=== PATIENT | female | born 1990 | race Caucasian/White ===

== ENCOUNTER → 2017-07-07 13:28 | Outpatient (REF) | payer OTHER, SELFPAY ==
[2017-07-07 19:16] LABS: Basophils # 0.1 K/mm3 (0-0.2); Basophils % 0.4 % (0.1-2.0); Eosinophils # 0.4 K/mm3 (0.0-0.4); Eosinophils % 3.3 % (0.1-12.0); Hematocrit 47.5 % (37.0-47.0); Hemoglobin 15.2 g/dL (12.2-16.2); Lymphocytes # 3.1 K/mm3 (0.7-4.5); Lymphocytes % 26.8 K/mm3 (10-50); Mean Corpuscular HGB Conc 32.1 g/dL (31.8-35.4); Mean Corpuscular Hemoglobin 28.7 pg (27.0-31.2); Mean Corpuscular Volume 89.4 fl (81-99); Mean Platelet Volume 8.4 fl (7.4-10.4); Monocytes # 0.8 K/mm3 (0.1-1.0); Monocytes % 6.5 % (1.7-9.3); Neutrophils # 7.3 K/mm3 (1.8-7.8); Platelet Count 354 K/mm3 (142-424); Red Blood Count 5.31 M/mm3 (4.20-5.40); Red Cell Distribution Width 13.8 % (11.5-17.5); White Blood Count 11.5 K/mm3 (4.8-10.8)
[2017-07-07 19:30] LABS: Alanine Aminotransferase 39 U/L (12-78); Albumin Level 3.6 gm/dL (3.4-5.0); Albumin/Globulin Ratio 0.9 (1.1-1.8); Alkaline Phosphatase 121 U/L (46-116); Anion Gap 11.6 mEq/L (5-15); Aspartate Amino Transferase 21 U/L (15-37); Bilirubin,Total 0.1 mg/dL (0.2-1.0); Blood Urea Nitrogen 15 mg/dL (7-18); Calcium 9.8 mg/dL (8.5-10.1); Carbon Dioxide 27 mmol/L (21.0-32.0); Chloride 103 mmol/L (98-107); Chol/HDL Ratio 5.2 (1-3.5); Cholesterol 194 mg/dL (140-200); Creatinine,Serum 0.84 mg/dL (0.55-1.02); Estimated Glomerular Filt Rate 83 ml/min (>60); Free T4 (Free Thyroxine) 1.04 ng/dl (0.76-1.46); GFR (African American) 100 ML/MIN (>60); Globulin 4.2 gm/dl (1.3-3.2); Glucose 93 mg/dL (74-106); HDL Cholesterol 37 mg/dL (29-89); LDL Cholesterol 117 mg/dL (0-130); Potassium 4.6 mmoL/L (3.5-5.1); Sodium 137 mmol/L (136-145); Thyroid Stimulating Hormone 1.76 uIU/ml (0.358-3.740); Total Protein,Serum 7.8 gm/dL (6.4-8.2); Triglycerides 200 mg/dL (30-200); VLDL Cholesterol 40 mg/dL (0-40)
[2017-07-07 19:48] LABS: Hemoglobin A1C 5.8 % (0.0-7.0)
[2017-07-10 06:26] LABS: Vitamin D 25 Hydroxy 17.6 ng/mL (30.0-100.0)
== END ==
LOC: LAB 13:28
PROVIDERS: Visit Provider Nurse Practitioner Family
DX: R53.83 Other fatigue (principal); Z86.79 Personal history of other diseases of the circulatory system
CPT/HCPCS: 80053; 80061; 82652; 83036; 84439; 84443; 85025

== ENCOUNTER → 2017-08-08 13:46 | Outpatient (CLI) | payer OTHER, SELFPAY ==
--- NOTE | 2017-08-08 13:47 | CA_ITS ---
PROCEDURE: 2-D M-mode and color Doppler study INDICATIONS FOR THE TEST: Chest pain COPD Heart Murmur Tobacco Smoking+ Palpitations Fatigue Syncope Edema Hypertension Diabetes Mellitus Rheumatic Fever SOB CHAND+Obesity Hyperlipidemia Family History HD Additional History ABN EKG, PERICARDIAL WINDOW 12/19/09 PATIENT INFORMATION HEIGHT: 62 WEIGHT:248 GENDER: Female B/P:135/75 2-D/M-MODE INTERPRETATION: 2-D MEASUREMENTS OBSERVED VALUES IN CMS Right Ventricular Dimension (RVDd) 2.5 Interventricular Septum (Thickness)(IVsd) 1.2 Left Ventricular Internal Dimensions(LVIDd) 4.5 Left Ventricular Posterior Wall (Thickness)(LVPWd) 1.0 Aortic Root 2.5 Aortic Cusp Separation 1.9 Left Atrial Dimensions (LAD) 3.7 2D 1. Left atrium is normal size, left ventricle is normal size, there is no concentric left ventricular hypertrophy, visually estimated ejection fraction 55% with no obvious regional wall motion abnormality. 2. The right atrium and right ventricle are normal size and contractility. 3. The aortic valve, mitral and tricuspid valvular grossly normal. 4. The pulmonic valve is poorly visualized. 5. No significant pericardial effusion noted. DOPPLER INTERROGATION: Doppler interrogation of the aortic, mitral and tricuspid valve reveals presence of mild mitral and tricuspid regurgitation, tricuspid and jet velocity is insufficient for calculation of the right ventricular systolic pressure, diastolic parameters are inconclusive. CONCLUSION: 1. Normal left ventricular size, preserved left ventricular systolic function, visually estimated ejection fraction 55% with no obvious regional wall motion abnormality, diastolic parameters are inconclusive. 2. Mild mitral and tricuspid regurgitation 3. No significant pericardial effusion noted.
== END ==
PROVIDERS: Family Provider Family Medicine; PCP Nurse Practitioner Family; Visit Provider Internal Medicine
DX: R06.02 Shortness of breath (principal)
CPT/HCPCS: 93306

== ENCOUNTER → 2018-01-24 18:18 | Outpatient (CLI) | payer OTHER, SELFPAY ==
[2018-01-24 18:51] LABS: Basophils # 0.1 K/mm3 (0-0.2); Basophils % 0.4 % (0.1-2.0); Eosinophils # 0.4 K/mm3 (0.0-0.4); Eosinophils % 3.1 % (0.1-12.0); Hematocrit 46.8 % (37.0-47.0); Hemoglobin 15.2 g/dL (12.2-16.2); Lymphocytes # 3.1 K/mm3 (0.7-4.5); Lymphocytes % 26.3 % (10-50); Mean Corpuscular HGB Conc 32.4 g/dL (31.8-35.4); Mean Corpuscular Hemoglobin 29.7 pg (27.0-31.2); Mean Corpuscular Volume 91.5 fl (81-99); Mean Platelet Volume 8.3 fl (7.4-10.4); Monocytes # 0.7 K/mm3 (0.1-1.0); Monocytes % 6.1 % (1.7-9.3); Neutrophils # 7.5 K/mm3 (1.8-7.8); Platelet Count 360 K/mm3 (142-424); Red Blood Count 5.11 M/mm3 (4.20-5.40); Red Cell Distribution Width 14.4 % (11.5-17.5); White Blood Count 11.8 K/mm3 (4.8-10.8)
[2018-01-24 19:26] LABS: HCG Qualitative, Serum Negative (Negative)
[2018-01-24 20:33] LABS: Alanine Aminotransferase 70 U/L (12-78); Albumin Level 3.7 gm/dL (3.4-5.0); Albumin/Globulin Ratio 0.9 (1.1-1.8); Alkaline Phosphatase 104 U/L (46-116); Anion Gap 15.6 mEq/L (5-15); Aspartate Amino Transferase 29 U/L (15-37); Bilirubin,Total 0.1 mg/dL (0.2-1.0); Blood Urea Nitrogen 15 mg/dL (7-18); Calcium 8.8 mg/dL (8.5-10.1); Carbon Dioxide 24 mmol/L (21.0-32.0); Chloride 103 mmol/L (98-107); Chol/HDL Ratio 4.7 (1-3.5); Cholesterol 221 mg/dL (140-200); Estimated Glomerular Filt Rate 87 ml/min (>60); Free T4 (Free Thyroxine) 1.04 ng/dl (0.76-1.46); GFR (African American) 105 ML/MIN (>60); Globulin 4.3 gm/dl (1.3-3.2); Glucose 82 mg/dL (74-106); HDL Cholesterol 47 mg/dL (29-89); LDL Cholesterol 151 mg/dL (0-130); Potassium 4.6 mmoL/L (3.5-5.1); Sodium 138 mmol/L (136-145); Thyroid Stimulating Hormone 1.29 uIU/ml (0.358-3.740); Triglycerides 116 mg/dL (30-200); VLDL Cholesterol 23 mg/dL (0-40)
[2018-01-27 09:12] LABS: Vitamin D 25 Hydroxy 22.2 ng/mL (30.0-100.0)
== END ==
PROVIDERS: Visit Provider Nurse Practitioner Family
DX: N93.9 Abnormal uterine and vaginal bleeding, unspecified (principal); R53.83 Other fatigue
CPT/HCPCS: 80053; 80061; 82652; 84439; 84443; 84703; 85025

== ENCOUNTER 2018-03-10 14:16 | Outpatient (CLI) | payer OTHER, SELFPAY ==
--- NOTE | 2018-03-10 14:20 | PC.NURSE ---
HERE FOR [facility] PRE EMPLOYMENT PHYSICAL
== END 2018-03-10 15:04 | disposition home or self-care (01) ==
LOC: UTC.OUT 14:17
PROVIDERS: PCP Nurse Practitioner Family; Visit Provider Nurse Practitioner Family
DX: Z00.00 Encounter for general adult medical examination without abnormal findings (principal)

== ENCOUNTER → 2018-08-01 07:04 | Outpatient (CLI) | payer OTHER, SELFPAY ==
--- NOTE | 2018-08-01 07:06 | NM_ITS ---
SPECT MYOCARDIAL PERFUSION SCAN, REST AND STRESS: EXERCISE STRESS: [facility] REVIEW QGS EF AND WALL MOTION EVALUATION: QPS - PERFUSION EVALUATION: HISTORY: SOB, Fatigue, HTN, Tobacco use, Family history PROCEDURE: Rest imaging performed after administration of10.51 millicuries Tc MIBI. Dose administered at7:20 a.m., with imaging thereafter. Stress imaging was then performed following6 minutes of exercise stress. The patient achieved a heart [id number] with projected heart rate of164 . Resting BP100/70 with stress 150/80. At maximum exercise stress,28.8 millicuries Tc MIBI administered at9:30 a.m. with [id number] minutes thereafter. FINDINGS: Perfusion Evaluation: The single slice spect images as well as the [facility] bull's-eye data summary were reviewed. Wall Motion and Ejection Fraction Evaluation: Gated SPECT review and analysis used to evaluate these features. There is a 57 % left ventricular ejection fraction. There seems to be good wall motion Decreased activity in the anterior wall with both stress and rest. Gated images calculated ejection fraction 57% with normal wall motion IMPRESSION: Decent exercise capacity with normal EKG response to exercise. The large anterior defect is most consistent with breast attenuation however clinical correlation is advised. Normal ejection fraction normal wall motion
--- NOTE | 2018-08-01 07:53 | HMH.ITSHM ---
Current Home Medications as stated by this patient Kya Merrill or passenger service representative. []BISOPROLOL PROSAC PRILOSEC CALCIUM COQ10
== END ==
PROVIDERS: PCP Nurse Practitioner Family; Visit Provider Physician Assistant
DX: R07.9 Chest pain, unspecified (principal); I31.3 Pericardial effusion (noninflammatory); R06.09 Other forms of dyspnea; F17.200 Nicotine dependence, unspecified, uncomplicated; Z86.79 Personal history of other diseases of the circulatory system
CPT/HCPCS: 78452; 93017; A9502

== ENCOUNTER → 2019-01-23 13:45 | Outpatient (CLI) | payer OTHER, SELFPAY ==
[2019-01-23 15:27] LABS: Chloride 101 mmol/L (98-107); HDL Cholesterol 48 mg/dL (29-89); Potassium 4.3 mmoL/L (3.5-5.1); Triglycerides 125 mg/dL (30-200); VLDL Cholesterol 25 mg/dL (0-40)
[2019-01-23 15:31] LABS: Hemoglobin A1C 5.9 % (0.0-7.0)
[2019-01-23 15:45] LABS: Alanine Aminotransferase 42 U/L (12-78); Albumin Level 3.5 gm/dL (3.4-5.0); Albumin/Globulin Ratio 0.9 (1.1-1.8); Alkaline Phosphatase 110 U/L (46-116); Anion Gap 12.3 mEq/L (5-15); Aspartate Amino Transferase 24 U/L (15-37); Bilirubin,Total 0.2 mg/dL (0.2-1.0); Blood Urea Nitrogen 12 mg/dL (7-18); Calcium 9.1 mg/dL (8.5-10.1); Carbon Dioxide 25 mmol/L (21.0-32.0); Chol/HDL Ratio 4.6 (1-3.5); Cholesterol 223 mg/dL (140-200); Estimated Glomerular Filt Rate 86 ml/min (>60); GFR (African American) 104 ML/MIN (>60); Globulin 3.9 gm/dl (1.3-3.2); Glucose 88 mg/dL (74-106); LDL Cholesterol 150 mg/dL (0-130); Sodium 134 mmol/L (136-145); Thyroid Stimulating Hormone 1.19 uIU/ml (0.358-3.740); Total Protein,Serum 7.4 gm/dL (6.4-8.2)
== END ==
PROVIDERS: Visit Provider Nurse Practitioner Psychiatric/Mental Health
DX: Z00.00 Encounter for general adult medical examination without abnormal findings (principal); Z79.899 Other long term (current) drug therapy; F98.8 Other specified behavioral and emotional disorders with onset usually occurring in childhood and adolescence; F32.9 Major depressive disorder, single episode, unspecified; F41.1 Generalized anxiety disorder; F43.10 Post-traumatic stress disorder, unspecified
CPT/HCPCS: 36415; 80053; 80061; 83036; 84443

== ENCOUNTER → 2019-02-15 09:38 | Outpatient (CLI) | payer OTHER, SELFPAY ==
[2019-02-15 10:45] LABS: HCG,Quantitative 289 mIU/mL
== END ==
PROVIDERS: Visit Provider Obstetrics & Gynecology
DX: Z32.00 Encounter for pregnancy test, result unknown (principal)
CPT/HCPCS: 36415; 84702

== ENCOUNTER → 2019-03-28 15:18 | Outpatient (CLI) | payer OTHER, SELFPAY ==
[2019-03-28 16:12] LABS: Basophils % 0.3 % (0.1-2.0); Eosinophils # 0.3 K/mm3 (0.0-0.4); Eosinophils % 2.4 % (0.1-12.0); Hematocrit 40.6 % (37.0-47.0); Hemoglobin 13.2 g/dL (12.2-16.2); Lymphocytes % 18.9 % (10-50); Mean Corpuscular HGB Conc 32.4 g/dL (31.8-35.4); Mean Corpuscular Hemoglobin 28.6 pg (27.0-31.2); Mean Corpuscular Volume 88.5 fl (81-99); Mean Platelet Volume 7.6 fl (7.4-10.4); Monocytes # 0.4 K/mm3 (0.1-1.0); Monocytes % 3.7 % (1.7-9.3); Neutrophils % 74.6 % (37.0-80.0); Platelet Count 293 K/mm3 (142-424); Red Blood Count 4.59 M/mm3 (4.20-5.40); White Blood Count 10.7 K/mm3 (4.8-10.8)
[2019-03-28 17:10] LABS: Alanine Aminotransferase 32 U/L (12-78); Albumin Level 3.1 gm/dL (3.4-5.0); Albumin/Globulin Ratio 0.8 (1.1-1.8); Alkaline Phosphatase 76 U/L (46-116); Anion Gap 16.3 mEq/L (5-15); Aspartate Amino Transferase 23 U/L (15-37); Bilirubin,Total 0.2 mg/dL (0.2-1.0); Blood Urea Nitrogen 9 mg/dL (7-18); Carbon Dioxide 23 mmol/L (21.0-32.0); Chloride 103 mmol/L (98-107); Creatinine,Serum 0.62 mg/dL (0.55-1.02); Estimated Glomerular Filt Rate 115 ml/min (>60); GFR (African American) 140 ML/MIN (>60); Globulin 3.9 gm/dl (1.3-3.2); Glucose 81 mg/dL (74-106); Potassium 4.3 mmoL/L (3.5-5.1); Sodium 138 mmol/L (136-145)
[2019-03-30 11:27] LABS: HIV Screen 4th Generation wRfx Non Reactive (Non Reactive); Hepatitis B Surface Antigen Negative (Negative); Hepatitis C Antibody <0.1 s/co ratio (0.0-0.9); Rapid Plasma Reagin Ab Titer Non Reactive (NonRea<1:1)
[2019-03-31 11:04] LABS: Rubella Antibodies, IgG 2.53 index (Immune >0.99)
== END ==
PROVIDERS: Visit Provider Obstetrics & Gynecology
DX: Z34.90 Encounter for supervision of normal pregnancy, unspecified, unspecified trimester (principal)
CPT/HCPCS: 36415; 80053; 85025; 86592; 86703; 86762; 86850; 87340; 87380; G0432

== ENCOUNTER → 2019-05-29 10:17 | Outpatient (CLI) | payer OTHER, SELFPAY ==
--- NOTE | 2019-05-29 10:17 | US_ITS ---
PROCEDURE: US OB /MATERNAL DETAIL CLINICAL INDICATION: US OB Complete COMPARISON: US OB TRANSVAGINAL from 02/22/2019 FINDINGS: Single viable intrauterine gestation. Breech position. Placenta: Posteriorplacenta grade 0. There is average amount fluid. The cervix appears satisfactory. Closed and measuring 4.1 centimeters in length. Complete survey performed and was unremarkable on the submitted images as in PACS. No discrete anomalies identified on survey imaging by technologist. Active fetus. Three-vessel cord with satisfactory umbilical cord insertion. 4- chamber heart noted. Survey of brain & ventricles Unremarkable. Face and neck survey unremarkable. Diaphragm and chest views unremarkable. Abdomen: Both kidneys noted and unremarkable. Stomach noted and satisfactory. Spine: Survey of the spine satisfactory with no anomalies identified nor imaged. Both arms and legs noted. Amniotic Fluid: Adequate. Maternal adnexa: No significant findings. Measurements: Average ultrasound age 19weeks 5days. Gestational Age 19weeks 5days Estimated due date by ultrasound age 0810/18/2019. Estimated weight 320g BPD = 19weeks 1day OFD = 20 weeks 2 days HC = 19weeks 1day AC = 20weeks 1day FL = 20weeks 1day Growth Percentile= 22Percent% Heart Rate = 140bpm Cerebellum = 20weeks 1day Humerus = 20weeks 2days HC/AC is 1.1 CI is 0.74 FL/BPD is 0.74 FL/AC is 0.22 Average ultrasound age 19weeks 5days. Gestational Age 20 weeks 1 day Estimated due date by ultrasound age 0810/18/2019. Estimated weight 320ggrams. BPD = 19 weeks 1 day OFD = 20 weeks 2 days HC = 19 weeks 1 day AC = 20 weeks 1 day FL = 20 weeks 1 day Growth Percentile= 22Percent% Heart Rate = 140bpm Cerebellum = 20 weeks 1 day Humerus = 20 weeks 2 days HC/AC is 1.1 CI is 0.74 FL/BPD is 0.74 FL/AC is 0.22 IMPRESSION: Living intrauterine gestation at 19 weeks 5 days in a breech presentation Dictated by: Enmanuel Emanuel 05/29/2019 12:30 Electronically signed by Enmanuel Emanuel in [place] 05/29/2019 12:30
== END ==
PROVIDERS: PCP Nurse Practitioner Family; Visit Provider Obstetrics & Gynecology
DX: Z36.0 Encounter for antenatal screening for chromosomal anomalies (principal)
CPT/HCPCS: 76811

== ENCOUNTER 2019-06-07 20:19 | Emergency (ER) | payer OTHER, SELFPAY ==
[2019-06-07 20:19] VITALS: BP 143/69; PULSE 100; RESP 16; TEMP 36.6; O2SAT 97; BMI 45.5
[2019-06-07 20:31] VITALS: BP 143/69; PULSE 100; RESP 16; TEMP 36.6; O2SAT 97; BMI 44.1
--- NOTE | 2019-06-07 20:37 | HMH.EDUTC ---
[facility] [place] Clinical Impression: Strep throat Vomiting Qualifiers: Vomiting type: unspecified Vomiting Intractability: non-intractable Nausea presence: with nausea Qualified Code(s): R11.2 - Nausea with vomiting, unspecified Disposition: Home, Self-Care Condition on Discharge: Good Instructions: Strep Throat, DI for Strep Throat Additional Instructions: Drink plenty of fluids. Take tylenol for pain or fever. Notify Dr. Campos about your symptoms and get them to call you in some more metoclopramide for nausea. Take the medications as directed. Follow up with your regular doctor. GO TO THE ER FOR ANY WORSENING SYMPTOMS Referrals: Hellen Guardado APRN [Primary Care Provider] - Forms: Work/School Release Medical Decision Making - Medical Records Medical records reviewed: No: I reviewed the patient's medical records. - [place] Inquiry Pt receiving controlled substance: No Vital Signs: 06/07/19 20:19 06/07/19 20:31 06/07/19 21:07 Temperature 97.8 F 97.8 F 97.8 F Temperature Source Oral Oral Oral Pulse Rate 100 H Pulse Rate [Left Radial] 100 H 100 H Respiratory Rate 16 16 19 Blood Pressure 143/69 H Blood Pressure [Right Arm] 143/69 H 143/69 H Blood Pressure Mean [Right Arm] 93 93 Blood Pressure Source Automatic Cuff Blood Pressure Source [Right Arm] Automatic Cuff Automatic Cuff Blood Pressure Position Sitting Blood Pressure Position [Right Arm] Sitting Sitting 02 Sat by Pulse Oximetry 97 97 Oxygen Delivery Method Room Air Room Air Room Air - Lab Data Lab results reviewed: Yes: I reviewed the patient's lab results. Lab Results 06/07/19 20:37: Urine Color Yellow, Urine Appearance Clear, Urine pH 6.5, Ur Specific [place] 1.025, Urine Protein Negative, Urine Glucose (UA) Negative, Urine Ketones Negative, Urine Blood Trace, Urine Nitrate Negative, Urine Bilirubin Negative, Urine Urobilinogen 0.2, Ur Leukocyte Esterase Negative [facility] [place] - General Stated complaint: 21 wk preg with vomiting Time Seen by Provider: 06/07/19 20:37 Mode of Arrival: Family Vehicle Source of Information: Patient Limitations: No Limitations Description of Symptoms (Recalled from Triage Doc. by RN): pt is 21 weeks and has been nauseous all day. pt denies any and. pain, vag bleeding or respiratory symptoms. pt stated she didnt want to be in the ER if she didnt have to HEENT Symptoms (Recalled from RN notes): No Resp Symptoms (Recalled from RN notes): No Skin Symptoms (Recalled from RN notes): No MS Symptoms (Recalled from RN notes): No Functional Status (Recalled from RN notes): n/a - History of Present Illness Provider Complaint: She states that she has vomited X2 today. She has also had diarrhea 2 times. She denies any blood in her stool or vomit. She is 21 weeks . She denies any vaginal bleeding, abdominal pain, back pain, dysuria, etc. - Related Data Home Medications Medication Instructions Recorded Confirmed Pnv No.95/Ferrous Fum/Folic AC 1 each PO DAILY 03/02/19 05/22/19 [ Vitamins Tablet] Previous Rx's Medication Instructions Recorded metoclopramide HCl 10 mg tablet 10 mg PO TID #30 tab 03/14/19 fluoxetine 40 mg capsule 40 mg PO DAILY #30 cap 05/01/19 omeprazole 20 mg capsule,delayed See Rx Instructions .ROUTE 05/28/19 release .COMPLEX #90 each Penicillin V Potassium 500 mg PO BID 10 Days #20 tab 06/02/19 Allergies Allergy/AdvReac Type Severity Reaction Status Date / Time ibuprofen [IBUPROFEN] Allergy Mild Verified 05/22/19 11:52 - Worker's Comp Is this a Worker's Comp case?: No [facility] History - Hepatitis A Screen Drug use history?: No High risk sexual behaviors?: No History of sexually transmitted infection?: No Currently employed?: No Childcare worker?: No Do you have indoor plumbing?: Yes Do you have electricity?: Yes Attestation statement:: This patient has been screened for Hepatitis A risk factors. I have reviewed the
[2019-06-07 20:38] LABS: Apearance,Urine Clear (Clear); Bilirubin,Urine Negative (Negative); Blood, Urine Trace (Negative); Color,Urine Yellow (Yellow); Glucose,Urine (UA) Negative (Negative); Ketones,Urine Negative (Negative); PH,Urine 6.5 (5.0-8.5); Protein,Urine Negative (Negative); Specific Gravity, Urine 1.025 (1.005-1.030); UTC Leukocyte Esterase,Urine Negative (Negative); UTC Nitrate,Urine Negative (Negative); Urobilinogen,Urine 0.2 EU/dl (0.2)
[2019-06-07 21:07] VITALS: BP 143/69; PULSE 100; RESP 19; TEMP 36.6; O2SAT 97
== END 2019-06-07 21:08 | disposition home or self-care (01) ==
LOC: UTC 20:52
PROVIDERS: Emergency Provider Nurse Practitioner Family; PCP Nurse Practitioner Family
DX: J02.0 Streptococcal pharyngitis (principal); Z3A.21 21 weeks gestation of pregnancy; F41.8 Other specified anxiety disorders; I10 Essential (primary) hypertension; E78.5 Hyperlipidemia, unspecified; F10.21 Alcohol dependence, in remission
CPT/HCPCS: 81003; 99201

== ENCOUNTER 2019-06-13 11:36 | Emergency (ER) | payer OTHER, SELFPAY ==
[2019-06-13 11:49] VITALS: BP 143/83; PULSE 106; RESP 18; TEMP 36.5; O2SAT 98; BMI 45.5
--- NOTE | 2019-06-13 11:58 | HMH.EDUTC ---
[facility] – [place] Disposition Clinical Impression: Right forearm pain Disposition: Home, Self-Care Condition on Discharge: Good Instructions: DI for Arm Pain Additional Instructions: Rest the extremity, Wear the conrad wrap for compression, Elevate the extremity as tolerated while you are resting. Follow up with Dr. Rodríguez. I put in a referral but you need to call her office and schedule an appointment. Follow up with your regular doctor. Follow up with your OB doctor. GO TO THE ER FOR ANY WORSENING SYMPTOMS Referrals: Mike Madrigal MD [Primary Care Provider] - Tamar Rodríguez MD [Physician] - Forms: Work/School Release Time of Disposition: 12:02 Medical Decision Making - Medical Records Medical records reviewed: No: I reviewed the patient's medical records. - [place] Inquiry Pt receiving controlled substance: No Vital Signs: 06/13/19 11:49 06/13/19 12:03 Temperature 97.7 F 97.7 F Temperature Source Oral Pulse Rate 106 H Pulse Rate [Left Brachial] 106 H Respiratory Rate 18 18 Blood Pressure 143/83 H Blood Pressure [Left Arm] 143/83 H Blood Pressure Mean [Left Arm] 103 Blood Pressure Source [Left Arm] Automatic Cuff Blood Pressure Position [Left Arm] Sitting 02 Sat by Pulse Oximetry 98 Oxygen Delivery Method Room Air [facility] [place] HPI - General Stated complaint: right arm pain, no accident Time Seen by Provider: 06/13/19 11:58 Mode of Arrival: Ambulatory Source of Information: Patient Limitations: No Limitations Description of Symptoms (Recalled from Triage Doc. 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 She denies any fall or other injury. She states that the has been 1 swollen area that is tender to touch on the right lateral aspect of her forearm. She is . - Related Data Home Medications Medication Instructions Recorded Confirmed Pnv No.95/Ferrous Fum/Folic AC 1 each PO DAILY 03/02/19 06/13/19 [ Vitamins Tablet] Fluoxetine HCl [Prozac] 40 mg PO DAILY 06/13/19 06/13/19 Metoclopramide HCl [Metoclopramide 10 mg PO TID 06/13/19 06/13/19 10mg Tablet] Omeprazole See Rx Instructions .ROUTE .COMPLEX 06/13/19 06/13/19 Allergies Allergy/AdvReac Type Severity Reaction Status Date / Time ibuprofen [IBUPROFEN] Allergy Mild Verified 05/22/19 11:52 - Worker's Comp Is this a Worker's Comp case?: No [facility] History - Hepatitis A Screen Drug use history?: No High risk sexual behaviors?: No History of sexually transmitted infection?: No Currently employed?: No Childcare worker?: No Do you have indoor plumbing?: Yes Do you have electricity?: Yes Attestation statement:: This patient has been screened for Hepatitis A risk factors. I have reviewed the patient's past medical history: Yes Medical History: Reports:: Anxiety, Depression, Hyperlipidemia, Hypertension Denies:: Asthma, Cancer, Diabetes Mellitus Type 1, Diabetes Mellitus Type 2, Migraine, MRSA, Seizures Other Medical History: Reports: Other. Denies: Anemia, Arthritis Comment: PARACARDITIS,ADHD Other Surgeries: Yes: Cardiac Surgery, Cholecystectomy, Other Amputation: No Fractures: No Comment: WISDOM TEETH, HEART SURGERY - Social History Smoking Status: Current every day smoker Tobacco Type: cigarettes # Packs/Day (cigarettes): 1 #Yrs smoked (if former smoker): 11 Alcohol Intake: never Alcohol Intake Frequency:: holidays/special occas
[2019-06-13 12:03] VITALS: BP 143/83; PULSE 106; RESP 18; TEMP 36.5; O2SAT 98
== END 2019-06-13 12:07 | disposition home or self-care (01) ==
PROVIDERS: Emergency Provider Nurse Practitioner Family; PCP Emergency Medicine
DX: M79.631 Pain in right forearm (principal); S59.811A Other specified injuries right forearm, initial encounter; X50.9XXA Other and unspecified overexertion or strenuous movements or postures, initial encounter; Y93.F9 Activity, other caregiving; Y92.129 Unspecified place in nursing home as the place of occurrence of the external cause; Y99.0 Civilian activity done for income or pay; Z33.1 Pregnant state, incidental; Z88.6 Allergy status to analgesic agent
CPT/HCPCS: 99201

== ENCOUNTER 2019-06-17 14:23 | Outpatient (CLI) | payer OTHER, SELFPAY ==
[2019-06-17 14:49] VITALS: BMI 44.8
[2019-06-17 14:58] LABS: Microscopic, Urine URINE MICROSCOPIC (MICROSCOPIC)
[2019-06-17 15:00] LABS: Appearance,Urine CLEAR (Clear); Bilirubin,Urine Negative (Negative); Blood, Urine Negative (Negative); Color,Urine YELLOW (Yellow); Glucose,Urine (UA) Negative (Negative); Ketones,Urine Negative (Negative); Leukocyte Esterase,Urine Negative (Negative); Nitrate,Urine Negative (Negative); Protein,Urine Negative (Negative); Specific Gravity, Urine >= 1.030 (1.005-1.030); Urobilinogen,Urine 0.2 EU/dl (0.2)
[2019-06-17 15:10] LABS: Amphetamine/Metha Screen,Urine Negative ng/ml (<1000); Barbiturates Screen,Urine Negative ng/ml (<200)
[2019-06-17 15:11] LABS: Benzodiazepines Screen,Urine Negative ng/ml (<200)
[2019-06-17 15:12] LABS: Cannabinoid Screen,Urine Negative ng/ml (<50); Cocaine Screen,Urine Negative ng/ml (<300)
[2019-06-17 15:13] LABS: Amorphous Sediment,Urine 1+ /lpf; Methadone Screen,Urine Negative ng/ml (<300); Mucus,Urine Trace /lpf; Opiate Screen,Urine Negative ng/ml (<300); RBC,Urine Occasional #/hpf (0-3); WBC,Urine Occasional #/hpf (0-3)
[2019-06-17 15:14] LABS: Phencyclidine Screen,Urine Negative ng/ml (<25)
== END 2019-06-17 15:15 | disposition home or self-care (01) ==
LOC: OBOUT 14:25 → OB 14:25
PROVIDERS: PCP Emergency Medicine; Visit Provider Obstetrics & Gynecology
DX: O26.892 Other specified pregnancy related conditions, second trimester; Z3A.23 23 weeks gestation of pregnancy; R04.0 Epistaxis; R11.0 Nausea
CPT/HCPCS: 59025; 80305; 81001

== ENCOUNTER 2019-06-25 09:42 | Outpatient (CLI) | payer OTHER, SELFPAY ==
[2019-06-25 09:53] VITALS: BMI 45.3
[2019-06-25 10:07] LABS: Microscopic, Urine URINE MICROSCOPIC (MICROSCOPIC)
[2019-06-25 10:09] LABS: Appearance,Urine CLEAR (Clear); Bilirubin,Urine Negative (Negative); Blood, Urine 3+ (Negative); Color,Urine YELLOW (Yellow); Glucose,Urine (UA) Negative (Negative); Ketones,Urine Negative (Negative); Leukocyte Esterase,Urine TRACE (Negative); Nitrate,Urine Negative (Negative); Protein,Urine Negative (Negative); Specific Gravity, Urine >= 1.030 (1.005-1.030); Urobilinogen,Urine 0.2 EU/dl (0.2)
[2019-06-25 10:10] VITALS: BP 135/69; PULSE 80; RESP 20; TEMP 36.4; O2SAT 98; BMI 45.3
[2019-06-25 10:20] LABS: Bacteria,Urine 1+ /lpf
[2019-06-25 10:24] LABS: Amphetamine/Metha Screen,Urine Negative ng/ml (<1000); Barbiturates Screen,Urine Negative ng/ml (<200)
[2019-06-25 10:25] LABS: Benzodiazepines Screen,Urine Negative ng/ml (<200)
[2019-06-25 10:26] LABS: Cannabinoid Screen,Urine Negative ng/ml (<50); Cocaine Screen,Urine Negative ng/ml (<300)
[2019-06-25 10:27] LABS: Methadone Screen,Urine Negative ng/ml (<300); Opiate Screen,Urine Negative ng/ml (<300)
[2019-06-25 10:28] LABS: Phencyclidine Screen,Urine Negative ng/ml (<25)
== END 2019-06-25 10:52 | disposition home or self-care (01) ==
LOC: OBOUT 09:43 → OB 09:44
PROVIDERS: Visit Provider Obstetrics & Gynecology
DX: O26.892 Other specified pregnancy related conditions, second trimester (principal); Z3A.24 24 weeks gestation of pregnancy
CPT/HCPCS: 59025; 80305; 81001; 87086; G0463

== ENCOUNTER 2019-06-26 05:53 | Outpatient (CLI) | payer OTHER, SELFPAY ==
[2019-06-26 06:44] VITALS: BP 139/91; PULSE 78; RESP 20; TEMP 36.7; O2SAT 95; BMI 46.6
[2019-06-26 07:05] LABS: Microscopic, Urine URINE MICROSCOPIC (MICROSCOPIC)
[2019-06-26 07:09] LABS: Appearance,Urine CLEAR (Clear); Bilirubin,Urine Negative (Negative); Blood, Urine 2+ (Negative); Color,Urine YELLOW (Yellow); Glucose,Urine (UA) Negative (Negative); Ketones,Urine Negative (Negative); Leukocyte Esterase,Urine Negative (Negative); Nitrate,Urine Negative (Negative); Protein,Urine Negative (Negative); Specific Gravity, Urine >= 1.030 (1.005-1.030); Urobilinogen,Urine 0.2 EU/dl (0.2)
[2019-06-26 07:17] LABS: Bacteria,Urine 1+ /lpf; Mucus,Urine 1+ /lpf
[2019-06-26 07:27] LABS: Basophils # 0.1 K/mm3 (0-0.2); Basophils % 0.4 % (0.1-2.0); Eosinophils # 0.3 K/mm3 (0.0-0.4); Eosinophils % 1.5 % (0.1-12.0); Hematocrit 38.5 % (37.0-47.0); Hemoglobin 12.8 g/dL (12.2-16.2); Lymphocytes # 2.1 K/mm3 (0.7-4.5); Lymphocytes % 9.6 % (10-50); Mean Corpuscular HGB Conc 33.4 g/dL (31.8-35.4); Mean Corpuscular Hemoglobin 29.1 pg (27.0-31.2); Mean Corpuscular Volume 87.4 fl (81-99); Mean Platelet Volume 8.4 fl (7.4-10.4); Monocytes # 0.7 K/mm3 (0.1-1.0); Monocytes % 3.4 % (1.7-9.3); Neutrophils # 18.4 K/mm3 (1.8-7.8); Neutrophils % 85.1 % (37.0-80.0); Platelet Count 323 K/mm3 (142-424); Red Blood Count 4.41 M/mm3 (4.20-5.40); Red Cell Distribution Width 14.1 % (11.5-17.5); White Blood Count 21.7 K/mm3 (4.8-10.8)
[2019-06-26 07:28] LABS: Alanine Aminotransferase 22 U/L (12-78); Albumin Level 3.9 g/dl (3.5-5.0); Albumin/Globulin Ratio 1.1 (1.1-1.8); Alkaline Phosphatase 84 U/L (38-126); Anion Gap 13.8 mEq/L (5-15); Aspartate Amino Transferase 22 U/L (14-36); Blood Urea Nitrogen 13 mg/dl (7-17); Calcium 9.5 mg/dl (8.4-10.2); Carbon Dioxide 18 mmol/L (22.0-30.0); Chloride 106 mmol/L (98-107); Creatinine Clearance Estimated 111 mL/min (50-200); Estimated Glomerular Filt Rate 120 ml/min (>60); GFR (African American) 145 ML/MIN (>60); Globulin 3.5 g/dL (1.3-3.2); Glucose 137 mg/dl (74-100); Potassium 3.8 mmoL/L (3.5-5.1); Sodium 134 mmol/L (136-145); Total Protein,Serum 7.4 g/dl (6.3-8.2)
[2019-06-26 07:31] LABS: MANUAL DIFFERENTIAL MANUAL DIFFERENTIAL (MANUAL DIFF)
[2019-06-26 07:35] LABS: Bilirubin,Total < 0.1 mg/dl (0.2-1.3)
[2019-06-26 08:08] LABS: Eosinophils % 2 % (0-3); Lymphocytes % 11 % (10-50); Monocytes % 5 % (2-9); Neutrophils % 82 % (42-76); Total Cells Counted 100
[2019-06-26 08:09] LABS: Platelet Estimate Slight Increase; RBC Morphology Normal
--- NOTE | 2019-07-18 11:37 | PC.NURSE ---
Kya Merrill Female : 1990 [facility] [place]# [id number] 06/26/19 05:56 - Nurse Note by Aisa Fairchild Acct Num: [id number] : 1990 Patient Age: 28 pt c/o right sided abd. and flank pain with nausea and vomiting. pt is 24 weeks . pt was transported to OB for evaluation. pt refused wheelchair for transportation to OB floor and insisted on walking. handoff report given to DARIUS Collier Initialized on 06/26/19 05:56 - END OF NOTE
== END 2019-06-26 10:01 | disposition home or self-care (01) ==
LOC: OBOUT 05:54 → OB 05:58
PROVIDERS: PCP Emergency Medicine; Visit Provider Obstetrics & Gynecology
DX: O26.892 Other specified pregnancy related conditions, second trimester (principal); Z3A.24 24 weeks gestation of pregnancy; R10.9 Unspecified abdominal pain; R11.2 Nausea with vomiting, unspecified
CPT/HCPCS: 80053; 81001; 85007; 85025; 96366; 96367; G0463; J0595; J2405

== ENCOUNTER 2019-06-26 20:59 | Observation (INO) | payer OTHER, SELFPAY ==
[2019-06-26 20:05] VITALS: BP 131/71; PULSE 82; RESP 18; TEMP 36.9; O2SAT 95
[2019-06-26 20:10] VITALS: BP 131/71; PULSE 82; RESP 18; TEMP 36.9; O2SAT 95; BMI 46.6
[2019-06-26 20:17] VITALS: BMI 46.6
--- NOTE | 2019-06-27 07:00 | US_ITS ---
PROCEDURE: US KIDNEY CLINICAL INDICATION: pt c/o R flank pain Right flank pain, hematuria COMPARISON: US OB /MATERNAL DETAIL from 05/29/2019 FINDINGS: The right kidney is 11 x 5 x 7 cm. There is mild hydronephrosis with fullness of the right renal pelvis and proximal to mid ureter The left kidney is 13 x 6 by 7 cm and has an unremarkable appearance.. IMPRESSION: Mild right hydronephrosis and hydroureter Dictated by: Georges Cruz MD 06/27/2019 13:20 Electronically signed by Georges Cruz MD in [place] 06/27/2019 13:20
[2019-06-27 08:00] VITALS: BP 115/69; PULSE 84; RESP 16; TEMP 36.6; O2SAT 96
--- NOTE | 2019-06-27 09:28 | HMH.HPDC ---
General - General Admission date:: 06/26/19 Discharge date: 06/27/19 *Admission Date: 06/26/19 *Chief complaint: Right flank pain, hematuria, 24 weeks *History of present illness: She is a 28-year-old 4 para 3 who was 24 weeks . She was seen yesterday morning with some right flank pain. She received IV fluids and felt better and was sent home. She returned yesterday evening with worsening flank pain. She had hematuria as well as some white blood cells in her urine. As result of that we elected to admit her overnight. She was started on IV Ancef, she was given some Stadol for pain and IV fluids. She had an ultrasound this morning that showed some slight dilation of the ureter down low but no hydronephrosis seen. Her urinalysis showed hematuria and white blood cells. She has done well overnight and she is now pain-free. heart tones are present. [facility] History I have reviewed the patient's past medical history: Yes Medical History: Reports:: Anxiety, Depression, Hyperlipidemia, Hypertension Denies:: Asthma, Cancer, Diabetes Mellitus Type 1, Diabetes Mellitus Type 2, Migraine, MRSA, Seizures *Have you ever received a pneumonia vaccine?: No *Have you received a flu vaccine this season?: No Other Medical History: Reports: Other. Denies: Anemia, Arthritis Other Surgeries: Yes: Cardiac Surgery, Cholecystectomy, Other. No: Amputation: No Fractures: No - *Social History Smoking Status: Current every day smoker Tobacco Type: cigarettes # Packs/Day (cigarettes): 1 #Yrs smoked (if former smoker): 11 Alcohol Intake: never Alcohol Intake Frequency:: holidays/special occasions only Substance Use Type: marijuana, former substance user, opiates *Occupational Status:: unemployed Housing: house Household Members: family *Travel in the last 8 weeks: None - Psychiatric History Pschychiatric History:: Reports:: Anxiety, Depression Family Hx:: Diabetes, Coronary Artery Disease, Cancer, Tuberculosis, Thyroid Disorder, Kidney Disease, Hypertension, Hyperlipidemia, Asthma, Anemia Para: 3 Review of Systems - Review of Systems Review of systems:: pertinent systems reviewed and negative unless documented below Exam Vital signs and Labs for Last 24 Hours: Temp Pulse Resp BP Pulse Ox 98.4 F 82 18 131/71 95 06/26/19 20:10 06/26/19 20:10 06/26/19 20:10 06/26/19 20:10 06/26/19 20:10 I & O for Last 24 hours: Intake & Output 06/24/19 06/25/19 06/26/19 06/27/19 11:59 11:59 11:59 11:59 Weight 255 lb - Constitutional no acute distress - *Routine HEENT Exam Head: Present: normocephalic Eye: Present: EOMI, PERRL ENT: Present: mucous membranes moist Hospital Course Hospital Course: She has done well in hospital and has remained afebrile with her hospitalization. She is received IV Ancef every 8 hours. She has received IV fluids. Ultrasound showed some slight dilation of the ureter on the right side but no hydronephrosis. Urinalysis showed hematuria and some white blood cells. She is feeling much better this morning. And is discharged home. DS: Diagnosis - Discharge Diagnosis (1) Right flank pain Status: Acute (2) Hematuria Status: Acute (3) with 24 completed weeks gestation Status: Acute Discharge Plan - Patient Discharge Instructions ACTIVITY: No heavy lifting DIET: continue same diet - Follow up Plan Disposition: Home, Self-Retirement Medications: Home Medications Medication Instructions Recorded Confirmed Type Pnv No.95/Ferrous Fum/Folic AC 1 each PO DAILY 03/02/19 06/26/19 History [ Vitamins Tablet] Metoclopramide HCl [Metoclopramide 10 mg PO TID 06/13/19 06/26/19 History 10mg Tablet] Omeprazole See Rx Instructions .ROUTE .COMPLEX 06/13/19 06/26/19 History Fluoxetine HCl [Prozac] 20 mg PO DAILY 06/26/19 06/26/19 History Ferrous Sulfate [Ferrous Sulfate 325 mg PO DAILY #30 tab 06/27/19 Rx 325mg T
--- NOTE | 2019-06-27 10:07 | P.DS_ITS ---
General - General Admission date:: 06/26/19 HPI HPI: She is a 28-year-old 4 para 3 who was 24 weeks . She was seen yesterday morning with some right flank pain. She received IV fluids and felt better and was sent home. She returned yesterday evening with worsening flank pain. She had hematuria as well as some white blood cells in her urine. As result of that we elected to admit her overnight. She was started on IV Ancef, she was given some Stadol for pain and IV fluids. She had an ultrasound this morning that showed some slight dilation of the ureter down low but no hydronephrosis seen. Her urinalysis showed hematuria and white blood cells. She has done well overnight and she is now pain-free. heart tones are present. Objective Vital signs: Temp Pulse Resp BP Pulse Ox 98.4 F 82 18 131/71 95 06/26/19 20:10 06/26/19 20:10 06/26/19 20:10 06/26/19 20:10 06/26/19 20:10 DS: Diagnosis - Discharge Diagnosis (1) Right flank pain Status: Acute (2) Hematuria Status: Acute (3) with 24 completed weeks gestation Status: Acute Discharge Plan - Patient Discharge Instructions ACTIVITY: No heavy lifting DIET: continue same diet Additional Instructions: drink plenty fluids, take antibiotics as prescribed. Patient Instructions: Urinary Tract Infection, Kidney Infection, Hemorrhage, DI for -- Discomforts and Remedies, Antepartum Care - Follow up Plan Follow up with: Luisana Campos MD [Primary Care Provider] - 07/10/19 10:45 am Disposition: Home, Self-Detention Medications: Home Medications Medication Instructions Recorded Confirmed Type Pnv No.95/Ferrous Fum/Folic AC 1 each PO DAILY 03/02/19 06/26/19 History [ Vitamins Tablet] Metoclopramide HCl [Metoclopramide 10 mg PO TID 06/13/19 06/26/19 History 10mg Tablet] Omeprazole See Rx Instructions .ROUTE .COMPLEX 06/13/19 06/26/19 History Fluoxetine HCl [Prozac] 20 mg PO DAILY 06/26/19 06/26/19 History Ferrous Sulfate [Ferrous Sulfate 325 mg PO DAILY #30 tab 06/27/19 Rx 325mg Tablet] cephALEXin [Keflex 500mg Cap] 500 mg PO TID #21 cap 06/27/19 Rx Prescriptions/Medication Reconciliation: New Ferrous Sulfate [Ferrous Sulfate 325mg Tablet] 325 mg PO DAILY #30 tab cephALEXin [Keflex 500mg Cap] 500 mg PO TID #21 cap Continued Pnv No.95/Ferrous Fum/Folic AC [ Vitamins Tablet] 1 each PO DAILY Metoclopramide HCl [Metoclopramide 10mg Tablet] 10 mg PO TID Fluoxetine HCl [Prozac] 20 mg PO DAILY Omeprazole See Rx Instructions .ROUTE .COMPLEX - Problem Reconciliation Problems Reviewed?: Yes
== END 2019-06-27 10:30 | disposition home or self-care (01) ==
LOC: OBOUT 21:01 → OB 21:01
PROVIDERS: Admitting Provider Nurse Practitioner Obstetrics & Gynecology; PCP Obstetrics & Gynecology; Visit Provider Nurse Practitioner Obstetrics & Gynecology
DX: Z34.92 Encounter for supervision of normal pregnancy, unspecified, second trimester (principal); R31.9 Hematuria, unspecified; Z3A.24 24 weeks gestation of pregnancy; R10.31 Right lower quadrant pain
CPT/HCPCS: 59025; 76770; 96360; 96365; 96366; 96367; G0378; G0463; J2405

== ENCOUNTER 2019-06-28 17:05 | Outpatient (CLI) | payer OTHER, SELFPAY ==
[2019-06-28 17:16] VITALS: BMI 45.6
[2019-06-28 17:46] LABS: Microscopic, Urine URINE MICROSCOPIC (MICROSCOPIC)
[2019-06-28 17:54] VITALS: BMI 45.5
[2019-06-28 18:17] LABS: Basophils # 0.1 K/mm3 (0-0.2); Basophils % 0.3 % (0.1-2.0); Eosinophils # 0.3 K/mm3 (0.0-0.4); Eosinophils % 1.7 % (0.1-12.0); Hematocrit 38.4 % (37.0-47.0); Hemoglobin 12.5 g/dL (12.2-16.2); Lymphocytes # 1.7 K/mm3 (0.7-4.5); Lymphocytes % 11.2 % (10-50); Mean Corpuscular HGB Conc 32.5 g/dL (31.8-35.4); Mean Corpuscular Hemoglobin 28.3 pg (27.0-31.2); Mean Platelet Volume 7.7 fl (7.4-10.4); Monocytes # 0.7 K/mm3 (0.1-1.0); Monocytes % 4.3 % (1.7-9.3); Neutrophils # 12.6 K/mm3 (1.8-7.8); Neutrophils % 82.4 % (37.0-80.0); Platelet Count 318 K/mm3 (142-424); Red Blood Count 4.41 M/mm3 (4.20-5.40); Red Cell Distribution Width 13.9 % (11.5-17.5); White Blood Count 15.3 K/mm3 (4.8-10.8)
[2019-06-28 18:18] LABS: Appearance,Urine CLEAR (Clear); Blood, Urine 3+ (Negative); Color,Urine YELLOW (Yellow); Glucose,Urine (UA) Negative (Negative); Ketones,Urine TRACE (Negative); Leukocyte Esterase,Urine Negative (Negative); Nitrate,Urine Negative (Negative); Protein,Urine 1+ (Negative); Specific Gravity, Urine >= 1.030 (1.005-1.030)
[2019-06-28 18:31] LABS: Bilirubin,Urine Negative (Negative); MANUAL DIFFERENTIAL MANUAL DIFFERENTIAL (MANUAL DIFF)
[2019-06-28 18:37] LABS: Bacteria,Urine Trace /lpf; WBC,Urine Occasional #/hpf (0-3)
[2019-06-28 18:47] LABS: Benzodiazepines Screen,Urine Negative ng/ml (<200)
[2019-06-28 18:48] LABS: Amphetamine/Metha Screen,Urine Negative ng/ml (<1000)
[2019-06-28 18:49] LABS: Barbiturates Screen,Urine Negative ng/ml (<200); Cannabinoid Screen,Urine Negative ng/ml (<50)
[2019-06-28 18:50] LABS: Cocaine Screen,Urine Negative ng/ml (<300)
[2019-06-28 18:51] LABS: Methadone Screen,Urine Negative ng/ml (<300); Opiate Screen,Urine Negative ng/ml (<300)
[2019-06-28 18:52] LABS: Phencyclidine Screen,Urine Negative ng/ml (<25)
[2019-06-28 19:24] LABS: Eosinophils % 4 % (0-3); Lymphocytes % 14 % (10-50); Monocytes % 4 % (2-9); Neutrophils % 78 % (42-76); Platelet Estimate Normal; RBC Morphology Normal; Total Cells Counted 100
== END 2019-06-28 22:12 | disposition home or self-care (01) ==
LOC: OBOUT 17:06 → OB 17:16
PROVIDERS: PCP Emergency Medicine; Visit Provider Obstetrics & Gynecology
DX: O26.892 Other specified pregnancy related conditions, second trimester (principal); Z3A.24 24 weeks gestation of pregnancy; R10.9 Unspecified abdominal pain; R31.9 Hematuria, unspecified
CPT/HCPCS: 36415; 80305; 81001; 85007; 85025; 96365; 96366; 96367; G0463; J0595; J2405

== ENCOUNTER → 2019-06-29 11:34 | Outpatient (CLI) | payer OTHER, SELFPAY ==
[2019-06-29 12:07] LABS: Glucose,Fasting 94 mg/dl (74-100)
[2019-06-29 13:18] LABS: Glucose 1 Hour 135 mg/dL (74-100)
== END ==
PROVIDERS: Visit Provider Obstetrics & Gynecology
DX: Z34.90 Encounter for supervision of normal pregnancy, unspecified, unspecified trimester (principal)
CPT/HCPCS: 36415; 82951

== ENCOUNTER 2019-08-08 15:54 | Outpatient (CLI) | payer OTHER, SELFPAY ==
[2019-08-08 16:28] VITALS: BMI 45.7
[2019-08-08 16:31] VITALS: BP 132/77; PULSE 92; RESP 18; TEMP 36.9; O2SAT 96
[2019-08-08 17:13] LABS: Microscopic, Urine URINE MICROSCOPIC (MICROSCOPIC)
[2019-08-08 17:15] LABS: Appearance,Urine CLEAR (Clear); Blood, Urine Negative (Negative); Color,Urine YELLOW (Yellow); Glucose,Urine (UA) Negative (Negative); Ketones,Urine 2+ (Negative); Leukocyte Esterase,Urine Negative (Negative); Nitrate,Urine Negative (Negative); Protein,Urine 1+ (Negative); Specific Gravity, Urine >= 1.030 (1.005-1.030)
[2019-08-08 17:25] LABS: Bilirubin,Urine Negative (Negative)
[2019-08-08 17:26] LABS: Amphetamine/Metha Screen,Urine Negative ng/ml (<1000)
[2019-08-08 17:27] LABS: Barbiturates Screen,Urine Negative ng/ml (<200); Benzodiazepines Screen,Urine Negative ng/ml (<200)
[2019-08-08 17:28] LABS: Cannabinoid Screen,Urine Negative ng/ml (<50)
[2019-08-08 17:29] LABS: Cocaine Screen,Urine Negative ng/ml (<300); Methadone Screen,Urine Negative ng/ml (<300)
[2019-08-08 17:30] LABS: Opiate Screen,Urine Negative ng/ml (<300)
[2019-08-08 17:31] LABS: Phencyclidine Screen,Urine Negative ng/ml (<25)
[2019-08-08 17:39] VITALS: BMI 45.7
[2019-08-08 17:40] LABS: Bacteria,Urine Trace /lpf
== END 2019-08-08 17:40 | disposition home or self-care (01) ==
LOC: OBOUT 15:57 → OB 16:18
PROVIDERS: Nurse Practitioner Obstetrics & Gynecology; Visit Provider Obstetrics & Gynecology
DX: O26.93 Pregnancy related conditions, unspecified, third trimester (principal); Z3A.30 30 weeks gestation of pregnancy
CPT/HCPCS: 59025; 80305; 81001

== ENCOUNTER → 2019-08-17 09:56 | Outpatient (CLI) | payer OTHER, SELFPAY | PROVIDERS: PCP Emergency Medicine; Visit Provider Urology | DX: Z34.90 Encounter for supervision of normal pregnancy, unspecified, unspecified trimester (principal); Z86.79 Personal history of other diseases of the circulatory system; E66.01 Morbid (severe) obesity due to excess calories; E78.2 Mixed hyperlipidemia; I10 Essential (primary) hypertension; Z72.0 Tobacco use | CPT/HCPCS: 93306 ==

== ENCOUNTER → 2019-09-10 09:45 | Outpatient (CLI) | payer OTHER, SELFPAY ==
--- NOTE | 2019-09-10 09:46 | US_ITS ---
PROCEDURE: US OB FOLLOW UP CLINICAL INDICATION: US OB- Growth and RALPH- SGA COMPARISON: US OB /MATERNAL DETAIL from 05/29/2019 FINDINGS: There is a single live fetus which is in cephalic presentation. RALPH is normal at 16 cm. The cervix is closed and measures 3 cm. Following parameters are obtained: BPD 34 weeks 5 days, OFD 36 weeks 2 days, HC 35 weeks 0 days, AC 35 weeks 4 days, FL 35 weeks 0 days. Average ultrasound age is 35 weeks 1 day. Estimated weight is 2618 g which is 49th percentile. All parameters correlate. The fetus urinary bladder is slightly prominent. Posterior grade 1 placenta. IMPRESSION: Live IUP at 35 weeks 1 day. No evidence of IUGR. Please see above for detail Normally amniotic fluid volume index of 16 cm Dictated by: Georges Cruz MD 09/10/2019 19:16 Electronically signed by Georges Cruz MD in [place] 09/10/2019 19:16
== END ==
PROVIDERS: PCP Emergency Medicine; Visit Provider Obstetrics & Gynecology
DX: O36.5990 Maternal care for other known or suspected poor fetal growth, unspecified trimester, not applicable or unspecified (principal)
CPT/HCPCS: 76816; 86403

== ENCOUNTER → 2019-09-10 17:16 | Outpatient (CLI) | payer OTHER, SELFPAY | PROVIDERS: Visit Provider Nurse Practitioner Obstetrics & Gynecology | DX: Z34.90 Encounter for supervision of normal pregnancy, unspecified, unspecified trimester (principal) | CPT/HCPCS: 86403 ==

== ENCOUNTER 2019-10-02 04:42 | Inpatient (IN) | payer OTHER, SELFPAY ==
[2019-10-02 04:48] VITALS: BMI 44.6
[2019-10-02 05:41] VITALS: BP 138/81; PULSE 116; RESP 18; TEMP 36.8; O2SAT 98; BMI 44.6
[2019-10-02 06:17] LABS: Microscopic, Urine URINE MICROSCOPIC (MICROSCOPIC)
[2019-10-02 06:28] LABS: Basophils % 0.2 % (0.1-2.0); Eosinophils # 0.4 K/mm3 (0.0-0.4); Eosinophils % 2.1 % (0.1-12.0); Hemoglobin 12.8 g/dL (12.2-16.2); Lymphocytes % 15.9 % (10-50); Mean Corpuscular HGB Conc 33.7 g/dL (31.8-35.4); Mean Corpuscular Hemoglobin 28.7 pg (27.0-31.2); Mean Corpuscular Volume 85.1 fl (81-99); Monocytes # 0.7 K/mm3 (0.1-1.0); Neutrophils # 14.5 K/mm3 (1.8-7.8); Neutrophils % 77.8 % (37.0-80.0); Platelet Count 308 K/mm3 (142-424); Red Blood Count 4.46 M/mm3 (4.20-5.40); Red Cell Distribution Width 14.3 % (11.5-17.5); White Blood Count 18.6 K/mm3 (4.8-10.8)
[2019-10-02 06:37] LABS: Appearance,Urine CLEAR (Clear); Bilirubin,Urine Negative (Negative); Blood, Urine Negative (Negative); Color,Urine DK YELLOW (Yellow); Glucose,Urine (UA) Negative (Negative); Ketones,Urine Negative (Negative); Leukocyte Esterase,Urine Negative (Negative); Nitrate,Urine Negative (Negative); Protein,Urine Negative (Negative); Specific Gravity, Urine >= 1.030 (1.005-1.030); Urobilinogen,Urine 0.2 EU/dl (0.2)
[2019-10-02 06:39] LABS: MANUAL DIFFERENTIAL MANUAL DIFFERENTIAL (MANUAL DIFF)
[2019-10-02 06:45] LABS: Coronavirus 19 IgG Antibody Negative (Negative); Coronavirus 19 IgM Antibody Negative (Negative)
[2019-10-02 06:48] LABS: Barbiturates Screen,Urine Negative ng/ml (<200); Benzodiazepines Screen,Urine Negative ng/ml (<200)
[2019-10-02 06:49] LABS: Cannabinoid Screen,Urine Negative ng/ml (<50)
[2019-10-02 06:50] LABS: Cocaine Screen,Urine Negative ng/ml (<300)
[2019-10-02 06:51] LABS: Methadone Screen,Urine Negative ng/ml (<300); Opiate Screen,Urine Negative ng/ml (<300)
[2019-10-02 06:52] LABS: Phencyclidine Screen,Urine Negative ng/ml (<25)
[2019-10-02 07:09] LABS: Bacteria,Urine 1+ /lpf
[2019-10-02 07:43] VITALS: BP 103/56; PULSE 92; RESP 18; TEMP 36.4; O2SAT 98
[2019-10-02 08:00] LABS: Chloride 103 mmol/L (98-107)
[2019-10-02 08:01] LABS: Potassium 4.1 mmoL/L (3.5-5.1); Sodium 135 mmol/L (136-145)
[2019-10-02 08:03] LABS: Blood Urea Nitrogen 7 mg/dl (7-17); Creatinine Clearance Estimated 110 mL/min (50-200); Estimated Glomerular Filt Rate 119 ml/min (>60); GFR (African American) 144 ML/MIN (>60)
[2019-10-02 08:04] LABS: Alanine Aminotransferase 22 U/L (12-78); Anion Gap 11.1 mEq/L (5-15); Aspartate Amino Transferase 27 U/L (14-36); Calcium 10.2 mg/dl (8.4-10.2); Carbon Dioxide 25 mmol/L (22.0-30.0); Glucose 105 mg/dl (74-100)
[2019-10-02 08:08] LABS: Activated Partial Thrombo Time 23.9 seconds (23.6-34.0); INR 1.02 (0.9-1.1); Prothrombin Time 10.5 seconds (9.4-11.8)
[2019-10-02 08:23] LABS: Fibrinogen > 500 mg/dL (204-500)
[2019-10-02 08:24] LABS: D-Dimer 2120 ng/mL (0-400)
[2019-10-02 08:29] LABS: Lymphocytes % 21 % (10-50); Monocytes % 3 % (2-9); Neutrophils % 76 % (42-76); Platelet Estimate Normal; Total Cells Counted 100
[2019-10-02 08:30] LABS: RBC Morphology Normal
[2019-10-02 08:32] LABS: Uric Acid 6.6 mg/dl (2.5-6.2)
[2019-10-02 09:51] LABS: Amphetamine/Metha Screen,Urine Negative ng/ml (<1000)
--- NOTE | 2019-10-02 09:57 | HMH.LABNOT ---
Labor Note - Subjective: Date: 10/02/19 Time: 09:57 Comment:: IOL for GHTN No complaints Amniotomy with copious clear fluid IUPC and FSE placed without difficulty or complication - Objective: Cervical Dilation:: 3-4 Effacement:: 75% Station: -1 Membranes: artificially ruptured Comment:: NST showed 1 minute deceleration following amniotomy with loss of copious amniotic fluid Tracing resolved with maternal position change - Fetus: monitoring type:: Internal - Assessment: Patient Problems: All Active Problems Gestational hypertension (Acute) Abdominal pain affecting (Acute) Right flank pain (Acute) Hematuria (Acute) with 24 completed weeks gestation (Acute) Vomiting (Acute) Right forearm pain (Acute) tubal ligation planned (Acute) At risk for sexually transmitted disease due to partner with HIV (Acute) (Acute) Chest pain, pleuritic (Chronic) Nausea & vomiting (Acute) Strep throat (Acute) History of scarlet fever (Chronic) Edema (Acute) HTN (hypertension) (Chronic) Obesity (Chronic) HLD (hyperlipidemia) (Chronic) Tobacco abuse (Chronic) Vitamin D deficiency (Chronic) History of cervical dysplasia (Chronic) Genital HSV (Acute) History of pericarditis (Chronic) - Plan: Comment:: Continue pitocin augmentation patient desires natural childbirth but has been advised that she may receive epidural at any time Continuous monitoring
[2019-10-02 10:43] LABS: Adenovirus,PCR Not Detected (NotDetected); Bordetella Pertussis Not Detected (NotDetected); Chlamydophila Pneumoniae, PCR Not Detected (NotDetected); Coronavirus 19, PCR Not Detected (NotDetected); Coronavirus 229E Not Detected (NotDetected); Coronavirus NL63 Not Detected (NotDetected); Coronavirus OC43 Not Detected (NotDetected); Coronovirus HKU1,PCR Not Detected (NotDetected); Human Metapneumovirus Not Detected (NotDetected); Influenza A, PCR Not Detected (NotDetected); Influenza AH1, 2009 Not Detected (NotDetected); Influenza AH1, PCR Not Detected (NotDetected); Influenza AH3,PCR Not Detected (NotDetected); Influenza B, PCR Not Detected (NotDetected); Mycoplasma Pneumoniae, PCR Not Detected (NotDetected); Parainfluenza 1, PCR Not Detected (NotDetected); Parainfluenza 2, PCR Not Detected (NotDetected); Parainfluenza 3, PCR Not Detected (NotDetected); Parainfluenza 4, PCR Not Detected (NotDetected); Respiratory Syncytial Virus Not Detected (NotDetected); Rhinovirus/Enterovirus Not Detected (NotDetected)
--- NOTE | 2019-10-02 13:58 | P.PN_ITS ---
[facility] Anesthesia Checklist - Patient Identification Patient Identification: Arm Band, Verbal (Name & ) - Structural Data Admitted From: Home Planned Operative Procedure/s: Labor epidural Consent for Planned Operative Procedure(s) Verified: Yes Verified Documents: Surgical Consent, History and Physical - Chart Verification Results Verified: CBC, BMP, PT, PTT, INR, UA (Urine tox) - Additional verifications Patient : Yes Anesthesia Reactions: No - Airway Assessment C-Spine Mobility Assessed: Yes TMJ Mobility Assessed: Yes Dentition: Good Dentition - Neurological Assessment Level of Consciousness: Awake, Alert, Appropriate, Follows Commands Hx Seizures: No Numbness or tingling in extremities: No - Anesthesia Plan Anesthesia Risk discussed: Yes Anesthesia Plan: Verified ASA Class: III Anesthesia Type: Epidural [facility] History I have reviewed the patient's past medical history: Yes Medical History: Reports:: Anxiety, Depression, Hyperlipidemia, Hypertension Denies:: Asthma, Cancer, Diabetes Mellitus Type 1, Diabetes Mellitus Type 2, Migraine, MRSA, Seizures *Have you ever received a pneumonia vaccine?: No *Have you received a flu vaccine this season?: No Other Medical History: Reports: Other. Denies: Anemia, Arthritis Comment:: obesity, hx of pericarditis Anesthesia experience/problems:: none Other Surgeries: Yes: Cardiac Surgery, Cholecystectomy, Other. No: Amputation: No Fractures: No - *Social History Smoking Status: Current every day smoker Tobacco Type: cigarettes # Packs/Day (cigarettes): 1 #Yrs smoked (if former smoker): 11 Alcohol Intake: never Alcohol Intake Frequency:: holidays/special occasions only Substance Use Type: marijuana, former substance user, opiates *Occupational Status:: unemployed Housing: house Household Members: family *Travel in the last 8 weeks: None - Psychiatric History Pschychiatric History:: Reports:: Anxiety, Depression Family Hx:: Diabetes, Coronary Artery Disease, Cancer, Tuberculosis, Thyroid Disorder, Kidney Disease, Hypertension, Hyperlipidemia, Asthma, Anemia Para: 3
[2019-10-02 16:09] VITALS: BP 112/70; PULSE 89; RESP 18; TEMP 36.6; O2SAT 97
--- NOTE | 2019-10-02 16:55 | HMH.DN ---
- Delivery Note Delivery Date:: 10/02/19 Delivery Time:: 14:14 Anesthesia Type: Epidural Was labor medically induced?: Yes delivered prior to 39 weeks?: Yes Justification for early elective delivery:: Gestational Hypertension Infant Gender: Female at 1 minute: 8 at 5 minutes: 9 Delivery Procedure:: Spontaneous vaginal delivery of liveborn female infant over intact perineum. Delivery uncomplicated Nuchal cord x1 reduced on perineum; no shoulder dystocia with delivery Infant placed in BRANDON with mother immediately after umbilical cord clamped/cut, with standard nursing assessment performed Apgars: 8 & 9 Placenta spontaneously expressed and examined; noted to be complete/intact. Vulva, vagina, and cervix inspected; no lacerations EBL: 300 cc All sponge/needle/instrument counts correct at conclusion of procedure Disposition: Mom/baby stable to recovery in LDRP Placental Delivery Description: Spontaneous
[2019-10-03 06:33] LABS: Hematocrit 34.2 % (37.0-47.0); Hemoglobin 11.6 g/dL (12.2-16.2)
--- NOTE | 2019-10-03 07:28 | HMH.ACPN2 ---
Internal Medicine - PN: Subj *Date: 10/03/19 *Time: 07:28 Interval history: PPD #1 No complaints Tolerating regular diet Ambulating and voiding without difficulty BP has been stable No shortness of breath or chest pain Asymptomatic with mild anemia Exam Vital signs and Labs for Last 24 Hours: Temp Pulse Resp BP Pulse Ox 97.9 F 89 18 112/70 97 10/02/19 16:09 10/02/19 16:09 10/02/19 16:09 10/02/19 16:09 10/02/19 16:09 Laboratory Results - last 24 hr 10/02/19 04:58: Ur Amphetamines Screen Negative 10/02/19 06:02: Total Counted 100, Neutrophils % (Manual) 76, Lymphocytes % (Manual) 21, Monocytes % (Manual) 3, Platelet Estimate Normal, RBC Morphology Normal 10/02/19 07:15: PT 10.5, INR 1.02, APTT 23.9, Fibrinogen > 500 H, D-Dimer 2120 H* 10/02/19 07:15: Sodium 135 L, Potassium 4.1, Chloride 103, Carbon Dioxide 25, Anion Gap 11.1, BUN 7, Creatinine 0.60, Estimated Creat Clear 110, Estimated GFR 119, Est GFR ( Amer) 144, Glucose 105 H, Uric Acid 6.6 H, Calcium 10.2, AST 27, ALT 22 10/02/19 10:40: Chlamy pneumoniae PCR Not detected, Adenovirus (PCR) Not detected, B. pertussis DNA (PCR) Not detected, Coronavirus OC43 (PCR) Not detected, Coronavirus HKU1 (PCR) Not detected, Coronavirus 229E (PCR) Not detected, COVID-19 PCR Not detected, Coronavirus NL63 (PCR) Not detected, Human Metapneumovir PCR Not detected, Influenza A (H1) PCR Not detected, Influ A (H1N1/09) PCR Not detected, Influenza A (H3) PCR Not detected, Influenza Type A (PCR) Not detected, Influenza Type B (PCR) Not detected, M. pneumoniae (PCR) Not detected, Parainfluenza 1 (PCR) Not detected, Parainfluenza 2 (PCR) Not detected, Parainfluenza 3 (PCR) Not detected, Parainfluenza 4 (PCR) Not detected, RSV (PCR) Not detected, Entero/Rhino (PCR) Not detected 10/03/19 06:03: Hgb 11.6 L, Hct 34.2 L I & O for Last 24 hours: Intake & Output 09/30/19 10/01/19 10/02/19 10/03/19 11:59 11:59 11:59 11:59 Weight 244 lb Narrative: CONSTITUTIONAL: no acute distress HEENT: mucous membranes moist PULMONARY: breathing unlabored without audible wheezes CV: no tachycardia or visible JVD; normal LE peripheral pulses ABD: soft, NT/ND, no guarding : fundus firm at/below umbilicus SKIN: no visible rash or lesions EXT: 1+ edema LEs NEURO: alert/oriented, no altered mental status PSYCH: appropriate mood and demeanor without anxiety/depression Assessment and Plan (1) 38 weeks gestation of Current visit: Yes Status: Acute Category: Medical Code(s): Z3A.38 - 38 weeks gestation of (2) Normal vaginal delivery Current visit: Yes Status: Acute Category: Medical Code(s): O80 - Encounter for full-term uncomplicated delivery (3) Gestational hypertension Current visit: Yes Status: Acute Category: Medical Code(s): O13.9 - Gestational [-induced] hypertension without significant proteinuria, unspecified trimester (4) At risk for sexually transmitted disease due to partner with HIV Problem details: Partner viral load undetectable Current visit: Yes Status: Acute Category: Social Hx Code(s): Z91.89 - Other specified personal risk factors, not elsewhere classified (5) Obesity Current visit: No Status: Chronic Qualifiers: Category: Medical Code(s): E66.9 - Obesity, unspecified (6) Genital HSV Problem details: acyclovir prn Current visit: Yes Status: Acute Category: Medical Code(s): A60.00 - Herpesviral infection of urogenital system, unspecified (7) History of pericarditis Current visit: Yes Status: Chronic Category: Medical Code(s): Z86.79 - Personal history of other diseases of the circulatory system (8) Tobacco abuse Current visit: Yes Status: Chronic Category: Medical Code(s): Z72.0 - Tobacco use - Assessment and plan all Dx Assessment and Plan for all problems:: Routine care Continue PNV with FeSO4 Anticipate discharge
[2019-10-03 08:00] VITALS: BP 118/68; PULSE 80; RESP 18; TEMP 36.7; O2SAT 96
--- NOTE | 2019-10-03 11:29 | SW/DCPLANNER ---
Addendum entered by Kim Sharif 10/03/19 14:00: CALLED [facility] AND WAS FOLLOWING UP TO SEE IF THIS CASE MET CRITERIA.....I SPOKE WITH ROSE MARY AND HE SAID IT DOESN'T MEET CRITERIA FOR INVESTIGATION.. I WAS SURPRISED SINCE SHE HAS A HISTORY OF DRUG ABUSE, DOESN'T HAVE HER OTHER KIDS AND A CUTTER BUT HE SAID AT THIS TIME THEY ARE NOT GOING TO TAKE THE REFERRAL AND SHE CAN TAKE THE HOME... Original Note: RECEIVED REFERRAL FOR THIS PATIENT STATING PATIENT DOES NOT HAVE CUSTODY OF HER 3 OTHER CHILDREN, HX OF MATERNAL DRUG ABUSE WITH THC AND OPIATES.. SHE PRESENTED INTO THE HOSPITAL, DELIVERED A LIVE BORN FEMALE VIA VAGINAL DELIVERY AND DRUG SCREEN WAS NEGATIVE AT TIME OF ADMISSION.. INFANTS DRUG SCREEN WAS ALSO NEGATIVE, CORD SCREEN WAS COLLECTED AND SENT OFF, WILL FOLLOW UP WITH IT WHEN IT COMES BACK. PATIENT STATED SHE HAS JOINT CUSTODY OF HER OTHER CHILDREN BUT THE NURSE CARING FOR HER STATED SHE TOLD HER THAT SHE HASN'T SEEN THE OTHER KIDS FOR OVER A YEAR.. 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 THERE HAS NOT BEEN ANY EPISODES OF THIS DURING THIS ADMISSION BUT I DID MAKE THAT KNOWN TO [facility]...PATIENT STATED SHE GETS WIC, IS NOT INTERESTED IN THE HANDS PROGRAM AND LIVES WITH THE BABY'S DADDY AND HE WORKS IN [place] IN A FACTORY BUT IS CURRENTLY OFF WITH A KNEE SURGERY..SHE HAS CHOSEN DR FLOYD THE INFANTS DOCTOR... I DID SPEAK WITH HIRAL AT [facility] AND ID# [id number] WAS GIVEN.. WILL CALL BACK LATER IN THE DAY TO LET STAFF KNOW IF THE REFERRAL WAS TAKEN AND WHETHER TO EXPECT A VISIT PRIOR TO DISCHARGE.. PATIENT STATED SHE WILL BE DISCHARGE IN THE AM () IS CURRENTLY PENDING DISCHARGE R/T BLOOD SUGAR ISSUES...
[2019-10-03 19:42] VITALS: BP 140/79; PULSE 69; RESP 18; TEMP 36.7; O2SAT 99
[2019-10-04 00:30] VITALS: BP 136/66; PULSE 80; RESP 18; TEMP 36.9
[2019-10-04 03:48] VITALS: BP 119/60; PULSE 83; RESP 16; TEMP 36.4
--- NOTE | 2019-10-04 09:42 | P.DS_ITS ---
General - General Admission date:: 10/02/19 Discharge date: 10/04/19 Hospital Course Hospital Course: IOL 38+ weeks for gestational hypertension Uncomplicated vaginal delivery course uneventful Ambulating and voiding without difficulty Tolerating regular diet No cardiac symptoms; labs and vitals stable Rhogam Administration: Not Indicated Objective Vital signs: Temp Pulse Resp BP Pulse Ox 97.6 F 83 16 119/60 99 10/04/19 03:48 10/04/19 03:48 10/04/19 03:48 10/04/19 03:48 10/03/19 19:42 Narrative: CONSTITUTIONAL: no acute distress HEENT: mucous membranes moist PULMONARY: breathing unlabored without audible wheezes CV: no tachycardia or visible JVD; normal LE peripheral pulses ABD: soft, NT/ND, no guarding : fundus firm at/below umbilicus SKIN: no visible rash or lesions EXT: 1+ edema LEs NEURO: alert/oriented, no altered mental status PSYCH: appropriate mood and demeanor without visible anxiety/depression DS: Diagnosis - Discharge Diagnosis (1) 38 weeks gestation of Status: Acute (2) Normal vaginal delivery Status: Acute (3) Gestational hypertension Status: Acute (4) At risk for sexually transmitted disease due to partner with HIV Status: Acute Problem details: Partner viral load undetectable (5) Obesity Status: Chronic (6) Genital HSV Status: Acute Problem details: acyclovir prn (7) History of pericarditis Status: Chronic (8) Tobacco abuse Status: Chronic Discharge Plan - Patient Discharge Instructions DIET: regular diet Additional Instructions: NOTHING IN THE VAGINA FOR 6 WEEKS, NO HEAVY LIFTING OR STRENUOUS ACTIVITY. Patient Instructions: Depression, Hemorrhage, DI for Labor and Delivery, Vaginal , DI for Pre-eclampsia, [facility] Post Discharge Instructions, Preventing the Spread of Coronavirus Discharge Instructions - Follow up Plan Follow up with: Luisana Campos MD [Staff Physician] - 11/13/19 10:15 am Disposition: Home, Self-[facility] Medications: Home Medications Medication Instructions Recorded Confirmed Type Pnv No.95/Ferrous Fum/Folic AC 1 each PO DAILY 03/02/19 10/02/19 History [ Vitamins Tablet] omeprazole 20 mg capsule,delayed 20 mg PO DAILY cap 07/31/19 10/02/19 History release metoclopramide HCl 10 mg tablet 10 mg PO TID #30 tab 09/03/19 10/02/19 Rx Valacyclovir HCl [Valacyclovir] 500 mg PO DAILY 10/02/19 10/02/19 History Prescriptions/Medication Reconciliation: New Acetaminophen [Acetaminophen 325mg tab] 650 mg PO Q4HP PRN tablet PRN Reason: Mild Pain Continued omeprazole 20 mg capsule,delayed release 20 mg PO DAILY cap metoclopramide HCl 10 mg tablet 10 mg PO TID #30 tab Pnv No.95/Ferrous Fum/Folic AC [ Vitamins Tablet] 1 each PO DAILY Valacyclovir HCl [Valacyclovir] 500 mg PO DAILY - Problem Reconciliation Problems Reviewed?: Yes
== END 2019-10-04 11:05 | disposition home or self-care (01) | DRG 806 ==
PROVIDERS: Admitting Provider Obstetrics & Gynecology; PCP Emergency Medicine; Visit Provider Obstetrics & Gynecology
DX: O13.9 Gestational [pregnancy-induced] hypertension without significant proteinuria, unspecified trimester (principal); O98.513 Other viral diseases complicating pregnancy, third trimester; Z37.0 Single live birth; Z20.6 Contact with and (suspected) exposure to human immunodeficiency virus [HIV]; Z3A.38 38 weeks gestation of pregnancy; O69.81X0 Labor and delivery complicated by cord around neck, without compression, not applicable or unspecified; O26.43 Herpes gestationis, third trimester; A60.00 Herpesviral infection of urogenital system, unspecified; O10.913 Unspecified pre-existing hypertension complicating pregnancy, third trimester; O11.3 Pre-existing hypertension with pre-eclampsia, third trimester
CPT/HCPCS: 59409; 36415; 59025; 80048; 80305; 81001; 84450; 84460; 84550; 85007; 85014; 85018; 85025; 85378; 85384; 85610; 85730; 86328; 86850; 87581; 87633; 87798; C1758

== ENCOUNTER → 2019-11-17 12:38 | Outpatient (CLI) | payer OTHER, SELFPAY ==
[2019-11-17 13:10] LABS: Basophils # 0.1 K/mm3 (0-0.2); Basophils % 0.5 % (0.1-2.0); Eosinophils # 0.4 K/mm3 (0.0-0.4); Eosinophils % 3.7 % (0.1-12.0); Hematocrit 42.3 % (37.0-47.0); Hemoglobin 14.2 g/dL (12.2-16.2); Lymphocytes # 2.6 K/mm3 (0.7-4.5); Lymphocytes % 21.5 % (10-50); Mean Corpuscular HGB Conc 33.6 g/dL (31.8-35.4); Mean Corpuscular Hemoglobin 28.3 pg (27.0-31.2); Mean Corpuscular Volume 84.3 fl (81-99); Mean Platelet Volume 7.1 fl (7.4-10.4); Monocytes # 0.5 K/mm3 (0.1-1.0); Monocytes % 4.5 % (1.7-9.3); Neutrophils # 8.4 K/mm3 (1.8-7.8); Neutrophils % 69.8 % (37.0-80.0); Platelet Count 404 K/mm3 (142-424); Red Blood Count 5.02 M/mm3 (4.20-5.40); Red Cell Distribution Width 15.3 % (11.5-17.5)
[2019-11-17 14:14] LABS: Chloride 107 mmol/L (98-107)
[2019-11-17 14:15] LABS: Potassium 4.9 mmoL/L (3.5-5.1); Sodium 139 mmol/L (136-145)
[2019-11-17 14:17] LABS: Alanine Aminotransferase 39 U/L (12-78); Alkaline Phosphatase 97 U/L (38-126); Anion Gap 12.9 mEq/L (5-15); Aspartate Amino Transferase 28 U/L (14-36); Bilirubin,Total 0.4 mg/dl (0.2-1.3); Blood Urea Nitrogen 13 mg/dl (7-17); Carbon Dioxide 24 mmol/L (22.0-30.0); Estimated Glomerular Filt Rate 100 ml/min (>60); GFR (African American) 121 ML/MIN (>60)
[2019-11-17 14:18] LABS: Albumin/Globulin Ratio 1.3 (1.1-1.8); Calcium 9.8 mg/dl (8.4-10.2); Glucose 93 mg/dl (74-100)
[2019-11-17 14:36] LABS: HCG,Quantitative < 2 mIU/ml (0-5.42)
[2019-11-17 16:27] LABS: Coronavirus 19 IgG Antibody Negative (Negative); Coronavirus 19 IgM Antibody Negative (Negative)
== END ==
PROVIDERS: Visit Provider Obstetrics & Gynecology
DX: Z01.818 Encounter for other preprocedural examination (principal); Z30.09 Encounter for other general counseling and advice on contraception
CPT/HCPCS: 36415; 80053; 84702; 85025; 86328

== ENCOUNTER 2019-11-20 06:30 | Day surgery (SDC) | payer OTHER, SELFPAY ==
[2019-11-16 15:01] VITALS: BMI 42.0
[2019-11-20] VITALS (15 sets, daily range): BP systolic 123–149; BP diastolic 76–99; PULSE 70–98; RESP 12–23; TEMP 36.2–43; O2SAT 89–97
--- NOTE | 2019-11-20 08:10 | HMH.ANESCL ---
[facility] Anesthesia Checklist - Patient Identification Patient Identification: Verbal (Name & ) - Structural Data Admitted From: Home Planned Operative Procedure/s: BTL, D&C, hysteroscopy, myosure, novasure ablation Consent for Planned Operative Procedure(s) Verified: Yes Verified Documents: Surgical Consent, History and Physical - NPO Status Verified Time NPO: 00:00 - Chart Verification Results Verified: CBC, BMP - Additional verifications Patient : No (8 weeks postpartem) Anesthesia Reactions: No Hx Blood Transfusions: No Blood Transfusion Reaction: No - Airway Assessment C-Spine Mobility Assessed: Yes TMJ Mobility Assessed: Yes Dentition: Good Dentition - Neurological Assessment Level of Consciousness: Awake, Alert, Appropriate, Follows Commands Hx Seizures: No Numbness or tingling in extremities: No - Anesthesia Plan Anesthesia Risk discussed: Yes Anesthesia Plan: Verified ASA Class: III Anesthesia Type: General [facility] History I have reviewed the patient's past medical history: Yes Medical History: Reports:: Anxiety, Depression, Gastroesophageal Reflux Disease(GERD), Kidney Stones Denies:: Asthma, Cancer, Diabetes Mellitus Type 1, Diabetes Mellitus Type 2, Internal Pacemaker, Migraine, MRSA, Seizures *Have you ever received a pneumonia vaccine?: No *Have you received a flu vaccine this season?: No Other Medical History: Reports: Other. Denies: Anemia, Arthritis, Blood Transfusion Reaction Comment:: morbid obesity Anesthesia experience/problems:: no complications noted Other Surgeries: Yes: Cardiac Surgery (Hx of pericardial window due to pericarditis at 19 years old), Cholecystectomy, Other. No: , Pacemaker Amputation: No Fractures: No - *Social History Smoking Status: Current every day smoker (Smoked today) Tobacco Type: cigarettes # Packs/Day (cigarettes): 1 #Yrs smoked (if former smoker): 11 Alcohol Intake: never Alcohol Intake Frequency:: holidays/special occasions only Substance Use Type: marijuana, former substance user, opiates *Occupational Status:: unemployed Housing: house Household Members: family *Travel in the last 8 weeks: None - Psychiatric History Pschychiatric History:: Reports:: Anxiety, Depression Family Hx:: Diabetes, Coronary Artery Disease, Cancer, Tuberculosis, Thyroid Disorder, Kidney Disease, Hypertension, Hyperlipidemia, Asthma, Anemia
--- NOTE | 2019-11-20 09:50 | HMH.ANESI ---
[facility] Anesthesia Record Part I Intake, IV Amount: 600 Estimated blood loss (mL): 5 Urine output (mL): 0 Blood Products used (#): none Blood Pressure: 127/76 SaO2: 94 Pulse Rate: 76 Respiratory Rate: 20 Temperature: 97.7 F Patient is:: Drowsy, Nasal O2, Stable Stable to PACU at:: 09:47
--- NOTE | 2019-11-20 10:04 | P.OP_ITS ---
Date of procedure: 11/20/19 Pre-op Diagnosis:: 1. Undesired fertility 2. Heavy menstrual bleeding Post-op Diagnosis:: same Procedure performed:: Laparoscopic tubal ligation Diagnostic hysteroscopy Surgeon:: Luisana Campos MD ELECTROENCEPHALOGRAPHIC TECHNICIAN:: Dalton Rasmussen Anesthesia: GETA Estimated blood loss (mL): 10 Operative findings:: grossly normal uterus, ovaries and fallopian tubes No cavitary masses, polyps or fibroids Operative note:: The patient was taken to the operating room and general anesthesia was administered. She was prepped/draped in lithotomy position. A uterine manipulator was placed without difficulty. Gloves were changed and attention was turned to the abdomen. A 5mm skin incision was made in the umbilical fold and the Verees needle was inserted through the peritoneum and into the abdominal cavity in standard fashion. The abdomen was insufflated with CO2 gas. A 5mm non-bladed trocar was inserted directly into the abdominal cavity and appropriate placement was confirmed with the laparoscope. No intra-abdominal injuries occurred during entry into the abdominal cavity, as confirmed visually with the laparoscope. The patient was placed in trendelenburg and a 8mm skin incision was made 2cm above the pubic symphysis. A 8mm non-bladed trocar was inserted under direct visualization, without complication. The uterus was elevated out of the pelvis in order to better visualize the anatomy. A survey of the pelvis and abdomen revealed the findings noted above. A small perforation was noted in the posterior uterus from the tip of the Humi uterine manipulatorThe uterus was angled towards the patient right and the left fallopian tube was grasped and a Filshie clip was placed over the tube. The cl ip was noted to completely occlude the tube. The uterus was then angled towards the patient left, and the right fallopian tube was grasped and a Filshie clip was placed over the tube. The clip was noted to completely occlude the tube. The abdomen was then evacuated of gas and all trocars removed. The skin incisions were closed with 4-0 monocryl and Dermabond. Attention was turned below. The uterine manipulator was removed. The cervix was grasped with a single tooth tenaculum the hysteroscope was placed in the uterus; no polyps or fibroids were noted. The small perforation was verified and the ablation procedure was aborted. All instruments were removed from her vagina. Sponge/lap/needle/instrument counts were correct at conclusion of procedure. She was taken out of lithotomy position and awakened from anesthesia, and was taken to the recovery room in stable condition. Condition: stable Disposition: PACU Complications:: uterine perforation by uterine manipulator
--- NOTE | 2019-11-20 10:47 | HMH.ANESII ---
[facility] Anesthesia Record Part II Discharge Time: 10:45 Destination: Surgical Day Care (OP Surgery) PACU nurse assessment reviewed?: Yes Patient Condition:: Good Anesthesia Complications:: None Swallowing reflex intact?: Yes Cyanosis?: No Blood Pressure: 149/83 Pulse Rate: 85 Temperature: 98.0 F Mental Status: Alert & Oriented Pain level:: 2 Nausea and/or vomitting:: None Intake, IV Amount: 30
== END 2019-11-20 11:10 | disposition home or self-care (01) ==
LOC: OR 06:30
PROVIDERS: PCP Emergency Medicine; Visit Provider Obstetrics & Gynecology
PROC: (CPT 58565; principal; 2019-11-20 08:15)
DX: Z30.2 Encounter for sterilization (principal); N93.8 Other specified abnormal uterine and vaginal bleeding; E66.9 Obesity, unspecified; Z86.79 Personal history of other diseases of the circulatory system; Z72.0 Tobacco use; F12.11 Cannabis abuse, in remission; F11.11 Opioid abuse, in remission; Z83.3 Family history of diabetes mellitus; Z82.49 Family history of ischemic heart disease and other diseases of the circulatory system; Z83.438 Family history of other disorder of lipoprotein metabolism and other lipidemia; Z84.1 Family history of disorders of kidney and ureter; Z80.9 Family history of malignant neoplasm, unspecified
CPT/HCPCS: 58565; 96374; J0131; J2405; J2710

== ENCOUNTER → 2019-12-05 10:42 | Outpatient (CLI) | payer OTHER, SELFPAY | PROVIDERS: PCP Emergency Medicine; Visit Provider Emergency Medicine | DX: Z03.818 Encounter for observation for suspected exposure to other biological agents ruled out (principal) | CPT/HCPCS: U0003 ==

== ENCOUNTER 2019-12-28 23:34 | Emergency (ER) | payer OTHER, SELFPAY ==
[2019-12-28 23:35] VITALS: BP 135/76; PULSE 102; RESP 16; TEMP 36.6; O2SAT 98; BMI 42.0
[2019-12-28 23:58] LABS: Strep Scrn Group A (Rapid) Negative (Negative)
[2019-12-29 00:25] VITALS: BP 120/72; PULSE 90; RESP 16; O2SAT 98
--- NOTE | 2019-12-29 01:12 | HMH.EDURI ---
ED Disposition Clinical Impression: Pharyngitis Qualifiers: Pharyngitis/tonsillitis etiology: unspecified etiology Qualified Code(s): J02.9 - Acute pharyngitis, unspecified Disposition: Home, Self-Care Condition on Discharge: Good Instructions: DI for Strep Throat Additional Instructions: fluids and use meds and gargle and change toothbrush and call pcp Prescriptions: cephALEXin [Keflex 500mg Cap] 500 mg PO TID #30 cap [id number] predniSONE [Prednisone 20mg Tab] 20 mg PO BID #10 tab Transmission Status: [id number] Referrals: Mike Madrigal MD [Primary Care Provider] - - Critical Care Critical Care Time: No Attestation: On 12/28/19, the high probability of a clinically significant, sudden or life threatening deterioration of the following system(s) required my full and direct attention, intervention and personal management. The time I documented below is in addition to time spent performing reported procedures but includes the following listed in this critical care notation. Medical Decision Making - Medical Records Medical records reviewed: Yes: I reviewed the patient's medical records. - [place] Inquiry Pt receiving controlled substance: No Vital Signs: 12/28/19 23:35 12/29/19 00:25 Temperature 98 F Temperature Source Oral Pulse Rate [Left Radial] 102 H 90 Respiratory Rate 16 16 Blood Pressure [Right Arm] 135/76 120/72 Blood Pressure Mean [Right Arm] 95 88 Blood Pressure Source [Right Arm] Automatic Cuff Blood Pressure Position [Right Arm] Sitting 02 Sat by Pulse Oximetry 98 98 Oxygen Delivery Method Room Air Room Air - Lab Data Lab results reviewed: Yes: I reviewed the patient's lab results. Lab Results 12/28/19 23:43: Influenza Type A Ag Negative, Influenza Type B Ag Negative 12/28/19 23:43: Group A Strep Rapid Negative Orders (Tests/Meds): ORDERS Category Date Time Status Strep Screen Confirmation Stat Micro 12/28/19 23:43 Received URI/Sore Throat HPI - General Chief Complaint: Upper Respiratory Infection Stated Complaint: Sore Throat Time Seen by Provider: 12/29/19 00:00 Mode of Arrival: Ambulatory Source of Information: Patient, Medical Record Limitations: No Limitations Description of Symptoms (Recalled from ER Triage Doc. by RN): pt c/o a sore throat for the paat 2 days. pt deneis fever, cough or any upper respiratory symptoms at this time. - History of Present Illness HPI Narrative: sore throat w/o rash - tob use - not breast feeding MD Complaint: sore throat Onset (ago): day(s) Severity: moderate Able to tolerate fluids by mouth: Yes Associated symptoms: denies other symptoms Treatments prior to arrival: none - Related Data Home Medications Medication Instructions Recorded Confirmed omeprazole 20 mg capsule,delayed 20 mg PO DAILY cap 07/31/19 12/26/19 release Previous Rx's Medication Instructions Recorded cariprazine 3 mg capsule 3 mg PO DAILY #30 cap 12/10/19 vilazodone 20 mg tablet 20 mg PO DAILY #30 tab 12/10/19 mupirocin 2 % topical ointment 1 applic TOPICAL BID #15 g 12/26/19 cephALEXin [Keflex 500mg Cap] 500 mg PO TID #30 cap 12/29/19 predniSONE [Prednisone 20mg 20 mg PO BID #10 tab 12/29/19 Tab] Allergies Allergy/AdvReac Type Severity Reaction Status Date / Time ibuprofen [IBUPROFEN] Allergy Mild Unknown Verified 12/26/19 11:36 allergy reaction [facility] History - Hepatitis A Screen Drug use history?: No High risk sexual behaviors?: No History of sexually transmitted infection?: No Currently employed?: No Childcare worker?: No Do you have indoor plumbing?: Yes Do you have electricity?: Yes Attestation statement:: This patient has been screened for Hepatitis A risk factors. I have reviewed the patient's past medical history: Yes Medical History: Reports:: Anxiety, Depression, Gastroesophageal Reflux Disease(GERD), Hype
[2019-12-29 01:27] VITALS: BP 118/76; PULSE 67; RESP 16; TEMP 36.8; O2SAT 100
== END 2019-12-29 01:30 | disposition home or self-care (01) ==
PROVIDERS: Emergency Provider Emergency Medicine; PCP Emergency Medicine
DX: J02.9 Acute pharyngitis, unspecified (principal); F17.210 Nicotine dependence, cigarettes, uncomplicated; F41.8 Other specified anxiety disorders; K21.9 Gastro-esophageal reflux disease without esophagitis; E78.5 Hyperlipidemia, unspecified; I10 Essential (primary) hypertension; Z79.899 Other long term (current) drug therapy
CPT/HCPCS: 87275; 87276; 87430; 99283

== ENCOUNTER 2020-04-22 08:22 | Emergency (ER) | payer OTHER, SELFPAY ==
[2020-04-22 08:23] VITALS: BP 128/71; PULSE 98; RESP 18; TEMP 36.6; O2SAT 98; BMI 45.7
--- NOTE | 2020-04-22 08:28 | HMH.EDGENADL ---
ED Disposition Clinical Impression: Left otitis media Qualifiers: Otitis media type: unspecified Qualified Code(s): H66.92 - Otitis media, unspecified, left ear Pharyngitis Qualifiers: Pharyngitis/tonsillitis etiology: streptococcus Qualified Code(s): J02.0 - Streptococcal pharyngitis Disposition: Home, Self-Care Condition on Discharge: Good Instructions: DI for Middle Ear Infection-Adult Additional Instructions: Amoxicillin as prescribed. Tylenol as needed for pain or fever. Additional instructions for UPPER RESPIRATORY INFECTION: See your physician if not improving in 3-4 days or if worsening. Rest and drink plenty of fluids. Return immediately if you have an uncontrollable fever greater than 104 degrees, difficulty breathing or shortness of breath, persistent vomiting, or inability to swallow. Prescriptions: Amoxicillin [Amoxicillin 500mg Cap] 500 mg PO TID #30 cap Transmission Status: Pending to [id number] Referrals: Mike Madrigal MD [Primary Care Provider] - Forms: Work/School Release - Critical Care Critical Care Time: No Attestation: On , the high probability of a clinically significant, sudden or life threatening deterioration of the following system(s) required my full and direct attention, intervention and personal management. The time I documented below is in addition to time spent performing reported procedures but includes the following listed in this critical care notation. Medical Decision Making - Iglesia Inquiry Pt receiving controlled substance: No Vital Signs: 04/22/20 08:23 Temperature 97.8 F Temperature Source Oral Pulse Rate [Right Radial] 98 H Respiratory Rate 18 Blood Pressure [Right Arm] 128/71 Blood Pressure Mean [Right Arm] 90 Blood Pressure Source [Right Arm] Automatic Cuff 02 Sat by Pulse Oximetry 98 Oxygen Delivery Method Room Air - Lab Data Lab Results 04/22/20 08:33: Group A Strep Rapid Positive A General Adult HPI - General Stated complaint: sore throat, left ear pain Time Seen by Provider: 04/22/20 08:28 - History of Present Illness HPI narrative: 1 week history of sore throat on the left side and left-sided earache. Mild decreased. No fever. No cough. Mild rhinorrhea. Prior history of ear infections, but none recently. - Related Data Home Medications Medication Instructions Recorded Confirmed omeprazole 20 mg capsule,delayed 20 mg PO DAILY cap 07/31/19 03/03/20 release Previous Rx's Medication Instructions Recorded cariprazine 3 mg capsule 3 mg PO DAILY #30 cap 02/14/20 vilazodone 20 mg tablet 20 mg PO DAILY #30 tab 02/14/20 bisoprolol fumarate 5 mg tablet 5 mg PO DAILY #30 tab 03/03/20 Amoxicillin [Amoxicillin 500mg 500 mg PO TID #30 cap 04/22/20 Cap] Allergies Allergy/AdvReac Type Severity Reaction Status Date / Time ibuprofen [IBUPROFEN] Allergy Mild Unknown Verified 03/03/20 10:[address] [facility] History - Hepatitis A Screen Attestation statement:: This patient has been screened for Hepatitis A risk factors. I have reviewed the patient's past medical history: Yes Medical History: Reports:: Anxiety, Depression, Gastroesophageal Reflux Disease(GERD), Hyperlipidemia, Hypertension, Kidney Stones Denies:: Asthma, Cancer, Diabetes Mellitus Type 1, Diabetes Mellitus Type 2, Internal Pacemaker, Migraine, MRSA, Seizures Other Medical History: Reports: Other. Denies: Anemia, Arthritis, Blood Transfusion Reaction Comment: morbid obesity Other Surgeries: Yes: Cardiac Surgery (Hx of pericardial window due to pericarditis at 19 years old), Cholecystectomy, Tubal Ligation, Other. No: , Pacemaker Amputation: No Fractures: No Comment: WISDOM TEETH, HEART SURGERY - Social History Smoking Status: Current every day smoker Tobacco Type: cigarettes # Packs/Day (cigarettes): 1 #Yrs smoked (if former smoker): 11 Alcohol Intake: never Alcohol Intake Frequency::
[2020-04-22 09:22] LABS: Strep Scrn Group A (Rapid) Positive (Negative)
[2020-04-22 09:37] VITALS: BP 110/67; PULSE 86; O2SAT 98
[2020-04-22 09:42] VITALS: BP 110/67; PULSE 91; RESP 16; TEMP 36.6; O2SAT 98
== END 2020-04-22 09:42 | disposition home or self-care (01) ==
PROVIDERS: Emergency Provider Emergency Medicine; PCP Emergency Medicine
DX: H66.92 Otitis media, unspecified, left ear (principal); J02.0 Streptococcal pharyngitis; F41.8 Other specified anxiety disorders; K21.9 Gastro-esophageal reflux disease without esophagitis; E78.5 Hyperlipidemia, unspecified; I10 Essential (primary) hypertension; F17.210 Nicotine dependence, cigarettes, uncomplicated; Z79.899 Other long term (current) drug therapy
CPT/HCPCS: 87430; 99282

== ENCOUNTER 2020-05-06 13:03 | Emergency (ER) | payer OTHER, SELFPAY ==
[2020-05-06 13:17] VITALS: BMI 47.5
--- NOTE | 2020-05-06 13:17 | XR_ITS ---
PROCEDURE: XR HAND RT MIN 3V CLINICAL INDICATION: INJURY Pain COMPARISON: No exams were available for comparison FINDINGS: No fracture or dislocation. No lytic or blastic change. There is normal mineralization. The joint spaces are well-preserved. No significant degenerative/arthritic changes. No erosive changes evident. Other findings:None. IMPRESSION: No acute findings. Dictated by: Georges Cruz MD 05/06/2020 14:59 Geogres Cruz MD in [place] 05/06/2020 14:59
--- NOTE | 2020-05-06 13:17 | XR_ITS ---
PROCEDURE: XR WRIST RT MIN 3V CLINICAL INDICATION: INJURY Pain COMPARISON: No exams were available for comparison FINDINGS: No fracture or dislocation. No lytic or blastic change. There is normal mineralization. The joint spaces are well-preserved. No significant degenerative/arthritic changes. No erosive changes evident. Other findings:None. IMPRESSION: No acute findings. Dictated by: Georges Cruz MD 05/06/2020 14:58 Georges Cruz MD in [place] 05/06/2020 14:58
[2020-05-06 13:18] VITALS: BP 133/86; PULSE 102; RESP 20; TEMP 36.8; O2SAT 97; BMI 47.5
--- NOTE | 2020-05-06 13:31 | HMH.EDUTC ---
[facility] Disposition Clinical Impression: Right hand pain, Right wrist pain Disposition: Home, Self-Care Condition on Discharge: Good Instructions: DI for Hand Injury, DI for Hand Pain Additional Instructions: Rest the extremity, apply ice for 15 minutes as tolerated three or four times per day, Wear the conrad wrap for compression, Elevate the extremity as tolerated while you are resting. Take tylenol or ibuprofen for pain. Follow up with Dr. Anglin (orthopedics). Sometimes there can be fractures that don't show up well on the first set of x-rays. So, you should follow up if you continue to have symptoms. I put in a referral but you need to call his office and schedule an appointment. Follow up with your regular doctor. GO TO THE ER FOR ANY WORSENING SYMPTOMS Referrals: Mike Madrigal MD [Primary Care Provider] - Gilberto Anglin MD [Staff Physician] - Forms: Work/School Release Time of Disposition: 14:16 Medical Decision Making - Medical Records Medical records reviewed: No: I reviewed the patient's medical records. - Iglesia Inquiry Pt receiving controlled substance: No Vital Signs: 05/06/20 13:18 05/06/20 14:19 Temperature 98.2 F 98.2 F Temperature Source Oral Pulse Rate 102 H Pulse Rate [Right Brachial] 102 H Respiratory Rate 20 20 Blood Pressure 133/86 Blood Pressure [Right Arm] 133/86 Blood Pressure Mean [Right Arm] 101 Blood Pressure Source [Right Arm] Automatic Cuff Blood Pressure Position [Right Arm] Sitting 02 Sat by Pulse Oximetry 97 Oxygen Delivery Method Room Air [facility] HPI - General Stated complaint: AO [id number] Rt hand injury Time Seen by Provider: 05/06/20 13:31 Mode of Arrival: Ambulatory Source of Information: Patient Limitations: No Limitations Description of Symptoms (Recalled from Triage Doc. by RN): PATIENT STATES SHE INJURED HER RIGHT HAND AND WRIST WHILE ARGUING WITH S/O APPROX 2 WEEKS AGO. STATES SHE IS STILL HAVING PAIN IN WRIST THAT RADIATES INTO HAND HEENT Symptoms (Recalled from RN notes): No Resp Symptoms (Recalled from RN notes): No Skin Symptoms (Recalled from RN notes): No MS Symptoms (Recalled from RN notes): Yes Functional Status (Recalled from RN notes): WNL - History of Present Illness Provider Complaint: She states that she accidentily hit something with her right hand earlier today. Since then she has had right hand and wrist pain. - Related Data Home Medications Medication Instructions Recorded Confirmed omeprazole 20 mg capsule,delayed 20 mg PO DAILY cap 07/31/19 03/03/20 release Previous Rx's Medication Instructions Recorded cariprazine 3 mg capsule 3 mg PO DAILY #30 cap 02/14/20 vilazodone 20 mg tablet 20 mg PO DAILY #30 tab 02/14/20 bisoprolol fumarate 5 mg tablet 5 mg PO DAILY #30 tab 03/03/20 Amoxicillin [Amoxicillin 500mg 500 mg PO TID #30 cap 04/22/20 Cap] norgestimate 0.25 mg-ethinyl 1 tab PO DAILY #28 tab 04/25/20 estradiol 35 mcg tablet Allergies Allergy/AdvReac Type Severity Reaction Status Date / Time ibuprofen [IBUPROFEN] Allergy Mild Unknown Verified 04/25/20 11:00 allergy reaction - Worker's Comp Is this a Worker's Comp case?: No [facility] History - Hepatitis A Screen Drug use history?: No High risk sexual behaviors?: No History of sexually transmitted infection?: No Currently employed?: No Childcare worker?: No Do you have indoor plumbing?: Yes Do you have electricity?: Yes Attestation statement:: This patient has been screened for Hepatitis A risk factors. I have reviewed the patient's past medical history: Yes Medical History: Reports:: Anxiety, Depression, Gastroesophageal Reflux Disease(GERD), Hyperlipidemia, Hypertension, Kidney Stones Denies:: Asthma, Cancer, Diabetes Mellitus Type 1, Diabetes Mellitus Type 2, Internal Pacemaker, Migraine, MRSA, Seizures Other Medical History: Reports: Other. Denies: Anemia, Arthritis, Blood Transfusion Reaction Comment: morbid
[2020-05-06 14:19] VITALS: BP 133/86; PULSE 102; RESP 20; TEMP 36.8; O2SAT 97
== END 2020-05-06 14:29 | disposition home or self-care (01) ==
PROVIDERS: Emergency Provider Nurse Practitioner Family; PCP Emergency Medicine
DX: M79.641 Pain in right hand (principal); M25.531 Pain in right wrist; W22.8XXA Striking against or struck by other objects, initial encounter; Y92.019 Unspecified place in single-family (private) house as the place of occurrence of the external cause; F41.8 Other specified anxiety disorders; K21.9 Gastro-esophageal reflux disease without esophagitis; E78.5 Hyperlipidemia, unspecified; I10 Essential (primary) hypertension; F17.210 Nicotine dependence, cigarettes, uncomplicated; Z87.442 Personal history of urinary calculi; F12.10 Cannabis abuse, uncomplicated
CPT/HCPCS: 73110; 73130; 99202; G0463

== ENCOUNTER 2020-06-02 13:39 | Emergency (ER) | payer OTHER, SELFPAY ==
--- NOTE | 2020-06-02 14:22 | HMH.EDUTC ---
[facility] [place] Clinical Impression: Strep throat Disposition: Home, Self-Care Condition on Discharge: Good Instructions: Strep Throat, DI for Strep Throat Additional Instructions: Drink plenty of fluids. Take tylenol or ibuprofen for pain or fever. Throw your tooth brush away and get a new one tomorrow. Take the medications as directed. Follow up with your regular doctor. GO TO THE ER FOR ANY WORSENING SYMPTOMS Prescriptions: Brompheniramine/Pseudoephed/Dm [Bromfed Dm Cough Syrup] 5 ml PO Q6HP PRN #240 syrup PRN Reason: Cough Transmission Status: Received by [facility] Ondansetron [Zofran 4mg ODT] 4 mg PO Q8HP PRN #20 tab.rapdis PRN Reason: Nausea Transmission Status: [facility] Amoxicillin [Amoxicillin 500mg Tab] 500 mg PO TID 10 Days #30 tab Transmission Status: Received by [facility] Referrals: Mike Madrigal MD [Primary Care Provider] - Forms: Work/School Release Time of Disposition: 14:31 Medical Decision Making - Medical Records Medical records reviewed: No: I reviewed the patient's medical records. - Iglesia Inquiry Pt receiving controlled substance: No Vital Signs: 06/02/20 14:24 06/02/20 14:34 Temperature 97.8 F 98 F Temperature Source Oral Pulse Rate 90 Pulse Rate [Right] 95 H Respiratory Rate 20 16 Blood Pressure 144/87 H Blood Pressure [Right Arm] 155/94 H Blood Pressure Mean [Right Arm] 114 Blood Pressure Source [Right Arm] Automatic Cuff Blood Pressure Position [Right Arm] Sitting 02 Sat by Pulse Oximetry 98 - Lab Data Lab results reviewed: Yes: I reviewed the patient's lab results. Lab Results 06/02/20 14:26: Tst Clinic Negative 06/02/20 14:27: Strep Scn Rapid Clinic Positive A [facility] [place] HPI - General Stated complaint: nausea/vomiting Time Seen by Provider: 06/02/20 14:22 - History of Present Illness Provider Complaint: She c/o n/v since yesterday. She has vomited X2 today. She has also had a scratchy throat and low grade fever. - Related Data Home Medications Medication Instructions Recorded Confirmed omeprazole 20 mg capsule,delayed 20 mg PO DAILY cap 07/31/19 03/03/20 release Previous Rx's Medication Instructions Recorded bisoprolol fumarate 5 mg tablet 5 mg PO DAILY #30 tab 03/03/20 Amoxicillin [Amoxicillin 500mg 500 mg PO TID #30 cap 04/22/20 Cap] norgestimate 0.25 mg-ethinyl 1 tab PO DAILY #28 tab 04/25/20 estradiol 35 mcg tablet cariprazine 3 mg capsule 3 mg PO DAILY #30 cap 05/22/20 vilazodone 20 mg tablet 20 mg PO DAILY #30 tab 05/22/20 Amoxicillin [Amoxicillin 500mg Tab] 500 mg PO TID 10 Days #30 tab 06/02/20 Brompheniramine/Pseudoephed/Dm 5 ml PO Q6HP PRN #240 syrup 06/02/20 [Bromfed Dm Cough Syrup] Ondansetron [Zofran 4mg ODT] 4 mg PO Q8HP PRN #20 tab.rapdis 06/02/20 Allergies Allergy/AdvReac Type Severity Reaction Status Date / Time ibuprofen [IBUPROFEN] Allergy Mild Unknown Verified 04/25/20 11:00 allergy reaction [facility] History - Hepatitis A Screen Attestation statement:: This patient has been screened for Hepatitis A risk factors. I have reviewed the patient's past medical history: Yes Medical History: Reports:: Anxiety, Depression, Gastroesophageal Reflux Disease(GERD), Hyperlipidemia, Hypertension, Kidney Stones Denies:: Asthma, Cancer, Diabetes Mellitus Type 1, Diabetes Mellitus Type 2, Internal Pacemaker, Migraine, MRSA, Seizures Other Medical History: Reports: Other. Denies: Anemia, Arthritis, Blood Transfusion Reaction Comment: morbid obesity Other Surgeries: Yes: Cardiac Surgery (Hx of pericardial window due to pericarditis at 19 years old), Cholecystectomy, Tubal Ligation, Other. No: , Pacemaker Amputation: No Fractures: No Comment: WISDOM TEETH, HEART SURGERY - Social History Smoking Status: Current every day smoker Tobacco Type: cigarettes # Packs/Day (cigarettes): 1 #Yrs smoked
[2020-06-02 14:24] VITALS: BP 155/94; PULSE 95; RESP 20; TEMP 36.6; O2SAT 98; BMI 42.9
[2020-06-02 14:34] VITALS: BP 144/87; PULSE 90; RESP 16; TEMP 36.6
[2020-06-02 19:23] LABS: UTC Strep Screen (Rapid) Positive (Negative)
[2020-06-02 19:23] LABS: UTC Pregnancy Test, Urine Negative (Negative)
== END 2020-06-02 14:42 | disposition home or self-care (01) ==
PROVIDERS: Emergency Provider Nurse Practitioner Family; PCP Emergency Medicine
DX: J02.0 Streptococcal pharyngitis (principal); F41.8 Other specified anxiety disorders; K21.9 Gastro-esophageal reflux disease without esophagitis; E78.5 Hyperlipidemia, unspecified; I10 Essential (primary) hypertension; Z87.442 Personal history of urinary calculi; E66.01 Morbid (severe) obesity due to excess calories; Z68.41 Body mass index [BMI] 40.0-44.9, adult; F17.210 Nicotine dependence, cigarettes, uncomplicated; Z79.899 Other long term (current) drug therapy
CPT/HCPCS: 81025; 87880; 99202; G0463

== ENCOUNTER 2020-07-11 14:50 | Emergency (ER) | payer OTHER, SELFPAY ==
[2020-07-11 15:00] VITALS: BP 135/112; PULSE 95; RESP 22; TEMP 36.8; O2SAT 97; BMI 48.2
--- NOTE | 2020-07-11 15:39 | HMH.EDUTC ---
[facility] [place] Clinical Impression: Strep throat Disposition: Home, Self-Care Condition on Discharge: Good Instructions: DI for Strep Throat Additional Instructions: Start antibiotics today be sure to take it as ordered with the full length of time although you should start feeling better in 24-48 hours. Change toothbrush and toothpaste 24-48 hours after starting antibiotics Tylenol or Motrin as needed for fever or pain Encourage fluids, water, Gatorade, Powerade, try cold fluids, popsicles, ice cream will make it feel better You are contagious for 24 hours. Avoid kissing anyone, no eating or drinking after anyone. You are contagious. Follow-up the ER for new or worsening symptoms or no noticeable improvement over the next 24-48 hours. Follow-up with PCP this week. Prescriptions: Azithromycin [Zithromax 250mg tab] 250 mg PO DIRECTED #6 tab Transmission Status: Pending to [facility] Referrals: Mike Madrigal MD [Primary Care Provider] - Forms: Work/School Release Time of Disposition: 15:45 Medical Decision Making - Iglesia Inquiry Pt receiving controlled substance: No Vital Signs: 07/11/20 15:00 Temperature 98.2 F Temperature Source Oral Pulse Rate [Left Brachial] 95 H Respiratory Rate 22 Blood Pressure [Left Arm] 135/112 H Blood Pressure Mean [Left Arm] 119 Blood Pressure Source [Left Arm] Automatic Cuff Blood Pressure Position [Left Arm] Sitting 02 Sat by Pulse Oximetry 97 Oxygen Delivery Method Room Air [facility] [place] HPI - General Chief complaint: Urgent [facility] Stated complaint: sore throat Time Seen by Provider: 07/11/20 15:39 Mode of Arrival: Ambulatory Source of Information: Patient Limitations: No Limitations Description of Symptoms (Recalled from Triage Doc. by RN): PATIENT C/O SORE THROAT, DIARRHEA, HOT/COLD FLASHES, RUNNY NOSE AND NAUSEA X 2 DAYS HEENT Symptoms (Recalled from RN notes): Yes Resp Symptoms (Recalled from RN notes): No Skin Symptoms (Recalled from RN notes): No MS Symptoms (Recalled from RN notes): No Functional Status (Recalled from RN notes): WNL - History of Present Illness Provider Complaint: 29 yr old female presents for sore throat and nausea for 2 days - Related Data Home Medications Medication Instructions Recorded Confirmed omeprazole 20 mg capsule,delayed 20 mg PO DAILY cap 07/31/19 03/03/20 release Previous Rx's Medication Instructions Recorded bisoprolol fumarate 5 mg tablet 5 mg PO DAILY #30 tab 03/03/20 Amoxicillin [Amoxicillin 500mg 500 mg PO TID #30 cap 04/22/20 Cap] norgestimate 0.25 mg-ethinyl 1 tab PO DAILY #28 tab 04/25/20 estradiol 35 mcg tablet cariprazine 3 mg capsule 3 mg PO DAILY #30 cap 05/22/20 vilazodone 20 mg tablet 20 mg PO DAILY #30 tab 05/22/20 Amoxicillin [Amoxicillin 500mg Tab] 500 mg PO TID 10 Days #30 tab 06/02/20 Brompheniramine/Pseudoephed/Dm 5 ml PO Q6HP PRN #240 syrup 06/02/20 [Bromfed Dm Cough Syrup] Ondansetron [Zofran 4mg ODT] 4 mg PO Q8HP PRN #20 tab.rapdis 06/02/20 lidocaine 5 % topical cream 1 applic TOPICAL BID PRN #15 g 06/26/20 valacyclovir 1 gram tablet 1,000 mg PO BID #14 tab 06/26/20 Azithromycin [Zithromax 250mg 250 mg PO DIRECTED #6 tab 07/11/20 tab] Allergies Allergy/AdvReac Type Severity Reaction Status Date / Time ibuprofen [IBUPROFEN] Allergy Mild Unknown Verified 06/26/20 08:36 allergy reaction - Worker's Comp Is this a Worker's Comp case?: No [facility] History - Hepatitis A Screen Drug use history?: No High risk sexual behaviors?: No History of sexually transmitted infection?: No Currently employed?: No Childcare worker?: No Do you have indoor plumbing?: Yes Do you have electricity?: Yes Attestation statement:: This patient has been screened for Hepatitis A risk factors. I have reviewed the patient's past medical history: Yes Medical History: Reports:: Anxiety, Depression, Gastroesophageal Reflux Disease(GERD), Hyper
[2020-07-11 15:47] VITALS: BP 135/112; PULSE 95; RESP 22; TEMP 36.8; O2SAT 97
== END 2020-07-11 15:51 | disposition home or self-care (01) ==
PROVIDERS: Emergency Provider Nurse Practitioner Family; PCP Emergency Medicine
DX: J02.0 Streptococcal pharyngitis (principal); F41.8 Other specified anxiety disorders; K21.9 Gastro-esophageal reflux disease without esophagitis; I10 Essential (primary) hypertension; Z79.899 Other long term (current) drug therapy; F17.210 Nicotine dependence, cigarettes, uncomplicated
CPT/HCPCS: 99202; G0463

== ENCOUNTER 2020-08-20 11:29 | Emergency (ER) | payer OTHER, SELFPAY ==
[2020-08-20 11:30] VITALS: BP 146/86; PULSE 107; RESP 20; TEMP 36.7; O2SAT 95; BMI 47.5
--- NOTE | 2020-08-20 11:52 | HMH.EDUTC ---
[facility] [place] Disposition Clinical Impression: Gastroenteritis Disposition: Home, Self-Care Condition on Discharge: Good Instructions: Viral Gastroenteritis, DI for Viral Gastroenteritis -- Adult Additional Instructions: Drink plenty of fluids. Take tylenol or ibuprofen for pain or fever. Take the medications as directed. Follow up with your regular doctor. GO TO THE ER FOR ANY WORSENING SYMPTOMS Prescriptions: Promethazine HCl [Phenergan 25mg tab] 25 mg PO Q6H PRN #20 tab PRN Reason: Nausea And Vomiting Transmission Status: Received by [facility] Referrals: Mike Madrigal MD [Primary Care Provider] - Forms: Work/School Release Time of Disposition: 12:00 Medical Decision Making - Medical Records Medical records reviewed: No: I reviewed the patient's medical records. - [place]ia Inquiry Pt receiving controlled substance: No Vital Signs: 08/20/20 11:30 08/20/20 11:57 Temperature 98.1 F 98.1 F Temperature Source Oral Pulse Rate 107 H Pulse Rate [Right Brachial] 107 H Respiratory Rate 20 20 Blood Pressure 146/86 H Blood Pressure [Right Arm] 146/86 H Blood Pressure Mean [Right Arm] 106 Blood Pressure Source [Right Arm] Automatic Cuff Blood Pressure Position [Right Arm] Sitting 02 Sat by Pulse Oximetry 95 Oxygen Delivery Method Room Air [facility] [place] HPI - General Stated complaint: vomiting, diarrhea Time Seen by Provider: 08/20/20 11:52 Mode of Arrival: Ambulatory Source of Information: Patient Limitations: No Limitations Description of Symptoms (Recalled from Triage Doc. by RN): PATIENT C/O VOMITING, DIARRHEA, AND CHILLS SINCE LAST NIGHT. REPORTS HER ROOMMATE HAD DIARRHEA 3 DAYS AGO HEENT Symptoms (Recalled from RN notes): No Resp Symptoms (Recalled from RN notes): No Skin Symptoms (Recalled from RN notes): No MS Symptoms (Recalled from RN notes): No Functional Status (Recalled from RN notes): WNL - History of Present Illness Provider Complaint: She states that for the past 1 day she has had n/v/d. She denies any fever/chills or other complaints. Some members of her family have had similar symptoms. - Related Data Home Medications Medication Instructions Recorded Confirmed omeprazole 20 mg capsule,delayed 20 mg PO DAILY cap 07/31/19 03/03/20 release Previous Rx's Medication Instructions Recorded bisoprolol fumarate 5 mg tablet 5 mg PO DAILY #30 tab 03/03/20 Amoxicillin [Amoxicillin 500mg 500 mg PO TID #30 cap 04/22/20 Cap] norgestimate 0.25 mg-ethinyl 1 tab PO DAILY #28 tab 04/25/20 estradiol 35 mcg tablet cariprazine 3 mg capsule 3 mg PO DAILY #30 cap 05/22/20 vilazodone 20 mg tablet 20 mg PO DAILY #30 tab 05/22/20 Amoxicillin [Amoxicillin 500mg Tab] 500 mg PO TID 10 Days #30 tab 06/02/20 Brompheniramine/Pseudoephed/Dm 5 ml PO Q6HP PRN #240 syrup 06/02/20 [Bromfed Dm Cough Syrup] Ondansetron [Zofran 4mg ODT] 4 mg PO Q8HP PRN #20 tab.rapdis 06/02/20 lidocaine 5 % topical cream 1 applic TOPICAL BID PRN #15 g 06/26/20 valacyclovir 1 gram tablet 1,000 mg PO BID #14 tab 06/26/20 Azithromycin [Zithromax 250mg 250 mg PO DIRECTED #6 tab 07/11/20 tab] Promethazine HCl [Phenergan 25mg 25 mg PO Q6H PRN #20 tab 08/20/20 tab] Allergies Allergy/AdvReac Type Severity Reaction Status Date / Time ibuprofen [IBUPROFEN] Allergy Mild Unknown Verified 06/26/20 08:36 allergy reaction - Worker's Comp Is this a Worker's Comp case?: No [facility] History - Hepatitis A Screen Drug use history?: No High risk sexual behaviors?: No History of sexually transmitted infection?: No Currently employed?: No Childcare worker?: No Do you have indoor plumbing?: Yes Do you have electricity?: Yes Attestation statement:: This patient has been screened for Hepatitis A risk factors. I have reviewed the patient's past medical history: Yes Medical History: Reports:: Anxiety, Depression, Gastroesophageal Reflux Disease(GERD), Hyperlipidem
[2020-08-20 11:57] VITALS: BP 146/86; PULSE 107; RESP 20; TEMP 36.7; O2SAT 95
== END 2020-08-20 12:00 | disposition home or self-care (01) ==
PROVIDERS: Emergency Provider Nurse Practitioner Family; PCP Emergency Medicine
DX: K52.9 Noninfective gastroenteritis and colitis, unspecified (principal); K21.9 Gastro-esophageal reflux disease without esophagitis; F41.8 Other specified anxiety disorders; E78.5 Hyperlipidemia, unspecified; I10 Essential (primary) hypertension; F17.210 Nicotine dependence, cigarettes, uncomplicated
CPT/HCPCS: 99202; G0463

== ENCOUNTER 2020-09-25 17:40 | Emergency (ER) | payer OTHER, SELFPAY ==
[2020-09-25 18:10] VITALS: BP 123/69; PULSE 88; RESP 19; TEMP 36.6; O2SAT 98; BMI 47.5
[2020-09-25 18:20] LABS: Adenovirus,PCR Not Detected (NotDetected); Bordetella Pertussis Not Detected (NotDetected); Chlamydophila Pneumoniae, PCR Not Detected (NotDetected); Coronavirus 19, PCR Not Detected (NotDetected); Coronavirus 229E Not Detected (NotDetected); Coronavirus NL63 Not Detected (NotDetected); Coronavirus OC43 Not Detected (NotDetected); Coronovirus HKU1,PCR Not Detected (NotDetected); Human Metapneumovirus Not Detected (NotDetected); Influenza A, PCR Not Detected (NotDetected); Influenza AH1, 2009 Not Detected (NotDetected); Influenza AH1, PCR Not Detected (NotDetected); Influenza AH3,PCR Not Detected (NotDetected); Influenza B, PCR Not Detected (NotDetected); Mycoplasma Pneumoniae, PCR Not Detected (NotDetected); Parainfluenza 1, PCR Not Detected (NotDetected); Parainfluenza 2, PCR Not Detected (NotDetected); Parainfluenza 3, PCR Not Detected (NotDetected); Parainfluenza 4, PCR Not Detected (NotDetected); Respiratory Syncytial Virus Not Detected (NotDetected)
--- NOTE | 2020-09-25 18:30 | HMH.EDUTC ---
[facility] [place]: Strep throat Disposition: Home, Self-Care Condition on Discharge: Good Instructions: DI for Strep Throat, Strep Throat Additional Instructions: *Monitor Temp, Over the counter Motrin or Tylenol as directed/as needed Tylenol every 4 hours and Motrin every 6 hours (as long as your family doctor has told you that you can take it) for fever or pain. and straight to ER if unable to lower temp less than 101.0 after medication given *Warm salt water gargles may help to soothe the throat *Throat Lozenges *Warm fluids like tea with honey may help to soothe the throat *Sleep elevated *Humidifier/Vaporizer If you did not take Penicillin shot or was unable to, start taking antibiotic immediately and make sure that you take it for the FULL length of time although you should start to feel better in 24-48 hours *change toothbrush and toothpaste 24-48 hours after starting to take antibiotics so you do not reinfect yourself Monitor Temp. Tylenol and/or Ibuprofen as needed. ER if fever is no less than 101 despite alternating Tylenol and Ibuprofen * Encourage fluids, water, Gatorade, powerade, pedialyte if /toddler/or child *Cold fluids, popsicles and ice cream may feel good on his throat Follow up IMMEDIATELY for new or worsening symptoms or no Noticeable improvement over the next 48-72 hours. 911 for difficulty breathing or swallowing You were tested for today for COVID19 your test result should be back in the next 24-48 hours, you may call to the [facility] to see if your test results are back in the next 48 hours [phone] [facility] hours are 9am-9pm You was given a handout with instructions for Self Quarantine and Self isolation for while you wait on test results and what to do if they are positive If you are positive the Health Dept will be contacting you also Prescriptions: Amoxicillin [Amoxicillin 500mg Cap] 500 mg PO TID #30 cap Transmission Status: Pending to [facility] predniSONE [Deltasone 10mg tablet] 10 mg PO BID 5 Days #10 tab Transmission Status: Pending to [facility] Ondansetron [Zofran 4mg ODT] 4 mg PO TIDP PRN #10 tab PRN Reason: Nausea Transmission Status: Pending to [facility] Referrals: Mike Madrigal MD [Primary Care Provider] - As needed Time of Disposition: 18:43 Medical Decision Making - Iglesia Inquiry Pt receiving controlled substance: No Iglesia was queried for this patient: No Vital Signs: 09/25/20 18:10 Temperature 97.8 F Temperature Source Oral Pulse Rate [Left] 88 Respiratory Rate 19 Blood Pressure [Right Arm] 123/69 Blood Pressure Mean [Right Arm] 87 02 Sat by Pulse Oximetry 98 - Lab Data Lab results reviewed: Yes: I reviewed the patient's lab results. Orders (Tests/Meds): ORDERS Category Date Time Status Full Resp Panel w/COVID ([facility]) Routine Lab 09/25/20 18:15 [place] [facility] [place] - General Stated complaint: ORDAZ,congestion, diarhea, vomiting Time Seen by Provider: 09/25/20 18:30 Mode of Arrival: Ambulatory Source of Information: Patient Limitations: No Limitations Description of Symptoms (Recalled from Triage Doc. by RN): pt c/o cough, nasal drainage, ORDAZ, sore throat, n/v/d x1 wk. HEENT Symptoms (Recalled from RN notes): Yes (nasal drainage, ORDAZ and sore throat) Resp Symptoms (Recalled from RN notes): Yes (cough) Skin Symptoms (Recalled from RN notes): No MS Symptoms (Recalled from RN notes): No Functional Status (Recalled from RN notes): na - History of Present Illness Provider Complaint: Patient state that she has not felt well for about a week State that she has been having sore throat tonsils swollen, sinus congestion and pressure, N/V/D on and off and over all not feeling well State that today she noticed her throat was more swollen and hurt when she would swallow so she came in to get checked - Related Data Home Medications Medication Instructions Recorded Confirmed omeprazole
[2020-09-25 18:49] LABS: UTC Strep Screen (Rapid) Positive (Negative)
[2020-09-25 18:59] VITALS: BP 121/75; PULSE 81; RESP 18; TEMP 36.7
[2020-09-25 22:18] LABS: Rhinovirus/Enterovirus Detected (NotDetected)
== END 2020-09-25 18:58 | disposition home or self-care (01) ==
PROVIDERS: Emergency Provider Nurse Practitioner; PCP Emergency Medicine
DX: J02.0 Streptococcal pharyngitis (principal); K21.9 Gastro-esophageal reflux disease without esophagitis; E78.5 Hyperlipidemia, unspecified; F41.8 Other specified anxiety disorders; I10 Essential (primary) hypertension; F17.210 Nicotine dependence, cigarettes, uncomplicated
CPT/HCPCS: 87581; 87633; 87798; 87880; 99203; G0463

== ENCOUNTER 2020-10-06 11:58 | Emergency (ER) | payer OTHER, SELFPAY ==
[2020-10-06 14:32] VITALS: BP 115/64; PULSE 79; RESP 16; TEMP 36.8; O2SAT 99; BMI 47.5
--- NOTE | 2020-10-06 14:35 | XR_ITS ---
PROCEDURE: XR FOOT LT MIN 3V CLINICAL INDICATION: pain COMPARISON: No exams were available for comparison FINDINGS: No fracture or dislocation. No lytic or blastic change. There is normal mineralization. The joint spaces are well-preserved. No significant degenerative/arthritic changes. No erosive changes evident. Other findings:None. IMPRESSION: No acute findings. Dictated by: Georges Cruz MD 10/06/2020 14:59 Georges Cruz MD in [place] 10/06/2020 14:59
--- NOTE | 2020-10-06 14:35 | XR_ITS ---
PROCEDURE: XR ANKLE LT MIN 3V CLINICAL INDICATION: pain COMPARISON: No exams were available for comparison FINDINGS: No fracture or dislocation. No lytic or blastic change. There is normal mineralization. The joint spaces are well-preserved. No significant degenerative/arthritic changes. No erosive changes evident. Other findings:None. IMPRESSION: No acute findings. Dictated by: Georges Cruz MD 10/06/2020 15:01 Georges Cruz MD in [place] 10/06/2020 15:01
--- NOTE | 2020-10-06 15:28 | HMH.EDUTC ---
[facility] [place] Clinical Impression: Left ankle sprain Qualifiers: Encounter type: initial encounter Involved ligament of ankle: unspecified ligament Qualified Code(s): S93.402A - Sprain of unspecified ligament of left ankle, initial encounter Sprain of left foot Qualifiers: Encounter type: initial encounter Qualified Code(s): S93.602A - Unspecified sprain of left foot, initial encounter Disposition: Home, Self-Care Condition on Discharge: Good Instructions: How to Use Crutches, Ankle Sprain, DI for Ankle Sprain, DI for Foot Sprain Additional Instructions: Rest the extremity, apply ice for 15 minutes as tolerated three or four times per day, Wear the conrad wrap for compression, Elevate the extremity as tolerated while you are resting. Take ibuprofen for pain. I sent in a prescription to your pharmacy. Follow up with Dr. York (podiatry). I put in a referral but you need to call her office and schedule an appointment. Follow up with your regular doctor. GO TO THE ER FOR ANY WORSENING SYMPTOMS Referrals: Mike Madrigal MD [Primary Care Provider] - Apurva York DPM [Staff Physician] - Forms: Work/School Release Time of Disposition: 15:33 Medical Decision Making - Medical Records Medical records reviewed: No: I reviewed the patient's medical records. - Iglesia Inquiry Pt receiving controlled substance: No Vital Signs: 10/06/20 14:32 10/06/20 15:55 Temperature 98.2 F 98.5 F Temperature Source Oral Pulse Rate 76 Pulse Rate [Left] 79 Respiratory Rate 16 16 Blood Pressure 119/68 Blood Pressure [Right Arm] 115/64 Blood Pressure Mean [Right Arm] 81 02 Sat by Pulse Oximetry 99 - Radiology Data #1 Image(s): Ankle Image Reviewed: Yes I reviewed the patient's radiology image, Yes I have reviewed radiologist's interpretation Preliminary Findings: Normal/NAD, No Fracture Seen PROCEDURE: XR ANKLE LT MIN 3V CLINICAL INDICATION: pain COMPARISON: No exams were available for comparison FINDINGS: No fracture or dislocation. No lytic or blastic change. There is normal mineralization. The joint spaces are well-preserved. No significant degenerative/arthritic changes. No erosive changes evident. Other findings:None. IMPRESSION: No acute findings. Dictated by: Georges Cruz MD 10/06/2020 15:01 Georges Cruz MD in [place] 10/06/2020 15:01 #2 Image(s): Foot/Toes Image Reviewed: Yes I reviewed the patient's radiology image, Yes I have reviewed radiologist's interpretation Preliminary Findings: Normal/NAD, No Fracture Seen PROCEDURE: XR FOOT LT MIN 3V CLINICAL INDICATION: pain COMPARISON: No exams were available for comparison FINDINGS: No fracture or dislocation. No lytic or blastic change. There is normal mineralization. The joint spaces are well-preserved. No significant degenerative/arthritic changes. No erosive changes evident. Other findings:None. IMPRESSION: No acute findings. Dictated by: Georges Cruz MD 10/06/2020 14:59 Georges Cruz MD in [place] 10/06/2020 14:59 [facility] [place] HPI - General Stated complaint: [id number] left ankle pain, home fall Time Seen by Provider: 10/06/20 15:00 Mode of Arrival: Ambulatory Source of Information: Patient Limitations: No Limitations Description of Symptoms (Recalled from Triage Doc. by RN): pt c/o of L foot/ankle pain. HEENT Symptoms (Recalled from RN notes): No Resp Symptoms (Recalled from RN notes): No Skin Symptoms (Recalled from RN notes): No MS Symptoms (Recalled from RN notes): Yes (L foot/ankle pain) Functional Status (Recalled from RN notes): na - History of Present Illness Provider Complaint: She states that 2 days ago she stepped in a hole in her yard and twisted her left ankle. Since then she has had left ankle and foot swelling and pain. Her pain is worse when she walks or bears weight on her foot. - Related Data Home Medications Medication Instructions Recorded Confirmed omeprazole 2
[2020-10-06 15:55] VITALS: BP 119/68; PULSE 76; RESP 16; TEMP 36.9
== END 2020-10-06 15:55 | disposition home or self-care (01) ==
PROVIDERS: Emergency Provider Nurse Practitioner Family; PCP Emergency Medicine
DX: S93.402A Sprain of unspecified ligament of left ankle, initial encounter (principal); S93.602A Unspecified sprain of left foot, initial encounter; W01.0XXA Fall on same level from slipping, tripping and stumbling without subsequent striking against object, initial encounter; Y92.017 Garden or yard in single-family (private) house as the place of occurrence of the external cause; F41.8 Other specified anxiety disorders; K21.9 Gastro-esophageal reflux disease without esophagitis; E78.5 Hyperlipidemia, unspecified; I10 Essential (primary) hypertension; F17.210 Nicotine dependence, cigarettes, uncomplicated
CPT/HCPCS: 29515; 73610; 73630; 99202; G0463

== ENCOUNTER → 2020-11-21 14:07 | Outpatient (CLI) | payer OTHER, SELFPAY | PROVIDERS: Visit Provider Emergency Medicine | DX: M54.9 Dorsalgia, unspecified (principal); N20.0 Calculus of kidney; N39.0 Urinary tract infection, site not specified | CPT/HCPCS: 87086 ==

== ENCOUNTER 2020-12-08 19:03 | Emergency (ER) | payer OTHER, SELFPAY ==
[2020-12-08 20:00] VITALS: BP 121/79; PULSE 82; RESP 21; TEMP 36.6; O2SAT 99; BMI 41.4
--- NOTE | 2020-12-08 20:48 | HMH.EDUTC ---
[facility] [place]ression: Low back pain Qualifiers: Chronicity: unspecified Back pain laterality: right Sciatica presence: without sciatica Qualified Code(s): M54.50 - Low back pain, unspecified Disposition: Home, Self-Care Condition on Discharge: Good Instructions: DI for Low Back Pain, Low Back Pain, DI for Muscle Spasm Additional Instructions: * You can still take Tylenol every 4 hours as needed if you need something for pain *Ice 20 minutes every 2 hours for the first 48 hours after the initial injury followed by moist heat every 20 minutes 3-4 times a day to affected area *Muscle relaxer every 12 hours as needed for muscle spasms but remember, it WILL cause drowsiness You cannot take it and drive, operate machinery or care for small children. *Keep this area active, no movement leads to more stiffness, However take it easy and avoid heavy lifting pushing or pulling *Follow up with you family doctor if no improvement for further treatment Warm compresses may help with pain Return if needed Straight to ED if any life threatening symptoms Prescriptions: methocarbamoL [Methocarbamol] 750 mg PO BID PRN #10 tab PRN Reason: Muscle Spasm Transmission Status: Pending to [facility] Referrals: Mike Madrigal MD [Primary Care Provider] - As needed Time of Disposition: 21:06 Medical Decision Making - Iglesia Inquiry Pt receiving controlled substance: No Iglesia was queried for this patient: No Vital Signs: 12/08/20 20:00 Temperature 97.8 F Temperature Source Oral Pulse Rate [Right Brachial] 82 Respiratory Rate 21 Blood Pressure [Right Arm] 121/79 Blood Pressure Mean [Right Arm] 93 Blood Pressure Source [Right Arm] Automatic Cuff Blood Pressure Position [Right Arm] Sitting 02 Sat by Pulse Oximetry 99 Oxygen Delivery Method Room Air [facility] [place] - General Stated complaint: lower back pain Time Seen by Provider: 12/08/20 20:48 Mode of Arrival: Ambulatory Source of Information: Patient Limitations: No Limitations Description of Symptoms (Recalled from Triage Doc. by RN): PATIENT C/O LOWER AND RIGHT-SIDED BACK PAIN SINCE LAST NIGHT HEENT Symptoms (Recalled from RN notes): No Resp Symptoms (Recalled from RN notes): No Skin Symptoms (Recalled from RN notes): No MS Symptoms (Recalled from RN notes): Yes Functional Status (Recalled from RN notes): WNL - History of Present Illness Provider Complaint: Patient states that she has a history of back problems States that she was already having some back pain and spasms but her boyfriend was playing last night and rolled over on her left side and she states that she started having spasms in her right side and felt tight and having spasms States that tonight it was worse so she came in to see if she could get something she has been taking tylenol and it hasnt hleped much States that she was treated for UTI a couple weeks ago and that is much better now Denies loss of control of bowel or bladder - Related Data Previous Rx's Medication Instructions Recorded methocarbamoL [Methocarbamol] 750 mg PO BID PRN #10 tab 12/08/20 Allergies Allergy/AdvReac Type Severity Reaction Status Date / Time ibuprofen [IBUPROFEN] Allergy Mild Unknown Verified 11/21/20 09:37 allergy reaction - Worker's Comp Is this a Worker's Comp case?: No [facility] History - Hepatitis A Screen Drug use history?: No High risk sexual behaviors?: No History of sexually transmitted infection?: No Currently employed?: No Childcare worker?: No Do you have indoor plumbing?: Yes Do you have electricity?: Yes Attestation statement:: This patient has been screened for Hepatitis A risk factors. I have reviewed the patient's past medical history: Yes Medical History: Reports:: Anxiety, Depression, Gastroesophageal Reflux Disease(GERD), Hyperlipidemia, Hypertension, Kidney Stones Denies:: Asthma, Cancer, Diabetes Mellitus Type 1, Diabetes Mellitus Type 2, Internal Pacemaker,
[2020-12-08 21:12] VITALS: BP 121/79; PULSE 82; RESP 21; TEMP 36.6; O2SAT 99
== END 2020-12-08 21:13 | disposition home or self-care (01) ==
PROVIDERS: Emergency Provider Nurse Practitioner; PCP Emergency Medicine
DX: M54.50 Low back pain, unspecified (principal)
CPT/HCPCS: 99202; G0463

== ENCOUNTER → 2020-12-11 13:41 | Outpatient (CLI) | payer OTHER, SELFPAY ==
[2020-12-11 13:55] LABS: Basophils # 0.1 K/mm3 (0-0.2); Basophils % 0.6 % (0.1-2.0); Eosinophils # 0.5 K/mm3 (0.0-0.4); Eosinophils % 3.9 % (0.1-12.0); Hematocrit 45.3 % (37.0-47.0); Hemoglobin 14.6 g/dL (12.2-16.2); Lymphocytes # 2.9 K/mm3 (0.7-4.5); Lymphocytes % 21.9 % (10-50); Mean Corpuscular HGB Conc 32.3 g/dL (31.8-35.4); Mean Corpuscular Volume 89.8 fl (81-99); Mean Platelet Volume 8.9 fl (7.4-10.4); Monocytes # 0.8 K/mm3 (0.1-1.0); Monocytes % 5.6 % (1.7-9.3); Neutrophils # 9.1 K/mm3 (1.8-7.8); Platelet Count 394 K/mm3 (142-424); Red Blood Count 5.05 M/mm3 (4.20-5.40); Red Cell Distribution Width 15.1 % (11.5-17.5); White Blood Count 13.4 K/mm3 (4.8-10.8)
[2020-12-11 14:06] LABS: Chloride 106 mmol/L (98-107); Potassium 4.6 mmoL/L (3.5-5.1); Sodium 136 mmol/L (136-145)
[2020-12-11 14:09] LABS: Alanine Aminotransferase 34 U/L (12-78); Albumin Level 3.8 g/dl (3.5-5.0); Albumin/Globulin Ratio 1.2 (1.1-1.8); Alkaline Phosphatase 111 U/L (38-126); Anion Gap 12.6 mEq/L (5-15); Aspartate Amino Transferase 34 U/L (14-36); Blood Urea Nitrogen 12 mg/dl (7-17); Carbon Dioxide 22 mmol/L (22.0-30.0); Cholesterol 197 mg/dl (140-200); Estimated Glomerular Filt Rate 146 ml/min (>60); GFR (African American) 177 ML/MIN (>60); Globulin 3.2 g/dL (1.3-3.2); Glucose 105 mg/dl (74-100); Triglycerides 164 mg/dl (30-150); VLDL Cholesterol 33 mg/dL (0-40)
[2020-12-11 14:10] LABS: Chol/HDL Ratio 3.9 (1-3.5); HDL Cholesterol 50 mg/dl (40-60)
[2020-12-11 14:15] LABS: Bilirubin,Total < 0.1 mg/dl (0.2-1.3)
[2020-12-11 14:20] LABS: 25-OH Vitamin D, Total 26.8 ng/mL (30-100)
[2020-12-11 14:27] LABS: T4 (Thyroxine) 8.4 ug/dl (5.53-11.0)
[2020-12-11 14:43] LABS: Thyroid Stimulating Hormone 3.01 uIU/mL (0.465-4.68)
== END ==
PROVIDERS: Visit Provider Nurse Practitioner Family
DX: I10 Essential (primary) hypertension (principal); E78.5 Hyperlipidemia, unspecified; E55.9 Vitamin D deficiency, unspecified; F17.210 Nicotine dependence, cigarettes, uncomplicated
CPT/HCPCS: 80053; 80061; 82306; 84436; 84443; 85025

== ENCOUNTER 2021-01-23 13:16 | Emergency (ER) | payer OTHER, SELFPAY ==
[2021-01-23 14:35] VITALS: BP 125/72; PULSE 70; RESP 20; TEMP 36.4; O2SAT 99; BMI 47.3
[2021-01-23 15:01] LABS: Apearance,Urine Clear (Clear); Color,Urine Amber (Yellow); PH,Urine 5.5 (5.0-8.5); Protein,Urine 1+ (Negative); Specific Gravity, Urine 1.025 (1.005-1.030)
[2021-01-23 15:02] LABS: Bilirubin,Urine Negative (Negative); Blood, Urine 3+ (Negative); Glucose,Urine (UA) Negative (Negative); Ketones,Urine Negative (Negative); UTC Leukocyte Esterase,Urine Negative (Negative); UTC Nitrate,Urine Negative (Negative); Urobilinogen,Urine 0.2 EU/dl (0.2)
--- NOTE | 2021-01-23 15:36 | HMH.EDUTC ---
[facility] [place] Clinical Impression: Low back pain Qualifiers: Chronicity: unspecified Back pain laterality: bilateral Sciatica presence: with sciatica Sciatica laterality: bilateral sciatica Qualified Code(s): M54.42 - Lumbago with sciatica, left side Radiculopathy Qualifiers: Spinal region: lumbar Qualified Code(s): M54.16 - Radiculopathy, lumbar region Disposition: Home, Self-Care Condition on Discharge: Good Instructions: Low Back Pain, DI for Low Back Pain, DI for Lumbar Radiculopathy Additional Instructions: Go home and rest. It would be best if you rested tomorrow too. No heavy lifting. No twisting. Take the oral medications as directed. The muscle relaxer (cyclobenzaprine--Flexeril) will make you drowsy, so don't drive or operate heavy machinery after taking it. Don't start the oral steroids (medrol dose pack) until tomorrow, since you had the shots in here today. Follow up with your regular doctor. GO TO THE ER FOR ANY WORSENING SYMPTOMS OR CONCERN, ESPECIALLY BOWEL OR BLADDER ISSUES, SADDLE AREA NUMBNESS, FEVER, ETC Prescriptions: Cyclobenzaprine HCl [Cyclobenzaprine 10mg Tab] 10 mg PO BIDP PRN #30 tab PRN Reason: Muscle Spasm Transmission Status: Received by [facility]91 methylPREDNISolone [Medrol] 4 mg PO DIRECTED 6 Days #21 packet Transmission Status: Received by [facility] Referrals: Mike Madrigal MD [Primary Care Provider] - Forms: Work/School Release Time of Disposition: 16:33 Medical Decision Making - Medical Records Medical records reviewed: No: I reviewed the patient's medical records. - Iglesia Inquiry Pt receiving controlled substance: No Vital Signs: 01/23/21 14:35 01/23/21 16:37 Temperature 97.6 F 97.6 F Temperature Source Oral Pulse Rate 70 Pulse Rate [Right Brachial] 70 Respiratory Rate 20 20 Blood Pressure 125/72 Blood Pressure [Right Arm] 125/72 Blood Pressure Mean [Right Arm] 89 Blood Pressure Source [Right Arm] Automatic Cuff Blood Pressure Position [Right Arm] Sitting 02 Sat by Pulse Oximetry 99 Oxygen Delivery Method Room Air - Lab Data Lab Results 01/23/21 14:56: Urine Color Katelyn, Urine Appearance Clear, Urine pH 5.5, Ur Specific [place] 1.025, Urine Protein 1+, Urine Glucose (UA) Negative, Urine Ketones Negative, Urine Blood 3+, Urine Nitrate Negative, Urine Bilirubin Negative, Urine Urobilinogen 0.2, Ur Leukocyte Esterase Negative Orders (Tests/Meds): ED MEDICATIONS Discontinued Medications Generic Name Dose Route Start Last Admin Trade Name Estefany PRN Reason Stop Dose Admin Methylprednisolone Sodium Succinate 125 mg 01/23/21 16:32 01/23/21 16:35 Methylprednisolone Sod Succ 125mg Vial IM 01/23/21 16:33 125 mg ONCE ONE Administration [facility] [place] HPI - General Stated complaint: lower back pain Time Seen by Provider: 01/23/21 15:36 Mode of Arrival: Ambulatory Source of Information: Patient Limitations: No Limitations Description of Symptoms (Recalled from Triage Doc. by RN): PATIENT C/O BILATERAL LOWER BACK PAIN THAT GOT WORSE LAST NIGHT. SHE STATES WHEN SHE BENDS OVER IT SHOOTS PAIN INTO HER BUTTOCK. HEENT Symptoms (Recalled from RN notes): No Resp Symptoms (Recalled from RN notes): No Skin Symptoms (Recalled from RN notes): No MS Symptoms (Recalled from RN notes): Yes Functional Status (Recalled from RN notes): WNL - History of Present Illness Provider Complaint: She c/o having low back pain that is worse with bending and twisting. She denies any injury. She states that she has had issues with low back pain since she was a teenager. She has been told in the past that she has degenerative disk disease. The pain radiates down both legs when she bends over. - Related Data Previous Rx's Medication Instructions Recorded methocarbamoL [Methocarbamol] 750 mg PO BID PRN #10 tab 12/08/20 prednisone 20 mg tablet 20 mg PO BID 5 Days #10 tab 12/11/20 cholecalciferol (vitamin D3) 1,
--- NOTE | 2021-01-23 15:43 | XR_ITS ---
PROCEDURE INFORMATION: Exam: XR Lumbosacral Spine Exam date and time: 01/23/2021 3:43 PM Age: 30 years old Clinical indication: Low back pain; Additional info: Low back pain, no injury TECHNIQUE: Imaging protocol: XR of the lumbosacral spine. Views: 2 or 3 views. COMPARISON: No relevant prior studies available. FINDINGS: Bones/joints: No malalignment. No fracture. Question mild lower lumbar facet arthropathy. Soft tissues: Unremarkable. Intraperitoneal space: Right upper quadrant surgical clips and tubal ligation clips noted. IMPRESSION: Question mild lower lumbar facet arthropathy
[2021-01-23 16:37] VITALS: BP 125/72; PULSE 70; RESP 20; TEMP 36.4; O2SAT 99
== END 2021-01-23 16:49 | disposition home or self-care (01) ==
PROVIDERS: Emergency Provider Nurse Practitioner Family; PCP Emergency Medicine
DX: M54.42 Lumbago with sciatica, left side (principal); M54.16 Radiculopathy, lumbar region; F41.8 Other specified anxiety disorders; K21.9 Gastro-esophageal reflux disease without esophagitis; E78.5 Hyperlipidemia, unspecified; I10 Essential (primary) hypertension
CPT/HCPCS: 72100; 81003; 96372; 99202; G0463

== ENCOUNTER 2021-01-28 23:01 | Emergency (ER) | payer OTHER, SELFPAY ==
[2021-01-28 23:02] VITALS: BP 156/85; PULSE 116; RESP 16; TEMP 36.5; O2SAT 97; BMI 47.5
[2021-01-28 23:29] LABS: Microscopic, Urine URINE MICROSCOPIC (MICROSCOPIC)
[2021-01-28 23:30] LABS: Appearance,Urine CLEAR (Clear); Bilirubin,Urine Negative (Negative); Blood, Urine Negative (Negative); Color,Urine YELLOW (Yellow); Glucose,Urine (UA) Negative (Negative); Ketones,Urine Negative (Negative); Leukocyte Esterase,Urine Negative (Negative); Nitrate,Urine Negative (Negative); Protein,Urine Negative (Negative); Urobilinogen,Urine 0.2 EU/dl (0.2)
[2021-01-28 23:31] VITALS: BP 130/79; PULSE 111; O2SAT 98
[2021-01-28 23:37] LABS: Coronavirus 19, PCR Not Detected (NotDetected); Influenza A, PCR Not Detected (NotDetected); Influenza B, PCR Not Detected (NotDetected)
[2021-01-28 23:43] LABS: Bacteria,Urine 1+ /lpf; Mucus,Urine 1+ /lpf
[2021-01-28 23:45] LABS: Basophils % 0.9 % (0.1-2.0); Chloride 103 mmol/L (98-107); Eosinophils % 4.2 % (0.1-12.0); Hematocrit 45.8 % (37.0-47.0); Hemoglobin 15.4 g/dL (12.2-16.2); Lymphocytes % 26.3 % (10-50); Mean Corpuscular HGB Conc 33.7 g/dL (31.8-35.4); Mean Corpuscular Hemoglobin 28.9 pg (27.0-31.2); Mean Corpuscular Volume 85.9 fl (81-99); Mean Platelet Volume 7.5 fl (7.4-10.4); Monocytes % 4.9 % (1.7-9.3); Neutrophils # 8.3 K/mm3 (1.8-7.8); Neutrophils % 63.2 % (37.0-80.0); Platelet Count 460 K/mm3 (142-424); Potassium 3.7 mmoL/L (3.5-5.1); Red Blood Count 5.34 M/mm3 (4.20-5.40); Red Cell Distribution Width 14.7 % (11.5-17.5); Sodium 138 mmol/L (136-145); White Blood Count 13.2 K/mm3 (4.8-10.8)
[2021-01-28 23:46] LABS: Basophils # 0.1 K/mm3 (0-0.2); Eosinophils # 0.6 K/mm3 (0.0-0.4); Lymphocytes # 3.5 K/mm3 (0.7-4.5); Monocytes # 0.7 K/mm3 (0.1-1.0)
[2021-01-28 23:47] LABS: Strep Scrn Group A (Rapid) Negative (Negative)
[2021-01-28 23:47] LABS: Blood Urea Nitrogen 17 mg/dl (7-17); Creatinine Clearance Estimated 109 mL/min (50-200); Estimated Glomerular Filt Rate 118 ml/min (>60); GFR (African American) 143 ML/MIN (>60)
[2021-01-28 23:48] LABS: Alanine Aminotransferase 33 U/L (12-78); Albumin Level 4.4 g/dl (3.5-5.0); Albumin/Globulin Ratio 1.3 (1.1-1.8); Alkaline Phosphatase 114 U/L (38-126); Anion Gap 14.7 mEq/L (5-15); Aspartate Amino Transferase 30 U/L (14-36); Bilirubin,Total 0.2 mg/dl (0.2-1.3); Calcium 9.6 mg/dl (8.4-10.2); Carbon Dioxide 24 mmol/L (22.0-30.0); Globulin 3.4 g/dL (1.3-3.2); Glucose 123 mg/dl (74-100); Total Protein,Serum 7.8 g/dl (6.3-8.2)
[2021-01-29] VITALS: BP 122/82; PULSE 75; O2SAT 97
[2021-01-29 00:31] VITALS: BP 114/70; PULSE 97; O2SAT 98
--- NOTE | 2021-01-29 00:54 | HMH.EDURI ---
ED Disposition Clinical Impression: Otitis media Qualifiers: Otitis media type: unspecified Chronicity: acute Qualified Code(s): H66.90 - Otitis media, unspecified, unspecified ear Disposition: Home, Self-Care Condition on Discharge: Good Instructions: DI for Ear Pain-Adult Additional Instructions: use meds and see pcp for follow up Prescriptions: cephALEXin [cephALEXin 500mg capsule*] 500 mg PO TID #30 cap Transmission Status: Pending to [facility] predniSONE [Prednisone 20mg Tab] 20 mg PO BID #10 tab Transmission Status: [facility] Referrals: Mike Madrigal MD [Primary Care Provider] - - Critical Care Critical Care Time: No Attestation: On 01/28/21, the high probability of a clinically significant, sudden or life threatening deterioration of the following system(s) required my full and direct attention, intervention and personal management. The time I documented below is in addition to time spent performing reported procedures but includes the following listed in this critical care notation. Medical Decision Making - Medical Records Medical records reviewed: Yes: I reviewed the patient's medical records. - Iglesia Inquiry Pt receiving controlled substance: No Vital Signs: 01/28/21 23:02 Temperature 97.7 F Temperature Source Oral Pulse Rate [Right Radial] 116 H Respiratory Rate 16 Blood Pressure [Right Arm] 156/85 H Blood Pressure Mean [Right Arm] 108 Blood Pressure Source [Right Arm] Automatic Cuff Blood Pressure Position [Right Arm] Sitting 02 Sat by Pulse Oximetry 97 Oxygen Delivery Method Room Air - Lab Data Lab results reviewed: Yes: I reviewed the patient's lab results. Lab Results 01/28/21 23:10: Urine Color Yellow, Urine Appearance Clear, Urine pH 6.0, Ur Specific [place] 1.020, Urine Protein Negative, Urine Glucose (UA) Negative, Urine Ketones Negative, Urine Blood Negative, Urine Nitrate Negative, Urine Bilirubin Negative, Urine Urobilinogen 0.2, Ur Leukocyte Esterase Negative, Urine WBC 3-5, Ur Squamous Epith Cells 5-10, Urine Bacteria 1+, Urine Mucus 1+ 01/28/21 23:31: WBC 13.2 H, RBC 5.34, Hgb 15.4, Hct 45.8, MCV 85.9, MCH 28.9, MCHC 33.7, RDW 14.7, Plt Count 460 H, MPV 7.5, Neut % (Auto) 63.2, Lymph % (Auto) 26.3, [place] % (Auto) 4.9, Eos % (Auto) 4.2, Baso % (Auto) 0.9, Neut # (Auto) 8.3 H, Lymph # (Auto) 3.5, [place] # (Auto) 0.7, Eos # (Auto) 0.6 H, Baso # (Auto) 0.1 01/28/21 23:31: Sodium 138, Potassium 3.7, Chloride 103, Carbon Dioxide 24, Anion Gap 14.7, BUN 17, Creatinine 0.60, Estimated Creat Clear 109, Estimated GFR 118, Est GFR ( Amer) 143, Glucose 123 H, Calcium 9.6, Total Bilirubin 0.2, AST 30, ALT 33, Alkaline Phosphatase 114, Total Protein 7.8, Albumin 4.4, Globulin 3.4 H, Albumin/Globulin Ratio 1.3 01/28/21 23:32: Group A Strep Rapid Negative 01/28/21 23:32: SARS-CoV-2 (PCR) Not detected, Influenza A Untype (PCR) Not detected, Influenza Type B (PCR) Not detected Result diagrams: 01/28/21 23:31 01/28/21 23:31 Orders (Tests/Meds): ED MEDICATIONS Generic Name Dose Route Start Last Admin Trade Name Freq PRN Reason Stop Dose Admin Sodium Chloride 1,000 mls @ 999 mls/hr 01/28/21 23:30 01/28/21 23:34 Sod Chlor 0.9% 1000ml Bag IV 01/29/21 00:30 999 mls/hr .[id number] SUNNY Administration Discontinued Medications Generic Name Dose Route Start Last Admin Trade Name Freq PRN Reason Stop Dose Admin Acetaminophen 1,000 mg 01/28/21 23:24 01/28/21 23:35 Acetaminophen 500mg Tab PO 01/28/21 23:25 1,000 mg ONCE ONE Administration Methylprednisolone Sodium Succinate 125 mg 01/28/21 23:24 01/28/21 23:35 Methylprednisolone Sod Succ 125mg Vial IV 01/28/21 23:25 125 mg ONCE ONE Administration ORDERS Category Date Time Status Strep Screen Confirmation Stat Micro 01/28/21 23:32 Received Medical Decision Narrative: will give abx at this time and fluids and see pcp if needed URI/Sore Throa
[2021-01-29 01:21] VITALS: BP 117/77; PULSE 92; RESP 16; TEMP 36.7; O2SAT 97
== END 2021-01-29 01:34 | disposition home or self-care (01) ==
PROVIDERS: Emergency Provider Emergency Medicine; PCP Emergency Medicine
DX: H66.93 Otitis media, unspecified, bilateral (principal); F41.8 Other specified anxiety disorders; K21.9 Gastro-esophageal reflux disease without esophagitis; I10 Essential (primary) hypertension; E78.5 Hyperlipidemia, unspecified; F17.210 Nicotine dependence, cigarettes, uncomplicated; Z20.822 Contact with and (suspected) exposure to COVID-19
CPT/HCPCS: 80053; 81001; 85025; 87430; 96365; 96375; 99283; C9803; U0003; U0005

== ENCOUNTER 2021-02-08 10:39 | Emergency (ER) | payer OTHER, SELFPAY ==
[2021-02-08 10:42] VITALS: BP 127/75; PULSE 99; RESP 16; TEMP 36.4; O2SAT 97; BMI 47.5
[2021-02-08 11:30] VITALS: BP 117/67; PULSE 80; O2SAT 97
[2021-02-08 12:00] VITALS: BP 114/67; PULSE 87; RESP 15; O2SAT 99
[2021-02-08 12:30] VITALS: BP 108/70; PULSE 85; RESP 18; O2SAT 99
--- NOTE | 2021-02-08 12:42 | HMH.EDGENADL ---
ED Disposition Clinical Impression: Back pain Disposition: Home, Self-Care Condition on Discharge: Good Instructions: Managing Chronic Low Back Pain Additional Instructions: Please follow up with your primary care physician in 2-3 days for further management. Please take tylenol and ibuprofen. For pain that is not relieved with these pain modalities please take toradol, llidocaine patches and robaxin as prescribed. Please return for any concerning symptoms such as urinary retention, fecal incontinence, inability to ambulate or worsening symptoms. Prescriptions: Ketorolac Tromethamine [Toradol 10mg tablet] 10 mg PO Q4HP PRN #20 tab MDD 40mg/day PRN Reason: Moderate Pain Transmission Status: [facility] Cyclobenzaprine HCl [Flexeril 10mg tablet] 10 mg PO Q8HP PRN 30 Days #90 tab PRN Reason: Muscle Spasm Transmission Status: [facility] Lidocaine [Lidoderm 5% transdermal patch] 1 each TP Q24H #20 patch Transmission Status: [facility] Referrals: Mike Madrigal MD [Primary Care Provider] - Time of Disposition: 13:40 - Critical Care Critical Care Time: No Attestation: On 02/08/21, the high probability of a clinically significant, sudden or life threatening deterioration of the following system(s) required my full and direct attention, intervention and personal management. The time I documented below is in addition to time spent performing reported procedures but includes the following listed in this critical care notation. Medical Decision Making - Medical Records Medical records reviewed: Yes: I reviewed the patient's medical records. - [place] Inquiry Pt receiving controlled substance: No Vital Signs: 02/08/21 10:42 02/08/21 11:30 02/08/21 12:00 Temperature 97.6 F Temperature Source Oral Pulse Rate 80 87 Pulse Rate [Right Radial] 99 H Respiratory Rate 16 15 Blood Pressure 117/67 114/67 Blood Pressure [Right Arm] 127/75 Blood Pressure Mean 77 Blood Pressure Mean [Right Arm] 92 Blood Pressure Source Blood Pressure Source [Right Arm] Automatic Cuff Blood Pressure Position Blood Pressure Position [Right Arm] Sitting 02 Sat by Pulse Oximetry 97 97 99 Oxygen Delivery Method Room Air Nasal Cannula Oxygen Flow Rate (LPM) 4 02/08/21 12:30 02/08/21 13:30 Temperature 97.6 F Temperature Source Pulse Rate 85 85 Pulse Rate [Right Radial] Respiratory Rate 18 18 Blood Pressure 108/70 L 108/70 L Blood Pressure [Right Arm] Blood Pressure Mean 80 Blood Pressure Mean [Right Arm] Blood Pressure Source Automatic Cuff Blood Pressure Source [Right Arm] Blood Pressure Position Sitting Blood Pressure Position [Right Arm] 02 Sat by Pulse Oximetry 99 Oxygen Delivery Method Room Air Oxygen Flow Rate (LPM) - Lab Data Lab results reviewed: Yes: I reviewed the patient's lab results. Orders (Tests/Meds): ED MEDICATIONS Discontinued Medications Generic Name Dose Route Start Last Admin Trade Name Estefany PRN Reason Stop Dose Admin Acetaminophen 1,000 mg 02/08/21 11:15 02/08/21 11:43 Acetaminophen 500mg Tab PO 02/08/21 11:16 1,000 mg ONCE ONE Administration Lidocaine 1 each 02/08/21 11:15 02/08/21 11:43 Lidocaine 5% Transdermal Patch TP 02/08/21 11:16 1 each ONCE ONE Administration Methocarbamol 500 mg 02/08/21 11:15 02/08/21 11:42 Methocarbamol 500mg Tablet PO 03/10/21 11:14 500 mg BID SUNNY Administration Medical Decision Narrative: Mrs. Merrill is a 30-year-old female with past medical history for chronic lower back pain presenting to the emergency department with lower back pain. Patient has had multiple visits to the emergency department for the same symptoms. Patient is neurovascularly intact and hemodynamically stable on arrival. Patient is afebrile and nontoxic-appearing. Patient is ambulatory on arrival w/ no sensory or motor deficits on exam. She georges
[2021-02-08 13:30] VITALS: BP 108/70; PULSE 85; RESP 18; TEMP 36.4; O2SAT 99
== END 2021-02-08 13:30 | disposition home or self-care (01) ==
PROVIDERS: Emergency Provider Student in an Organized Health Care Education/Training Program; PCP Emergency Medicine
DX: M54.50 Low back pain, unspecified (principal); F41.8 Other specified anxiety disorders; K21.9 Gastro-esophageal reflux disease without esophagitis; E78.5 Hyperlipidemia, unspecified; I10 Essential (primary) hypertension
CPT/HCPCS: 99281

== ENCOUNTER → 2021-02-19 08:55 | Outpatient (CLI) | payer OTHER, SELFPAY ==
--- NOTE | 2021-02-19 08:55 | MR_ITS ---
PROCEDURE: MR LUMBAR SPINE WO CON CLINICAL INDICATION: Low back pain COMPARISON: CR XR LUMBAR SPINE 2-3V from 01/23/2021 TECHNIQUE: Standard multiplanar multiecho sequences are performed without contrast. 3-D MIP and myelographic images are also rendered and reviewed FINDINGS: There is normal alignment. The spinal cord ends the L1-L2 level. T11-T12: Unremarkable. T12-L1: Unremarkable. L1-L2: Mild degenerative disc disease with minimal bulging disc. Small right foraminal and right lateral broad-based disc protrusion. L2-L3: Unremarkable. L3-L4: Unremarkable. L4-5: Mild facet hypertrophic change. L5-S1: Minimal left paracentral disc protrusion without impingement. No extruded herniated disc or bony canal stenosis. IMPRESSION: 1. L1-L2: Mild degenerative disc disease with minimal bulging disc. Small right foraminal and right lateral broad-based disc protrusion 2. L5-S1: Minimal left paracentral disc protrusion without impingement 3. No extruded herniated disc or bony canal stenosis. Dictated by: Georges Cruz MD 02/20/2021 09:29 Georges Cruz MD in [place] 02/20/2021 09:29
== END ==
PROVIDERS: PCP Emergency Medicine; Visit Provider Nurse Practitioner Family
DX: M54.50 Low back pain, unspecified (principal)
CPT/HCPCS: 72148; 76376

== ENCOUNTER 2021-02-27 20:20 | Emergency (ER) | payer OTHER, SELFPAY ==
[2021-02-27 20:25] VITALS: BP 143/76; PULSE 114; RESP 18; TEMP 36.7; O2SAT 98; BMI 47.5
[2021-02-27 20:37] LABS: Adenovirus,PCR Not Detected (NotDetected); Bordetella Pertussis Not Detected (NotDetected); Chlamydophila Pneumoniae, PCR Not Detected (NotDetected); Coronavirus 19, PCR Not Detected (NotDetected); Coronavirus 229E Not Detected (NotDetected); Coronavirus NL63 Not Detected (NotDetected); Coronavirus OC43 Not Detected (NotDetected); Coronovirus HKU1,PCR Not Detected (NotDetected); Human Metapneumovirus Not Detected (NotDetected); Influenza A, PCR Not Detected (NotDetected); Influenza AH1, 2009 Not Detected (NotDetected); Influenza AH1, PCR Not Detected (NotDetected); Influenza AH3,PCR Not Detected (NotDetected); Influenza B, PCR Not Detected (NotDetected); Mycoplasma Pneumoniae, PCR Not Detected (NotDetected); Parainfluenza 1, PCR Not Detected (NotDetected); Parainfluenza 2, PCR Not Detected (NotDetected); Parainfluenza 3, PCR Not Detected (NotDetected); Parainfluenza 4, PCR Not Detected (NotDetected); Respiratory Syncytial Virus Not Detected (NotDetected); Rhinovirus/Enterovirus Not Detected (NotDetected)
[2021-02-27 20:46] LABS: UTC Strep Screen (Rapid) Positive (Negative)
--- NOTE | 2021-02-27 20:58 | HMH.EDUTC ---
[facility] [place] Clinical Impression: Strep throat Disposition: Home, Self-Care Condition on Discharge: Good Instructions: Strep Throat, DI for Strep Throat Additional Instructions: Drink plenty of fluids. Take tylenol or ibuprofen for pain or fever. Take the medications as directed. Follow up with your regular doctor. GO TO THE ER FOR ANY WORSENING SYMPTOMS Throw your tooth brush away and get a new one. The cough medication (promethazine dm) will make you drowsy, so don't drive or operate heavy machinery after taking it. Prescriptions: Promethazine/Dextromethorphan [Promethazine-Dm Syrup] 5 ml PO Q6HP PRN #240 ml PRN Reason: Cough Transmission Status: Received by [facility] Azithromycin [Z-Yaya 250mg Tab*] 250 mg PO UD DOSE PK #6 tab Transmission Status: Received by [facility] Referrals: Mike Madrigal MD [Primary Care Provider] - Time of Disposition: 21:09 Medical Decision Making - Medical Records Medical records reviewed: No: I reviewed the patient's medical records. - Iglesia Inquiry Pt receiving controlled substance: No Vital Signs: 02/27/21 20:25 02/27/21 21:06 Temperature 98.1 F 98.1 F Temperature Source Oral Pulse Rate 114 H Pulse Rate [Right Brachial] 114 H Respiratory Rate 18 18 Blood Pressure 143/76 H Blood Pressure [Right Arm] 143/76 H Blood Pressure Mean [Right Arm] 98 Blood Pressure Source [Right Arm] Automatic Cuff Blood Pressure Position [Right Arm] Sitting 02 Sat by Pulse Oximetry 98 Oxygen Delivery Method Room Air - Lab Data Lab results reviewed: Yes: I reviewed the patient's lab results. Lab Results 02/27/21 20:29: Strep Scn Rapid Clinic Positive A Orders (Tests/Meds): ED MEDICATIONS Discontinued Medications Generic Name Dose Route Start Last Admin Trade Name Freq PRN Reason Stop Dose Admin Methylprednisolone Sodium Succinate 125 mg 02/27/21 20:57 02/27/21 21:06 Methylprednisolone Sod Succ 125mg Vial IM 02/27/21 20:58 125 mg ONCE ONE Administration Penicillin G Benzathine 1,200,000 unit 02/27/21 20:57 02/27/21 21:06 Penicillin G Benzathine 1,200,000 Units/2ml Syringe IM 12/31/21 20:58 1,200,000 unit ONCE ONE Administration ORDERS Category Date Time Status Full Resp Panel w/COVID ([facility]) Routine Lab 02/27/21 20:30 Received [facility] [place] - General Stated complaint: SORE THRAT,ware,cOUGH Time Seen by Provider: 02/27/21 20:59 Mode of Arrival: Ambulatory Source of Information: Patient Limitations: No Limitations Description of Symptoms (Recalled from Triage Doc. by RN): PATIENT C/O SORE THROAT, SINUS DRAINAGE, AND COUGH SINCE THIS MORNING HEENT Symptoms (Recalled from RN notes): Yes Resp Symptoms (Recalled from RN notes): Yes Skin Symptoms (Recalled from RN notes): No MS Symptoms (Recalled from RN notes): No Functional Status (Recalled from RN notes): WNL - History of Present Illness Provider Complaint: She states that for the past 2 days she has had a sore throat, sinus drainage, body aches and a cough. - Related Data Previous Rx's Medication Instructions Recorded Azithromycin [Z-Yaya 250mg Tab*] 250 mg PO UD DOSE PK #6 tab 02/27/21 Promethazine/Dextromethorphan 5 ml PO Q6HP PRN #240 ml 02/27/21 [Promethazine-Dm Syrup] Allergies Allergy/AdvReac Type Severity Reaction Status Date / Time ibuprofen [IBUPROFEN] Allergy Mild Unknown Verified 02/18/21 14:53 allergy reaction - Worker's Comp Is this a Worker's Comp case?: No [facility] History - Hepatitis A Screen Drug use history?: No High risk sexual behaviors?: No History of sexually transmitted infection?: No Currently employed?: No Childcare worker?: No Do you have indoor plumbing?: Yes Do you have electricity?: Yes Attestation statement:: This patient has been screened for Hepatitis A risk factors. I have reviewed the patient's past medical history: Yes Medical History: Reports:: An
[2021-02-27 21:06] VITALS: BP 143/76; PULSE 114; RESP 18; TEMP 36.7; O2SAT 98
== END 2021-02-27 21:20 | disposition home or self-care (01) ==
PROVIDERS: Emergency Provider Nurse Practitioner Family; PCP Emergency Medicine
DX: J02.0 Streptococcal pharyngitis (principal); F41.8 Other specified anxiety disorders; K21.9 Gastro-esophageal reflux disease without esophagitis; E78.5 Hyperlipidemia, unspecified; I10 Essential (primary) hypertension; F17.210 Nicotine dependence, cigarettes, uncomplicated; Z79.899 Other long term (current) drug therapy
CPT/HCPCS: 87581; 87632; 87798; 87880; 96372; 99202; C9803; G0463; J0561; U0003; U0005

== ENCOUNTER 2021-03-04 13:35 | Emergency (ER) | payer OTHER, SELFPAY ==
[2021-03-04 17:15] VITALS: BP 0/0; PULSE 0; RESP 0; TEMP -17.7; TEMP 0
== END 2021-03-04 17:16 | disposition left against medical advice (07) ==
LOC: UTC 13:40
PROVIDERS: Emergency Provider Nurse Practitioner Family; PCP Emergency Medicine
DX: Z53.21 Procedure and treatment not carried out due to patient leaving prior to being seen by health care provider (principal)

== ENCOUNTER → 2021-03-17 12:51 | Outpatient (POV) | payer OTHER, SELFPAY ==
--- NOTE | 2021-03-17 12:53 | HMH.PMCON ---
Assessment and Plan (1) Bilateral sacroiliitis Status: Chronic Category: Medical Code(s): M46.1 - Sacroiliitis, not elsewhere classified (2) Low back pain Status: Chronic Category: Medical Code(s): M54.50 - Low back pain, unspecified - Assessment and plan all Dx Assessment and Plan for all problems:: Patient has seen a chiropractor and has also had physical therapy in the past. We will schedule patient for repeat physical therapy. We will start her on diclofenac 75 mg 1 tablet p.o. twice daily. We will also order the patient has Inadine 4 mg 1 tablet p.o. twice daily as needed muscle spasms. We will schedule the patient for bilateral SI joint injections. We will see her back in the clinic after the injections for further evaluation. Risks and benefits of the medication have been explained in detail to the patient. If side effects do present with the medication, patient has been advised to stop the medication immediately and call the clinic. The patient has been advised to consult with his/her primary care provider and pharmacist regarding drug-drug interaction of medications currently prescribed. Possible side effects of corticosteroids have been discussed with the patient. Risks and benefits of the procedure have been explained to the patient. Patient would like to proceed with the procedure. Patient has been instructed to contact the clinic with any concerns before the next appointment. Dr. Nicholson has reviewed this note and agrees with this plan of care. This note was dictated using voice recognition software and make contain errors or omissions. HPI - Data of Consult Patient: new to practice Consult date: 03/17/21 Requesting Physician: Dali Rodgers APRN - Consult Narrative Reason for consult: Low back pain History of present illness: Ms. Merrill is a 30 year old female who presents today for low back pain. Patient says that she is having worsening pain over the last 2 months. She has had years of low back pain that has worsened recently. She says that the pain originally started in the left low back area and into the left leg. She does have pain going across the back at this time. She is unable to bend forward without having significant pain. She denies any numbness or tingling into lower extremities. She denies any bowel or bladder incontinence. She has tried taking ibuprofen, but did develop a severe rash with the medication. She has taken oral corticosteroids with minimal relief. MRI was obtained on 02/19/2021. The patient does say she has tried Flexeril as well as Robaxin with minimal relief. She is tender to palpation to her low back area with radiation into bilateral buttock. She says that she is having difficulty with prolonged standing and walking as well. She does rate her pain a 4 out of 10 at this time. CC: Dali Rodgers APRN [facility] History I have reviewed the patient's past medical history: Yes Medical History: Reports:: Anxiety, Depression, Gastroesophageal Reflux Disease(GERD), Hyperlipidemia, Hypertension, Kidney Stones Denies:: Asthma, Cancer, Diabetes Mellitus Type 1, Diabetes Mellitus Type 2, Internal Pacemaker, Migraine, MRSA, Seizures *Have you ever received a pneumonia vaccine?: No *Have you received a flu vaccine this season?: Yes Other Medical History: Reports: Other. Denies: Anemia, Arthritis, Blood Transfusion Reaction Other Surgeries: Yes: Cardiac Surgery (Hx of pericardial window due to pericarditis at 19 years old), Cholecystectomy, Tubal Ligation, Other. No: , Pacemaker Amputation: No Fractures: No - *Social History Smoking Status: Current every day smoker Tobacco Type: cigarettes # Packs/Day (cigarettes): 1 #Yrs smoked (if former smoker): 11 Alcohol Intake: never Alcohol Intake Frequency:: holidays/special occasions only Substance Use Type: marijuana, former substance user, opiates *Occupational Status:: other Housing: house Household Members: family *T
[2021-03-17 13:33] VITALS: BP 132/90; PULSE 110; RESP 18; O2SAT 98; BMI 47.7
== END ==
PROVIDERS: Visit Provider Clinical Nurse Specialist Family Health
DX: M46.1 Sacroiliitis, not elsewhere classified (principal); M54.50 Low back pain, unspecified
CPT/HCPCS: 99202; G0463

== ENCOUNTER 2021-03-31 09:00 | Outpatient (RCR) | payer OTHER, SELFPAY ==
--- NOTE | 2021-03-23 09:49 | HMH.PTOPEV ---
PT Outpatient Evaluation Rehab PT Outpatient Evaluation Start: 03/23/21 08:59 Freq: Status: Active Protocol: Document 03/23/21 08:59 NIEVESKEKE (Rec: 03/23/21 09:48 NIEVESKEKE [id number]) Electronically Signed By Paul Au, PT 03/23/21 08:59 Outpatient Therapy Subjective History Subjective History This is the initial Physical Therapy evaluation for Kya Merrill. Pt is a 30 y/o female referred to PT for c/o LBP. Pt reports she has had LBP for years but has insidious increase over the last few months. Pt does not recall any trauma to low back. Pt states pain is mostly localized in lumbar region but does have pain into LLE to ankle intermittantly w/ lumbar flexion. Chief Complaint Pain,Stiff Symptom Type Ache,Throb,Sharp Symptoms Relieved By Rest/Positioning Symptoms Aggravated By Standing,Bending/Stooping, Physical Activity Current Functional Limitations Housework,Standing,Recreation Activity,Walking,Bending/ Stooping Symptom Description Intermittent Level of pain today (0-10) 4 Pain scale - at its best (0-10) 2 Pain scale - at its worst (0-10) 10 Lumbopelvic Eval Posture Thoracic Spine Posture Standing Position Flattened Lumbar Spine Posture Standing Position Flattened Assistive device Assistive Devices None / NA Palapation tenderness bilateral thoracic spinal tenderness Yes: hypersensitive to LT lumbar spinal tenderness Yes: hypersensitive to LT paraspinal tenderness Yes: Hypersensitive to LT buttock tenderness Yes Lumbar/Sacral Palpation Findings Tenderness Lumbar/Sacral Palpation Overall Comment Pt has hyeprsensitivity to LT Accessory Movement T-spine Vertebrae Accessory Movements Central P/A [place],Right P/A that Elicit Symptoms [place],Left P/A [place] T10 bilateral T11 bilateral T12 bilateral L-spine Vertebrae Accessory Movements Central P/A [place],Right P/A that Elicit Symptoms [place],Left P/A [place] L2 bilateral L3 bilateral L4 bilateral L5 bilateral S1 bilateral Range of Motion Lumbar Spine Active Flexion Range of 30 w/ pain Motion (degrees) Lumbar Spi
== END 2021-03-31 09:05 | disposition home or self-care (01) ==
LOC: PT 09:00
PROVIDERS: PCP Emergency Medicine; Visit Provider Clinical Nurse Specialist Family Health
DX: M54.50 Low back pain, unspecified (principal)
CPT/HCPCS: 97163

== ENCOUNTER 2021-05-01 13:12 | Day surgery (SDC) | payer OTHER, SELFPAY ==
[2021-05-01 13:15] VITALS: BP 119/75; BP 131/74; BP 134/72; PULSE 80; PULSE 93; PULSE 94; RESP 18; TEMP 36.8; O2SAT 94; O2SAT 97; O2SAT 98; BMI 48.6
--- NOTE | 2021-05-01 14:28 | HMH.PMPROC ---
- Procedure Date: 05/01/21 Time: 14:28 Anesthesiologist:: Thor Nicholson MD Complications:: None Pre-procedure Diagnosis:: Sacroiliitis Post-procedure Diagnosis:: Same Indications for Procedure:: Patient is a pleasant 30-year-old white female who we are treating for bilateral hip pain. She is tender over both SI joints. She is positive Kt's test on both sides. She is positive Meera test on both sides. She is positive SI joint compression test on both sides. We will plan on bilateral SI joint injections under fluoroscopy today to help with pain symptoms. Procedure Details:: B/L SI joint injection under fluoroscopy Informed consent was obtained and the risks and benefits of the procedure was explained to the patient. The patient was taken to the procedure room and placed prone on the procedure table. The patient was prepped using ChloraPrep. The skin and subcutaneous tissues overlying the SI joints were anesthetized using lidocaine. I placed a 22-gauge needle first in the left SI joint and second in the right SI joint. Needle placement was confirmed with dye. After this we injected 5 mL bupivacaine 0.25% and Depo-Medrol 40 mg into each SI joint. Patient tolerated the procedure well with no complication. Plan and Disposition:: We will follow-up with her in 2 weeks. Will reevaluate symptoms at that time.
[2021-05-01 14:29] VITALS: BP 121/73; PULSE 78; O2SAT 99
== END 2021-05-01 14:29 | disposition home or self-care (01) ==
LOC: SC.PAINP 13:13
PROVIDERS: PCP Emergency Medicine; Visit Provider Anesthesiology
DX: M46.1 Sacroiliitis, not elsewhere classified (principal); I10 Essential (primary) hypertension; E78.5 Hyperlipidemia, unspecified; K21.9 Gastro-esophageal reflux disease without esophagitis; J45.909 Unspecified asthma, uncomplicated; Z72.0 Tobacco use; F41.9 Anxiety disorder, unspecified; F32.A Depression, unspecified; Z87.442 Personal history of urinary calculi; Z88.8 Allergy status to other drugs, medicaments and biological substances
CPT/HCPCS: 27096; G0260; J1040; Q9966

== ENCOUNTER 2021-05-03 19:10 | Emergency (ER) | payer OTHER, SELFPAY ==
[2021-05-03 19:30] VITALS: BP 136/78; PULSE 109; RESP 18; TEMP 36.8; O2SAT 98; BMI 42.9
--- NOTE | 2021-05-03 19:54 | HMH.EDUTC ---
[facility] [place]: St[place] Disposition: Home, Self-Care Condition on Discharge: Good Instructions: DI for Strep Throat Additional Instructions: Start antibiotics today be sure to take it as ordered with the full length of time although you should start feeling better in 24-48 hours. Change toothbrush and toothpaste 24-48 hours after starting antibiotics Tylenol or Motrin as needed for fever or pain Encourage fluids, water, Gatorade, Powerade, try cold fluids, popsicles, ice cream will make it feel better You are contagious for 24 hours. Avoid kissing anyone, no eating or drinking after anyone. You are contagious. Follow-up the ER for new or worsening symptoms or no noticeable improvement over the next 24-48 hours. Follow-up with PCP this week. Prescriptions: Azithromycin [Zithromax 250mg tab] 250 mg PO DIRECTED #6 tab Transmission Status: Pending to [facility] Referrals: Mike Madrigal MD [Primary Care Provider] - Time of Disposition: 19:57 Medical Decision Making - [place] Inquiry Pt receiving controlled substance: No Vital Signs: 05/03/21 19:30 Temperature 98.3 F Temperature Source Oral Pulse Rate [Right Brachial] 109 H Respiratory Rate 18 Blood Pressure [Right Arm] 136/78 Blood Pressure Mean [Right Arm] 97 Blood Pressure Source [Right Arm] Automatic Cuff Blood Pressure Position [Right Arm] Sitting 02 Sat by Pulse Oximetry 98 Oxygen Delivery Method Room Air [facility] [place] - General Chief complaint: Urgent Treatment Center Stated complaint: FEVER,SORE THROAT,v&d Time Seen by Provider: 05/03/21 19:55 Mode of Arrival: Ambulatory Source of Information: Patient Limitations: No Limitations Description of Symptoms (Recalled from Triage Doc. by RN): PATIENT C/O NAUSEA, VOMITING, FEVER, HEADACHE AND DIARRHEA SINCE LAST NIGHT HEENT Symptoms (Recalled from RN notes): Yes Resp Symptoms (Recalled from RN notes): No Skin Symptoms (Recalled from RN notes): No MS Symptoms (Recalled from RN notes): No Functional Status (Recalled from RN notes): WNL - History of Present Illness Provider Complaint: 30 yr old female presents for sore throat, congestion, vomiting and diarrhea since yesterday daughter has strep - Related Data Previous Rx's Medication Instructions Recorded Azithromycin [Zithromax 250mg 250 mg PO DIRECTED #6 tab 03/06/22 tab] Allergies Allergy/AdvReac Type Severity Reaction Status Date / Time ibuprofen [IBUPROFEN] Allergy Mild Unknown Verified 03/11/21 08:59 allergy reaction - Worker's Comp Is this a Worker's Comp case?: No [facility] History - Hepatitis A Screen Drug use history?: No High risk sexual behaviors?: No History of sexually transmitted infection?: No Currently employed?: No Childcare worker?: No Do you have indoor plumbing?: Yes Do you have electricity?: Yes Attestation statement:: This patient has been screened for Hepatitis A risk factors. I have reviewed the patient's past medical history: Yes Medical History: Reports:: Anxiety, Depression, Gastroesophageal Reflux Disease(GERD), Hyperlipidemia, Hypertension, Kidney Stones Denies:: Asthma, Cancer, Diabetes Mellitus Type 1, Diabetes Mellitus Type 2, Internal Pacemaker, Migraine, MRSA, Seizures Other Medical History: Reports: Other. Denies: Anemia, Arthritis, Blood Transfusion Reaction Comment: morbid obesity Other Surgeries: Yes: Cardiac Surgery (Hx of pericardial window due to pericarditis at 19 years old), Cholecystectomy, Tubal Ligation, Other. No: , Pacemaker Amputation: No Fractures: No Comment: WISDOM TEETH, HEART SURGERY - Social History Smoking Status: Current every day smoker Tobacco Type: cigarettes # Packs/Day (cigarettes): 1 #Yrs smoked (if former smoker): 11 Alcohol Intake: never Alcohol Intake Frequency:: holidays/special occasions only Substance Use Type: marijuana, former substance user, opiates Occupational Status: unemploye
[2021-05-03 20:04] VITALS: BP 136/78; PULSE 109; RESP 18; TEMP 36.8; O2SAT 98
== END 2021-05-03 20:11 | disposition home or self-care (01) ==
PROVIDERS: Emergency Provider Nurse Practitioner Family; PCP Emergency Medicine
DX: J02.9 Acute pharyngitis, unspecified (principal); R50.9 Fever, unspecified; R11.2 Nausea with vomiting, unspecified; R19.7 Diarrhea, unspecified; R51.9 Headache, unspecified; I10 Essential (primary) hypertension; K21.9 Gastro-esophageal reflux disease without esophagitis; E78.5 Hyperlipidemia, unspecified; N20.2 Calculus of kidney with calculus of ureter; E66.01 Morbid (severe) obesity due to excess calories; F41.9 Anxiety disorder, unspecified; F17.210 Nicotine dependence, cigarettes, uncomplicated; Z88.6 Allergy status to analgesic agent; Z68.41 Body mass index [BMI] 40.0-44.9, adult; Z86.19 Personal history of other infectious and parasitic diseases
CPT/HCPCS: 99213; G0463

== ENCOUNTER 2021-05-16 06:25 | Emergency (ER) | payer OTHER, SELFPAY ==
[2021-05-16 06:34] VITALS: BP 126/80; PULSE 89; RESP 18; TEMP 36.8; O2SAT 98; BMI 48.6
--- NOTE | 2021-05-16 06:49 | XR_ITS ---
PROCEDURE INFORMATION: Exam: XR Left Foot Exam date and time: 05/16/2021 6:57 AM Age: 30 years old Clinical indication: Swelling or effusion of joint; Ankle; Additional info: Injury and swelling with pain TECHNIQUE: Imaging protocol: XR Left foot. Views: 3 or more views. COMPARISON: CR XR FOOT LT MIN 3V 10/06/2020 2:36 PM FINDINGS: Bones/joints: There is no evidence of acute fracture.There is no evidence of malalignment or dislocation. Soft tissues: Soft tissue swelling over the the dorsum of the foot. This was present on the prior study IMPRESSION: There is no evidence of acute fracture.There is no evidence of malalignment or dislocation. Soft tissue swelling over the the dorsum of the foot. This was present on the prior study
--- NOTE | 2021-05-16 06:49 | XR_ITS ---
PROCEDURE INFORMATION: Exam: XR Left Ankle Exam date and time: 05/16/2021 6:57 AM Age: 30 years old Clinical indication: Swelling or effusion of joint; Ankle; Additional info: Injury with pain and swelling TECHNIQUE: Imaging protocol: XR Left ankle. Views: 3 or more views. COMPARISON: CR XR ANKLE LT MIN 3V 10/06/2020 2:38 PM FINDINGS: Bones/joints: Medial malleolar soft tissue swelling. There is no evidence of acute fracture.There is no evidence of malalignment or dislocation. Soft tissues: See Bones/joints finding. IMPRESSION: There is no evidence of acute fracture.There is no evidence of malalignment or dislocation.
--- NOTE | 2021-05-16 07:32 | HMH.EDLOEX ---
ED Disposition Clinical Impression: Sprain of foot, left Qualifiers: Encounter type: initial encounter Qualified Code(s): S93.602A - Unspecified sprain of left foot, initial encounter Disposition: Home, Self-Care Condition on Discharge: Good Instructions: DI for Foot Sprain Additional Instructions: ice and see pcp for follow up Referrals: Mike Madrigal MD [Primary Care Provider] - - Critical Care Critical Care Time: No Attestation: On 05/16/21, the high probability of a clinically significant, sudden or life threatening deterioration of the following system(s) required my full and direct attention, intervention and personal management. The time I documented below is in addition to time spent performing reported procedures but includes the following listed in this critical care notation. Medical Decision Making - Medical Records Medical records reviewed: Yes: I reviewed the patient's medical records. - Iglesia Inquiry Pt receiving controlled substance: No Vital Signs: 05/16/21 06:34 Temperature 98.2 F Temperature Source Oral Pulse Rate [Apical] 89 Respiratory Rate 18 Blood Pressure [Right Arm] 126/80 Blood Pressure Mean [Right Arm] 95 Blood Pressure Source [Right Arm] Automatic Cuff Blood Pressure Position [Right Arm] Sitting 02 Sat by Pulse Oximetry 98 Oxygen Delivery Method Room Air - Lab Data Lab results reviewed: Yes: I reviewed the patient's lab results. Orders (Tests/Meds): ORDERS Category Date Time Status Foot XR left minimum 3 views [XR foot LT min 3V] Stat Exams 05/16/21 06:49 Taken XR ankle LT min 3V Stat Exams 05/16/21 06:49 Taken - Radiology Data #1 Image(s): Ankle, Foot/Toes Image Reviewed: Yes I reviewed the patient's radiology image Preliminary Findings: No Fracture Seen Medical Decision Narrative: pt with acute foot/ankle injury - no def fx seen - Lower Extremity Injury HPI - General Chief Complaint: Extremity Injury, Lower Stated Complaint: Left foot pain AO 05/14/21 Time Seen by Provider: 05/16/21 06:40 Mode of Arrival: Ambulatory Source of Information: Patient, Medical Record Limitations: No Limitations Description of Symptoms (Recalled from ER Triage Doc. by RN): Patient states that she may have twisted her left foot two days ago but she is unsure of cause of injury. States that for the last two days she has had severe pain on the inside of her left foot closer to her heel. Swelling noted. No redness noted. - History of Present Illness HPI Narrative: lt foot injury a couple of days ago - now with pain and swelling MD complaint: foot injury Onset (ago): day(s) Injury: Left: ankle, foot Type of Injury: eversion Place: home Severity: moderate Context: walking Associated symptoms: able to partially bear weight Other symptoms: none - Related Data Home Medications Medication Instructions Recorded Confirmed No Known Home Medications 05/16/21 05/16/21 Allergies Allergy/AdvReac Type Severity Reaction Status Date / Time ibuprofen [IBUPROFEN] Allergy Mild Unknown Verified 03/11/21 08:59 allergy reaction [facility] History - Hepatitis A Screen Drug use history?: No High risk sexual behaviors?: No History of sexually transmitted infection?: No Currently employed?: No Childcare worker?: No Do you have indoor plumbing?: Yes Do you have electricity?: Yes Attestation statement:: This patient has been screened for Hepatitis A risk factors. I have reviewed the patient's past medical history: Yes Medical History: Reports:: Anxiety, Depression, Gastroesophageal Reflux Disease(GERD), Hyperlipidemia, Hypertension, Kidney Stones Denies:: Asthma, Cancer, Diabetes Mellitus Type 1, Diabetes Mellitus Type 2, Internal Pacemaker, Migraine, MRSA, Seizures Other Medical History: Reports: Other. Denies: Anemia, Arthritis, Blood Transfusion Reaction Comment: morbid obesity Other Surgeries: Yes: Cardiac Surgery (Hx of pericardial window
--- NOTE | 2021-05-16 07:40 | PC.NURSE ---
PT in room waiting for XR results
--- NOTE | 2021-05-16 07:51 | PC.NURSE ---
tech in room applying conrad wrap and post op shoe
[2021-05-16 07:56] VITALS: BP 132/74; PULSE 87; RESP 16; TEMP 36.6; O2SAT 98
--- NOTE | 2021-05-16 07:57 | PC.NURSE ---
conrad wrap and cast boot applied to lt foot
== END 2021-05-16 07:58 | disposition home or self-care (01) ==
PROVIDERS: Emergency Provider Emergency Medicine; PCP Emergency Medicine
DX: S93.602A Unspecified sprain of left foot, initial encounter (principal); X50.1XXA Overexertion from prolonged static or awkward postures, initial encounter; Y92.019 Unspecified place in single-family (private) house as the place of occurrence of the external cause; F41.8 Other specified anxiety disorders; K21.9 Gastro-esophageal reflux disease without esophagitis; E78.5 Hyperlipidemia, unspecified; I10 Essential (primary) hypertension; F17.210 Nicotine dependence, cigarettes, uncomplicated
CPT/HCPCS: 73610; 73630; 99283

== ENCOUNTER 2021-05-20 18:05 | Emergency (ER) | payer OTHER, SELFPAY ==
[2021-05-20 19:09] VITALS: BP 138/90; PULSE 105; RESP 16; TEMP 36.7; O2SAT 97; BMI 49.4
--- NOTE | 2021-05-20 19:15 | HMH.EDUTC ---
[facility] [place] Disposition Clinical Impression: Low back pain Qualifiers: Chronicity: unspecified Back pain laterality: unspecified Sciatica presence: unspecified whether sciatica present Qualified Code(s): M54.50 - Low back pain, unspecified Disposition: Home, Self-Care Condition on Discharge: Good Instructions: Low Back Pain, DI for Low Back Pain Additional Instructions: Over the counter Tylenol if you need something else for your back pain Warm compress may help with pain Soaking in warm water and epson salt may help to relieve muscle tension in lower back Return if needed Follow up Pain Management Follow up with Family Doctor Straight to ER if any life threatening symptoms Referrals: Mike Madrigal MD [Primary Care Provider] - As needed Time of Disposition: 19:43 Medical Decision Making - Iglesia Inquiry Pt receiving controlled substance: No Iglesia was queried for this patient: No Vital Signs: 05/20/21 19:09 Temperature 98.1 F Temperature Source Oral Pulse Rate [Left] 105 H Respiratory Rate 16 Blood Pressure [Right Arm] 138/90 Blood Pressure Mean [Right Arm] 106 02 Sat by Pulse Oximetry 97 Orders (Tests/Meds): ED MEDICATIONS Discontinued Medications Generic Name Dose Route Start Last Admin Trade Name Arielq PRN Reason Stop Dose Admin Ketorolac Tromethamine 60 mg 05/20/21 19:17 05/20/21 19:35 Ketorolac 60mg/2ml Vial IM 05/20/21 19:18 60 mg ONCE ONE Administration Methylprednisolone Sodium Succinate 125 mg 05/20/21 19:17 05/20/21 19:35 Methylprednisolone Sod Succ 125mg Vial IM 05/20/21 19:18 125 mg ONCE ONE Administration Medical Decision Narrative: Patient states that she is allergic to Ibuprofen but has taken Toradol in the past without complications or reactions [facility] [place] HPI - General Stated complaint: back pain Time Seen by Provider: 05/20/21 19:15 Mode of Arrival: Ambulatory Source of Information: Patient Limitations: No Limitations Description of Symptoms (Recalled from Triage Doc. by RN): pt states she had bilateral injects in her SI joints on 05/01. pt states the past three days she has been trying to reach them and unable. pt states she is having pain. HEENT Symptoms (Recalled from RN notes): No Resp Symptoms (Recalled from RN notes): No Skin Symptoms (Recalled from RN notes): No MS Symptoms (Recalled from RN notes): Yes Functional Status (Recalled from RN notes): wnl - History of Present Illness Provider Complaint: Patient states that she has chronic back pain and around the first of the month she had injections in her lower back at pain management States that for the last couple of days her back pain has returned and she has taken OTC Tylenol and not helped much States that this evening it was hurting worse so she came in to see if she could get something to help with the pain until she can be seen by pain management denies loss of control of bowel or bladder - Related Data Home Medications Medication Instructions Recorded Confirmed No Known Home Medications 05/16/21 05/16/21 Allergies Allergy/AdvReac Type Severity Reaction Status Date / Time ibuprofen [IBUPROFEN] Allergy Mild Unknown Verified 03/11/21 08:59 allergy reaction - Worker's Comp Is this a Worker's Comp case?: No [facility] History - Hepatitis A Screen Drug use history?: No High risk sexual behaviors?: No History of sexually transmitted infection?: No Currently employed?: No Childcare worker?: No Do you have indoor plumbing?: Yes Do you have electricity?: Yes Attestation statement:: This patient has been screened for Hepatitis A risk factors. Medical History: Reports:: Anxiety, Depression, Gastroesophageal Reflux Disease(GERD), Hyperlipidemia, Hypertension, Kidney Stones Denies:: Asthma, Cancer, Diabetes Mellitus Type 1, Diabetes Mellitus Type 2, Internal Pacemaker, Migraine, MRSA, Seizures Other Medical History: Reports: Other. Denies: Anemia, Arthritis, Blood Transfu
[2021-05-20 19:56] VITALS: BP 138/90; PULSE 105; RESP 16; TEMP 36.7
== END 2021-05-20 19:58 | disposition home or self-care (01) ==
PROVIDERS: Emergency Provider Nurse Practitioner; PCP Emergency Medicine
DX: M54.50 Low back pain, unspecified (principal); F41.8 Other specified anxiety disorders; K21.9 Gastro-esophageal reflux disease without esophagitis; I10 Essential (primary) hypertension; E78.5 Hyperlipidemia, unspecified
CPT/HCPCS: 96372; 99213; G0463

== ENCOUNTER → 2021-05-28 13:44 | Outpatient (POV) | payer OTHER, SELFPAY ==
[2021-05-28 13:50] VITALS: BP 151/87; PULSE 94; RESP 18; TEMP 36.1; O2SAT 98; BMI 48.6
--- NOTE | 2021-05-28 15:42 | HMH.PAINSOAP ---
[facility] Pain Management SOAP Note Subjective:: Patient is a pleasant 30-year-old female who presents today for follow-up after a bilateral SI injection on May 01, 2021. After the procedure, patient had significant relief for about 2 weeks. Patient states that she had to go to the urgent care center because her pain got really bad after dose 2 weeks. She ended up getting steroid injections from the urgent care treatment center. Today, patient continues to have low back pain and bilateral SI pain. She cannot tolerate any prolonged activities such as sitting, walking, standing. For pain, she takes Tylenol. She says that she is allergic to ibuprofen and causes her to get any rash. She also has tried lidocaine patches with no relief of symptoms. Denies any loss of bowel and bladder functions. Denies any recent falls or traumas. Review of Systems: General: No recent weight changes, no fever, no sleep disturbances Respiratory: No cough, no shortness of air, no recurring pulmonary infections Cardiovascular/peripheral vascular: No chest pain, no palpitations, no edema, no shortness of breath Gastrointestinal: No new onset incontinence, normal bowel movements reported Genitourinary: No new onset incontinence Musculoskeletal: Low back pain, bilateral hip pain Psychiatric: [Normal mood/affect] Neurological: [Denies weakness in extremities], [denies balance issues] Objective:: Physical Exam: General: Alert and oriented x3, no acute distress, pleasant and cooperative, [on room air] Lungs: Respirations even and unlabored, symmetrical chest expansion Eyes: PERRL Musculoskeletal: Flexion and extension of lumbar [spine] somewhat guarded secondary to pain; left SI positive for LILY, Ghulam's, Springlake's, Gaenslen's, compression, and distraction. Neurological: Speech clear, no gross sensory deficit Assessment:: Degenerative disc disease of lumbar spine with lumbar radiculopathy symptoms, bilateral sacroiliitis Plan:: Patient had significant relief for 2 weeks after her bilateral SI injection. Patient states that she had to go to the urgent care center because she had worsening pain. They gave her steroid shots and Toradol shots which seemed to help some of her pain. Patient continues to have left SI pain. Left SI is positive for LILY, Ghulam's, Springlake's, Gaenslen's, compression, and distraction. We will schedule the patient for a left SI injection. Risk and benefits have been discussed with the patient. Patient would like to proceed with this procedure. Patient continues to have mid back/low back pain. She has tried other conservative therapies such as lidocaine patches, compounding creams with no relief of symptoms. She has an appointment with a chiropractor on June 02. I will also refer the patient for physical therapy for treatment evaluation of low back pain. Follow-up after the injection Patient has been instructed to contact the clinic with any concerns before the next appointment. Dr. Nicholson has reviewed this note and agrees with this plan of care. This note was dictated using voice recognition software and make contain errors or omissions. [facility] History Medical History: Reports:: Anxiety, Depression, Gastroesophageal Reflux Disease(GERD), Hyperlipidemia, Hypertension, Kidney Stones Denies:: Asthma, Cancer, Diabetes Mellitus Type 1, Diabetes Mellitus Type 2, Internal Pacemaker, Migraine, MRSA, Seizures *Have you ever received a pneumonia vaccine?: No *Have you received a flu vaccine this season?: Yes Other Medical History: Reports: Other. Denies: Anemia, Arthritis, Blood Transfusion Reaction Other Surgeries: Yes: Cardiac Surgery (Hx of pericardial window due to pericarditis at 19 years old), Cholecystectomy, Tubal Ligation, Other. No: , Pacemaker Amputation: No Fractures: No - *Social History Smoking Status: Current every day smoker Tobacco Type: cigarettes # Packs/Day (cigarettes): 1 #Yrs smoked (if former smoker): 1
== END ==
PROVIDERS: Visit Provider Student in an Organized Health Care Education/Training Program
DX: M51.16 Intervertebral disc disorders with radiculopathy, lumbar region (principal); M46.1 Sacroiliitis, not elsewhere classified
CPT/HCPCS: 99212; G0463

== ENCOUNTER 2021-06-11 09:30 | Outpatient (RCR) | payer OTHER, SELFPAY ==
--- NOTE | 2021-06-03 09:01 | HMH.PTOPEV ---
PT Outpatient Evaluation Rehab PT Outpatient Evaluation Start: 06/03/21 08:40 Freq: Status: Active Protocol: Document 06/03/21 08:41 SAMANTHA (Rec: 06/03/21 09:00 SAMANTHA [id number]) Electronically Signed By Emil Monteiro, PT 06/03/21 08:41 Outpatient Therapy Subjective History Subjective History Patient is a 30 year old female presenting to outpatient PT with reports of chronic LBP with intermittent BLE radicular symptoms that have progressively gotten worse over the past 4 months. She has recently been being treated by a chiropractor that has provided minimal relief per patient report. Most recent imaging indicates L1-2 and L5/S1 bulging discs. Comorbidities include hx of pericarditis. Chief Complaint Pain,Stiff,Paresthesia Symptom Type Throb,Shooting Symptoms Relieved By Rest/Positioning,Ice Symptoms Aggravated By Standing,Physical Activity, Walking Prior Functional Limitations None Current Functional Limitations Lifting,Housework,Standing, Recreation Activity,Walking, Bending/Stooping Symptom Description Constant but Variable Level of pain today (0-10) 2 Pain scale - at its best (0-10) 2 Pain scale - at its worst (0-10) 6 Lumbopelvic Eval Posture Thoracic Spine Posture Standing Position Increased Kyphosis Lumbar Spine Posture Standing Position Increased Lordosis Palapation tenderness left Lumbar/Sacral Palpation Findings Tenderness Lumbar/Sacral Palpation Overall Comment L SIJ 4/4 Accessory Movement L2 bilateral L3 bilateral L4 bilateral L5 bilateral S1 bilateral Range of Motion Lumbar Spine Active Flexion Range of 70 Motion (degrees) Lumbar Spine Active Extension Range of 12 Motion (degrees) Left Lumbar Spine Lateral Flexion Active 8 Range of Motion (degrees) Right Lumbar Spine Lateral Flexion 14 Active Range of Motion (degrees) Lumbar Spine ROM Limitations Soft Tissue Tightness,Bony Restriction Manual Muscle Test Bilateral Knee Extension Strength Grade 5 Normal Knee Flexion Strength Grade 5 Normal Hip Flexion Strength Grade 5 Normal Extensor Hallucis Longus Strength Grade 5 N
== END 2021-06-11 09:35 | disposition home or self-care (01) ==
LOC: PT 09:30
PROVIDERS: Visit Provider Student in an Organized Health Care Education/Training Program
DX: M54.50 Low back pain, unspecified (principal)
CPT/HCPCS: 97014; 97110; 97163; G0283

== ENCOUNTER 2021-06-12 08:57 | Day surgery (SDC) | payer OTHER, SELFPAY ==
[2021-06-12 09:05] VITALS: BP 125/71; PULSE 89; RESP 18; TEMP 36.4; O2SAT 98; BMI 50.6
[2021-06-12 09:25] VITALS: BP 147/91; PULSE 88; PULSE 92; RESP 20; O2SAT 96; O2SAT 97
--- NOTE | 2021-06-12 09:29 | HMH.PMPROC ---
- Procedure Date: 06/12/21 Time: 09:30 Anesthesiologist:: Spencer Awad CRNA Complications:: None Pre-procedure Diagnosis:: Left sacroiliitis Post-procedure Diagnosis:: Same Indications for Procedure:: Very pleasant 30-year-old white female who presents to our clinic today for left SI joint injection. She has responded well to left SI joint injection in the past. Procedure Details:: Procedure: Left sacroiliac injection under fluoroscopy Informed consent was obtained and the risk and benefits of the procedure were explained to the patient.~ The patient was taken to the procedure room and noninvasive monitors were placed including noninvasive blood pressure cuff and pulse oximeter.~ The patient was placed prone on the procedure table.~ The~ left hip was cleansed using Betadine as a cleansing solution.~ C-arm fluorosocpy was used to view the left SI joint.~ The skin and subcutaneous tissues were anesthetized using Lidocaine 1.5% and a 25-gauge needle.~ After this, a 22-gauge spinal needle was inserted under fluoroscopic guidance into the inferior aspect of the left SI joint.~ Omnipaque dye was injected and a good spread was seen throughout the joint.~ After this, approximately 5 mL of bupivacaine 0.25% and Depo-Medrol 40 mg was incrementally injected into the sacroiliac joint.~ The patient tolerated the procedure well with no complications.~ The patient was observed in the Pain Clinic for a period of 30-45 minutes, then discharged home neurologically intact.~ Plan and Disposition:: Patient was reevaluated 10 minutes post procedure. She is reporting some moderate improvement terms of the left hip pain.
[2021-06-12 09:32] VITALS: BP 149/82; PULSE 89; RESP 20; O2SAT 97
== END 2021-06-12 09:32 | disposition home or self-care (01) ==
LOC: SC.PAINP 08:58
PROVIDERS: PCP Emergency Medicine; Visit Provider Nurse Anesthetist, Certified Registered
DX: M46.1 Sacroiliitis, not elsewhere classified (principal); F41.9 Anxiety disorder, unspecified; F32.A Depression, unspecified; K21.9 Gastro-esophageal reflux disease without esophagitis; E78.5 Hyperlipidemia, unspecified; I10 Essential (primary) hypertension; Z87.442 Personal history of urinary calculi; F12.90 Cannabis use, unspecified, uncomplicated; F11.11 Opioid abuse, in remission; Z72.0 Tobacco use
CPT/HCPCS: 27096; G0260; J1040

== ENCOUNTER → 2021-06-24 10:41 | Outpatient (CLI) | payer OTHER, SELFPAY ==
[2021-06-24 11:24] LABS: Basophils % 0.3 % (0.1-2.0); Eosinophils # 0.5 K/mm3 (0.0-0.4); Eosinophils % 3.3 % (0.1-12.0); Hematocrit 44.7 % (37.0-47.0); Hemoglobin 14.6 g/dL (12.2-16.2); Lymphocytes # 2.9 K/mm3 (0.7-4.5); Lymphocytes % 18.4 % (10-50); Mean Corpuscular HGB Conc 32.8 g/dL (31.8-35.4); Mean Corpuscular Hemoglobin 29.5 pg (27.0-31.2); Mean Platelet Volume 7.1 fl (7.4-10.4); Monocytes # 0.7 K/mm3 (0.1-1.0); Monocytes % 4.6 % (1.7-9.3); Neutrophils # 11.4 K/mm3 (1.8-7.8); Neutrophils % 73.5 % (37.0-80.0); Platelet Count 387 K/mm3 (142-424); Red Blood Count 4.97 M/mm3 (4.20-5.40); Red Cell Distribution Width 13.9 % (11.5-17.5); White Blood Count 15.5 K/mm3 (4.8-10.8)
[2021-06-24 11:30] LABS: MANUAL DIFFERENTIAL MANUAL DIFFERENTIAL (MANUAL DIFF)
[2021-06-24 12:21] LABS: Free T4 (Free Thyroxine) 1.17 ng/dl (0.78-2.19)
[2021-06-24 12:32] LABS: Chloride 106 mmol/L (98-107); Sodium 136 mmol/L (136-145)
[2021-06-24 12:33] LABS: Potassium 4.4 mmoL/L (3.5-5.1)
[2021-06-24 12:35] LABS: Alanine Aminotransferase 97 U/L (12-78); Albumin Level 3.8 g/dl (3.5-5.0); Alkaline Phosphatase 139 U/L (38-126); Anion Gap 11.4 mEq/L (5-15); Aspartate Amino Transferase 63 U/L (14-36); Bilirubin,Direct 0.1 mg/dl (0.0-0.4); Bilirubin,Indirect 0.2 mg/dL (0.0-0.9); Bilirubin,Total 0.3 mg/dl (0.2-1.3); Bilirubin,Unconjugated 0.1 mg/dL (0.0-1.1); Blood Urea Nitrogen 26 mg/dl (7-17); Calcium 9.1 mg/dl (8.4-10.2); Carbon Dioxide 23 mmol/L (22.0-30.0); Chol/HDL Ratio 3.6 (1-3.5); Cholesterol 250 mg/dl (140-200); Estimated Glomerular Filt Rate 85 ml/min (>60); GFR (African American) 103 ML/MIN (>60); Glucose 110 mg/dl (74-100); HDL Cholesterol 69 mg/dl (40-60); Total Protein,Serum 6.8 g/dl (6.3-8.2); Triglycerides 140 mg/dl (30-150); VLDL Cholesterol 28 mg/dL (0-40)
[2021-06-24 12:46] LABS: Direct LDL Cholesterol 154.67 mg/dL (100-129)
[2021-06-24 13:08] LABS: Thyroid Stimulating Hormone 2.23 uIU/mL (0.465-4.68)
[2021-06-24 17:22] LABS: Eosinophils % 5 % (0-3); Lymphocytes % 24 % (10-50); Monocytes % 4 % (2-9); Neutrophils % 67 % (42-76); Platelet Estimate Normal; Total Cells Counted 100
== END ==
PROVIDERS: Visit Provider Physician Assistant
DX: R06.00 Dyspnea, unspecified (principal); R07.89 Other chest pain; I11.9 Hypertensive heart disease without heart failure; E78.2 Mixed hyperlipidemia; I63.9 Cerebral infarction, unspecified; E11.9 Type 2 diabetes mellitus without complications; E66.01 Morbid (severe) obesity due to excess calories; Z68.43 Body mass index [BMI] 50.0-59.9, adult
CPT/HCPCS: 36415; 80048; 80061; 80076; 84439; 84443; 85007; 85025

== ENCOUNTER 2021-06-26 19:33 | Emergency (ER) | payer OTHER, SELFPAY ==
[2021-06-26 20:30] VITALS: BP 120/80; PULSE 78; RESP 19; TEMP 36.6; O2SAT 99; BMI 43.5
--- NOTE | 2021-06-26 20:54 | HMH.EDUTC ---
[facility] [place] Disposition Clinical Impression: Otitis media Qualifiers: Otitis media type: unspecified Laterality: left Qualified Code(s): H66.92 - Otitis media, unspecified, left ear Disposition: Home, Self-Care Condition on Discharge: Good Instructions: Middle Ear Infection, Prednisone, Amoxicillin Additional Instructions: *Monitor Temp, Over the counter Motrin or Tylenol as directed/as needed Tylenol every 4 hours and Motrin every 6 hours (as long as your family doctor has told you that you can take it) for fever or pain. and straight to ER if unable to lower temp less than 101.0 after medication given *Warm salt water gargles may help to soothe the throat *Throat Lozenges *Warm fluids like tea with honey may help to soothe the throat *Sleep elevated *Humidifier/Vaporizer Your throat swab was sent for culture. Those results are typically sent to your primary care. Be sure to follow up in 2-3 days with your family doctor/primary care physician if no improvement so they can review those result and treat if necessary. If you don?t have a primary care doctor, I recommend you get one but in the mean time, you will have to return to a walk in clinic Follow up IMMEDIATELY for new or worsening symptoms or no Noticeable improvement over the next 48-72 hours. 911 for difficulty breathing or swallowing Prescriptions: Amoxicillin [Amoxicillin 500mg Cap] 500 mg PO TID #30 cap Transmission Status: Pending to [id number] methylPREDNISolone [Medrol 4mg tab] 4 mg PO DIRECTED #21 tab [facility]: [id number] Referrals: Mike Madrigal MD [Primary Care Provider] - As needed Medical Decision Making - Iglesia Inquiry Pt receiving controlled substance: No Iglesia was queried for this patient: No Vital Signs: 06/26/21 20:30 06/26/21 21:19 Temperature 97.8 F 97.8 F Temperature Source Oral Pulse Rate 78 Pulse Rate [Right Brachial] 78 Respiratory Rate 19 19 Blood Pressure 120/80 Blood Pressure [Right Arm] 120/80 Blood Pressure Mean [Right Arm] 93 Blood Pressure Source [Right Arm] Automatic Cuff Blood Pressure Position [Right Arm] Sitting 02 Sat by Pulse Oximetry 99 Oxygen Delivery Method Room Air - Lab Data Lab results reviewed: Yes: I reviewed the patient's lab results. Lab Results 06/26/21 20:30: Group A Strep Rapid Negative Orders (Tests/Meds): ED MEDICATIONS Discontinued Medications Generic Name Dose Route Start Last Admin Trade Name Estefany PRN Reason Stop Dose Admin Amoxicillin 500 mg 06/26/21 21:18 06/26/21 21:20 Amoxicillin 500mg Capsule PO 06/26/21 21:19 500 mg ONCE ONE Administration ORDERS Category Date Time Status Strep Screen Confirmation Stat Micro 06/26/21 20:30 Received [facility] HPI - General Stated complaint: sore throat, ears Time Seen by Provider: 06/26/21 20:54 Mode of Arrival: Ambulatory Source of Information: Patient Limitations: No Limitations Description of Symptoms (Recalled from Triage Doc. by RN): PATIENT C/O SORE THROAT AND RIGHT EAR ACHE X 2 DAYS HEENT Symptoms (Recalled from RN notes): Yes Resp Symptoms (Recalled from RN notes): No Skin Symptoms (Recalled from RN notes): No MS Symptoms (Recalled from RN notes): No Functional Status (Recalled from RN notes): WNL - History of Present Illness Provider Complaint: Patient state that she has been having sore throat and pain/pressure in her right ear for a couple of days States that this evening her ear was hurting worse so she came in to get it checked - Related Data Home Medications Medication Instructions Recorded Confirmed bisoproloL fumarate [Bisoprolol 5 mg PO DAILY 06/26/21 06/26/21 Fumarate] Previous Rx's Medication Instructions Recorded Amoxicillin [Amoxicillin 500mg 500 mg PO TID #30 cap 06/26/21 Cap] methylPREDNISolone [Medrol 4mg 4 mg PO DIRECTED #21 tab 06/26/21 tab] Allergies Allergy/AdvReac Type Severit
[2021-06-26 21:09] LABS: Strep Scrn Group A (Rapid) Negative (Negative)
[2021-06-26 21:19] VITALS: BP 120/80; PULSE 78; RESP 19; TEMP 36.6; O2SAT 99
== END 2021-06-26 21:23 | disposition home or self-care (01) ==
PROVIDERS: Emergency Provider Nurse Practitioner; PCP Emergency Medicine
DX: H66.92 Otitis media, unspecified, left ear (principal); F41.8 Other specified anxiety disorders; K21.9 Gastro-esophageal reflux disease without esophagitis; E78.5 Hyperlipidemia, unspecified; I10 Essential (primary) hypertension; F17.210 Nicotine dependence, cigarettes, uncomplicated
CPT/HCPCS: 87430; 99212; G0463

== ENCOUNTER 2021-06-29 20:45 | Emergency (ER) | payer OTHER, SELFPAY ==
[2021-06-29 20:47] VITALS: BP 139/88; PULSE 105; RESP 17; TEMP 36.6; O2SAT 98; BMI 51.2
--- NOTE | 2021-06-29 20:55 | HMH.EDGENADL ---
ED Disposition Clinical Impression: Headache Qualifiers: Headache type: tension-type Headache chronicity pattern: acute headache Intractability: not intractable Qualified Code(s): G44.209 - Tension-type headache, unspecified, not intractable Disposition: Home, Self-Care Condition on Discharge: Good Instructions: DI for Migraine, DI for Headache Additional Instructions: You have been evaluated for headache. Please monitor your symptoms. Keep a headache journal. Try to avoid changes in sleep, diet, caffeine. Follow-up with your primary care doctor in 1 to 2 days for symptom recheck. Take Fioricet as needed for headache. Return to the emergency department for any new or worsening symptoms. Prescriptions: Butalb/Acetaminophen/Caffeine [Fiorcet Tablet] 1 each PO Q8 PRN #12 tablet PRN Reason: Headache Transmission Status: Sent to [id number] Referrals: Mike Madrigal MD [Primary Care Provider] - Time of Disposition: 22:36 - Critical Care Critical Care Time: No Attestation: On 06/29/21, the high probability of a clinically significant, sudden or life threatening deterioration of the following system(s) required my full and direct attention, intervention and personal management. The time I documented below is in addition to time spent performing reported procedures but includes the following listed in this critical care notation. Medical Decision Making - Medical Records Medical records reviewed: Yes: I reviewed the patient's medical records. - Iglesia Inquiry Pt receiving controlled substance: No Vital Signs: 06/29/21 20:47 Temperature 97.9 F Temperature Source Oral Pulse Rate [Left Radial] 105 H Respiratory Rate 17 Blood Pressure [Right Arm] 139/88 Blood Pressure Mean [Right Arm] 105 Blood Pressure Source [Right Arm] Automatic Cuff Blood Pressure Position [Right Arm] Sitting 02 Sat by Pulse Oximetry 98 Oxygen Delivery Method Room Air - Lab Data Lab Results 06/29/21 21:02: WBC 9.3, RBC 4.88, Hgb 15.5, Hct 45.2, MCV 92.7, MCH 31.9 H, MCHC 34.4, RDW 14.4, Plt Count 343, MPV 7.7, Neut % (Auto) 70.2, Lymph % (Auto) 21.2, [place] % (Auto) 3.7, Eos % (Auto) 4.0, Baso % (Auto) 1.0, Neut # (Auto) 6.5, Lymph # (Auto) 2.0, [place] # (Auto) 0.3, Eos # (Auto) 0.4, Baso # (Auto) 0.1 06/29/21 21:02: Sodium 137, Potassium 3.7, Chloride 103, Carbon Dioxide 27, Anion Gap 10.7, BUN 18 H, Creatinine 0.80, Estimated Creat Clear 82, Estimated GFR 85, Est GFR ( Amer) 103, Glucose 124 H, Calcium 9.4, Total Bilirubin 0.3, AST 99 H, ALT 143 H, Alkaline Phosphatase 131 H, Total Protein 7.8, Albumin 4.1, Globulin 3.7 H, Albumin/Globulin Ratio 1.1 06/29/21 21:47: Urine Color Yellow, Urine Appearance Clear, Urine pH 6.0, Ur Specific [place] >= 1.030, Urine Protein Negative, Urine Glucose (UA) Negative, Urine Ketones Negative, Urine Blood Negative, Urine Nitrate Negative, Urine Bilirubin Negative, Urine Urobilinogen 0.2, Ur Leukocyte Esterase Negative 06/29/21 21:47: Urine HCG, Qual Negative Result diagrams: 06/29/21 21:02 06/29/21 21:02 Orders (Tests/Meds): ED MEDICATIONS Generic Name Dose Route Start Last Admin Trade Name Freq PRN Reason Stop Dose Admin Lactated Ringer's 1,000 mls @ 999 mls/hr 06/29/21 21:00 06/29/21 21:07 Lactated Ringer's 1000 Ml Bag IV 06/29/21 22:00 999 mls/hr .Q1H1M SUNNY Administration Discontinued Medications Generic Name Dose Route Start Last Admin Trade Name Freq PRN Reason Stop Dose Admin Diphenhydramine HCl 25 mg 06/29/21 20:54 06/29/21 21:06 Diphenhydramine 50mg/Ml Vial IV 06/29/21 20:55 25 mg ONCE ONE Administration Prochlorperazine Edisylate 10 mg 06/29/21 20:54 06/29/21 21:07 Prochlorperazine 10mg/2ml Vial IV 06/29/21 20:55 10 mg ONCE ONE Administration ORDERS Category Date Time Status UA [Urinalysis and Microscopic] Stat Lab 06/29/21 21:47 Results Medical Decision Narrative: In summary this is a 30-year-old female presenti
[2021-06-29 21:00] VITALS: PULSE 95; O2SAT 99
[2021-06-29 21:11] LABS: Basophils # 0.1 K/mm3 (0-0.2); Eosinophils # 0.4 K/mm3 (0.0-0.4); Hematocrit 45.2 % (37.0-47.0); Hemoglobin 15.5 g/dL (12.2-16.2); Lymphocytes % 21.2 % (10-50); Mean Corpuscular HGB Conc 34.4 g/dL (31.8-35.4); Mean Corpuscular Hemoglobin 31.9 pg (27.0-31.2); Mean Corpuscular Volume 92.7 fl (81-99); Mean Platelet Volume 7.7 fl (7.4-10.4); Monocytes # 0.3 K/mm3 (0.1-1.0); Monocytes % 3.7 % (1.7-9.3); Neutrophils # 6.5 K/mm3 (1.8-7.8); Neutrophils % 70.2 % (37.0-80.0); Platelet Count 343 K/mm3 (142-424); Red Blood Count 4.88 M/mm3 (4.20-5.40); Red Cell Distribution Width 14.4 % (11.5-17.5); White Blood Count 9.3 K/mm3 (4.8-10.8)
[2021-06-29 21:16] LABS: Chloride 103 mmol/L (98-107); Potassium 3.7 mmoL/L (3.5-5.1); Sodium 137 mmol/L (136-145)
[2021-06-29 21:18] LABS: Blood Urea Nitrogen 18 mg/dl (7-17); Creatinine Clearance Estimated 82 mL/min (50-200); Estimated Glomerular Filt Rate 85 ml/min (>60); GFR (African American) 103 ML/MIN (>60)
[2021-06-29 21:19] LABS: Alanine Aminotransferase 143 U/L (12-78); Albumin Level 4.1 g/dl (3.5-5.0); Albumin/Globulin Ratio 1.1 (1.1-1.8); Alkaline Phosphatase 131 U/L (38-126); Anion Gap 10.7 mEq/L (5-15); Aspartate Amino Transferase 99 U/L (14-36); Bilirubin,Total 0.3 mg/dl (0.2-1.3); Calcium 9.4 mg/dl (8.4-10.2); Carbon Dioxide 27 mmol/L (22.0-30.0); Globulin 3.7 g/dL (1.3-3.2); Glucose 124 mg/dl (74-100); Total Protein,Serum 7.8 g/dl (6.3-8.2)
[2021-06-29 21:30] VITALS: PULSE 96; O2SAT 98
[2021-06-29 21:55] LABS: Microscopic, Urine URINE MICROSCOPIC (MICROSCOPIC)
[2021-06-29 21:57] LABS: Appearance,Urine CLEAR (Clear); Bilirubin,Urine Negative (Negative); Blood, Urine Negative (Negative); Color,Urine YELLOW (Yellow); Glucose,Urine (UA) Negative (Negative); Ketones,Urine Negative (Negative); Leukocyte Esterase,Urine Negative (Negative); Nitrate,Urine Negative (Negative); Protein,Urine Negative (Negative); Specific Gravity, Urine >= 1.030 (1.005-1.030); Urine Pregnancy, HCG Qual. Negative (Negative); Urobilinogen,Urine 0.2 EU/dl (0.2)
[2021-06-29 22:00] VITALS: PULSE 87; O2SAT 98
[2021-06-29 22:30] VITALS: PULSE 87; O2SAT 97
--- NOTE | 2021-06-29 22:31 | PC.NURSE ---
PT REPORTS THAT SHE IS FEELING BETTER AND WANTS TO GO HOME. MADE AWARE.
[2021-06-29 22:35] LABS: Amorphous Sediment,Urine 1+ /lpf; Bacteria,Urine 1+ /lpf; Mucus,Urine 1+ /lpf
[2021-06-29 22:38] VITALS: BP 125/80; PULSE 85; RESP 17; TEMP 36.7; O2SAT 98
== END 2021-06-29 22:42 | disposition home or self-care (01) ==
PROVIDERS: Emergency Provider Emergency Medicine; PCP Emergency Medicine
DX: G44.209 Tension-type headache, unspecified, not intractable (principal); F41.8 Other specified anxiety disorders; K21.9 Gastro-esophageal reflux disease without esophagitis; I10 Essential (primary) hypertension; F17.210 Nicotine dependence, cigarettes, uncomplicated
CPT/HCPCS: 80053; 81001; 81025; 85025; 96360; 96375; 99284

== ENCOUNTER → 2021-07-01 13:27 | Outpatient (CLI) | payer OTHER, SELFPAY ==
--- NOTE | 2021-07-01 13:31 | CA_ITS ---
APPROVED REPORT EXAM: Comprehensive 2D, Doppler, and color-flow Echocardiogram Rim Turning Machine Operator: Mara Gardner CRT Ht: 5 ft 2 in Wt: 279lbs BSA: 2.20 BP: 122/60 mmHg Indications: Palpitations, cp, smoker, sob, htn, hld, obesity, Pericardial Window 12/19/09 10days post delivery 2D Dimensions LVOT 1.79 cm (M/F) 1.5-2.5 LA Volume 24.90 mL LA Volume Index 11.30 mL/m2 (M/F) 16-34 M-Mode Dimensions RVDd 2.64 cm (0.9-2.6) LA Diam 3.62 cm (1.9-4.0) LVDd 4.32 cm (3.5-5.7) Ao Diam 2.98 cm (2.0-3.7) LVDs 3.19 cm (3.5-5.7) IVSd 1.67 cm (0.6-1.1) PWd 0.90 cm (0.6-1.1) EF (Teich) 51.70% FS 26.20% EDV (Teich) 84.00 mL TAPSE 2.26 (<1.7) ESV (Teich) 40.60 mL LV Diastology E Decel Time 187.00 (160-240 msec) E/A Ratio 0.96 MED E' 6.40 (< 7 cm/sec) MED A' 9.80 cm/s E'/MED E' Ratio 10.31 (>14) LAT E' 11.20 (<10 cm/sec) LAT A' 10.80 cm/s E/LAT E' Ratio 5.89 (>14) Aortic Valve AO Peak GR. 7.60 mmHg Mitral Valve MV E Max Wade. 66.00 (40-130 cm/s) MV A Velocity 69.00 (40-130 cm/s) E/A Ratio 0.96 MV Decel. Time 187.00 (160-240 ms) MV PHT 55.00 ms Pulmonary Valve PV Peak Velocity 96.00 (50-150 cm/s) Tricuspid Valve TR P. Velocity 246.00 cm/s RAP Estimate 10.00 mmHg RVSP 34.30 mmHg Left Ventricle Left atrium normal size, left ventricle normal size, left ventricular wall thickness is upper limit of the normal, there is preserved left ventricular systolic function, estimated ejection fraction 55% with no regional wall motion abnormality, diastolic parameters are inconclusive in the study. Right Ventricle Right atrium and right ventricle are normal size and contractility. Aortic Valve Aortic valve is grossly normal, there is no aortic stenosis or aortic insufficiency. Mitral Valve Mitral valve grossly normal, there is trace mitral regurgitation. Tricuspid Valve Tricuspid grossly normal, there is trace tricuspid regurgitation tricuspid regurgitation jet velocity is inadequate for calculation of the right ventricular systolic pressure. Pulmonic Valve Pulmonic valve is poorly visualized. Great Vessels Aortic root is normal size. Inferior vena cava is poorly visualized. Pericardium No significant pericardial effusion noted. Conclusion 1. Normal left ventricular size, preserved left ventricular systolic function, estimated ejection fraction 55% with no regional wall abnormality. Diastolic parameters are inconclusive in the study. 2. Trace mitral and tricuspid regurgitation. 3. No significant pericardial effusion. 4. Inferior vena cava is poorly visualized. Electronically signed by : Steve Rivas MD 07/01/2021 20:58:43
== END ==
PROVIDERS: PCP Emergency Medicine; Visit Provider Physician Assistant
DX: R07.89 Other chest pain (principal); I10 Essential (primary) hypertension; E78.2 Mixed hyperlipidemia; E66.01 Morbid (severe) obesity due to excess calories; Z68.43 Body mass index [BMI] 50.0-59.9, adult
CPT/HCPCS: 93306

== ENCOUNTER 2021-07-02 19:35 | Emergency (ER) | payer OTHER, SELFPAY ==
[2021-07-02 20:40] VITALS: BP 155/94; PULSE 101; RESP 22; TEMP 36.7; O2SAT 97; BMI 51.4
--- NOTE | 2021-07-02 21:09 | HMH.EDUTC ---
[facility] [place] Clinical Impression: Rash and nonspecific skin eruption Disposition: Home, Self-Care Condition on Discharge: Good Instructions: DI for Hives, DI for Rash Additional Instructions: Over the counter Benadryl may help with the itching of rash Oatmeal bathes like Aveeno may help with skin rash and clearing up of skin Topical medication may help with itching and rash Return if needed Straight to ER if any life threatening symptoms Prescriptions: Hydrocortisone [Hydrocortisone 1% Cream 30gm Tube] 1 applicatio TP BID #30 gm Transmission Status: Received by [id number] Referrals: Miek Madrigal MD [Primary Care Provider] - As needed Time of Disposition: 21:19 Medical Decision Making - Iglesia Inquiry Pt receiving controlled substance: No Iglesia was queried for this patient: No Vital Signs: 07/02/21 20:40 07/02/21 21:22 Temperature 98.1 F 98.1 F Temperature Source Oral Pulse Rate 101 H Pulse Rate [Right Brachial] 101 H Respiratory Rate 22 22 Blood Pressure 155/94 H Blood Pressure [Right Arm] 155/94 H Blood Pressure Mean [Right Arm] 114 Blood Pressure Source [Right Arm] Automatic Cuff Blood Pressure Position [Right Arm] Sitting 02 Sat by Pulse Oximetry 97 Oxygen Delivery Method Room Air Orders (Tests/Meds): ED MEDICATIONS Discontinued Medications Generic Name Dose Route Start Last Admin Trade Name Estefany PRN Reason Stop Dose Admin Methylprednisolone Sodium Succinate 125 mg 07/02/21 21:12 07/02/21 21:18 Methylprednisolone Sod Succ 125mg Vial IM 07/02/21 21:13 125 mg ONCE ONE Administration [facility] [place] - General Stated complaint: rash Time Seen by Provider: 07/02/21 21:09 Mode of Arrival: Ambulatory Source of Information: Patient Limitations: No Limitations Description of Symptoms (Recalled from Triage Doc. by RN): PATIENT C/O RASH TO ARM, CHEST, AND UPPER BACK HEENT Symptoms (Recalled from RN notes): No Resp Symptoms (Recalled from RN notes): No Skin Symptoms (Recalled from RN notes): Yes MS Symptoms (Recalled from RN notes): No Functional Status (Recalled from RN notes): WNL - History of Present Illness Provider Complaint: Patient states that she is not sure if she may be having a reaction to something or if she may be having a rash from the sun but she noticed small bumps her shoulders and upper arms and they are itchy States that she has not noticed them anywhere else and unsure what she may be having a reaction too but came in to get it checked out - Related Data Home Medications Medication Instructions Recorded Confirmed bisoproloL fumarate [Bisoprolol 5 mg PO DAILY 06/26/21 06/26/21 Fumarate] Previous Rx's Medication Instructions Recorded Amoxicillin [Amoxicillin 500mg 500 mg PO TID #30 cap 06/26/21 Cap] methylPREDNISolone [Medrol 4mg 4 mg PO DIRECTED #21 tab 06/26/21 tab] Butalb/Acetaminophen/Caffeine 1 each PO Q8 PRN #12 tab 06/29/21 [Fiorcet Tablet] Hydrocortisone [Hydrocortisone 1% 1 applicatio TP BID #30 gm 07/02/21 Cream 30gm Tube] Allergies Allergy/AdvReac Type Severity Reaction Status Date / Time ibuprofen [IBUPROFEN] Allergy Mild Unknown Verified 06/24/21 10:23 allergy reaction - Worker's Comp Is this a Worker's Comp case?: No [facility] History - Hepatitis A Screen Attestation statement:: This patient has been screened for Hepatitis A risk factors. I have reviewed the patient's past medical history: Yes Medical History: Reports:: Anxiety, Depression, Gastroesophageal Reflux Disease(GERD), Hyperlipidemia, Hypertension, Kidney Stones Denies:: Asthma, Cancer, Diabetes Mellitus Type 1, Diabetes Mellitus Type 2, Internal Pacemaker, Migraine, MRSA, Seizures Other Medical History: Reports: Other. Denies: Anemia, Arthritis, Blood Transfusion Reaction Comment: morbid obesity Other Surgeries: Yes: Cardiac Surgery (Hx of pericardial window due to pericarditis at 19 years old), Diann
[2021-07-02 21:22] VITALS: BP 155/94; PULSE 101; RESP 22; TEMP 36.7; O2SAT 97
== END 2021-07-02 21:33 | disposition home or self-care (01) ==
PROVIDERS: Emergency Provider Nurse Practitioner; PCP Emergency Medicine
DX: R21 Rash and other nonspecific skin eruption (principal); F41.8 Other specified anxiety disorders; K21.9 Gastro-esophageal reflux disease without esophagitis; E78.5 Hyperlipidemia, unspecified; I10 Essential (primary) hypertension; F17.210 Nicotine dependence, cigarettes, uncomplicated
CPT/HCPCS: 96372; 99212; G0463

== ENCOUNTER 2021-07-17 19:51 | Emergency (ER) | payer OTHER, SELFPAY ==
[2021-07-17 20:20] VITALS: BP 124/68; PULSE 100; RESP 20; TEMP 36.8; O2SAT 97; BMI 51.2
--- NOTE | 2021-07-17 20:55 | HMH.EDUTC ---
[facility] – [place] Disposition Clinical Impression: Rash Disposition: Home, Self-Care Condition on Discharge: Good Instructions: DI for Rash, Methylprednisolone Additional Instructions: Oatmeal baths may help with itching and irritation Over the counter hydrocortisone cream may help with itching and irritation Start oral dose pack tomorrow Return if needed Straight to ER if any life threatening symptoms Referrals: Mike Madrigal MD [Primary Care Provider] - As needed Forms: Work/School Release Time of Disposition: 21:07 Medical Decision Making - Iglesia Inquiry Pt receiving controlled substance: No Iglesia was queried for this patient: No Vital Signs: 07/17/21 20:20 Temperature 98.2 F Temperature Source Oral Pulse Rate [Right Brachial] 100 H Respiratory Rate 20 Blood Pressure [Right Arm] 124/68 Blood Pressure Mean [Right Arm] 86 Blood Pressure Source [Right Arm] Automatic Cuff Blood Pressure Position [Right Arm] Sitting 02 Sat by Pulse Oximetry 97 Oxygen Delivery Method Room Air Medical Decision Narrative: Denies chance of and states that she has taken solumedrol and medrol pack in the past [facility] [place] HPI - General Stated complaint: rash legs Time Seen by Provider: 07/17/21 20:55 Mode of Arrival: Ambulatory Source of Information: Patient Limitations: No Limitations Description of Symptoms (Recalled from Triage Doc. by RN): PATIENT C/O TENDER RASH TO BLE SINCE TUESDAY HEENT Symptoms (Recalled from RN notes): No Resp Symptoms (Recalled from RN notes): No Skin Symptoms (Recalled from RN notes): Yes MS Symptoms (Recalled from RN notes): No Functional Status (Recalled from RN notes): WNL - History of Present Illness Provider Complaint: Patient states that she helped her boyfriend cut some trees last weekend and has helped clear some brush and she noticed rash on bilateral ankles and lower legs States that she is unsure if she may have got into something or poison marshall but the rash itches and seems to be spreading so she came in tonight to get it checked out - Related Data Home Medications Medication Instructions Recorded Confirmed bisoproloL fumarate [Bisoprolol 5 mg PO DAILY 06/26/21 07/07/21 Fumarate] Previous Rx's Medication Instructions Recorded methylPREDNISolone [Medrol 4mg 4 mg PO DIRECTED #21 tab 06/26/21 tab] Butalb/Acetaminophen/Caffeine 1 each PO Q8 PRN #12 tab 06/29/21 [Fiorcet Tablet] Hydrocortisone [Hydrocortisone 1% 1 applicatio TP BID #30 gm 07/02/21 Cream 30gm Tube] pantoprazole 40 mg tablet,delayed 40 mg PO DAILY #90 tab 07/07/21 release Allergies Allergy/AdvReac Type Severity Reaction Status Date / Time ibuprofen [IBUPROFEN] Allergy Mild Unknown Verified 07/07/21 10:03 allergy reaction - Worker's Comp Is this a Worker's Comp case?: No [facility] History - Hepatitis A Screen Attestation statement:: This patient has been screened for Hepatitis A risk factors. I have reviewed the patient's past medical history: Yes Medical History: Reports:: Anxiety, Depression, Gastroesophageal Reflux Disease(GERD), Hyperlipidemia, Hypertension, Kidney Stones Denies:: Asthma, Cancer, Diabetes Mellitus Type 1, Diabetes Mellitus Type 2, Internal Pacemaker, Migraine, MRSA, Seizures Other Medical History: Reports: Other. Denies: Anemia, Arthritis, Blood Transfusion Reaction Comment: morbid obesity Other Surgeries: Yes: Cardiac Surgery (Hx of pericardial window due to pericarditis at 19 years old), Cholecystectomy, Tubal Ligation, Other. No: , Pacemaker Amputation: No Fractures: No Comment: WISDOM TEETH, HEART SURGERY - Social History Smoking Status: Current every day smoker Tobacco Type: cigarettes # Packs/Day (cigarettes): 1 #Yrs smoked (if former smoker): 11 Alcohol Intake: never Alcohol Intake Frequency:: holidays/special occasions only Substance Use Type: marijuana, former substance user, opiates Occupational Status: other Housing: house
[2021-07-17 21:18] VITALS: BP 124/68; PULSE 100; RESP 20; TEMP 36.8; O2SAT 97
== END 2021-07-17 21:30 | disposition home or self-care (01) ==
PROVIDERS: Emergency Provider Nurse Practitioner; PCP Emergency Medicine
DX: R21 Rash and other nonspecific skin eruption (principal)
CPT/HCPCS: 96372; 99212; G0463

== ENCOUNTER 2021-07-29 19:32 | Emergency (ER) | payer OTHER, SELFPAY ==
[2021-07-29 20:10] VITALS: BP 159/89; PULSE 98; RESP 16; TEMP 36.8; O2SAT 98; BMI 51.2
[2021-07-29 20:22] LABS: Strep Scrn Group A (Rapid) Negative (Negative)
--- NOTE | 2021-07-29 20:35 | HMH.EDUTC ---
[facility] [place] Disposition Clinical Impression: URI (upper respiratory infection) Qualifiers: URI type: unspecified URI Qualified Code(s): J06.9 - Acute upper respiratory infection, unspecified Disposition: Home, Self-Care Condition on Discharge: Good Instructions: Sore Throat, DI for Nasal Congestion Additional Instructions: *Monitor Temp, Over the counter Motrin or Tylenol as directed/as needed Tylenol every 4 hours and Motrin every 6 hours (as long as your family doctor has told you that you can take it) for fever or pain. and straight to ER if unable to lower temp less than 101.0 after medication given *Warm salt water gargles may help to soothe the throat *Throat Lozenges *Warm fluids like tea with honey may help to soothe the throat *Sleep elevated *Humidifier/Vaporizer Your throat swab was sent for culture. Those results are typically sent to your primary care. Be sure to follow up in 2-3 days with your family doctor/primary care physician if no improvement so they can review those result and treat if necessary. If you don?t have a primary care doctor, I recommend you get one but in the mean time, you will have to return to a walk in clinic Follow up IMMEDIATELY for new or worsening symptoms or no Noticeable improvement over the next 48-72 hours. 911 for difficulty breathing or swallowing Referrals: Mike Madrigal MD [Primary Care Provider] - As needed Forms: Work/School Release Medical Decision Making - Iglesia Inquiry Pt receiving controlled substance: No Iglesia was queried for this patient: No Vital Signs: 07/29/21 20:10 Temperature 98.3 F Temperature Source Oral Pulse Rate [Right] 98 H Respiratory Rate 16 Blood Pressure [Right Arm] 159/89 H Blood Pressure Mean [Right Arm] 112 Blood Pressure Source [Right Arm] Automatic Cuff Blood Pressure Position [Right Arm] Sitting 02 Sat by Pulse Oximetry 98 Oxygen Delivery Method Room Air - Lab Data Lab results reviewed: Yes: I reviewed the patient's lab results. Lab Results 07/29/21 20:00: Group A Strep Rapid Negative Orders (Tests/Meds): ORDERS Category Date Time Status Strep Screen Confirmation Stat Micro 07/29/21 20:00 Received [facility] [place] HPI - General Stated complaint: sore throat, left ear pain Time Seen by Provider: 07/29/21 20:35 Mode of Arrival: Ambulatory Source of Information: Patient Limitations: No Limitations Description of Symptoms (Recalled from Triage Doc. by RN): sore throat, ear pain HEENT Symptoms (Recalled from RN notes): Yes (sore throat, ear pain) Resp Symptoms (Recalled from RN notes): No Skin Symptoms (Recalled from RN notes): No MS Symptoms (Recalled from RN notes): No Functional Status (Recalled from RN notes): na - History of Present Illness Provider Complaint: Patient states that she has been having sore throat and runny nose States that she was worried that she may have strep throat so she came in wanting to get tested for strep - Related Data Home Medications Medication Instructions Recorded Confirmed bisoproloL fumarate [Bisoprolol 5 mg PO DAILY 06/26/21 07/23/21 Fumarate] Previous Rx's Medication Instructions Recorded pantoprazole 40 mg tablet,delayed 40 mg PO DAILY #90 tab 07/07/21 release amlodipine 5 mg tablet 5 mg PO DAILY #30 tab 07/23/21 atorvastatin 40 mg tablet 40 mg PO DAILY #30 tab 07/23/21 Allergies Allergy/AdvReac Type Severity Reaction Status Date / Time ibuprofen [IBUPROFEN] Allergy Mild Unknown Verified 07/23/21 10:08 allergy reaction - Worker's Comp Is this a Worker's Comp case?: No [facility] History - Hepatitis A Screen Attestation statement:: This patient has been screened for Hepatitis A risk factors. I have reviewed the patient's past medical history: Yes Medical History: Reports:: Anxiety, Depression, Gastroesophageal Reflux Disease(GERD), Hyperlipidemia, Hypertension, Kidney Stones Denies:: Asthma, Cancer, Diabetes Mellitus Type 1, Diabe
[2021-07-29 20:41] VITALS: BP 159/89; PULSE 98; RESP 16; TEMP 36.8; O2SAT 98
== END 2021-07-29 20:43 | disposition home or self-care (01) ==
PROVIDERS: Emergency Provider Nurse Practitioner; PCP Emergency Medicine
DX: J06.9 Acute upper respiratory infection, unspecified (principal); F41.8 Other specified anxiety disorders; K21.9 Gastro-esophageal reflux disease without esophagitis; I10 Essential (primary) hypertension; Z72.0 Tobacco use
CPT/HCPCS: 87430; 99212; G0463

== ENCOUNTER 2021-10-26 18:02 | Emergency (ER) | payer OTHER, SELFPAY ==
[2021-10-26 19:40] VITALS: BP 141/86; PULSE 86; RESP 19; TEMP 36.8; O2SAT 100; BMI 43.6
[2021-10-26 20:08] LABS: UTC Strep Screen (Rapid) Negative (Negative)
--- NOTE | 2021-10-26 20:21 | EXP.UTC ---
Discharge Plan Disposition Patient Disposition: Home, Self-Care Condition: Good Prescriptions Prescriptions: No Action atorvastatin [Lipitor] 40 mg tablet 40 mg PO DAILY Qty: 30 2RF amlodipine [Norvasc] 5 mg tablet 5 mg PO DAILY Qty: 30 2RF bupropion HCl [Wellbutrin XL] 150 mg tablet extended release 24 hr 150 mg PO DAILY Qty: 30 2RF Vraylar 1.5 mg capsule 1.5 mg PO DAILY Qty: 30 2RF hydroxyzine HCl 25 mg tablet 25 mg PO HS Qty: 30 1RF pantoprazole [Protonix] 40 mg tablet,delayed release (DR/EC) 40 mg PO DAILY Qty: 90 0RF bisoprolol fumarate 5 MG tablet 5 mg PO DAILY Referrals Follow up/Referrals: Mike Madrigal MD [Primary Care Provider] - See instructions Activity Restrictions/Add. Instructions Additional Instructions/Restrictions: *Monitor Temp, Over the counter Motrin or Tylenol as directed/as needed Tylenol every 4 hours and Motrin every 6 hours (as long as your family doctor has told you that you can take it) for fever or pain. and straight to ER if unable to lower temp less than 101.0 after medication given *Warm salt water gargles may help to soothe the throat *Throat Lozenges? *Warm fluids like tea with honey may help to soothe the throat? *Sleep elevated *Humidifier/Vaporizer Your throat swab was sent for culture. Those results are typically sent to your primary care. Be sure to follow up in 2-3 days with your family doctor/primary care physician if no improvement so they can review those result and treat if necessary. If you don?t have a primary care doctor, I recommend you get one but in the mean time, you will have to return to a walk in clinic Follow up IMMEDIATELY for new or worsening symptoms or no Noticeable improvement over the next 48-72 hours. 911 for difficulty breathing or swallowing Clinical Impressions Clinical Impression: Viral upper respiratory infection Instructions Patient Instructions: DI for Viral Upper Respiratory Infection -- Adult Discharge ED Provider: Pamela Corral [facility] General Stated complaint: sore throat, nausa for 2 wks Mode of Arrival: Ambulatory Source of Information: Patient Limitations: No Limitations Time Seen by Provider: 10/26/21 20:21 Description of Symptoms (Recalled from Triage Doc. by RN): PATIENT C/O SORE THROAT AND NAUSEA X 2 WEEK HEENT Symptoms (Recalled from RN notes): Yes Resp Symptoms (Recalled from RN notes): No Skin Symptoms (Recalled from RN notes): No MS Symptoms (Recalled from RN notes): No Functional Status (Recalled from RN notes): WNL History of Present Illness Provider Complaint: Patient states that she has been having sore throat and nausea on and off for 2 weeks States that she was worried that she may have strep throat so she came in to get checked for strep throat Related Data Home Medications Medication Instructions Recorded Confirmed bisoprolol fumarate 5 mg tablet 5 mg PO DAILY FAST HEART RATE 06/26/21 10/16/21 Previous Rx's Medication Instructions Recorded amlodipine 5 mg tablet (Norvasc) 5 mg PO DAILY #30 tabs 07/23/21 atorvastatin 40 mg tablet (Lipitor) 40 mg PO DAILY #30 tabs 07/23/21 bupropion HCl 150 mg 24 hr tablet, 150 mg PO DAILY #30 tabs 09/16/21 extended release (Wellbutrin XL) cariprazine 1.5 mg capsule 1.5 mg PO DAILY #30 caps 09/16/21 (Vraylar) hydroxyzine HCl 25 mg tablet 25 mg PO HS #30 tabs 10/16/21 pantoprazole 40 mg tablet,delayed 40 mg PO DAILY #90 tabs 10/23/21 release (Protonix) Allergies Allergy/AdvReac Type Severity Reaction Status Date / Time ibuprofen [IBUPROFEN] Allergy Mild Unknown Verified 10/16/21 13:19 allergy reaction Worker's Comp Is this a Worker's Comp case?: No [facility] Medical History (Updated 10/26/21 @ 20:25 by Pamela Corral APRN) Chest pain Dyspnea History of scarlet fever HLD (hyperlipidemia) HTN (hypertension) Social History Smoking Status: Current every day smoker to
[2021-10-26 20:30] VITALS: BP 141/86; PULSE 86; RESP 19; TEMP 36.8; O2SAT 100
== END 2021-10-26 20:33 | disposition home or self-care (01) ==
PROVIDERS: Emergency Provider Nurse Practitioner; PCP Emergency Medicine
DX: J06.9 Acute upper respiratory infection, unspecified (principal); J02.9 Acute pharyngitis, unspecified; R11.0 Nausea; F17.210 Nicotine dependence, cigarettes, uncomplicated
CPT/HCPCS: 87880; 99212; G0463

== ENCOUNTER → 2021-11-16 09:53 | Outpatient (POV) | payer OTHER, SELFPAY ==
[2021-11-16 10:04] VITALS: BP 151/94; PULSE 90; RESP 18; TEMP 36.1; O2SAT 96; BMI 47.7
--- NOTE | 2021-11-16 10:11 | EXP.PAIN.SOA ---
[facility] Pain Management SOAP Note Subjective:: Patient is a pleasant 31-year-old female who presents today for follow-up. We are currently treating the patient for left sacroiliitis. Today the patient rates her pain a 6 out of 10. She states the pain is primarily in her low back that radiates into her bilateral hips. Patient denies any new trauma or injury to the site. Patient denies any change to the location or type of pain she experiences. Patient describes this as a throbbing, aching sensation that is worse with increased activity. Patient has done injective therapy in the past that provided significant improvement of her symptoms. Patient states she has had about 4 months worth of relief following this injection. Patient has used [id number] Tylenol as needed to provide minimal improvement of her symptoms. Patient has a intolerance to NSAIDs. Patient also uses heating pads and compounding cream that provide some improvement of her symptoms. Patient states she has refills on her compounding cream however lost her current bottle and needs the little full contact number. Patient is not currently prescribed any scheduled medications. Her Iglesia is [phone]. It is been reviewed and appropriate. Review of Systems: General: No recent weight changes, no fever, no sleep disturbances Respiratory: No cough, no shortness of air, no recurring pulmonary infections Cardiovascular/peripheral vascular: No chest pain, no palpitations, no edema, no shortness of breath Gastrointestinal: No new onset incontinence, normal bowel movements reported Genitourinary: No new onset incontinence Musculoskeletal: Low back pain, bilateral hip pain Psychiatric: [Normal mood/affect] Neurological: [Denies weakness in extremities], [denies balance issues] Objective:: Physical Exam: General: Alert and oriented x3, no acute distress, pleasant and cooperative Lungs: Respirations even and unlabored, symmetrical chest expansion Eyes: PERRL Musculoskeletal: Flexion and extension of lumbar [spine] somewhat guarded secondary to pain, [antalgic gait noted]. Extreme point tenderness along bilateral SI's and bilateral greater trochanteric bursa. Positive bilateral Kt's, Ghulam's, Gaenslen's, compression and distraction exam Neurological: Speech clear, no gross sensory deficit Assessment:: Bilateral sacroiliitis, bilateral greater trochanteric bursitis Plan:: Patient is experiencing worsening pain in her low back that radiates into her bilateral hips today. Patient had limited range of motion of her lumbar spine and extreme point tenderness along her bilateral SI's and bilateral greater trochanteric bursa's. Patient also had a positive bilateral Kt's, Ghulam's, Gaenslen's, compression and distraction exam during today's visit. I have discussed with the patient regarding doing repeat bilateral SI injections. Risk and benefits were discussed with the patient. She would like to proceed forward with these injections. I have also discussed with the patient regarding greater trochanteric bursa injections in the future. Patient was given the [place] pharmacy number for her compounding cream and has been instructed to contact us if she needs a new order. We will schedule the patient for bilateral SI injections at today's visit. Patient has been instructed to contact the clinic with any concerns before the next appointment. Dr. Nicholson has reviewed this note and agrees with this plan of care. This note was dictated using voice recognition software and make contain errors or omissions. [facility] Medical History (Updated 10/27/21 @ 14:59 by Luisana Au APRN) Chest pain Dyspnea History of scarlet fever HLD (hyperlipidemia) HTN (hypertension) Major depressive disorder Nightmares associated with chronic post-traumatic stress disorder Posttraumatic stress disorder Social History (Updated 10/27/21 @ 15:03 by Luisana Au APRN) Smoking Status: Current every day smoker to
== END ==
PROVIDERS: PCP Emergency Medicine; Visit Provider Nurse Practitioner Family
DX: M46.1 Sacroiliitis, not elsewhere classified (principal); M70.61 Trochanteric bursitis, right hip; M70.62 Trochanteric bursitis, left hip
CPT/HCPCS: 99212; G0463

== ENCOUNTER 2021-11-20 10:40 | Emergency (ER) | payer OTHER, SELFPAY ==
--- NOTE | 2021-11-20 11:07 | EXP.UTC ---
Discharge Plan Disposition Patient Disposition: Home, Self-Care Condition: Good Prescriptions Prescriptions: New prednisone [prednisone] 20 mg tablet 20 mg PO BID 4 Days Qty: 8 0RF amoxicillin [amoxicillin] 875 mg tablet 875 mg PO Q12H Qty: 20 0RF igqcuxauafgpzjl-bcqiinnwf-TM [Bromfed DM] 2-30-10 mg/5 mL Syrup 5 ml PO Q6H PRN (Reason: Cough) Qty: 240 0RF No Action bisoprolol fumarate 5 MG tablet 5 mg PO DAILY atorvastatin [Lipitor] 40 mg tablet 40 mg PO DAILY prazosin 1 mg capsule 1 mg PO HS amlodipine [Norvasc] 5 mg tablet 5 mg PO DAILY pantoprazole [Protonix] 40 mg tablet,delayed release (DR/EC) 40 mg PO DAILY hydroxyzine HCl 25 mg tablet 25 mg PO HS bupropion HCl [Wellbutrin XL] 150 mg tablet extended release 24 hr 150 mg PO DAILY Vraylar 1.5 mg capsule 1.5 mg PO DAILY Referrals Follow up/Referrals: Mike Madrigal MD [Primary Care Provider] - See instructions Activity Restrictions/Add. Instructions Additional Instructions/Restrictions: Drink plenty of fluids. Take tylenol or ibuprofen for pain or fever. Take the medications as directed. Follow up with your regular doctor. GO TO THE ER FOR ANY WORSENING SYMPTOMS Clinical Impressions Clinical Impression: Pharyngitis Stand Alone Forms Stand Alone Forms: Work/School Release Instructions Patient Instructions: DI for Strep Throat Discharge ED Provider: James Lechuga [facility] General Stated complaint: Sore throat Time Seen by Provider: 11/20/21 11:06 History of Present Illness Provider Complaint: She c/o sore throat for the past 2 days Related Data Home Medications Medication Instructions Recorded Confirmed bisoprolol fumarate 5 mg tablet 5 mg PO DAILY FAST HEART RATE 06/26/21 11/16/21 amlodipine 5 mg tablet (Norvasc) 5 mg PO DAILY BLOOD PRESSURE 11/16/21 11/16/21 atorvastatin 40 mg tablet (Lipitor) 40 mg PO DAILY Cholesterol 11/16/21 11/16/21 bupropion HCl 150 mg 24 hr tablet, 150 mg PO DAILY MOOD 11/16/21 11/20/21 extended release (Wellbutrin XL) cariprazine 1.5 mg capsule 1.5 mg PO DAILY MOOD 11/16/21 11/20/21 (Vraylar) hydroxyzine HCl 25 mg tablet 25 mg PO HS Anxiety 11/16/21 11/16/21 pantoprazole 40 mg tablet,delayed 40 mg PO DAILY STOMACH 11/16/21 11/16/21 release (Protonix) prazosin 1 mg capsule 1 mg PO HS BLOOD PRESSURE 11/16/21 11/16/21 Previous Rx's Medication Instructions Recorded amoxicillin 875 mg tablet 875 mg PO Q12H #20 tabs 11/20/21 atqbwhlkrumsyni-svpcgtnuaknilfs-YY 5 ml PO Q6H PRN Cough #240 mL 11/20/21 2 mg-30 mg-10 mg/5 mL oral syrup (Bromfed DM) prednisone 20 mg tablet 20 mg PO BID 4 days #8 tabs 11/20/21 Allergies Allergy/AdvReac Type Severity Reaction Status Date / Time ibuprofen [IBUPROFEN] Allergy Mild Unknown Verified 11/20/21 11:15 allergy reaction PFSH PFSH Medical History Chest pain Dyspnea History of scarlet fever HLD (hyperlipidemia) HTN (hypertension) Major depressive disorder Nightmares associated with chronic post-traumatic stress disorder Posttraumatic stress disorder Social History Smoking Status: Current every day smoker tobacco type: cigarettes packs per day: 1 second hand exposure: Yes alcohol intake: never substance use type: former substance user, marijuana and opiates current occupational status: other Travel in the last 8 weeks: None household members: family housing: house number of children: 3 current occupational exposures/hazards: No caffeine: Yes ROS Obtained: Yes All systems reviewed & no additional complaints except as documented Constitutional Constitutional: Reports chills and Reports fever(s) Eyes Eyes: Denies eye discharge ENT Ears, Nose, Mouth, and Throat: Reports as per HPI Cardiovascular Cardiovascular: Denies chest pain
[2021-11-20 11:13] VITALS: BP 133/67; PULSE 87; RESP 16; TEMP 36.8; O2SAT 99; BMI 47.5
[2021-11-20 11:21] LABS: UTC Strep Screen (Rapid) Negative (Negative)
[2021-11-20 11:57] VITALS: BP 133/67; PULSE 87; RESP 16; TEMP 36.8
== END 2021-11-20 11:58 | disposition home or self-care (01) ==
PROVIDERS: Emergency Provider Nurse Practitioner Family; PCP Emergency Medicine
DX: J02.0 Streptococcal pharyngitis (principal)
CPT/HCPCS: 87880; 99212; G0463

== ENCOUNTER 2021-11-22 16:59 | Emergency (ER) | payer OTHER, SELFPAY ==
--- NOTE | 2021-11-22 17:17 | EXP.UTC ---
Discharge Plan Disposition Patient Disposition: Home, Self-Care Condition: Good Prescriptions Prescriptions: No Action prednisone [prednisone] 20 mg tablet 20 mg PO BID 4 Days Qty: 8 0RF amoxicillin [amoxicillin] 875 mg tablet 875 mg PO Q12H Qty: 20 0RF fkrbkotdfofcwrf-yiabfrddz-JV [Bromfed DM] 2-30-10 mg/5 mL Syrup 5 ml PO Q6H PRN (Reason: Cough) Qty: 240 0RF bisoprolol fumarate 5 MG tablet 5 mg PO DAILY atorvastatin [Lipitor] 40 mg tablet 40 mg PO DAILY prazosin 1 mg capsule 1 mg PO HS amlodipine [Norvasc] 5 mg tablet 5 mg PO DAILY pantoprazole [Protonix] 40 mg tablet,delayed release (DR/EC) 40 mg PO DAILY hydroxyzine HCl 25 mg tablet 25 mg PO HS bupropion HCl [Wellbutrin XL] 150 mg tablet extended release 24 hr 150 mg PO DAILY Vraylar 1.5 mg capsule 1.5 mg PO DAILY Referrals Follow up/Referrals: Mike Madrigal MD [Primary Care Provider] - See instructions Activity Restrictions/Add. Instructions Additional Instructions/Restrictions: Drink plenty of fluids. Take tylenol or ibuprofen for pain or fever. Take the medications as directed. Follow up with your regular doctor. GO TO THE ER FOR ANY WORSENING SYMPTOMS Quarantine until you know the results of your covid-19 test. Notify your school or workplace of your results and follow their instructions regarding return to work/school. Finish the medications that you are on Clinical Impressions Clinical Impression: Viral syndrome Stand Alone Forms Stand Alone Forms: Work/School Release Instructions Patient Instructions: Coronavirus Disease 2019, Preventing the Spread of Coronavirus Discharge Instructions Discharge ED Provider: James Lechuga [facility] General Stated complaint: sore throat, body aches Time Seen by Provider: 11/22/21 17:23 History of Present Illness Provider Complaint: She states that she is feeling worse instead of better. she is being treated for strep throat. She is here to have a covid-19 test. Related Data Home Medications Medication Instructions Recorded Confirmed bisoprolol fumarate 5 mg tablet 5 mg PO DAILY FAST HEART RATE 06/26/21 11/16/21 amlodipine 5 mg tablet (Norvasc) 5 mg PO DAILY BLOOD PRESSURE 11/16/21 11/16/21 atorvastatin 40 mg tablet (Lipitor) 40 mg PO DAILY Cholesterol 11/16/21 11/16/21 bupropion HCl 150 mg 24 hr tablet, 150 mg PO DAILY MOOD 11/16/21 11/20/21 extended release (Wellbutrin XL) cariprazine 1.5 mg capsule 1.5 mg PO DAILY MOOD 11/16/21 11/20/21 (Vraylar) hydroxyzine HCl 25 mg tablet 25 mg PO HS Anxiety 11/16/21 11/16/21 pantoprazole 40 mg tablet,delayed 40 mg PO DAILY STOMACH 11/16/21 11/16/21 release (Protonix) prazosin 1 mg capsule 1 mg PO HS BLOOD PRESSURE 11/16/21 11/16/21 Previous Rx's Medication Instructions Recorded amoxicillin 875 mg tablet 875 mg PO Q12H #20 tabs 11/20/21 xbleeolxbmgtorn-ebuyoofzknworkj-HL 5 ml PO Q6H PRN Cough #240 mL 11/20/21 2 mg-30 mg-10 mg/5 mL oral syrup (Bromfed DM) prednisone 20 mg tablet 20 mg PO BID 4 days #8 tabs 11/20/21 Allergies Allergy/AdvReac Type Severity Reaction Status Date / Time ibuprofen [IBUPROFEN] Allergy Mild Unknown Verified 11/20/21 11:15 allergy reaction PFSH PFSH Medical History Anxiety Asthma Chest pain Dyspnea History of gastroesophageal reflux (GERD) History of scarlet fever HLD (hyperlipidemia) HTN (hypertension) Major depressive disorder Nightmares associated with chronic post-traumatic stress disorder Posttraumatic stress disorder Surgical History History of cholecystectomy History of tubal ligation Social History Smoking Status: Current every day smoker tobacco type: cigarettes packs per day: 1 second hand exposure: Yes alcohol intake: never substa
[2021-11-22 17:20] VITALS: BP 114/71; PULSE 97; RESP 18; TEMP 36.6; O2SAT 98; BMI 47.5
[2021-11-22 17:35] VITALS: BP 114/71; PULSE 97; RESP 18; TEMP 36.6; O2SAT 98
== END 2021-11-22 18:28 | disposition home or self-care (01) ==
PROVIDERS: Emergency Provider Nurse Practitioner Family; PCP Emergency Medicine
DX: B34.9 Viral infection, unspecified (principal)
CPT/HCPCS: 99212; C9803; G0463; U0003; U0005

== ENCOUNTER 2021-12-01 09:53 | Day surgery (SDC) | payer OTHER, SELFPAY ==
[2021-12-01 10:11] VITALS: BP 123/72; PULSE 98; RESP 20; TEMP 36.6; O2SAT 95; BMI 47.5
[2021-12-01 10:17] VITALS: BP 151/98; PULSE 89; RESP 18; O2SAT 98
[2021-12-01 10:19] VITALS: BP 151/98; PULSE 89; RESP 18
--- NOTE | 2021-12-01 10:25 | EXP.PAIN.PRO ---
Procedure Date: 12/01/21 Time: 10:22 Anesthesiologist:: Spencer Awad CRNA Complications:: None Pre-procedure Diagnosis:: Bilateral sacroiliitis Post-procedure Diagnosis:: Same Indications for Procedure:: Patient is a pleasant 31-year-old female who presents today for bilateral SI injections. We are currently treating the patient for bilateral sacroiliitis. Today the patient rates her pain a 6 out of 10. She states the pain is in her lower back that radiates into her bilateral legs. Patient denies any new trauma. She does currently use Tylenol as needed along with compounding cream and heating pads to provide relief of her symptoms. Review of systems General: No recent weight changes, no fever, no sleep disturbances Respiratory: No cough, no shortness of air, no recurring pulmonary infections Cardiovascular/peripheral vascular: No chest pain, no palpitations, no edema, no shortness of air Gastrointestinal: No new onset incontinence, normal bowel movements reported Genitourinary: No new onset incontinence Musculoskeletal: Low back pain, bilateral leg pain Psychiatric: Normal mood and affect Neurological: Denies weakness in extremities, denies balance issues Procedure Details:: Informed consent was obtained and the risk and benefits of the procedure were explained to the patient. Patient was taken to the procedure room where noninvasive monitoring such as a noninvasive blood pressure cuff and pulse oximeter was placed on the patient. Patient was placed prone on the procedure table. Using C arm fluoroscopy the right SI joint was visualized. The inferior aspect of the right sacroiliac joint was accessed using a 22-gauge spinal needle. Approximately 5 mL of bupivacaine 0.25% and 40 mL of Depo-Medrol was incrementally injected into the joint. Then using C arm fluoroscopy the left SI joint was visualized. Using a 22-gauge spinal needle the inferior aspect of the left sacroiliac joint was accessed. Approximately 5 mL of bupivacaine 0.25% and 40 mL of Depo-Medrol was incrementally injected into the left SI joint. Patient tolerated the procedure well with no complications. Plan and Disposition:: Patient was monitored in the clinic for short period of time following this procedure and discharged with no pain symptoms and neurologically intact. Patient will follow-up in clinic in 2 weeks for reevaluation of symptoms. Patient has been instructed to contact the clinic with any questions or concerns before the next appointment date. Dr. Nicholson has read this note and agrees with this plan of care. This note was dictated using voice recognition software and may contain errors or omissions.
[2021-12-01 10:35] VITALS: BP 111/61; PULSE 87; RESP 20
== END 2021-12-01 10:35 | disposition home or self-care (01) ==
PROVIDERS: PCP Emergency Medicine; Visit Provider Nurse Anesthetist, Certified Registered
DX: M46.1 Sacroiliitis, not elsewhere classified (principal); Z72.0 Tobacco use
CPT/HCPCS: 27096; G0260; J1030

== ENCOUNTER 2021-12-15 09:50 | Day surgery (SDC) | payer OTHER, SELFPAY ==
[2021-12-15 10:01] VITALS: BP 111/64; PULSE 64; RESP 18; TEMP 36.3; O2SAT 100; BMI 46.7
[2021-12-15 10:11] VITALS: BP 150/104; PULSE 87; RESP 18; O2SAT 98
[2021-12-15 10:13] VITALS: BP 150/104; PULSE 87; RESP 18; O2SAT 100
[2021-12-15 10:21] VITALS: BP 126/63; PULSE 74; RESP 18; O2SAT 98
--- NOTE | 2021-12-15 10:22 | EXP.PAIN.PRO ---
Procedure Date: 12/15/21 Time: 10:22 Anesthesiologist:: Spencer Awad CRNA Complications:: None Pre-procedure Diagnosis:: Bilateral trochanteric bursitis Post-procedure Diagnosis:: Same Indications for Procedure:: Patient is a pleasant 31-year-old female that comes our clinic today for bilateral trochanteric bursa injections. She has extreme point tenderness over the bilateral bursa's. She has had them injected before with significant improvement. Procedure Details:: Procedure: Bilateral trochanteric bursa joint injections under fluoroscopy Informed consent was obtained and the risks and benefits of the procedure were explained to the patient.~ The patient was taken to the procedure room and noninvasive monitors were placed including a noninvasive blood pressure cuff and pulse oximeter.~ The patient was placed prone on the procedure table. Both hips were cleansed using Betadine as a cleansing solution. C-arm fluoroscopy was used to view the right trochanteric bursa joint.~ The skin and subcutaneous tissues were anesthetized using lidocaine 1.5% and a 25-gauge needle.~ After this, a 22-gauge spinal needle was inserted under fluoroscopic guidance into the inferior aspect of the right trochanteric bursa.~ Omnipaque dye was injected and good spread was seen throughout the joint.~ After this, approximately 5 mL of bupivacaine, 0.25% and Depo-Medrol, 40 mg was incrementally injected into the right sacroiliac joint. We then moved to the left trochanteric bursa joint.~ The skin and subcutaneous tissues were anesthetized using lidocaine 1.5% and a 25-gauge needle.~ After this, a 22-gauge spinal needle was inserted under fluoroscopic guidance into the inferior aspect of the left trochanteric bursa joint.~ Omnipaque dye was injected and good spread was seen throughout the joint. After this, approximately 5 mL of bupivacaine, 0.25% and Depo-Medrol, 40 mg was incrementally injected into the left sacroiliac joint.~ The patient tolerated the procedure well with no complications. The patient was observed in the Pain Clinic and then was discharged home neurologically intact. Plan and Disposition:: Patient was discharged without incident.
== END 2021-12-15 10:22 | disposition home or self-care (01) ==
PROVIDERS: PCP Emergency Medicine; Visit Provider Nurse Anesthetist, Certified Registered
DX: M70.61 Trochanteric bursitis, right hip (principal); M70.62 Trochanteric bursitis, left hip; Z72.0 Tobacco use
CPT/HCPCS: 20610; J1030

== ENCOUNTER 2021-12-18 01:04 | Emergency (ER) | payer OTHER, SELFPAY ==
[2021-12-18 01:04] VITALS: BP 134/76; PULSE 90; RESP 20; TEMP 36.8; O2SAT 97; BMI 46.7
[2021-12-18 01:12] VITALS: BP 134/76; PULSE 94; O2SAT 97
--- NOTE | 2021-12-18 01:12 | HMH.EDGENADL ---
Discharge Plan Disposition Patient Disposition: Home, Self-Care Condition: Good Prescriptions Prescriptions: New tramadol 50 mg tablet 50 mg PO TID PRN (Reason: pain) Qty: 9 0RF cyclobenzaprine 5 mg tablet 5 mg PO TID PRN (Reason: muscle spasm) Qty: 9 0RF No Action bupropion HCl [Wellbutrin XL] 150 mg tablet extended release 24 hr 150 mg PO DAILY Qty: 30 0RF hydroxyzine HCl 25 mg tablet 25 mg PO HS Qty: 30 0RF prazosin 1 mg capsule 1 mg PO HS Vraylar 3 mg capsule 3 mg PO DAILY bisoprolol fumarate 5 MG tablet 5 mg PO DAILY atorvastatin [Lipitor] 40 mg tablet 40 mg PO DAILY amlodipine [Norvasc] 5 mg tablet 5 mg PO DAILY pantoprazole [Protonix] 40 mg tablet,delayed release (DR/EC) 40 mg PO DAILY Referrals Follow up/Referrals: Mike Madrigal MD [Primary Care Provider] - See instructions Activity Restrictions/Add. Instructions Additional Instructions/Restrictions: Follow-up with pain management and recommend daily routine stretching. Return to the ER for any new or worsening symptoms. Clinical Impressions Clinical Impression: Chronic lower back pain Instructions Patient Instructions: DI for Low Back Pain Discharge ED Provider: Kali Reddy Adult HPI General Chief complaint: Back Pain/Injury Stated complaint: lower back pain Time Seen by Provider: 12/18/21 01:12 History of Present Illness HPI narrative: 31-year-old female with history of chronic lower back pain presents with 2 weeks of worsening lower back pain worse with movement she has had bilateral SI injections recently with pain management that have not seemed to help. She denies radiation down the leg denies numbness and has no leg weakness. She has no recent falls denies urinary retention or incontinence stool incontinence or saddle anesthesia. States she has been using Tylenol for pain because she is allergic to ibuprofen. Denies fever chills or body aches denies abdominal pain denies dysuria. Pain is sharp in nature and currently 7 out of 10. Related Data Home Medications Medication Instructions Recorded Confirmed bisoprolol fumarate 5 mg tablet 5 mg PO DAILY FAST HEART RATE 06/26/21 12/18/21 amlodipine 5 mg tablet (Norvasc) 5 mg PO DAILY BLOOD PRESSURE 11/16/21 12/18/21 atorvastatin 40 mg tablet (Lipitor) 40 mg PO DAILY Cholesterol 11/16/21 12/18/21 pantoprazole 40 mg tablet,delayed 40 mg PO DAILY STOMACH 11/16/21 12/18/21 release (Protonix) cariprazine 3 mg capsule (Vraylar) 3 mg PO DAILY Anxiety 12/15/21 12/18/21 prazosin 1 mg capsule 1 mg PO HS ptsd 12/15/21 12/18/21 Previous Rx's Medication Instructions Recorded bupropion HCl 150 mg 24 hr tablet, 150 mg PO DAILY MOOD #30 tabs 12/04/21 extended release (Wellbutrin XL) hydroxyzine HCl 25 mg tablet 25 mg PO HS Anxiety #30 tabs 12/04/21 cyclobenzaprine 5 mg tablet 5 mg PO TID PRN muscle spasm #9 12/18/21 tabs tramadol 50 mg tablet 50 mg PO TID PRN pain #9 tabs 12/18/21 Allergies Allergy/AdvReac Type Severity Reaction Status Date / Time ibuprofen [IBUPROFEN] Allergy Mild Unknown Verified 12/15/21 10:02 allergy reaction PFSH PFSH Medical History Anxiety Asthma Chest pain Dyspnea History of gastroesophageal reflux (GERD) History of scarlet fever HLD (hyperlipidemia) HTN (hypertension) Major depressive disorder Nightmares associated with chronic post-traumatic stress disorder Posttraumatic stress disorder Surgical History History of cholecystectomy History of tubal ligation Family History Other No significant family history Social History Smoking Status: Current every day smoker tobacco type: cigarettes packs per day: 1 second hand exposure: Yes alcohol i
[2021-12-18 01:31] VITALS: BP 156/75; O2SAT 98
[2021-12-18 02:01] VITALS: BP 126/67; PULSE 82; O2SAT 94
[2021-12-18 03:22] VITALS: BP 135/80; PULSE 80; RESP 18; TEMP 36.8; O2SAT 99
== END 2021-12-18 03:31 | disposition home or self-care (01) ==
PROVIDERS: Emergency Provider Student in an Organized Health Care Education/Training Program; PCP Emergency Medicine
DX: M54.50 Low back pain, unspecified (principal); Z79.899 Other long term (current) drug therapy; Z88.6 Allergy status to analgesic agent; J45.909 Unspecified asthma, uncomplicated; K21.9 Gastro-esophageal reflux disease without esophagitis; E78.5 Hyperlipidemia, unspecified; I10 Essential (primary) hypertension; F32.A Depression, unspecified; F43.10 Post-traumatic stress disorder, unspecified
CPT/HCPCS: 99282

== ENCOUNTER 2021-12-20 14:49 | Emergency (ER) | payer OTHER, SELFPAY ==
[2021-12-20 15:06] VITALS: BP 151/74; PULSE 80; RESP 16; TEMP 36.8; O2SAT 100; BMI 46.7
--- NOTE | 2021-12-20 15:08 | EXP.UTC ---
Discharge Plan Disposition Patient Disposition: Home, Self-Care Condition: Good Prescriptions Prescriptions: New amoxicillin [amoxicillin] 875 mg tablet 875 mg PO Q12H Qty: 20 0RF methylprednisolone 4 mg Tablets,Dose Pack 4 mg PO DIRECTED Qty: 21 0RF zmegbyehawrixbd-aeohmangk-ZB [Bromfed DM] 2-30-10 mg/5 mL Syrup 5 ml PO Q6H PRN (Reason: Cough) Qty: 240 0RF No Action bupropion HCl [Wellbutrin XL] 150 mg tablet extended release 24 hr 150 mg PO DAILY Qty: 30 0RF hydroxyzine HCl 25 mg tablet 25 mg PO HS Qty: 30 0RF prazosin 1 mg capsule 1 mg PO HS Vraylar 3 mg capsule 3 mg PO DAILY bisoprolol fumarate 5 MG tablet 5 mg PO DAILY atorvastatin [Lipitor] 40 mg tablet 40 mg PO DAILY amlodipine [Norvasc] 5 mg tablet 5 mg PO DAILY pantoprazole [Protonix] 40 mg tablet,delayed release (DR/EC) 40 mg PO DAILY tramadol 50 mg tablet 50 mg PO TID PRN (Reason: pain) Qty: 9 0RF cyclobenzaprine 5 mg tablet 5 mg PO TID PRN (Reason: muscle spasm) Qty: 9 0RF Referrals Follow up/Referrals: Mike Madrigal MD [Primary Care Provider] - See instructions Activity Restrictions/Add. Instructions Additional Instructions/Restrictions: Drink plenty of fluids. Take tylenol or ibuprofen for pain or fever. Take the medications as directed. Follow up with your regular doctor. GO TO THE ER FOR ANY WORSENING SYMPTOMS Clinical Impressions Clinical Impression: Bronchitis Stand Alone Forms Stand Alone Forms: Work/School Release Instructions Patient Instructions: Acute Bronchitis, DI for Acute Bronchitis Discharge ED Provider: James Lechuga [facility] [place] H[place] General Stated complaint: congestion cough Mode of Arrival: Ambulatory Source of Information: Patient Limitations: No Limitations Time Seen by Provider: 12/20/21 15:08 Description of Symptoms (Recalled from Triage Doc. by RN): pt comes in with c/o cough and congestion ongoing for 1 week. HEENT Symptoms (Recalled from RN notes): No Resp Symptoms (Recalled from RN notes): Yes Skin Symptoms (Recalled from RN notes): No MS Symptoms (Recalled from RN notes): No Functional Status (Recalled from RN notes): n/a History of Present Illness Provider Complaint: She states that she has a history of asthma and for the past 1 week she has had worsening cough and chest congestion Related Data Home Medications Medication Instructions Recorded Confirmed bisoprolol fumarate 5 mg tablet 5 mg PO DAILY FAST HEART RATE 06/26/21 12/18/21 amlodipine 5 mg tablet (Norvasc) 5 mg PO DAILY BLOOD PRESSURE 11/16/21 12/18/21 atorvastatin 40 mg tablet (Lipitor) 40 mg PO DAILY Cholesterol 11/16/21 12/18/21 pantoprazole 40 mg tablet,delayed 40 mg PO DAILY STOMACH 11/16/21 12/18/21 release (Protonix) cariprazine 3 mg capsule (Vraylar) 3 mg PO DAILY Anxiety 12/15/21 12/18/21 prazosin 1 mg capsule 1 mg PO HS ptsd 12/15/21 12/18/21 Previous Rx's Medication Instructions Recorded bupropion HCl 150 mg 24 hr tablet, 150 mg PO DAILY MOOD #30 tabs 12/04/21 extended release (Wellbutrin XL) hydroxyzine HCl 25 mg tablet 25 mg PO HS Anxiety #30 tabs 12/04/21 cyclobenzaprine 5 mg tablet 5 mg PO TID PRN muscle spasm #9 12/18/21 tabs tramadol 50 mg tablet 50 mg PO TID PRN pain #9 tabs 12/18/21 amoxicillin 875 mg tablet 875 mg PO Q12H #20 tabs 12/20/21 toqvdgzbqkpjkms-wewfreegwdatnsh-HJ 5 ml PO Q6H PRN Cough #240 mL 12/20/21 2 mg-30 mg-10 mg/5 mL oral syrup (Bromfed DM) methylprednisolone 4 mg tablets in 4 mg PO DIRECTED #21 tabs 12/20/21 a dose pack Allergies Allergy/AdvReac Type Severity Reaction Status Date / Time ibuprofen [IBUPROFEN] Allergy Mild Unknown Verified 12/20/21 15:08 allergy reaction Worker's Comp Is this a Worker's Comp case?: No PFSH PFSH Medical History Anxiety Asthma Chest pain Dyspnea History of gastroesophageal reflux (CHANDLER
[2021-12-20 16:24] VITALS: BP 151/74; PULSE 80; RESP 16; TEMP 36.8
== END 2021-12-20 16:25 | disposition home or self-care (01) ==
PROVIDERS: Emergency Provider Nurse Practitioner Family; PCP Emergency Medicine
DX: J40 Bronchitis, not specified as acute or chronic (principal)
CPT/HCPCS: 99212; C9803; G0463; U0003; U0005

== ENCOUNTER 2021-12-22 12:36 | Emergency (ER) | payer OTHER, SELFPAY ==
[2021-12-22 12:46] VITALS: BP 119/64; PULSE 89; O2SAT 99
[2021-12-22 12:58] VITALS: BP 119/64; PULSE 93; RESP 18; TEMP 36.8; O2SAT 97; BMI 46.7
[2021-12-22 13:01] VITALS: BP 130/45; PULSE 97; O2SAT 98
--- NOTE | 2021-12-22 13:19 | HMH.EDGENADL ---
Discharge Plan Disposition Patient Disposition: Home, Self-Care Condition: Good Prescriptions Prescriptions: New albuterol sulfate [ProAir HFA] 90 mcg/actuation HFA aerosol inhaler 2 inh inhalation Q6H PRN (Reason: shortness of breath or wheezing) Qty: 6.7 0RF No Action bupropion HCl [Wellbutrin XL] 150 mg tablet extended release 24 hr 150 mg PO DAILY Qty: 30 0RF hydroxyzine HCl 25 mg tablet 25 mg PO HS Qty: 30 0RF prazosin 1 mg capsule 1 mg PO HS Vraylar 3 mg capsule 3 mg PO DAILY amoxicillin [amoxicillin] 875 mg tablet 875 mg PO Q12H Qty: 20 0RF methylprednisolone 4 mg Tablets,Dose Pack 4 mg PO DIRECTED Qty: 21 0RF fuwucjybwikyjbn-ftxmodlcb-PE [Bromfed DM] 2-30-10 mg/5 mL Syrup 5 ml PO Q6H PRN (Reason: Cough) Qty: 240 0RF bisoprolol fumarate 5 MG tablet 5 mg PO DAILY atorvastatin [Lipitor] 40 mg tablet 40 mg PO DAILY amlodipine [Norvasc] 5 mg tablet 5 mg PO DAILY pantoprazole [Protonix] 40 mg tablet,delayed release (DR/EC) 40 mg PO DAILY tramadol 50 mg tablet 50 mg PO TID PRN (Reason: pain) Qty: 9 0RF cyclobenzaprine 5 mg tablet 5 mg PO TID PRN (Reason: muscle spasm) Qty: 9 0RF Referrals Follow up/Referrals: Mike Madrigal MD [Primary Care Provider] - See instructions Activity Restrictions/Add. Instructions Additional Instructions/Restrictions: Continue current treatment. Albuterol inhaler as needed for shortness of breath/wheezing. Follow-up with primary care provider in 1 week if not improved. Clinical Impressions Clinical Impression: Acute bronchitis Stand Alone Forms Stand Alone Forms: Work/School Release Instructions Patient Instructions: DI for Acute Bronchitis Discharge ED Provider: Darryl Skaggs General Adult HPI General Chief complaint: Upper Respiratory Infection Stated complaint: SOA, Congestion, ORDAZ Time Seen by Provider: 12/22/21 13:15 Mode of Arrival: Ambulatory Source of Information: Patient Limitations: No Limitations Description of Symptoms (Recalled from ER Triage Doc. by RN): pt to ed c/o productive cough, congestion and shortness of breath. pt states she was seen in [facility] and was given abx and steroids with no relief. History of Present Illness HPI narrative: Patient states that she has been sick for a week with a productive cough, congestion, wheezing, shortness of breath. She was seen at the urgent treatment center 2 days ago and given prescriptions for amoxicillin, steroids, cough/cold medication and states she is not any better. She did not have a chest x-ray performed. She says that she did have a COVID swab that was negative. States that she has used inhalers when she was growing up, but no formal diagnosis of asthma as far she knows. She is not currently on an inhaler. She is a smoker. Related Data Home Medications Medication Instructions Recorded Confirmed bisoprolol fumarate 5 mg tablet 5 mg PO DAILY FAST HEART RATE 06/26/21 12/18/21 amlodipine 5 mg tablet (Norvasc) 5 mg PO DAILY BLOOD PRESSURE 11/16/21 12/18/21 atorvastatin 40 mg tablet (Lipitor) 40 mg PO DAILY Cholesterol 11/16/21 12/18/21 pantoprazole 40 mg tablet,delayed 40 mg PO DAILY STOMACH 11/16/21 12/18/21 release (Protonix) cariprazine 3 mg capsule (Vraylar) 3 mg PO DAILY Anxiety 12/15/21 12/18/21 prazosin 1 mg capsule 1 mg PO HS ptsd 12/15/21 12/18/21 Previous Rx's Medication Instructions Recorded bupropion HCl 150 mg 24 hr tablet, 150 mg PO DAILY MOOD #30 tabs 12/04/21 extended release (Wellbutrin XL) hydroxyzine HCl 25 mg tablet 25 mg PO HS Anxiety #30 tabs 12/04/21 cyclobenzaprine 5 mg tablet 5 mg PO TID PRN muscle spasm #9 12/18/21 tabs tramadol 50 mg tablet 50 mg PO TID PRN pain #9 tabs 12/18/21 amoxicillin 875 mg tablet 875 mg PO Q12H #20 tabs 12/20/21 tfatnsmgarxxzwb-agzudpmsnisugsi-HC 5 ml PO Q6H PRN Cough #240 mL 12/20/21 2 mg-30 mg-10 mg/5 mL oral syrup (Bromfed DM) methylprednisolo
--- NOTE | 2021-12-22 13:24 | XR_ITS ---
FINAL REPORT CLINICAL HISTORY: cough COMPARISON: 06/01/2018 FINDINGS: Two views of the chest were obtained. The heart size and pulmonary vascularity are within normal limits. The mediastinum is normal. No acute pulmonary abnormality is identified. There is no pneumothorax. The bony thorax is intact. IMPRESSION: No active cardiopulmonary disease. Reviewed, Interpreted and Dictated by Emmanuel Woods III, MD Transcribed by Nataliia Blancas Authenticated and [facility]
[2021-12-22 13:39] VITALS: BP 114/75; PULSE 83; RESP 16; O2SAT 98
[2021-12-22 13:55] VITALS: BP 114/75; PULSE 94; RESP 17; TEMP 36.8; O2SAT 96
== END 2021-12-22 13:56 | disposition home or self-care (01) ==
PROVIDERS: Emergency Provider Emergency Medicine; PCP Emergency Medicine
DX: J20.9 Acute bronchitis, unspecified (principal); Z79.899 Other long term (current) drug therapy; Z88.6 Allergy status to analgesic agent; F41.9 Anxiety disorder, unspecified; J45.909 Unspecified asthma, uncomplicated; K21.9 Gastro-esophageal reflux disease without esophagitis; E78.5 Hyperlipidemia, unspecified; I10 Essential (primary) hypertension; F32.89 Other specified depressive episodes; F43.10 Post-traumatic stress disorder, unspecified
CPT/HCPCS: 71046; 99283

== ENCOUNTER → 2021-12-24 14:20 | Outpatient (CLI) | payer OTHER, SELFPAY ==
[2021-12-24 18:30] LABS: Adenovirus,PCR Not Detected (NotDetected); Bordetella Pertussis Not Detected (NotDetected); Chlamydophila Pneumoniae, PCR Not Detected (NotDetected); Coronavirus 19, PCR Not Detected (NotDetected); Coronavirus 229E Not Detected (NotDetected); Coronavirus NL63 Not Detected (NotDetected); Coronavirus OC43 Not Detected (NotDetected); Coronovirus HKU1,PCR Not Detected (NotDetected); Human Metapneumovirus Not Detected (NotDetected); Influenza A, PCR Not Detected (NotDetected); Influenza AH1, 2009 Not Detected (NotDetected); Influenza AH1, PCR Not Detected (NotDetected); Influenza AH3,PCR Not Detected (NotDetected); Influenza B, PCR Not Detected (NotDetected); Mycoplasma Pneumoniae, PCR Not Detected (NotDetected); Parainfluenza 1, PCR Not Detected (NotDetected); Parainfluenza 2, PCR Not Detected (NotDetected); Parainfluenza 3, PCR Not Detected (NotDetected); Parainfluenza 4, PCR Not Detected (NotDetected); Respiratory Syncytial Virus Not Detected (NotDetected)
[2021-12-24 21:05] LABS: Rhinovirus/Enterovirus Detected (NotDetected)
== END ==
PROVIDERS: PCP Nurse Practitioner Family; Visit Provider Nurse Practitioner Family
DX: R06.02 Shortness of breath (principal); R06.81 Apnea, not elsewhere classified
CPT/HCPCS: 87581; 87632; 87798; C9803; U0003; U0005

== ENCOUNTER → 2021-12-28 14:54 | Outpatient (POV) | payer OTHER, SELFPAY ==
[2021-12-28 15:02] VITALS: BP 123/81; PULSE 96; RESP 19; TEMP 36.7; O2SAT 94; BMI 46.7
--- NOTE | 2021-12-28 15:21 | EXP.PAIN.SOA ---
[facility] Pain Management SOAP Note Subjective:: Patient is a pleasant 31-year-old female who presents today for follow-up of bilateral greater trochanteric bursa injections on 12/15/2021. We are currently treating the patient for sacroiliitis, greater trochanteric bursitis. Today the patient rates her a 3 out of 10. Patient states she has had approximately 80% relief following her bursa injections and feels like it is still helping. Patient states the pain she is experiencing today is more in her low back. Patient denies any new trauma or injury. Patient denies any change in the location or type of pain she experiences. Patient does state that she has had low back pain for years however it has worsened over time. Patient does have an intolerance to NSAIDs. Patient states she does use Tylenol [id number] to provide some additional relief. Patient is prescribed compounding cream however she states it only provided short-term relief. In the past patient has had injective therapy that has provided significant improvement. Patient has recently been prescribed tramadol 50 mg by Kali Reddy with a 3-day dose. Patient states this medication did help take the edge off. Her Iglesia is [id number]. It has been reviewed and appropriate. Review of Systems: General: No recent weight changes, no fever, no sleep disturbances Respiratory: No cough, no shortness of air, no recurring pulmonary infections Cardiovascular/peripheral vascular: No chest pain, no palpitations, no edema, no shortness of breath Gastrointestinal: No new onset incontinence, normal bowel movements reported Genitourinary: No new onset incontinence Musculoskeletal: Low back pain Psychiatric: [Normal mood/affect] Neurological: [Denies weakness in extremities], [denies balance issues] Objective:: Physical Exam: General: Alert and oriented x3, no acute distress, pleasant and cooperative Lungs: Respirations even and unlabored, symmetrical chest expansion Eyes: PERRL Musculoskeletal: Flexion and extension of lumbar [spine] somewhat guarded secondary to pain, [antalgic gait noted] Neurological: Speech clear, no gross sensory deficit Assessment:: Sacroiliitis, greater trochanteric bursitis, degenerative disc disease of lumbar spine with lumbar radiculopathy symptoms Plan:: Patient is experiencing significant pain in her low back. Patient did have limited range of motion of her lumbar spine at today's visit. I have discussed with the patient that she may get beneficial relief with a lumbar epidural. Risk and benefits were discussed with the patient. She would like to proceed forward with this plan of care. Patient is not on any blood thinners. We will schedule the patient for a lumbar epidural steroid injection at L4-L5. Patient has been instructed to contact the clinic with any concerns before the next appointment. Dr. Nicholson has reviewed this note and agrees with this plan of care. This note was dictated using voice recognition software and make contain errors or omissions. [facility] Medical History Anxiety Asthma Chest pain Dyspnea History of gastroesophageal reflux (GERD) History of scarlet fever HLD (hyperlipidemia) HTN (hypertension) Major depressive disorder Nightmares associated with chronic post-traumatic stress disorder Posttraumatic stress disorder Surgical History History of cholecystectomy History of tubal ligation Family History Other No significant family history Social History Smoking Status: Never smoker second hand exposure: Yes alcohol intake: never substance use type: former substance user, marijuana and opiates current occupational status: employed Travel in the last 8 weeks: None household members: family housing: house number of children:
== END ==
PROVIDERS: PCP Emergency Medicine; Visit Provider Nurse Practitioner Family
DX: M51.16 Intervertebral disc disorders with radiculopathy, lumbar region (principal); M70.60 Trochanteric bursitis, unspecified hip; M46.1 Sacroiliitis, not elsewhere classified
CPT/HCPCS: 99212; G0463

== ENCOUNTER 2022-01-05 12:56 | Day surgery (SDC) | payer OTHER, SELFPAY ==
[2022-01-05 13:05] VITALS: BP 118/60; PULSE 86; RESP 18; TEMP 36.6; O2SAT 98; BMI 46.7
[2022-01-05 13:14] VITALS: BP 150/99; PULSE 89; RESP 18; O2SAT 97
[2022-01-05 13:20] VITALS: BP 115/78; PULSE 63; RESP 18; O2SAT 99
--- NOTE | 2022-01-05 13:27 | EXP.PAIN.PRO ---
Procedure Date: 01/05/22 Time: 13:28 Anesthesiologist:: Spencer Awad CRNA Complications:: None Pre-procedure Diagnosis:: Degenerative disc disease lumbar spine multilevels. Lumbar radiculopathy Post-procedure Diagnosis:: Same. Indications for Procedure:: This patient is a pleasant 31-year-old female comes our clinic today for initial lumbar epidural steroid injection of the L4-5 level. Patient complains of low back pain as well as bilateral hip and leg radicular symptoms. She rates her pain 7/10. Procedure Details:: Procedure: Lumbar epidural steroid injection under fluoroscopy Informed consent was obtained and the risks and benefits of the procedure were explained to the patient. The patient was taken to the procedure room and noninvasive monitors placed, including noninvasive blood pressure cuff and pulse oximeter. The back was viewed using C-arm Fluoroscopy and prepped using Chloraprep as a cleansing solution and the L4-L5 interspace was palpated. Skin and subcutaneous tissues were anesthetized using lidocaine 1.5% and a 25-gauge needle. After this, an 18-gauge Touhy epidural needle was placed into the L4-L5 interspace and advanced using fluoroscopic guidance and loss of resistance to air until the epidural space was encountered. After confirmation of needle placement in the epidural space, with dye, a solution containing normal saline, 3 mL and Depo-Medrol 80 mg were incrementally injected into the lumbar epidural space. The patient tolerated the procedure well with no complications. The patient was observed in the Pain Clinic and then discharged home neurologically intact. Plan and Disposition:: Patient was discharged without incident.
== END 2022-01-05 13:20 | disposition home or self-care (01) ==
PROVIDERS: PCP Emergency Medicine; Visit Provider Nurse Anesthetist, Certified Registered
DX: M51.16 Intervertebral disc disorders with radiculopathy, lumbar region (principal)
CPT/HCPCS: 62323; J1030

== ENCOUNTER 2022-01-20 11:11 | Emergency (ER) | payer OTHER, SELFPAY ==
[2022-01-20 11:37] VITALS: BP 123/68; PULSE 92; RESP 18; TEMP 36.9; O2SAT 98; BMI 48.2
--- NOTE | 2022-01-20 11:38 | EXP.UTC ---
Discharge Plan Disposition Patient Disposition: Home, Self-Care Condition: Good Prescriptions Prescriptions: New methylprednisolone 4 mg Tablets,Dose Pack 4 mg PO DIRECTED Qty: 21 0RF cyclobenzaprine 10 mg Tablet 10 mg PO BID PRN (Reason: Muscle Spasm) Qty: 20 0RF No Action bupropion HCl [Wellbutrin XL] 150 mg tablet extended release 24 hr 150 mg PO DAILY Qty: 30 0RF hydroxyzine HCl 25 mg tablet 25 mg PO HS Qty: 30 0RF prazosin 1 mg capsule 1 mg PO HS Vraylar 3 mg capsule 3 mg PO DAILY amoxicillin [amoxicillin] 875 mg tablet 875 mg PO Q12H albuterol sulfate [ProAir HFA] 90 mcg/actuation HFA aerosol inhaler 2 inh inhalation Q6H PRN (Reason: shortness of breath or wheezing) Qty: 6.7 0RF bisoprolol fumarate 5 MG tablet 5 mg PO DAILY amlodipine [Norvasc] 5 mg tablet 5 mg PO DAILY pantoprazole [Protonix] 40 mg tablet,delayed release (DR/EC) 40 mg PO DAILY tramadol 50 mg tablet 50 mg PO TID PRN (Reason: pain) Qty: 9 0RF cyclobenzaprine 5 mg tablet 5 mg PO TID PRN (Reason: muscle spasm) Qty: 9 0RF Referrals Follow up/Referrals: Mike Madrigal MD [Primary Care Provider] - See instructions Activity Restrictions/Add. Instructions Additional Instructions/Restrictions: Go home and rest. It would be best if you rested tomorrow too. No heavy lifting. No twisting. Take the oral medications as directed. The muscle relaxer (cyclobenzaprine--Flexeril) will make you drowsy, so don't drive or operate heavy machinery after taking it. Follow up with your regular doctor. GO TO THE ER FOR ANY WORSENING SYMPTOMS OR CONCERN, ESPECIALLY BOWEL OR BLADDER ISSUES, SADDLE AREA NUMBNESS, FEVER, ETC Clinical Impressions Clinical Impression: Low back pain, Back pain, thoracic Stand Alone Forms Stand Alone Forms: Work/School Release Instructions Patient Instructions: DI for Low Back Pain, Cyclobenzaprine Discharge ED Provider: James Lechuga [facility] General Stated complaint: Back pain, no accident Time Seen by Provider: 01/20/22 11:38 History of Present Illness Provider Complaint: She states that she has been having mid to lower back pain for the past several months. She had steroid injections 2 weeks done by the pain management nurse practitioner she was referred to by her pcp. She states that they did not work. She denies any recent falls or other injuries. Related Data Home Medications Medication Instructions Recorded Confirmed bisoprolol fumarate 5 mg tablet 5 mg PO DAILY FAST HEART RATE 06/26/21 01/15/22 amlodipine 5 mg tablet (Norvasc) 5 mg PO DAILY BLOOD PRESSURE 11/16/21 01/15/22 pantoprazole 40 mg tablet,delayed 40 mg PO DAILY STOMACH 11/16/21 01/15/22 release (Protonix) cariprazine 3 mg capsule (Vraylar) 3 mg PO DAILY Anxiety 12/15/21 01/15/22 prazosin 1 mg capsule 1 mg PO HS ptsd 12/15/21 01/15/22 amoxicillin 875 mg tablet 875 mg PO Q12H Infection 12/28/21 12/28/21 Previous Rx's Medication Instructions Recorded bupropion HCl 150 mg 24 hr tablet, 150 mg PO DAILY MOOD #30 tabs 12/04/21 extended release (Wellbutrin XL) hydroxyzine HCl 25 mg tablet 25 mg PO HS Anxiety #30 tabs 12/04/21 cyclobenzaprine 5 mg tablet 5 mg PO TID PRN muscle spasm #9 12/18/21 tabs tramadol 50 mg tablet 50 mg PO TID PRN pain #9 tabs 12/18/21 albuterol sulfate 90 mcg/actuation 2 inh inhalation Q6H PRN shortness 12/22/21 aerosol inhaler (ProAir HFA) of breath or wheezing #6.7 grams cyclobenzaprine 10 mg tablet 10 mg PO BID PRN Muscle Spasm #20 01/20/22 tabs methylprednisolone 4 mg tablets in 4 mg PO DIRECTED #21 tabs 01/20/22 a dose pack Allergies Allergy/AdvReac Type Severity Reaction Status Date / Time ibuprofen [IBUPROFEN] Allergy Mild Unknown Verified 01/20/22 11:40 allergy reaction [facility] Medical History Anxiety Asthma Chest pain Dyspnea History of ga
[2022-01-20 12:26] VITALS: BP 123/68; PULSE 92; RESP 18; TEMP 36.9
== END 2022-01-20 12:26 | disposition home or self-care (01) ==
PROVIDERS: Emergency Provider Nurse Practitioner Family; PCP Emergency Medicine
DX: M54.50 Low back pain, unspecified (principal); M54.6 Pain in thoracic spine
CPT/HCPCS: 99212; G0463

== ENCOUNTER → 2022-03-08 13:51 | Outpatient (POV) | payer OTHER, SELFPAY ==
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
[2022-03-08 14:51] VITALS: BP 142/91; PULSE 91; RESP 18; O2SAT 97; BMI 47.5
== END ==
PROVIDERS: Visit Provider Nurse Practitioner Family
DX: M51.16 Intervertebral disc disorders with radiculopathy, lumbar region (principal); M46.1 Sacroiliitis, not elsewhere classified; M70.60 Trochanteric bursitis, unspecified hip
CPT/HCPCS: 99212; G0463

== ENCOUNTER 2022-03-16 13:57 | Day surgery (SDC) | payer OTHER, SELFPAY ==
[2022-03-16 14:05] VITALS: BP 145/66; PULSE 97; RESP 18; TEMP 36.6; O2SAT 100; BMI 47.5
[2022-03-16 14:21] VITALS: BP 154/100; PULSE 90; RESP 20; O2SAT 97
[2022-03-16 14:23] VITALS: BP 154/100; PULSE 90; RESP 18; O2SAT 97
[2022-03-16 14:26] VITALS: BP 134/72; PULSE 80; RESP 18; O2SAT 100
--- NOTE | 2022-03-16 14:29 | P.PCN_ITS ---
Procedure Date: 03/16/22 Time: 14:30 Anesthesiologist:: Spencer Awad CRNA Complications:: None Pre-procedure Diagnosis:: Bilateral trochanteric bursitis. Post-procedure Diagnosis:: Same. Indications for Procedure:: Patient is a pleasant 31-year-old female comes our clinic today for bilateral trochanteric bursa injections. Patient has had this done last November with significant improvement up until recently. She has extreme point tenderness over the bilateral trochanteric bursa areas. She has difficulty lying on either side due to the pain. She rates the pain 8/10. Procedure Details:: Procedure: Bilateral trochanteric bursa joint injections under fluoroscopy Informed consent was obtained and the risks and benefits of the procedure were explained to the patient.~ The patient was taken to the procedure room and noninvasive monitors were placed including a noninvasive blood pressure cuff and pulse oximeter.~ The patient was placed prone on the procedure table. Both hips were cleansed using Betadine as a cleansing solution. C-arm fluoroscopy was used to view the right trochanteric bursa joint.~ The skin and subcutaneous tissues were anesthetized using lidocaine 1.5% and a 25-gauge needle.~ After this, a 22- gauge spinal needle was inserted under fluoroscopic guidance into the inferior aspect of the right trochanteric bursa.~ Omnipaque dye was injected and good spread was seen throughout the joint.~ After this, approximately 5 mL of bupivacaine, 0.25% and Depo-Medrol, 40 mg was incrementally injected into the right sacroiliac joint. We then moved to the left trochanteric bursa joint.~ The skin and subcutaneous tissues were anesthetized using lidocaine 1.5% and a 25-gauge needle.~ After this, a 22-gauge spinal needle was inserted under fluoroscopic guidance into the inferior aspect of the left trochanteric bursa joint.~ Omnipaque dye was injected and good spread was seen throughout the joint. After this, approximately 5 mL of bupivacaine, 0.25% and Depo-Medrol, 40 mg was incrementally injected into the left sacroiliac joint.~ The patient tolerated the procedure well with no complications. The patient was observed in the Pain Clinic and then was discharged home neurologically intact. Plan and Disposition:: Patient was discharged without incident.
== END 2022-03-16 14:26 | disposition home or self-care (01) ==
LOC: SC.PAINP 13:57
PROVIDERS: PCP Nurse Practitioner Family; Visit Provider Nurse Anesthetist, Certified Registered
DX: M70.61 Trochanteric bursitis, right hip (principal); M70.62 Trochanteric bursitis, left hip
CPT/HCPCS: 20610; 77002; J1040

== ENCOUNTER → 2022-03-29 10:57 | Outpatient (POV) | payer OTHER, SELFPAY ==
[2022-03-29 12:18] VITALS: BP 130/86; PULSE 85; RESP 18; O2SAT 98; BMI 47.5
--- NOTE | 2022-03-29 13:03 | EXP.PAIN.SOA ---
[facility] Pain Management SOAP Note Subjective:: Patient is a pleasant 31-year-old female who presents today for follow-up of bilateral greater trochanteric bursa injections on 03/16/2022. We are currently treating the patient for degenerative disc disease of lumbar spine with lumbar radiculopathy symptoms, greater trochanteric bursitis, sacroiliitis. Today the patient states she has had at least 40% relief following these injections and feels like they are still continuing to provide additional relief. Patient rates her pain a 4 out of 10. Patient denies any new trauma or injury. Patient denies any change location or type of pain she experiences. Patient does state he she does have significant pain in her low back and describes it as an aching, throbbing sensation that is worse with increased activity and cold or wet weather. Patient does use [id number] Tylenol with some relief. Patient was prescribed compounding cream in the past that she states provided some additional improvement. In the past the patient has tried ibuprofen and Aleve with some upset stomach issues. Patient denies any cardiac or kidney issues. She is not currently on any scheduled medications. Her Iglesia is [id number]. Its been reviewed and appropriate. Review of Systems: General: No recent weight changes, no fever, no sleep disturbances Respiratory: No cough, no shortness of air, no recurring pulmonary infections Cardiovascular/peripheral vascular: No chest pain, no palpitations, no edema, no shortness of breath Gastrointestinal: No new onset incontinence, normal bowel movements reported Genitourinary: No new onset incontinence Musculoskeletal: Low back pain Psychiatric: [Normal mood/affect] Neurological: [Denies weakness in extremities], [denies balance issues] Objective:: Physical Exam: General: Alert and oriented x3, no acute distress, pleasant and cooperative Lungs: Respirations even and unlabored, symmetrical chest expansion Eyes: PERRL Musculoskeletal: Flexion and extension of lumbar [spine] somewhat guarded secondary to pain, [antalgic gait noted] Neurological: Speech clear, no gross sensory deficit ORT score updated with high risk Assessment:: Degenerative disc disease of lumbar spine with lumbar radiculopathy symptoms, greater trochanteric bursitis, sacroiliitis Plan:: Patient has had significant improvement in her hip pain following her last bursa injections. Patient did continue to have limited range of motion of her lumbar spine during today's visit. I have discussed with the patient regarding trying diclofenac 75 mg twice daily. Risk and benefits were discussed with the patient and she would like to proceed forward with this plan of care. I have counseled the patient to take this medication with food to minimize GI upset and that to discontinue all other NSAIDs while taking this medication. Due to the patient's history of GI upset with other NSAID related medications I will also order the patient Zofran 4 mg as needed and provide a 3-day supply of this medication. Patient will return to clinic in 1 month for reevaluation of symptoms, medication refill if indicated and follow-up. Patient has been instructed to contact the clinic with any concerns before the next appointment. Dr. Nicholson has reviewed this note and agrees with this plan of care. This note was dictated using voice recognition software and make contain errors or omissions. [facility] Disclaimer: The information contained in this section may have been updated after the patient was seen, as this information can be updated by other users. Medical History Anxiety Asthma Chest pain Dyspnea History of gastroesophageal reflux (GERD) History of scarlet fever HLD (hyperlipidemia) HTN (hypertension) Major depressive disorder Nexplanon insertion Nightmares associated with chronic post-traumatic stress disorder Posttraumatic stress disorder Judi
== END | disposition home or self-care (01) ==
PROVIDERS: PCP Nurse Practitioner Family; Visit Provider Nurse Practitioner Family
DX: M51.16 Intervertebral disc disorders with radiculopathy, lumbar region (principal); M46.1 Sacroiliitis, not elsewhere classified; M70.60 Trochanteric bursitis, unspecified hip
CPT/HCPCS: 99212; G0463

== ENCOUNTER 2022-04-08 10:46 | Emergency (ER) | payer OTHER, SELFPAY ==
[2022-04-08 11:19] VITALS: BP 117/89; PULSE 81; RESP 19; TEMP 37.3; O2SAT 99; BMI 41.8
--- NOTE | 2022-04-08 11:23 | EXP.UTC ---
Discharge Plan Disposition Patient Disposition: Home, Self-Care Condition: Good Prescriptions Prescriptions: New methylprednisolone [Medrol (Yaya)] 4 mg tablets,dose pack See Rx Instructions .Route .COMPLEX 6 Days Qty: 21 0RF Rx Instructions: taper pack; amoxicillin-pot clavulanate 875-125 mg Tablet 1 tab PO Q12H Qty: 20 0RF No Action bupropion HCl [Wellbutrin XL] 150 mg tablet extended release 24 hr 150 mg PO DAILY Qty: 90 0RF Vraylar 3 mg capsule 3 mg PO DAILY Qty: 90 0RF hydroxyzine HCl 25 mg tablet 25 mg PO HS Qty: 90 0RF prazosin 1 mg capsule 1 mg PO HS Qty: 90 0RF atorvastatin 40 mg tablet 40 mg PO DAILY albuterol sulfate [ProAir HFA] 90 mcg/actuation HFA aerosol inhaler 2 inh inhalation Q6H PRN (Reason: shortness of breath or wheezing) Qty: 6.7 0RF diclofenac sodium [diclofenac sodium] 75 mg tablet,delayed release (DR/EC) 75 mg PO BID Qty: 28 0RF ondansetron 4 mg tablet,disintegrating 4 mg PO Q8H PRN (Reason: nausea and vomiting) Qty: 9 0RF bisoprolol fumarate 5 MG tablet 5 mg PO DAILY amlodipine [Norvasc] 5 mg tablet 5 mg PO DAILY pantoprazole [Protonix] 40 mg tablet,delayed release (DR/EC) 40 mg PO DAILY cyclobenzaprine 10 mg Tablet 10 mg PO BID PRN (Reason: Muscle Spasm) Qty: 20 0RF medroxyprogesterone [Provera] 10 mg tablet 20 mg PO DAILY Referrals Follow up/Referrals: Jeffrey Payan APRN [Primary Care Provider] - See instructions Activity Restrictions/Add. Instructions Additional Instructions/Restrictions: *Monitor Temp, Over the counter Motrin or Tylenol as directed/as needed Tylenol every 4 hours and Motrin every 6 hours (as long as your family doctor has told you that you can take it) for fever or pain. and straight to ER if unable to lower temp less than 101.0 after medication given *Warm salt water gargles may help to soothe the throat *Throat Lozenges? *Warm fluids like tea with honey may help to soothe the throat? *Sleep elevated *Humidifier/Vaporizer Your throat swab was sent for culture. Those results are typically sent to your primary care. Be sure to follow up in 2-3 days with your family doctor/primary care physician if no improvement so they can review those result and treat if necessary. If you don?t have a primary care doctor, I recommend you get one but in the mean time, you will have to return to a walk in clinic Follow up IMMEDIATELY for new or worsening symptoms or no Noticeable improvement over the next 48-72 hours. 911 for difficulty breathing or swallowing Clinical Impressions Clinical Impression: Otitis media Instructions Patient Instructions: Sinusitis, Middle Ear Infection, Sore Throat Discharge ED Provider[place]ral [facility] [place] General Stated complaint: Sore throat, right ear pain Mode of Arrival: Family Vehicle Time Seen by Provider: 04/08/22 11:23 Description of Symptoms (Recalled from Triage Doc. by RN): pt c/o sore throat, chest congestion, and rt ear pain that started 3 days ago HEENT Symptoms (Recalled from RN notes): Yes Resp Symptoms (Recalled from RN notes): Yes Skin Symptoms (Recalled from RN notes): No MS Symptoms (Recalled from RN notes): No Functional Status (Recalled from RN notes): wnl History of Present Illness Provider Complaint: Patient states that she has been having sinus congestion and pressure, sore throat and pain in her right ear that has got worse over the last 3 days States that today she was feeling worse so she came in to get it checked Related Data Home Medications Medication Instructions Recorded Confirmed bisoprolol fumarate 5 mg tablet 5 mg PO DAILY FAST HEART RATE 06/26/21 03/29/22 amlodipine 5 mg tablet (Norvasc) 5 mg PO DAILY BLOOD PRESSURE 11/16/21 03/29/22 pantoprazole 40 mg tablet,delayed 40 mg PO DAILY STOMACH 11/16/21 03/29/22 release (Protonix) atorvastatin 40 mg tablet 40 mg PO DAILY Cholesterol
[2022-04-08 11:30] LABS: UTC Strep Screen (Rapid) Negative (Negative)
[2022-04-08 11:31] VITALS: BP 117/89; PULSE 81; RESP 19; TEMP 37.3; O2SAT 100
== END 2022-04-08 11:33 | disposition home or self-care (01) ==
PROVIDERS: Emergency Provider Nurse Practitioner; PCP Nurse Practitioner Family
DX: H66.90 Otitis media, unspecified, unspecified ear (principal)
CPT/HCPCS: 87880; 99212; 99213; G0463

== ENCOUNTER 2022-04-10 15:58 | Emergency (ER) | payer OTHER, SELFPAY ==
[2022-04-10 16:00] VITALS: BP 134/89; PULSE 108; RESP 22; TEMP 36.3; O2SAT 98; BMI 47.1
--- NOTE | 2022-04-10 16:05 | EXP.UTC ---
Discharge Plan Disposition Patient Disposition: Home, Self-Care Condition: Good Prescriptions Prescriptions: New cefdinir 300 mg capsule 300 mg PO BID Qty: 20 0RF No Action bupropion HCl [Wellbutrin XL] 150 mg tablet extended release 24 hr 150 mg PO DAILY Qty: 90 0RF Vraylar 3 mg capsule 3 mg PO DAILY Qty: 90 0RF hydroxyzine HCl 25 mg tablet 25 mg PO HS Qty: 90 0RF prazosin 1 mg capsule 1 mg PO HS Qty: 90 0RF atorvastatin 40 mg tablet 40 mg PO DAILY albuterol sulfate [ProAir HFA] 90 mcg/actuation HFA aerosol inhaler 2 inh inhalation Q6H PRN (Reason: shortness of breath or wheezing) Qty: 6.7 0RF diclofenac sodium [diclofenac sodium] 75 mg tablet,delayed release (DR/EC) 75 mg PO BID Qty: 28 0RF ondansetron 4 mg tablet,disintegrating 4 mg PO Q8H PRN (Reason: nausea and vomiting) Qty: 9 0RF bisoprolol fumarate 5 MG tablet 5 mg PO DAILY amlodipine [Norvasc] 5 mg tablet 5 mg PO DAILY pantoprazole [Protonix] 40 mg tablet,delayed release (DR/EC) 40 mg PO DAILY cyclobenzaprine 10 mg Tablet 10 mg PO BID PRN (Reason: Muscle Spasm) Qty: 20 0RF medroxyprogesterone [Provera] 10 mg tablet 20 mg PO DAILY methylprednisolone [Medrol (Yaya)] 4 mg tablets,dose pack See Rx Instructions .Route .COMPLEX 6 Days Qty: 21 0RF Rx Instructions: taper pack; amoxicillin-pot clavulanate 875-125 mg Tablet 1 tab PO Q12H Qty: 20 0RF Referrals Follow up/Referrals: Jeffrey Payan APRN [Primary Care Provider] - See instructions Activity Restrictions/Add. Instructions Additional Instructions/Restrictions: Stop the augmentin (amoxicillin-clavulanate). Start the cefdinir. Finish the steroids that you are already on. Follow up with your regular doctor. GO TO THE ER FOR ANY WORSENING SYMPTOMS Clinical Impressions Clinical Impression: Allergic reaction Stand Alone Forms Stand Alone Forms: Work/School Release Instructions Patient Instructions: DI for General Allergic Reactions Discharge ED Provider: James Lechuga [facility] General Stated complaint: poss allergic reaction Time Seen by Provider: 04/10/22 16:05 History of Present Illness Provider Complaint: She states that she started taking augmentin on 04/08 for an ear infection. Since then she has developed redness and itching of the skin on her face and lip puffiness. She believes that she is allergic to the augmentin. She denies any swelling in her mouth or throat. Related Data Home Medications Medication Instructions Recorded Confirmed bisoprolol fumarate 5 mg tablet 5 mg PO DAILY FAST HEART RATE 06/26/21 03/29/22 amlodipine 5 mg tablet (Norvasc) 5 mg PO DAILY BLOOD PRESSURE 11/16/21 03/29/22 pantoprazole 40 mg tablet,delayed 40 mg PO DAILY STOMACH 11/16/21 03/29/22 release (Protonix) atorvastatin 40 mg tablet 40 mg PO DAILY Cholesterol 02/16/22 03/29/22 medroxyprogesterone 10 mg tablet 20 mg PO DAILY SUPPLIMENT 03/08/22 03/29/22 (Provera) Previous Rx's Medication Instructions Recorded albuterol sulfate 90 mcg/actuation 2 inh inhalation Q6H PRN shortness 12/22/21 aerosol inhaler (ProAir HFA) of breath or wheezing #6.7 grams cyclobenzaprine 10 mg tablet 10 mg PO BID PRN Muscle Spasm #20 01/20/22 tabs bupropion HCl 150 mg 24 hr tablet, 150 mg PO DAILY MOOD #90 tabs 03/23/22 extended release (Wellbutrin XL) cariprazine 3 mg capsule (Vraylar) 3 mg PO DAILY Anxiety #90 caps 03/23/22 hydroxyzine HCl 25 mg tablet 25 mg PO HS Anxiety #90 tabs 03/23/22 prazosin 1 mg capsule 1 mg PO HS ptsd #90 caps 03/23/22 diclofenac sodium 75 mg 75 mg PO BID #28 tabs 03/29/22 tablet,delayed release ondansetron 4 mg disintegrating 4 mg PO Q8H PRN nausea and 03/29/22 tablet vomiting #9 tabs amoxicillin 875 mg-potassium 1 tab PO Q12H #20 tabs 04/08/22 clavulanate 125 mg tablet methylprednisolone 4 mg tablets in See Rx Instructions .Route 04/08/22 a dose pack (Medrol (Yaya))
[2022-04-10 16:53] VITALS: BP 134/89; PULSE 108; RESP 22; TEMP 36.3; O2SAT 98
== END 2022-04-10 17:00 | disposition home or self-care (01) ==
PROVIDERS: Emergency Provider Nurse Practitioner Family; PCP Nurse Practitioner Family
DX: R22.0 Localized swelling, mass and lump, head (principal); L29.8 Other pruritus; T36.0X5A Adverse effect of penicillins, initial encounter
CPT/HCPCS: 99212; 99213; G0463

== ENCOUNTER → 2022-04-22 09:22 | Outpatient (POV) | payer OTHER, SELFPAY ==
--- NOTE | 2022-04-22 10:00 | EXP.PAIN.SOA ---
[facility] Pain Management SOAP Note Subjective:: Patient is a pleasant 31-year-old female who presents today for follow-up and medication refill. We are currently treating the patient for degenerative disc disease of lumbar spine with lumbar radiculopathy symptoms, greater trochanteric bursitis, sacroiliitis. Today she rates her pain a 6 out of 10. Patient denies any new trauma or injury. Patient denies any change in location or type of pain she experiences. Patient states she continues to have significant pain in her low back with radiating symptoms into her bilateral hips. Patient has had multiple injections in the past however these did not provide significant pain relief. Patient does currently use [id number] Tylenol and was recently prescribed diclofenac 75 mg twice daily. Patient states that when she was taking the diclofenac she was also prescribed Augmentin for a double ear infection and that she did have a reaction with itching and burning on her lips as well as redness all over her face and upper extremity. Patient states that she did go to the urgent treatment center who stated they she was having a reaction and stopped her Augmentin and change it to a different antibiotic. Patient states that she has not gone back to the diclofenac. She does state that she still has a few additional tablets of this medication. Patient states that she did notice some occasional constipation. Patient does states she does not use anything on a regular basis. Patient has had her gallbladder removed in the past. She is not on any scheduled medications. Her Iglesia is [id number]. Its been reviewed and appropriate. Review of Systems: General: No recent weight changes, no fever, no sleep disturbances Respiratory: No cough, no shortness of air, no recurring pulmonary infections Cardiovascular/peripheral vascular: No chest pain, no palpitations, no edema, no shortness of breath Gastrointestinal: No new onset incontinence, normal bowel movements reported Genitourinary: No new onset incontinence Musculoskeletal: Low back pain, hip pain Psychiatric: [Normal mood/affect] Neurological: [Denies weakness in extremities], [denies balance issues] Objective:: Physical Exam: General: Alert and oriented x3, no acute distress, pleasant and cooperative Lungs: Respirations even and unlabored, symmetrical chest expansion Eyes: PERRL Musculoskeletal: Flexion and extension of lumbar [spine] somewhat guarded secondary to pain, [antalgic gait noted] Neurological: Speech clear, no gross sensory deficit Assessment:: Degenerative disc disease of lumbar spine with lumbar radiculopathy symptoms, greater trochanteric bursitis, sacroiliitis Plan:: Patient continues to experience significant pain in her low back with radiating symptoms into her hips and limited range of motion. I have counseled the patient to try her diclofenac with the remaining tablets that she does have an as long as she has no ill effects to contact our office and let us know if she would like a refill of this medication. I have also discussed with the patient that we can always do additional lumbar epidural steroid injections however at this time she would like to wait. Patient will return to clinic in 3 months for reevaluation of symptoms, medication refill if indicated and plan of care. Patient has been instructed to contact the clinic with any concerns before the next appointment. Dr. Nicholson has reviewed this note and agrees with this plan of care. This note was dictated using voice recognition software and make contain errors or omissions. [facility] Disclaimer: The information contained in this section may have been updated after the patient was seen, as this information can be updated by other users. Medical History Anxiety Asthma Chest pain Dyspnea History of gastroesophageal reflux (GERD) History of scarlet fever HLD (hyperlipidemia) HTN (hypertension) Ashish
[2022-04-22 10:13] VITALS: BP 116/78; PULSE 105; RESP 18; O2SAT 97; BMI 47.5
== END ==
PROVIDERS: PCP Nurse Practitioner Family; Visit Provider Nurse Practitioner Family
DX: M51.16 Intervertebral disc disorders with radiculopathy, lumbar region (principal); M70.60 Trochanteric bursitis, unspecified hip; M46.1 Sacroiliitis, not elsewhere classified; Z79.899 Other long term (current) drug therapy
CPT/HCPCS: 99212; G0463

== ENCOUNTER 2022-05-17 12:37 | Emergency (ER) | payer OTHER, SELFPAY ==
[2022-05-17 13:35] VITALS: BP 116/69; PULSE 89; RESP 20; TEMP 36.8; O2SAT 100; BMI 47.5
--- NOTE | 2022-05-17 13:56 | EXP.UTC ---
Discharge Plan Disposition Patient Disposition: Home, Self-Care Condition: Good Prescriptions Prescriptions: New dicyclomine 10 mg capsule 10 mg PO TID PRN (Reason: cramping) Qty: 6 0RF ondansetron 4 mg tablet,disintegrating 4 mg PO Q8H PRN (Reason: nausea and vomiting) Qty: 10 0RF No Action bupropion HCl [Wellbutrin XL] 150 mg tablet extended release 24 hr 150 mg PO DAILY Qty: 90 0RF Vraylar 3 mg capsule 3 mg PO DAILY Qty: 90 0RF hydroxyzine HCl 25 mg tablet 25 mg PO HS Qty: 90 0RF prazosin 1 mg capsule 1 mg PO HS Qty: 90 0RF atorvastatin 40 mg tablet 40 mg PO DAILY Nexplanon 68 mg implant 1 implant subdermal metaxalone 800 mg tablet 800 mg PO TID PRN (Reason: muscle pain) Qty: 30 0RF albuterol sulfate [ProAir HFA] 90 mcg/actuation HFA aerosol inhaler 2 inh inhalation Q6H PRN (Reason: shortness of breath or wheezing) Qty: 6.7 0RF diclofenac sodium 75 mg tablet,delayed release (DR/EC) 75 mg PO BID Qty: 60 2RF bisoprolol fumarate 5 MG tablet 5 mg PO DAILY amlodipine [Norvasc] 5 mg tablet 5 mg PO DAILY pantoprazole [Protonix] 40 mg tablet,delayed release (DR/EC) 40 mg PO DAILY medroxyprogesterone [Provera] 10 mg tablet 20 mg PO DAILY PRN (Reason: SUPPLIMENT) Referrals Follow up/Referrals: Jeffrey Payan APRN [Primary Care Provider] - See instructions Activity Restrictions/Add. Instructions Additional Instructions/Restrictions: Drink extra fluids with and between meals. If you have difficulty drinking, try very small amounts of water or suck on ice chips. ? Avoid fruit juices, as these do not replace minerals and can actually increase diarrhea. ? Children and adults can use sports drinks to replenish electrolytes. Younger children and infants should use products formulated for children, like oral rehydration solutions. ? Eat food in small amounts and let your stomach recover. ? Get lots of rest. You may feel tired or weak. ? No greasy or fried foods for the next 24-48 hours BRAT diet Bananas Rice Apples and Nipomo ? Make sure to drink plenty of liquids ? Return if needed ? Straight to ER if any life threatening symptoms ? Zofran as prescribed ? Follow up with family doctor in the next 48-72 hours if no improvement or any worsening of symptoms Clinical Impressions Clinical Impression: Nausea vomiting and diarrhea Stand Alone Forms Stand Alone Forms: Work/School Release Instructions Patient Instructions: Nausea and Vomiting-Adult, Diarrhea Discharge ED Provider: Pamela Corral [facility] General Stated complaint: nausea,diarrhea,vomiting,stomach pain Mode of Arrival: Ambulatory Source of Information: Patient Limitations: No Limitations Time Seen by Provider: 05/17/22 13:56 Description of Symptoms (Recalled from Triage Doc. by RN): abdominal pain in the middle of her abdomin is a sharp pain. She is having diarrhea, and vomiting. HEENT Symptoms (Recalled from RN notes): Yes Resp Symptoms (Recalled from RN notes): No Skin Symptoms (Recalled from RN notes): No MS Symptoms (Recalled from RN notes): No Functional Status (Recalled from RN notes): n/a History of Present Illness Provider Complaint: Patient state that her babysitters son had stomach virus last week States that last night she started with diarrhea and then about 4am she started with stomach cramping and vomiting State that her stomach would hurt right before she had diarrhea or vomiting States that she laid down and has continued to have N/V/D today and wasnt sure if she should go to work [employer] and spread it so she came in Related Data Home Medications Medication Instructions Recorded Confirmed bisoprolol fumarate 5 mg tablet 5 mg PO DAILY FAST HEART RATE 06/26/21 05/17/22 amlodipine 5 mg tablet (Norvasc) 5 mg PO DAILY BLOOD PRESSURE 11/16/21 05/11/22 pantoprazole 40 mg tablet,delay
[2022-05-17 14:15] VITALS: BP 116/69; PULSE 89; RESP 20; TEMP 36.8; O2SAT 100
== END 2022-05-17 14:15 | disposition home or self-care (01) ==
PROVIDERS: Emergency Provider Nurse Practitioner; PCP Nurse Practitioner Family
DX: R10.33 Periumbilical pain (principal); R11.2 Nausea with vomiting, unspecified; R19.7 Diarrhea, unspecified; F17.210 Nicotine dependence, cigarettes, uncomplicated
CPT/HCPCS: 99212; 99214; G0463

== ENCOUNTER → 2022-05-28 23:24 | Outpatient (CLI) | payer OTHER, SELFPAY ==
[2022-05-28 18:48] LABS: Basophils # 0.1 K/mm3 (0-0.2); Basophils % 0.6 % (0.1-2.0); Eosinophils # 0.7 K/mm3 (0.0-0.4); Eosinophils % 4.8 % (0.1-12.0); Hematocrit 43.6 % (37.0-47.0); Hemoglobin 13.3 g/dL (12.2-16.2); Lymphocytes # 3.1 K/mm3 (0.7-4.5); Lymphocytes % 22.8 % (10-50); Mean Corpuscular HGB Conc 30.6 g/dL (31.8-35.4); Mean Corpuscular Hemoglobin 27.3 pg (27.0-31.2); Mean Corpuscular Volume 89.3 fl (81-99); Mean Platelet Volume 9.2 fl (7.4-10.4); Monocytes # 0.8 K/mm3 (0.1-1.0); Neutrophils # 8.9 K/mm3 (1.8-7.8); Neutrophils % 65.8 % (37.0-80.0); Platelet Count 383 K/mm3 (142-424); Red Blood Count 4.88 M/mm3 (4.20-5.40); Red Cell Distribution Width 14.4 % (11.5-17.5); White Blood Count 13.4 K/mm3 (4.8-10.8)
[2022-05-28 18:52] LABS: Alanine Aminotransferase 23 U/L (12-78); Albumin Level 3.8 g/dl (3.5-5.0); Albumin/Globulin Ratio 1.3 (1.1-1.8); Alkaline Phosphatase 86 U/L (38-126); Anion Gap 11.2 mEq/L (5-15); Aspartate Amino Transferase 23 U/L (14-36); Bilirubin,Total 0.3 mg/dl (0.2-1.3); Blood Urea Nitrogen 16 mg/dl (7-17); Calcium 8.5 mg/dl (8.4-10.2); Carbon Dioxide 22 mmol/L (22.0-30.0); Chloride 109 mmol/L (98-107); Chol/HDL Ratio 4.7 (1-3.5); Cholesterol 174 mg/dl (140-200); Estimated Glomerular Filt Rate 84 ml/min (>60); GFR (African American) 102 ML/MIN (>60); Globulin 2.9 g/dL (1.3-3.2); Glucose 87 mg/dl (74-100); HDL Cholesterol 37 mg/dl (40-60); Potassium 4.2 mmoL/L (3.5-5.1); Sodium 138 mmol/L (136-145); Total Protein,Serum 6.7 g/dl (6.3-8.2); Triglycerides 118 mg/dl (30-150); VLDL Cholesterol 24 mg/dL (0-40)
[2022-05-28 19:04] LABS: Direct LDL Cholesterol 120.72 mg/dL (100-129)
[2022-05-28 19:11] LABS: 25-OH Vitamin D, Total < 12.8 ng/mL (30-100)
[2022-05-28 19:18] LABS: Microalbumin < 6.000 mg/L (0-16.7)
[2022-05-28 19:23] LABS: Thyroid Stimulating Hormone 2.03 uIU/mL (0.465-4.68)
[2022-05-28 20:47] LABS: Creatinine,Urine Random 109 mg/dL (Not Estab.)
[2022-05-28 23:26] LABS: Hemoglobin A1C 5.8 % (4.0-6.0)
== END ==
PROVIDERS: PCP Nurse Practitioner Family; Visit Provider Nurse Practitioner Family
DX: R53.83 Other fatigue (principal); E55.9 Vitamin D deficiency, unspecified; I10 Essential (primary) hypertension; E11.9 Type 2 diabetes mellitus without complications
CPT/HCPCS: 80053; 80061; 82043; 82306; 82570; 83036; 84443; 85025

== ENCOUNTER → 2022-06-15 14:48 | Outpatient (CLI) | payer OTHER, SELFPAY ==
--- NOTE | 2022-06-15 14:51 | US_ITS ---
FINAL REPORT CLINICAL HISTORY: dub FINDINGS: Transvaginal sonographic images of the pelvis were obtained. The uterus measures at the upper limits of normal at 9.1 x 5.1 x 3.8 cm. The endometrium measures 10 mm, which is within normal limits. No uterine mass is identified. The right ovary measures 3.5 cm in length and left ovary measures 2.2 cm in length. Normal blood flow seen to the ovaries. There is an 1.8 cm cyst in the right ovary. There is no evidence of free fluid. IMPRESSION: 1.8 cm right ovarian cyst. Reviewed, Interpreted and Dictated by Emmanuel Woods III, MD Transcribed by Nataliia Blancas Authenticated and [facility]
== END ==
PROVIDERS: PCP Nurse Practitioner Family; Visit Provider Obstetrics & Gynecology
DX: N93.8 Other specified abnormal uterine and vaginal bleeding (principal)
CPT/HCPCS: 76830

== ENCOUNTER 2022-06-28 12:21 | Emergency (ER) | payer OTHER, SELFPAY ==
--- NOTE | 2022-06-28 12:44 | EXP.UTC ---
Discharge Plan Disposition Patient Disposition: Home, Self-Care Condition: Good Prescriptions Prescriptions: New methylprednisolone 4 mg Tablets,Dose Pack 4 mg PO DIRECTED Qty: 21 0RF cyclobenzaprine 10 mg Tablet 10 mg PO BID PRN (Reason: Muscle Spasm) Qty: 20 0RF No Action cholecalciferol (vitamin D3) 50 mcg (2,000 unit) capsule 50 mcg PO DAILY Qty: 30 4RF cholecalciferol (vitamin D3) 1,250 mcg (50,000 unit) tablet 1,250 mcg PO WEEKLY Qty: 7 2RF hydroxyzine HCl 25 mg tablet 25 mg PO HS Qty: 90 0RF Nexplanon 68 mg implant 1 implant subdermal DAILY bupropion HCl [Wellbutrin XL] 150 mg tablet extended release 24 hr 150 mg PO DAILY Qty: 90 0RF Vraylar 3 mg capsule 3 mg PO DAILY Qty: 90 0RF prazosin 1 mg capsule 1 mg PO HS Qty: 90 0RF albuterol sulfate [ProAir HFA] 90 mcg/actuation HFA aerosol inhaler 2 inh inhalation Q6H PRN (Reason: shortness of breath or wheezing) Qty: 6.7 0RF diclofenac sodium 75 mg tablet,delayed release (DR/EC) 75 mg PO BID Qty: 60 2RF ondansetron 4 mg tablet,disintegrating 4 mg PO Q8H PRN (Reason: nausea and vomiting) Qty: 10 0RF bisoprolol fumarate 5 MG tablet 5 mg PO DAILY pantoprazole [Protonix] 40 mg tablet,delayed release (DR/EC) 40 mg PO DAILY Referrals Follow up/Referrals: Jeffrey Payan APRN [Primary Care Provider] - See instructions Activity Restrictions/Add. Instructions Additional Instructions/Restrictions: Go home and rest. It would be best if you rested tomorrow too. No heavy lifting. No twisting. Take the oral medications as directed. The muscle relaxer (cyclobenzaprine--Flexeril) will make you drowsy, so don't drive or operate heavy machinery after taking it. Don't start the oral steroids (medrol dose pack) until tomorrow, since you had the shots in here today. Follow up with your regular doctor. GO TO THE ER FOR ANY WORSENING SYMPTOMS OR CONCERN, ESPECIALLY BOWEL OR BLADDER ISSUES, SADDLE AREA NUMBNESS, FEVER, ETC Clinical Impressions Clinical Impression: Low back pain Stand Alone Forms Stand Alone Forms: Work/School Release Instructions Patient Instructions: DI for Low Back Pain, Cyclobenzaprine Discharge ED Provider: James Lechuga [facility] HPI General Stated complaint: back pain, no accident Time Seen by Provider: 06/28/22 12:43 History of Present Illness Provider Complaint: She c/o low back pain for the past 2 days. She denies any injury or fall. She denies any urinary symptoms. Related Data Home Medications Medication Instructions Recorded Confirmed bisoprolol fumarate 5 mg tablet 5 mg PO DAILY FAST HEART RATE 06/26/21 06/08/22 pantoprazole 40 mg tablet,delayed 40 mg PO DAILY STOMACH 11/16/21 06/08/22 release (Protonix) etonogestrel 68 mg subdermal 1 implant subdermal DAILY . 05/11/22 06/08/22 implant (Nexplanon) Previous Rx's Medication Instructions Recorded albuterol sulfate 90 mcg/actuation 2 inh inhalation Q6H PRN shortness 12/22/21 aerosol inhaler (ProAir HFA) of breath or wheezing #6.7 grams hydroxyzine HCl 25 mg tablet 25 mg PO HS Anxiety #90 tabs 03/23/22 diclofenac sodium 75 mg 75 mg PO BID Pain #60 tabs 05/12/22 tablet,delayed release ondansetron 4 mg disintegrating 4 mg PO Q8H PRN nausea and 05/17/22 tablet vomiting #10 tabs cholecalciferol (vitamin D3) 1,250 1,250 mcg PO WEEKLY #7 tabs 05/30/22 mcg (50,000 unit) tablet cholecalciferol (vitamin D3) 50 50 mcg PO DAILY #30 caps 05/30/22 mcg (2,000 unit) capsule bupropion HCl 150 mg 24 hr tablet, 150 mg PO DAILY MOOD #90 tabs 06/21/22 extended release (Wellbutrin XL) cariprazine 3 mg capsule (Vraylar) 3 mg PO DAILY Anxiety #90 caps 06/21/22 prazosin 1 mg capsule 1 mg PO HS ptsd #90 caps 06/21/22 cyclobenzaprine 10 mg tablet 10 mg PO BID PRN Muscle Spasm #20 06/28/22 tabs methylprednisolone 4 mg tablets in 4 mg PO DIRECTED #21 tabs 06/28/22 a dose pack Allergies Al
[2022-06-28 12:48] VITALS: BP 132/83; PULSE 106; RESP 16; TEMP 36.9; O2SAT 98; BMI 49.4
[2022-06-28 13:47] VITALS: BP 132/83; PULSE 106; RESP 18; TEMP 36.6; O2SAT 99
== END 2022-06-28 13:50 | disposition home or self-care (01) ==
PROVIDERS: Emergency Provider Nurse Practitioner Family; PCP Nurse Practitioner Family
DX: M54.50 Low back pain, unspecified (principal); F17.210 Nicotine dependence, cigarettes, uncomplicated
CPT/HCPCS: 99212; 99214; G0463

== ENCOUNTER 2022-07-04 12:32 | Emergency (ER) | payer OTHER, SELFPAY ==
[2022-07-04 12:38] VITALS: BP 138/69; PULSE 97; RESP 18; TEMP 36.8; O2SAT 99; BMI 49.4
--- NOTE | 2022-07-04 13:00 | EXP.UTC ---
Discharge Plan Disposition Patient Disposition: Home, Self-Care Condition: Good Prescriptions Prescriptions: New cephalexin [cephalexin] 500 mg tablet 500 mg PO BID 10 Days Qty: 20 0RF No Action cholecalciferol (vitamin D3) 50 mcg (2,000 unit) capsule 50 mcg PO DAILY Qty: 30 4RF cholecalciferol (vitamin D3) 1,250 mcg (50,000 unit) tablet 1,250 mcg PO WEEKLY Qty: 7 2RF hydroxyzine HCl 25 mg tablet 25 mg PO HS Qty: 90 0RF Nexplanon 68 mg implant 1 implant subdermal DAILY bupropion HCl [Wellbutrin XL] 150 mg tablet extended release 24 hr 150 mg PO DAILY Qty: 90 0RF Vraylar 3 mg capsule 3 mg PO DAILY Qty: 90 0RF prazosin 1 mg capsule 1 mg PO HS Qty: 90 0RF albuterol sulfate [ProAir HFA] 90 mcg/actuation HFA aerosol inhaler 2 inh inhalation Q6H PRN (Reason: shortness of breath or wheezing) Qty: 6.7 0RF diclofenac sodium 75 mg tablet,delayed release (DR/EC) 75 mg PO BID Qty: 60 2RF ondansetron 4 mg tablet,disintegrating 4 mg PO Q8H PRN (Reason: nausea and vomiting) Qty: 10 0RF methylprednisolone 4 mg Tablets,Dose Pack 4 mg PO DIRECTED Qty: 21 0RF cyclobenzaprine 10 mg Tablet 10 mg PO BID PRN (Reason: Muscle Spasm) Qty: 20 0RF bisoprolol fumarate 5 MG tablet 5 mg PO DAILY pantoprazole [Protonix] 40 mg tablet,delayed release (DR/EC) 40 mg PO DAILY Referrals Follow up/Referrals: Jeffrey Payan APRN [Primary Care Provider] - See instructions Activity Restrictions/Add. Instructions Additional Instructions/Restrictions: Start antibiotic as soon as possible and be sure to take as ordered for full length of time even though he should start feeling better in 24-48 hours. Tylenol or Motrin as needed for pain or fever Encourage fluids, water, Gatorade, Powerade, Pedialyte if infant/toddler/child Warm compresses often helps when placed over ear Return immediately for new or worsening symptoms no noticeable improvement in 48-72 hours and in 10-14 days to ensure the ears are return to baseline. Follow-up with primary care Clinical Impressions Clinical Impression: Otitis media Stand Alone Forms Stand Alone Forms: Work/School Release Instructions Patient Instructions: Middle Ear Infection Discharge ED Provider: Toan ([facility])Anthony [facility] HPI General Stated complaint: LEft ear ache and sore throat Mode of Arrival: Ambulatory Source of Information: Patient Limitations: No Limitations Time Seen by Provider: 07/04/22 13:00 Description of Symptoms (Recalled from Triage Doc. by RN): pt c/o a L ear ache and sinus pain/pressure. since yesterday HEENT Symptoms (Recalled from RN notes): Yes Resp Symptoms (Recalled from RN notes): No Skin Symptoms (Recalled from RN notes): No MS Symptoms (Recalled from RN notes): No Functional Status (Recalled from RN notes): wnl History of Present Illness Provider Complaint: 31 yr old female presents with c/o a L ear ache and sinus pain/pressure. since yesterday Related Data Home Medications Medication Instructions Recorded Confirmed bisoprolol fumarate 5 mg tablet 5 mg PO DAILY FAST HEART RATE 06/26/21 06/08/22 pantoprazole 40 mg tablet,delayed 40 mg PO DAILY STOMACH 11/16/21 06/08/22 release (Protonix) etonogestrel 68 mg subdermal 1 implant subdermal DAILY . 05/11/22 06/08/22 implant (Nexplanon) Previous Rx's Medication Instructions Recorded albuterol sulfate 90 mcg/actuation 2 inh inhalation Q6H PRN shortness 12/22/21 aerosol inhaler (ProAir HFA) of breath or wheezing #6.7 grams hydroxyzine HCl 25 mg tablet 25 mg PO HS Anxiety #90 tabs 03/23/22 diclofenac sodium 75 mg 75 mg PO BID Pain #60 tabs 05/12/22 tablet,delayed release ondansetron 4 mg disintegrating 4 mg PO Q8H PRN nausea and 05/17/22 tablet vomiting #10 tabs cholecalciferol (vitamin D3) 1,250 1,250 mcg PO WEEKLY #7 tabs 05/30/22 mcg (50,000 unit) tablet cholecalciferol (vitamin D3) 50 50 mcg PO DAILY #30 caps 05/30/22 mcg (
[2022-07-04 13:29] VITALS: BP 138/69; PULSE 97; RESP 18; TEMP 36.8
== END 2022-07-04 13:31 | disposition home or self-care (01) ==
PROVIDERS: Emergency Provider Nurse Practitioner Family; PCP Nurse Practitioner Family
DX: H66.92 Otitis media, unspecified, left ear (principal); J34.9 Unspecified disorder of nose and nasal sinuses; F17.210 Nicotine dependence, cigarettes, uncomplicated; I10 Essential (primary) hypertension; E78.5 Hyperlipidemia, unspecified
CPT/HCPCS: 99212; 99214; G0463

== ENCOUNTER 2022-07-09 14:02 | Emergency (ER) | payer OTHER, SELFPAY ==
[2022-07-09 14:02] VITALS: BP 146/93; PULSE 90; RESP 18; TEMP 36.4; O2SAT 97; BMI 49.5
--- NOTE | 2022-07-09 14:26 | ECG_ITS ---
APPROVED REPORT Exam: Resting ECG HR:80 bpm ECG Measurements Heart Rate 80 AXES WI 164 P 62 QRSd 87 QRS 87 QT 379 T 49 QTc 414 Conclusion SINUS RHYTHM LOW QRS VOLTAGE IN PRECORDIAL LEADS [QRS DEFLECTION < 1.0 mV IN CHEST LEADS] BORDERLINE ECG UNCONFIRMED REPORT Electronically signed by : Dalton Richard MD 07/11/2022 08:06:29
--- NOTE | 2022-07-09 14:37 | XR_ITS ---
FINAL REPORT CLINICAL HISTORY: concern for pulmonary edema-- leg edema COMPARISON: 12/22/2021 FINDINGS: There is no evidence of effusion or other pleural disease. The mediastinum has a normal appearance. The cardiac silhouette is unremarkable. IMPRESSION: Unremarkable chest exam. Reviewed, Interpreted and Dictated by Damian Vicente MD Transcribed by Kelin Bajwa Authenticated and [facility]
[2022-07-09 14:44] LABS: Basophils % 0.2 % (0.1-2.0); Eosinophils # 0.6 K/mm3 (0.0-0.4); Eosinophils % 4.9 % (0.1-12.0); Hematocrit 39.8 % (37.0-47.0); Hemoglobin 12.7 g/dL (12.2-16.2); Lymphocytes # 2.9 K/mm3 (0.7-4.5); Lymphocytes % 21.8 % (10-50); Mean Corpuscular HGB Conc 31.9 g/dL (31.8-35.4); Mean Corpuscular Hemoglobin 27.9 pg (27.0-31.2); Mean Corpuscular Volume 87.4 fl (81-99); Mean Platelet Volume 7.3 fl (7.4-10.4); Monocytes # 0.6 K/mm3 (0.1-1.0); Monocytes % 4.5 % (1.7-9.3); Neutrophils % 68.6 % (37.0-80.0); Platelet Count 326 K/mm3 (142-424); Red Blood Count 4.55 M/mm3 (4.20-5.40); White Blood Count 13.1 K/mm3 (4.8-10.8)
[2022-07-09 14:48] LABS: Chloride 104 mmol/L (98-107); Potassium 3.6 mmoL/L (3.5-5.1); Sodium 139 mmol/L (136-145)
[2022-07-09 14:50] LABS: Alanine Aminotransferase 27 U/L (12-78); Aspartate Amino Transferase 29 U/L (14-36); Blood Urea Nitrogen 18 mg/dl (7-17); Estimated Glomerular Filt Rate 84 ml/min (>60); GFR (African American) 102 ML/MIN (>60)
[2022-07-09 14:51] LABS: Albumin Level 3.7 g/dl (3.5-5.0); Albumin/Globulin Ratio 1.2 (1.1-1.8); Alkaline Phosphatase 85 U/L (38-126); Anion Gap 14.6 mEq/L (5-15); Bilirubin,Total 0.2 mg/dl (0.2-1.3); Calcium 8.1 mg/dl (8.4-10.2); Carbon Dioxide 24 mmol/L (22.0-30.0); Globulin 3.1 g/dL (1.3-3.2); Glucose 102 mg/dl (74-100); Total Protein,Serum 6.8 g/dl (6.3-8.2)
[2022-07-09 15:00] LABS: NT Pro Brain Natriuretic Pep. 244 pg/mL (0-125)
[2022-07-09 15:01] VITALS: BP 112/60; PULSE 82; RESP 20; O2SAT 98
--- NOTE | 2022-07-09 15:18 | PC.NURSE ---
rounded on pt no complaints at this time, at bs
--- NOTE | 2022-07-09 15:24 | PC.NURSE ---
Frank brought bells down for us to put at bedside for the pt to ring out for assistance sing our call light system is down
[2022-07-09 15:30] VITALS: BP 126/84; PULSE 80; RESP 20; O2SAT 99
[2022-07-09 15:48] VITALS: BP 126/84; PULSE 78; RESP 18; TEMP 37; O2SAT 99
--- NOTE | 2022-07-09 15:52 | HMH.EDGENADL ---
Discharge Plan Disposition Patient Disposition: Home, Self-Care Condition: Good Prescriptions Prescriptions: No Action hydroxyzine HCl 25 mg tablet 25 mg PO HS Qty: 90 0RF Nexplanon 68 mg implant 1 implant subdermal DAILY bupropion HCl [Wellbutrin XL] 150 mg tablet extended release 24 hr 150 mg PO DAILY Qty: 90 0RF Vraylar 3 mg capsule 3 mg PO DAILY Qty: 90 0RF prazosin 1 mg capsule 1 mg PO HS Qty: 90 0RF albuterol sulfate [ProAir HFA] 90 mcg/actuation HFA aerosol inhaler 2 inh inhalation Q6H PRN (Reason: shortness of breath or wheezing) Qty: 6.7 0RF diclofenac sodium 75 mg tablet,delayed release (DR/EC) 75 mg PO BID Qty: 60 2RF cyclobenzaprine 10 mg Tablet 10 mg PO BID PRN (Reason: Muscle Spasm) Qty: 20 0RF bisoprolol fumarate 5 MG tablet 5 mg PO DAILY pantoprazole [Protonix] 40 mg tablet,delayed release (DR/EC) 40 mg PO DAILY cephalexin [cephalexin] 500 mg tablet 500 mg PO BID 10 Days Qty: 20 0RF Referrals Follow up/Referrals: Jeffrey Payan APRN [Primary Care Provider] - See instructions Clinical Impressions Clinical Impression: Leg edema Stand Alone Forms Stand Alone Forms: Work/School Release Instructions Patient Instructions: DI for Dependent Edema Discharge ED Provider: Giovanni Webster General Adult HPI General Chief complaint: Extremity Problem,Nontraumatic Stated complaint: feet and legs swollen Time Seen by Provider: 07/09/22 14:15 Mode of Arrival: Ambulatory Source of Information: Patient Limitations: No Limitations Description of Symptoms (Recalled from ER Triage Doc. by RN): c/o lower bilateral leg swelling since this morning, had some chest pain and some left arm pain. Denies any chest pain at this time. History of Present Illness HPI narrative: Patient is a 31-year-old female with past medical history of hypertension, hyperlipidemia who presents with concern for leg swelling. She said that yesterday she had a little bit of chest discomfort and it subsequently went away. She said that she woke up this morning and noted that she had swelling to both of her feet. She said she did work overnight. She says this never happened in the past. She denies any shortness of breath. Denies any nausea or diaphoresis. No radiation of the chest discomfort. Related Data Home Medications Medication Instructions Recorded Confirmed bisoprolol fumarate 5 mg tablet 5 mg PO DAILY FAST HEART RATE 06/26/21 07/06/22 pantoprazole 40 mg tablet,delayed 40 mg PO DAILY STOMACH 11/16/21 07/06/22 release (Protonix) etonogestrel 68 mg subdermal 1 implant subdermal DAILY . 05/11/22 07/06/22 implant (Nexplanon) Previous Rx's Medication Instructions Recorded albuterol sulfate 90 mcg/actuation 2 inh inhalation Q6H PRN shortness 12/22/21 aerosol inhaler (ProAir HFA) of breath or wheezing #6.7 grams hydroxyzine HCl 25 mg tablet 25 mg PO HS Anxiety #90 tabs 03/23/22 diclofenac sodium 75 mg 75 mg PO BID Pain #60 tabs 05/12/22 tablet,delayed release bupropion HCl 150 mg 24 hr tablet, 150 mg PO DAILY MOOD #90 tabs 06/21/22 extended release (Wellbutrin XL) cariprazine 3 mg capsule (Vraylar) 3 mg PO DAILY Anxiety #90 caps 06/21/22 prazosin 1 mg capsule 1 mg PO HS ptsd #90 caps 06/21/22 cyclobenzaprine 10 mg tablet 10 mg PO BID PRN Muscle Spasm #20 06/28/22 tabs cephalexin 500 mg tablet 500 mg PO BID 10 days #20 tabs 07/04/22 Allergies Allergy/AdvReac Type Severity Reaction Status Date / Time ibuprofen [IBUPROFEN] Allergy Mild Unknown Verified 07/06/22 10:16 allergy reaction amoxicillin [From Augmentin] Allergy Verified 07/06/22 10:16 clavulanic acid Allergy Verified 07/06/22 10:16 [From Augmentin] [facility] Disclaimer: The information contained in this section may have been updated after the patient was seen, as this information can be updated by other users. Medical History (Reviewed 07/06/22 @ 10:17 by Wilner
== END 2022-07-09 15:55 | disposition home or self-care (01) ==
PROVIDERS: Emergency Provider Student in an Organized Health Care Education/Training Program; PCP Nurse Practitioner Family
DX: R60.9 Edema, unspecified (principal); I10 Essential (primary) hypertension; F17.210 Nicotine dependence, cigarettes, uncomplicated
CPT/HCPCS: 71046; 80053; 83880; 85025; 93005; 99285

== ENCOUNTER 2022-07-27 15:32 | Emergency (ER) | payer OTHER, SELFPAY ==
[2022-07-27 15:35] VITALS: BP 156/94; PULSE 104; RESP 18; TEMP 36.8; O2SAT 98; BMI 49.4
--- NOTE | 2022-07-27 15:41 | EXP.UTC ---
Discharge Plan Disposition Patient Disposition: Home, Self-Care Condition: Good Prescriptions Prescriptions: New ondansetron 4 mg Tablet,Disintegrating 4 mg PO Q8H PRN (Reason: Nausea) Qty: 12 0RF No Action hydroxyzine HCl 25 mg tablet 25 mg PO HS Qty: 90 0RF Nexplanon 68 mg implant 1 implant subdermal DAILY bupropion HCl [Wellbutrin XL] 150 mg tablet extended release 24 hr 150 mg PO DAILY Qty: 90 0RF Vraylar 3 mg capsule 3 mg PO DAILY Qty: 90 0RF prazosin 1 mg capsule 1 mg PO HS Qty: 90 0RF albuterol sulfate [ProAir HFA] 90 mcg/actuation HFA aerosol inhaler 2 inh inhalation Q6H PRN (Reason: shortness of breath or wheezing) Qty: 6.7 0RF diclofenac sodium 75 mg tablet,delayed release (DR/EC) 75 mg PO BID Qty: 60 2RF cyclobenzaprine 10 mg Tablet 10 mg PO BID PRN (Reason: Muscle Spasm) Qty: 20 0RF bisoprolol fumarate 5 MG tablet 5 mg PO DAILY pantoprazole [Protonix] 40 mg tablet,delayed release (DR/EC) 40 mg PO DAILY cephalexin [cephalexin] 500 mg tablet 500 mg PO BID 10 Days Qty: 20 0RF Referrals Follow up/Referrals: Jeffrey Payan APRN [Primary Care Provider] - See instructions Activity Restrictions/Add. Instructions Additional Instructions/Restrictions: Drink plenty of fluids. Water or gatorade would be best. Take tylenol for pain or fever. Take the zofran as directed. Follow up with your regular doctor. GO TO THE ER FOR ANY WORSENING SYMPTOMS Her symptoms started yesterday, so her work excuse needs to count for 07/26, 07/27, and 07/28 if possible. Clinical Impressions Clinical Impression: Acute gastroenteritis Stand Alone Forms Stand Alone Forms: Work/School Release Instructions Patient Instructions: Viral Gastroenteritis, DI for Viral Gastroenteritis -- Adult, Ondansetron Discharge ED Provider: James Lechuga [facility] General Stated complaint: Nausea,Diarrhea Time Seen by Provider: 07/27/22 15:41 History of Present Illness Provider Complaint: She states that, since yesterday, she has had n/v/d. She denies abdominal pain. She has had abdominal cramping though. Related Data Home Medications Medication Instructions Recorded Confirmed bisoprolol fumarate 5 mg tablet 5 mg PO DAILY FAST HEART RATE 06/26/21 07/06/22 pantoprazole 40 mg tablet,delayed 40 mg PO DAILY STOMACH 11/16/21 07/06/22 release (Protonix) etonogestrel 68 mg subdermal 1 implant subdermal DAILY . 05/11/22 07/06/22 implant (Nexplanon) Previous Rx's Medication Instructions Recorded albuterol sulfate 90 mcg/actuation 2 inh inhalation Q6H PRN shortness 12/22/21 aerosol inhaler (ProAir HFA) of breath or wheezing #6.7 grams hydroxyzine HCl 25 mg tablet 25 mg PO HS Anxiety #90 tabs 03/23/22 diclofenac sodium 75 mg 75 mg PO BID Pain #60 tabs 05/12/22 tablet,delayed release bupropion HCl 150 mg 24 hr tablet, 150 mg PO DAILY MOOD #90 tabs 06/21/22 extended release (Wellbutrin XL) cariprazine 3 mg capsule (Vraylar) 3 mg PO DAILY Anxiety #90 caps 06/21/22 prazosin 1 mg capsule 1 mg PO HS ptsd #90 caps 06/21/22 cyclobenzaprine 10 mg tablet 10 mg PO BID PRN Muscle Spasm #20 06/28/22 tabs cephalexin 500 mg tablet 500 mg PO BID 10 days #20 tabs 07/04/22 ondansetron 4 mg disintegrating 4 mg PO Q8H PRN Nausea #12 tabs 07/27/22 tablet Allergies Allergy/AdvReac Type Severity Reaction Status Date / Time ibuprofen [IBUPROFEN] Allergy Mild Unknown Verified 07/06/22 10:16 allergy reaction amoxicillin [From Augmentin] Allergy Verified 07/06/22 10:16 clavulanic acid Allergy Verified 07/06/22 10:16 [From Augmentin] [facility] Disclaimer: The information contained in this section may have been updated after the patient was seen, as this information can be updated by other users. Medical History Acute bronchitis Allergic reaction Anxiety Asthma Back pain Back ziyad
[2022-07-27 15:55] LABS: UTC Strep Screen (Rapid) Negative (Negative)
[2022-07-27 16:21] VITALS: BP 156/94; PULSE 104; RESP 18; TEMP 36.8; O2SAT 98
== END 2022-07-27 16:23 | disposition home or self-care (01) ==
PROVIDERS: Emergency Provider Nurse Practitioner Family; PCP Nurse Practitioner Family
DX: K52.9 Noninfective gastroenteritis and colitis, unspecified (principal); R11.2 Nausea with vomiting, unspecified; F17.210 Nicotine dependence, cigarettes, uncomplicated; J45.909 Unspecified asthma, uncomplicated; I10 Essential (primary) hypertension; E78.5 Hyperlipidemia, unspecified; F41.9 Anxiety disorder, unspecified; F33.9 Major depressive disorder, recurrent, unspecified
CPT/HCPCS: 87880; 99212; 99214; G0463

== ENCOUNTER 2022-08-08 15:10 | Emergency (ER) | payer OTHER, SELFPAY ==
[2022-08-08 15:20] VITALS: BP 128/86; PULSE 86; RESP 18; TEMP 36.8; O2SAT 98; BMI 43.7
[2022-08-08 15:46] LABS: UTC Strep Screen (Rapid) Negative (Negative)
--- NOTE | 2022-08-08 15:55 | EXP.UTC ---
Discharge Plan Disposition Patient Disposition: Home, Self-Care Condition: Good Prescriptions Prescriptions: New cephalexin [cephalexin] 500 mg tablet 500 mg PO BID 7 Days Qty: 14 0RF fluticasone propionate [fluticasone propionate] 50 mcg/actuation spray,suspension 1 spray intranasal DAILY Qty: 9.9 0RF No Action Qelbree 200 mg capsule,extended release 24hr 200 mg PO .COMPLEX Qty: 60 1RF Rx Instructions: take 1 daily for 1 week; then increase to 2 capsules daily bupropion HCl [Wellbutrin XL] 150 mg tablet extended release 24 hr 150 mg PO DAILY Qty: 90 0RF Vraylar 3 mg capsule 3 mg PO DAILY Qty: 90 0RF prazosin 1 mg capsule 1 mg PO HS Qty: 90 0RF hydroxyzine HCl 25 mg tablet 25 mg PO HS Qty: 90 0RF Nexplanon 68 mg implant 1 implant subdermal DAILY diclofenac sodium 75 mg tablet,delayed release (DR/EC) 75 mg PO BID Qty: 60 2RF cyclobenzaprine 10 mg Tablet 10 mg PO BID PRN (Reason: Muscle Spasm) Qty: 20 0RF bisoprolol fumarate 5 MG tablet 5 mg PO DAILY pantoprazole [Protonix] 40 mg tablet,delayed release (DR/EC) 40 mg PO DAILY ondansetron 4 mg Tablet,Disintegrating 4 mg PO Q8H PRN (Reason: Nausea) Qty: 12 0RF Referrals Follow up/Referrals: Jeffrey Payan APRN [Primary Care Provider] - See instructions Activity Restrictions/Add. Instructions Additional Instructions/Restrictions: Start antibiotic patient to take as ordered for a full length of time even if you feel better. Sinus infections do not get better overnight. It may take 2-3 days to notice much improvement so be sure to use conservative measures as discussed for symptoms. Flonase 1 spray each nostril daily to help with nasal congestion, sinus and ear pressure/information Increase fluids Humidifier/vaporizer as needed Tylenol and ibuprofen as needed for fever or pain. If symptoms do not improve or get worse return or be seen in the ER Follow-up with primary care this week Clinical Impressions Clinical Impression: Otitis media, Acute maxillary sinusitis Stand Alone Forms Stand Alone Forms: Work/School Release Instructions Patient Instructions: DI for Sinusitis, Middle Ear Infection Discharge ED Provider: Toan ([facility] HPI General Stated complaint: sore throat, h/a Mode of Arrival: Ambulatory Source of Information: Patient Limitations: No Limitations Time Seen by Provider: 08/08/22 15:55 Description of Symptoms (Recalled from Triage Doc. by RN): PATIENT C/O SORE THROAT, HEADACHE AND SINUS PRESSURE/DRAINAGE X 3 DAYS HEENT Symptoms (Recalled from RN notes): Yes Resp Symptoms (Recalled from RN notes): No Skin Symptoms (Recalled from RN notes): No MS Symptoms (Recalled from RN notes): No Functional Status (Recalled from RN notes): WNL History of Present Illness Provider Complaint: 32 yr old female presents for sore throat, ear pain, sinus pressure, dark yellow/green drainage,sinus congestion, and ware for 3 days Related Data Home Medications Medication Instructions Recorded Confirmed bisoprolol fumarate 5 mg tablet 5 mg PO DAILY FAST HEART RATE 06/26/21 07/30/22 pantoprazole 40 mg tablet,delayed 40 mg PO DAILY STOMACH 11/16/21 07/30/22 release (Protonix) etonogestrel 68 mg subdermal 1 implant subdermal DAILY . 05/11/22 07/30/22 implant (Nexplanon) Previous Rx's Medication Instructions Recorded hydroxyzine HCl 25 mg tablet 25 mg PO HS Anxiety #90 tabs 03/23/22 diclofenac sodium 75 mg 75 mg PO BID Pain #60 tabs 05/12/22 tablet,delayed release cyclobenzaprine 10 mg tablet 10 mg PO BID PRN Muscle Spasm #20 06/28/22 tabs ondansetron 4 mg disintegrating 4 mg PO Q8H PRN Nausea #12 tabs 07/27/22 tablet bupropion HCl 150 mg 24 hr tablet, 150 mg PO DAILY MOOD #90 tabs 07/30/22 extended release (Wellbutrin XL) cariprazine 3 mg capsule (Vraylar) 3 mg PO DAILY Anxiety #90 caps 07/30/22 prazosin 1 mg capsule 1 mg PO HS ptsd #90 caps 07/30/22 sandip
[2022-08-08 15:57] VITALS: BP 128/86; PULSE 86; RESP 18; TEMP 36.8; O2SAT 98
== END 2022-08-08 16:03 | disposition home or self-care (01) ==
PROVIDERS: Emergency Provider Nurse Practitioner Family; PCP Nurse Practitioner Family
DX: H66.93 Otitis media, unspecified, bilateral (principal); J01.00 Acute maxillary sinusitis, unspecified; R07.0 Pain in throat; F17.210 Nicotine dependence, cigarettes, uncomplicated; I10 Essential (primary) hypertension; E78.5 Hyperlipidemia, unspecified; J45.909 Unspecified asthma, uncomplicated; F41.9 Anxiety disorder, unspecified; E66.01 Morbid (severe) obesity due to excess calories; Z68.41 Body mass index [BMI] 40.0-44.9, adult
CPT/HCPCS: 87880; 99212; 99214; G0463

== ENCOUNTER 2022-08-16 12:03 | Emergency (ER) | payer OTHER, SELFPAY ==
[2022-08-16 12:10] VITALS: BP 138/72; PULSE 97; RESP 20; TEMP 36.6; O2SAT 96; BMI 46.2
--- NOTE | 2022-08-16 12:39 | EXP.UTC ---
Discharge Plan Disposition Patient Disposition: Home, Self-Care Condition: Good Prescriptions Prescriptions: No Action Qelbree 200 mg capsule,extended release 24hr 200 mg PO .COMPLEX Qty: 60 1RF Rx Instructions: take 1 daily for 1 week; then increase to 2 capsules daily bupropion HCl [Wellbutrin XL] 150 mg tablet extended release 24 hr 150 mg PO DAILY Qty: 90 0RF Vraylar 3 mg capsule 3 mg PO DAILY Qty: 90 0RF prazosin 1 mg capsule 1 mg PO HS Qty: 90 0RF hydroxyzine HCl 25 mg tablet 25 mg PO HS Qty: 90 0RF Nexplanon 68 mg implant 1 implant subdermal DAILY diclofenac sodium 75 mg tablet,delayed release (DR/EC) 75 mg PO BID Qty: 60 2RF cyclobenzaprine 10 mg Tablet 10 mg PO BID PRN (Reason: Muscle Spasm) Qty: 20 0RF cephalexin [cephalexin] 500 mg tablet 500 mg PO BID 7 Days Qty: 14 0RF fluticasone propionate [fluticasone propionate] 50 mcg/actuation spray,suspension 1 spray intranasal DAILY Qty: 9.9 0RF bisoprolol fumarate 5 MG tablet 5 mg PO DAILY pantoprazole [Protonix] 40 mg tablet,delayed release (DR/EC) 40 mg PO DAILY ondansetron 4 mg Tablet,Disintegrating 4 mg PO Q8H PRN (Reason: Nausea) Qty: 12 0RF Referrals Follow up/Referrals: Jeffrey Payan APRN [Primary Care Provider] - See instructions Activity Restrictions/Add. Instructions Additional Instructions/Restrictions: *Monitor Temp, Over the counter Motrin or Tylenol as directed/as needed Tylenol every 4 hours and Motrin every 6 hours (as long as your family doctor has told you that you can take it) for fever or pain. and straight to ER if unable to lower temp less than 101.0 after medication given *Warm salt water gargles may help to soothe the throat *Throat Lozenges? *Warm fluids like tea with honey may help to soothe the throat? *Sleep elevated *Humidifier/Vaporizer *Flonase 2 sprays in each nostril daily but be aware that it may take 2-3 days before you notice improvement Your throat swab was sent for culture. Those results are typically sent to your primary care. Be sure to follow up in 2-3 days with your family doctor/primary care physician if no improvement so they can review those result and treat if necessary. If you don?t have a primary care doctor, I recommend you get one but in the mean time, you will have to return to a walk in clinic Follow up IMMEDIATELY for new or worsening symptoms or no Noticeable improvement over the next 48-72 hours. 911 for difficulty breathing or swallowing Clinical Impressions Clinical Impression: Otitis media Instructions Patient Instructions: Sore Throat, Middle Ear Infection Discharge ED Provider: Pamela Corral [facility] [place] HPI General Stated complaint: Sore throat, RT ear pain Mode of Arrival: Ambulatory Source of Information: Patient Limitations: No Limitations Time Seen by Provider: 08/16/22 12:40 Description of Symptoms (Recalled from Triage Doc. by RN): PATIENT C/O RIGHT THROAT AND RIGHT EAR PAIN. SHE WAS RECENTLY TREATED FOR BILATERAL EAR INFECTION, BUT STATES HER RIGHT EAR IS NOT BETTER HEENT Symptoms (Recalled from RN notes): Yes Resp Symptoms (Recalled from RN notes): No Skin Symptoms (Recalled from RN notes): No MS Symptoms (Recalled from RN notes): No Functional Status (Recalled from RN notes): WNL History of Present Illness Provider Complaint: Patient states that she was recently seen and treated for bilateral ear infection States that her left ear is doing better but she is still having pain and pressure in her right ear and pain in the right side of throat that hurts when she swallows States that she finished all medication and it hasnt helped Related Data Home Medications Medication Instructions Recorded Confirmed bisoprolol fumarate 5 mg tablet 5 mg PO DAILY FAST HEART RATE 06/26/21 07/30/22 pantoprazole 40 mg tablet,delayed 40 mg PO DAILY STOMACH 11/16/21 07/30/22 release (Protonix) eton
[2022-08-16 12:58] LABS: UTC Strep Screen (Rapid) Negative (Negative)
[2022-08-16 13:14] VITALS: BP 138/72; PULSE 97; RESP 20; TEMP 36.6; O2SAT 96
== END 2022-08-16 13:17 | disposition home or self-care (01) ==
PROVIDERS: Emergency Provider Nurse Practitioner; PCP Nurse Practitioner Family
DX: H66.91 Otitis media, unspecified, right ear (principal); F17.210 Nicotine dependence, cigarettes, uncomplicated; I10 Essential (primary) hypertension; E78.5 Hyperlipidemia, unspecified; J45.909 Unspecified asthma, uncomplicated; K21.9 Gastro-esophageal reflux disease without esophagitis; F33.9 Major depressive disorder, recurrent, unspecified; F41.9 Anxiety disorder, unspecified
CPT/HCPCS: 87880; 99212; 99214; G0463

== ENCOUNTER 2022-10-15 19:41 | Emergency (ER) | payer OTHER, SELFPAY ==
[2022-10-15 19:50] VITALS: BP 114/67; PULSE 91; RESP 20; TEMP 36.6; O2SAT 99; BMI 44.9
--- NOTE | 2022-10-15 19:57 | EXP.UTC ---
Discharge Plan Disposition Patient Disposition: Home, Self-Care Condition: Good Prescriptions Prescriptions: New ondansetron 4 mg tablet,disintegrating 4 mg PO Q8H PRN (Reason: nausea and vomiting) Qty: 10 0RF No Action Qelbree 200 mg capsule,extended release 24hr 200 mg PO .COMPLEX Qty: 60 1RF Rx Instructions: take 1 daily for 1 week; then increase to 2 capsules daily bupropion HCl [Wellbutrin XL] 150 mg tablet extended release 24 hr 150 mg PO DAILY Qty: 90 0RF Vraylar 3 mg capsule 3 mg PO DAILY Qty: 90 0RF prazosin 1 mg capsule 1 mg PO HS Qty: 90 0RF hydroxyzine HCl 25 mg tablet 25 mg PO HS Qty: 90 0RF Nexplanon 68 mg implant 1 implant subdermal DAILY diclofenac sodium 75 mg tablet,delayed release (DR/EC) 75 mg PO BID Qty: 60 2RF cyclobenzaprine 10 mg Tablet 10 mg PO BID PRN (Reason: Muscle Spasm) Qty: 20 0RF cephalexin [cephalexin] 500 mg tablet 500 mg PO BID 7 Days Qty: 14 0RF fluticasone propionate [fluticasone propionate] 50 mcg/actuation spray,suspension 1 spray intranasal DAILY Qty: 9.9 0RF bisoprolol fumarate 5 MG tablet 5 mg PO DAILY pantoprazole [Protonix] 40 mg tablet,delayed release (DR/EC) 40 mg PO DAILY ondansetron 4 mg Tablet,Disintegrating 4 mg PO Q8H PRN (Reason: Nausea) Qty: 12 0RF azithromycin [Zithromax Z-Yaya] 250 mg tablet See Rx Instructions .ROUTE .COMPLEX 5 Days Qty: 6 0RF Rx Instructions: For 250 mg dose pack: take 500 mg today (day 1), then 250 mg for 4 days (days 2-5) Referrals Follow up/Referrals: Jeffrey Payan APRN [Primary Care Provider] - See instructions Activity Restrictions/Add. Instructions Additional Instructions/Restrictions: *Monitor Temp, Over the counter Motrin or Tylenol as directed/as needed Tylenol every 4 hours and Motrin every 6 hours (as long as your family doctor has told you that you can take it) for fever or pain. and straight to ER if unable to lower temp less than 101.0 after medication given *Warm salt water gargles may help to soothe the throat *Throat Lozenges? *Warm fluids like tea with honey may help to soothe the throat? *Sleep elevated *Humidifier/Vaporizer *Drink extra fluids with and between meals. If you have difficulty drinking, try very small amounts of water or suck on ice chips. ? Avoid fruit juices, as these do not replace minerals and can actually increase diarrhea. ? Children and adults can use sports drinks to replenish electrolytes. Younger children and infants should use products formulated for children, like oral rehydration solutions. ? Eat food in small amounts and let your stomach recover. ? Get lots of rest. You may feel tired or weak. ? No greasy or fried foods for the next 24-48 hours BRAT diet Bananas Rice Apples and [place] ? Make sure to drink plenty of liquids ? Return if needed ? Straight to ER if any life threatening symptoms ? Zofran as prescribed ? Follow up with family doctor in the next 48-72 hours if no improvement or any worsening of sympto You were tested for today for Upper Respiratory Panel with COVID19 your test result should be back in the next 24 You may check your results on the [facility] [employer] [facility] Portal if you have one set up Clinical Impressions Clinical Impression: Viral syndrome Stand Alone Forms Stand Alone Forms: Work/School Release Instructions Patient Instructions: DI for Viral Syndrome, Nausea and Vomiting-Adult, DI for COVID-19 (Suspected or Confirmed ) Discharge ED [place] [facility] [place] General Stated complaint: vomiting, dizzy, weak Mode of Arrival: Ambulatory Source of Information: Patient Limitations: No Limitations Time Seen by Provider: 10/15/22 19:57 Description of Symptoms (Recalled from Triage Doc. by RN): PATIENT C/O NAUSEA, VOMITING, DIZZINESS, AND
[2022-10-15 20:00] VITALS: BP 114/67; PULSE 91; RESP 20; TEMP 36.6; O2SAT 99
== END 2022-10-15 20:15 | disposition home or self-care (01) ==
PROVIDERS: Emergency Provider Nurse Practitioner; PCP Nurse Practitioner Family
DX: R11.2 Nausea with vomiting, unspecified (principal); B34.9 Viral infection, unspecified; R42 Dizziness and giddiness; F17.210 Nicotine dependence, cigarettes, uncomplicated; I10 Essential (primary) hypertension; E78.5 Hyperlipidemia, unspecified; J45.909 Unspecified asthma, uncomplicated; F41.9 Anxiety disorder, unspecified; F33.9 Major depressive disorder, recurrent, unspecified
CPT/HCPCS: 99212; 99214; G0463

== ENCOUNTER 2022-12-03 11:03 | Emergency (ER) | payer OTHER, SELFPAY ==
[2022-12-03 11:45] VITALS: BP 135/90; PULSE 96; RESP 18; TEMP 36.6; O2SAT 99; BMI 42.4
--- NOTE | 2022-12-03 11:46 | EXP.UTC ---
Discharge Plan Disposition Patient Disposition: Home, Self-Care Condition: Good Prescriptions Prescriptions: New methylprednisolone 4 mg Tablets,Dose Pack 4 mg PO DIRECTED Qty: 21 0RF No Action bupropion HCl [Wellbutrin XL] 150 mg tablet extended release 24 hr 150 mg PO DAILY Qty: 90 0RF Vraylar 4.5 mg capsule 4.5 mg PO DAILY Qty: 30 1RF Nexplanon 68 mg implant 1 implant subdermal DAILY diclofenac sodium 75 mg tablet,delayed release (DR/EC) 75 mg PO BID Qty: 60 2RF cyclobenzaprine 10 mg Tablet 10 mg PO BID PRN (Reason: Muscle Spasm) Qty: 20 0RF bisoprolol fumarate 5 MG tablet 5 mg PO DAILY pantoprazole [Protonix] 40 mg tablet,delayed release (DR/EC) 40 mg PO DAILY ondansetron 4 mg Tablet,Disintegrating 4 mg PO Q8H PRN (Reason: Nausea) Qty: 12 0RF ondansetron 4 mg tablet,disintegrating 4 mg PO Q8H PRN (Reason: nausea and vomiting) Qty: 10 0RF Referrals Follow up/Referrals: Jeffrey Payan APRN [Primary Care Provider] - See instructions Activity Restrictions/Add. Instructions Additional Instructions/Restrictions: Go home and rest. It would be best if you rested tomorrow too. No heavy lifting. No twisting. Take the oral medications as directed. Don't start the oral steroids (medrol dose pack) until tomorrow, since you had the shots in here today. Follow up with your regular doctor. GO TO THE ER FOR ANY WORSENING SYMPTOMS OR CONCERN, ESPECIALLY BOWEL OR BLADDER ISSUES, SADDLE AREA NUMBNESS, FEVER, ETC Stand Alone Forms Stand Alone Forms: Work/School Release Instructions Patient Instructions: DI for Low Back Pain Discharge ED Provider: James Lechuga [facility] General Stated complaint: back pain, no accident Time Seen by Provider: 12/03/22 11:46 History of Present Illness Provider Complaint: She c/o low back pain for the past 3 days. She denies any injury. She has a history of low back pain. Related Data Home Medications Medication Instructions Recorded Confirmed bisoprolol fumarate 5 mg tablet 5 mg PO DAILY FAST HEART RATE 06/26/21 11/24/22 pantoprazole 40 mg tablet,delayed 40 mg PO DAILY STOMACH 11/16/21 11/24/22 release (Protonix) etonogestrel 68 mg subdermal 1 implant subdermal DAILY . 05/11/22 11/24/22 implant (Nexplanon) Previous Rx's Medication Instructions Recorded diclofenac sodium 75 mg 75 mg PO BID Pain #60 tabs 05/12/22 tablet,delayed release cyclobenzaprine 10 mg tablet 10 mg PO BID PRN Muscle Spasm #20 06/28/22 tabs ondansetron 4 mg disintegrating 4 mg PO Q8H PRN Nausea #12 tabs 07/27/22 tablet ondansetron 4 mg disintegrating 4 mg PO Q8H PRN nausea and 10/15/22 tablet vomiting #10 tabs bupropion HCl 150 mg 24 hr tablet, 150 mg PO DAILY MOOD #90 tabs 11/22/22 extended release (Wellbutrin XL) cariprazine 4.5 mg capsule 4.5 mg PO DAILY #30 caps 11/22/22 (Vraylar) methylprednisolone 4 mg tablets in 4 mg PO DIRECTED #21 tabs 12/03/22 a dose pack Allergies Allergy/AdvReac Type Severity Reaction Status Date / Time ibuprofen [IBUPROFEN] Allergy Mild Unknown Verified 12/03/22 12:10 allergy reaction amoxicillin [From Augmentin] Allergy Verified 12/03/22 12:10 cephalexin Allergy Verified 12/03/22 12:10 clavulanic acid Allergy Verified 12/03/22 12:10 [From Augmentin] [facility] Disclaimer: The information contained in this section may have been updated after the patient was seen, as this information can be updated by other users. Medical History , [employer]) Acute bronchitis Allergic reaction Anxiety Asthma Back pain Back pain, thoracic Bronchitis Chest pain Chronic lower back pain Dyspnea Gastroenteritis Headache Heavy menstrual bleeding Hematuria History of gastroesophageal reflux (GERD) History of scarlet fever HLD (hyperlipidemia) HTN (hypertension) Left ankle sprain Left otitis media Low back pain
[2022-12-03 12:53] VITALS: BP 135/90; PULSE 96; RESP 18; TEMP 36.6; O2SAT 99
== END 2022-12-03 12:53 | disposition home or self-care (01) ==
PROVIDERS: Emergency Provider Nurse Practitioner Family; PCP Nurse Practitioner Family
DX: M54.50 Low back pain, unspecified (principal); F17.210 Nicotine dependence, cigarettes, uncomplicated; J45.909 Unspecified asthma, uncomplicated; I10 Essential (primary) hypertension; E78.5 Hyperlipidemia, unspecified; K21.9 Gastro-esophageal reflux disease without esophagitis; F33.9 Major depressive disorder, recurrent, unspecified; F41.9 Anxiety disorder, unspecified; F51.5 Nightmare disorder; F43.12 Post-traumatic stress disorder, chronic
CPT/HCPCS: 96372; 99212; 99214; G0463

== ENCOUNTER 2022-12-17 19:16 | Emergency (ER) | payer OTHER, SELFPAY ==
[2022-12-17 19:17] VITALS: BP 140/70; PULSE 111; RESP 18; TEMP 37.1; O2SAT 97; BMI 48.2
--- NOTE | 2022-12-17 19:19 | EXP.UTC ---
Discharge Plan Disposition Patient Disposition: Home, Self-Care Condition: Good Prescriptions Prescriptions: New azithromycin [Zithromax] 250 mg tablet 250 mg PO UD DOSE PK Qty: 6 0RF Rx Instructions: Take two (2) tablets today, then one (1) tablet days #2 thru #5 benzonatate [benzonatate] 100 mg capsule 100 mg PO TIDP PRN (Reason: Cough) Qty: 30 0RF promethazine-DM 6.25-15 mg/5 mL Syrup 5 ml PO Q6H PRN (Reason: Cough) Qty: 240 0RF methylprednisolone 4 mg Tablets,Dose Pack 4 mg PO DIRECTED Qty: 21 0RF No Action bupropion HCl [Wellbutrin XL] 150 mg tablet extended release 24 hr 150 mg PO DAILY Qty: 90 0RF Vraylar 4.5 mg capsule 4.5 mg PO DAILY Qty: 30 1RF Nexplanon 68 mg implant 1 implant subdermal DAILY Qelbree 200 mg capsule,extended release 24hr 200 mg PO BID Patient Comments: TAKE 1 CAPSULE BY MOUTH ONCE DAILY FOR 1 WEEK THEN INCREASE TO 2 CAPSULE ONCE DAILY bisoprolol fumarate 5 MG tablet 5 mg PO DAILY Referrals Follow up/Referrals: Jeffrey Payan APRN [Primary Care Provider] - See instructions Activity Restrictions/Add. Instructions Additional Instructions/Restrictions: Drink plenty of fluids. Take tylenol or ibuprofen for pain or fever. Take the medications as directed. Follow up with your regular doctor. GO TO THE ER FOR ANY WORSENING SYMPTOMS Clinical Impressions Clinical Impression: Bronchitis, Pharyngitis, Acute viral syndrome Stand Alone Forms Stand Alone Forms: Work/School Release Instructions Patient Instructions: Coronavirus Disease 2019, Preventing the Spread of Coronavirus Discharge Instructions Discharge ED Provider[place] [facility] [place] General Stated complaint: sore throat, cough, SOA charity Time Seen by Provider: 12/17/22 19:19 History of Present Illness Provider Complaint: She states that for the past 2 days she has had chest congestion, sinus congestion, fever and malaise. Related Data Home Medications Medication Instructions Recorded Confirmed bisoprolol fumarate 5 mg tablet 5 mg PO DAILY FAST HEART RATE 06/26/21 12/18/22 etonogestrel 68 mg subdermal 1 implant subdermal DAILY . 03/14/23 10/21/23 implant (Nexplanon) viloxazine 200 mg capsule,extended 200 mg PO BID 12/09/22 12/18/22 release 24 hr (Qelbree) Previous Rx's Medication Instructions Recorded bupropion HCl 150 mg 24 hr tablet, 150 mg PO DAILY MOOD #90 tabs 11/22/22 extended release (Wellbutrin XL) cariprazine 4.5 mg capsule 4.5 mg PO DAILY #30 caps 11/22/22 (Vraylar) azithromycin 250 mg tablet 250 mg PO UD DOSE PK #6 tabs 12/17/22 (Zithromax) benzonatate 100 mg capsule 100 mg PO TIDP PRN Cough #30 caps 12/17/22 methylprednisolone 4 mg tablets in 4 mg PO DIRECTED #21 tabs 12/17/22 a dose pack promethazine-DM 6.25 mg-15 mg/5 mL 5 ml PO Q6H PRN Cough #240 mL 12/17/22 oral syrup Allergies Allergy/AdvReac Type Severity Reaction Status Date / Time ibuprofen [IBUPROFEN] Allergy Mild Unknown Verified 12/18/22 16:40 allergy reaction amoxicillin [From Augmentin] Allergy Verified 12/18/22 16:40 cephalexin Allergy Verified 12/18/22 16:40 clavulanic acid Allergy Verified 12/18/22 16:40 [From Augmentin] [facility] Disclaimer: The information contained in this section may have been updated after the patient was seen, as this information can be updated by other users. Medical History Allergic reaction Anxiety Asthma Back pain, thoracic Bronchitis Chest pain Chronic lower back pain Dyspnea Gastroenteritis Headache Heavy menstrual bleeding Hematuria History of gastroesophageal reflux (GERD) History of scarlet fever HLD (hyperlipidemia) HTN (hypertension) Left ankle sprain Left otitis media Major depressive disorder Posttraumatic stress disorder Radiculopathy Right flank pain Right forearm pain Right hand pain Ri
[2022-12-17 19:43] LABS: UTC Strep Screen (Rapid) Negative (Negative)
[2022-12-17 19:55] VITALS: BP 140/70; PULSE 111; RESP 18; TEMP 37.1; O2SAT 97
--- NOTE | 2022-12-19 09:23 | EXP.UTC ---
Discharge Plan Disposition Patient Disposition: Home, Self-Care Condition: Good Prescriptions Prescriptions: New azithromycin [Zithromax] 250 mg tablet 250 mg PO UD DOSE PK Qty: 6 0RF Rx Instructions: Take two (2) tablets today, then one (1) tablet days #2 thru #5 benzonatate [benzonatate] 100 mg capsule 100 mg PO TIDP PRN (Reason: Cough) Qty: 30 0RF promethazine-DM 6.25-15 mg/5 mL Syrup 5 ml PO Q6H PRN (Reason: Cough) Qty: 240 0RF methylprednisolone 4 mg Tablets,Dose Pack 4 mg PO DIRECTED Qty: 21 0RF No Action bupropion HCl [Wellbutrin XL] 150 mg tablet extended release 24 hr 150 mg PO DAILY Qty: 90 0RF Vraylar 4.5 mg capsule 4.5 mg PO DAILY Qty: 30 1RF Nexplanon 68 mg implant 1 implant subdermal DAILY Qelbree 200 mg capsule,extended release 24hr 200 mg PO BID Patient Comments: TAKE 1 CAPSULE BY MOUTH ONCE DAILY FOR 1 WEEK THEN INCREASE TO 2 CAPSULE ONCE DAILY bisoprolol fumarate 5 MG tablet 5 mg PO DAILY Referrals Follow up/Referrals: Jeffrey Payan APRN [Primary Care Provider] - See instructions Activity Restrictions/Add. Instructions Additional Instructions/Restrictions: Drink plenty of fluids. Take tylenol or ibuprofen for pain or fever. Take the medications as directed. Follow up with your regular doctor. GO TO THE ER FOR ANY WORSENING SYMPTOMS Clinical Impressions Clinical Impression: Bronchitis, Pharyngitis, Acute viral syndrome Stand Alone Forms Stand Alone Forms: Work/School Release Instructions Patient Instructions: Coronavirus Disease 2019, Preventing the Spread of Coronavirus Discharge Instructions Discharge ED Provider: James Lechuga [facility] [place] HPI General Stated complaint: sore throat, cough, SOA [facility] Mode of Arrival: Ambulatory Source of Information: Patient Limitations: No Limitations Time Seen by Provider: 12/17/22 19:19 Description of Symptoms (Recalled from Triage Doc. by RN): cough, sore throat, chest congestion, and hurts to breath HEENT Symptoms (Recalled from RN notes): Yes Resp Symptoms (Recalled from RN notes): No Skin Symptoms (Recalled from RN notes): No MS Symptoms (Recalled from RN notes): No Functional Status (Recalled from RN notes): n/a Related Data Home Medications Medication Instructions Recorded Confirmed bisoprolol fumarate 5 mg tablet 5 mg PO DAILY FAST HEART RATE 06/26/21 12/18/22 etonogestrel 68 mg subdermal 1 implant subdermal DAILY . 05/11/22 12/18/22 implant (Nexplanon) viloxazine 200 mg capsule,extended 200 mg PO BID 12/09/22 12/18/22 release 24 hr (Qelbree) Previous Rx's Medication Instructions Recorded bupropion HCl 150 mg 24 hr tablet, 150 mg PO DAILY MOOD #90 tabs 11/22/22 extended release (Wellbutrin XL) cariprazine 4.5 mg capsule 4.5 mg PO DAILY #30 caps 11/22/22 (Vraylar) azithromycin 250 mg tablet 250 mg PO UD DOSE PK #6 tabs 12/17/22 (Zithromax) benzonatate 100 mg capsule 100 mg PO TIDP PRN Cough #30 caps 12/17/22 methylprednisolone 4 mg tablets in 4 mg PO DIRECTED #21 tabs 12/17/22 a dose pack promethazine-DM 6.25 mg-15 mg/5 mL 5 ml PO Q6H PRN Cough #240 mL 12/17/22 oral syrup Allergies Allergy/AdvReac Type Severity Reaction Status Date / Time ibuprofen [IBUPROFEN] Allergy Mild Unknown Verified 12/18/22 16:40 allergy reaction amoxicillin [From Augmentin] Allergy Verified 12/18/22 16:40 cephalexin Allergy Verified 12/18/22 16:40 clavulanic acid Allergy Verified 12/18/22 16:40 [From Augmentin] Worker's Comp Is this a Worker's Comp case?: No [facility] Disclaimer: The information contained in this section may have been updated after the patient was seen, as this information can be updated by other users. Medical History Allergic reaction Anxiety Asthma Back pain, thoracic Bronchitis Chest pain Chronic lower back pain Dyspnea Gastroenteri
== END 2022-12-17 19:55 | disposition home or self-care (01) ==
PROVIDERS: Emergency Provider Nurse Practitioner Family; PCP Nurse Practitioner Family
DX: J02.9 Acute pharyngitis, unspecified (principal); J20.9 Acute bronchitis, unspecified; B34.9 Viral infection, unspecified; F17.210 Nicotine dependence, cigarettes, uncomplicated; J45.909 Unspecified asthma, uncomplicated; I10 Essential (primary) hypertension; E78.5 Hyperlipidemia, unspecified; F41.9 Anxiety disorder, unspecified; F33.9 Major depressive disorder, recurrent, unspecified; F43.10 Post-traumatic stress disorder, unspecified
CPT/HCPCS: 87635; 87880; 99212; 99214; G0463

== ENCOUNTER 2022-12-18 16:23 | Emergency (ER) | payer OTHER, SELFPAY ==
[2022-12-18 16:23] VITALS: BP 120/87; PULSE 113; RESP 18; TEMP 36.6; O2SAT 99; BMI 47.9
[2022-12-18 16:42] LABS: Adenovirus,PCR Not Detected (NotDetected); Coronavirus 19, PCR Not Detected (NotDetected); Coronavirus 229E Not Detected (NotDetected); Coronavirus NL63 Not Detected (NotDetected); Coronavirus OC43 Not Detected (NotDetected); Coronovirus HKU1,PCR Not Detected (NotDetected); Human Metapneumovirus Not Detected (NotDetected); Influenza A, PCR Not Detected (NotDetected); Influenza AH1, 2009 Not Detected (NotDetected); Influenza AH1, PCR Not Detected (NotDetected); Influenza AH3,PCR Not Detected (NotDetected); Influenza B, PCR Not Detected (NotDetected); Parainfluenza 1, PCR Not Detected (NotDetected); Parainfluenza 2, PCR Not Detected (NotDetected); Parainfluenza 3, PCR Not Detected (NotDetected); Parainfluenza 4, PCR Not Detected (NotDetected); Respiratory Syncytial Virus Not Detected (NotDetected)
--- NOTE | 2022-12-18 17:02 | EXP.UTC ---
Discharge Plan Disposition Patient Disposition: Home, Self-Care Condition: Good Prescriptions Prescriptions: No Action bupropion HCl [Wellbutrin XL] 150 mg tablet extended release 24 hr 150 mg PO DAILY Qty: 90 0RF Vraylar 4.5 mg capsule 4.5 mg PO DAILY Qty: 30 1RF Nexplanon 68 mg implant 1 implant subdermal DAILY Qelbree 200 mg capsule,extended release 24hr 200 mg PO BID Patient Comments: TAKE 1 CAPSULE BY MOUTH ONCE DAILY FOR 1 WEEK THEN INCREASE TO 2 CAPSULE ONCE DAILY bisoprolol fumarate 5 MG tablet 5 mg PO DAILY azithromycin [Zithromax] 250 mg tablet 250 mg PO UD DOSE PK Qty: 6 0RF Rx Instructions: Take two (2) tablets today, then one (1) tablet days #2 thru #5 benzonatate [benzonatate] 100 mg capsule 100 mg PO TIDP PRN (Reason: Cough) Qty: 30 0RF promethazine-DM 6.25-15 mg/5 mL Syrup 5 ml PO Q6H PRN (Reason: Cough) Qty: 240 0RF methylprednisolone 4 mg Tablets,Dose Pack 4 mg PO DIRECTED Qty: 21 0RF Referrals Follow up/Referrals: Jeffrey Payan APRN [Primary Care Provider] - See instructions Activity Restrictions/Add. Instructions Additional Instructions/Restrictions: Take medication as prescribed. Check portal or call in the morning for respiratory results. Clinical Impressions Clinical Impression: Acute upper respiratory infection Instructions Patient Instructions: DI for Viral Upper Respiratory Infection -- Adult Discharge ED Provider: Farhana Torres [facility] General Stated complaint: exposed to covid, vomiting, fever Mode of Arrival: Ambulatory Source of Information: Patient Limitations: No Limitations Time Seen by Provider: 12/18/22 17:01 Description of Symptoms (Recalled from Triage Doc. by RN): vomiting, cold sweats, and exposed to covid HEENT Symptoms (Recalled from RN notes): Yes Resp Symptoms (Recalled from RN notes): No Skin Symptoms (Recalled from RN notes): No MS Symptoms (Recalled from RN notes): No Functional Status (Recalled from RN notes): n/a History of Present Illness Provider Complaint: Pt relates that she was seen yesterday and given Z-juan manuel, promethazine-DM, and a steroid pack. She states that she has done an at home Covid test and it was negative. She states that she wants a respiratory panel and she feel like . She states that she has a cough, runny nose, cold sweats, vomiting, and generalized malaise. She state that co-workers have Covid. Related Data Home Medications Medication Instructions Recorded Confirmed bisoprolol fumarate 5 mg tablet 5 mg PO DAILY FAST HEART RATE 06/26/21 12/18/22 etonogestrel 68 mg subdermal 1 implant subdermal DAILY . 05/11/22 12/18/22 implant (Nexplanon) viloxazine 200 mg capsule,extended 200 mg PO BID 12/09/22 12/18/22 release 24 hr (Qelbree) Previous Rx's Medication Instructions Recorded bupropion HCl 150 mg 24 hr tablet, 150 mg PO DAILY MOOD #90 tabs 11/22/22 extended release (Wellbutrin XL) cariprazine 4.5 mg capsule 4.5 mg PO DAILY #30 caps 11/22/22 (Vraylar) azithromycin 250 mg tablet 250 mg PO UD DOSE PK #6 tabs 12/17/22 (Zithromax) benzonatate 100 mg capsule 100 mg PO TIDP PRN Cough #30 caps 12/17/22 methylprednisolone 4 mg tablets in 4 mg PO DIRECTED #21 tabs 12/17/22 a dose pack promethazine-DM 6.25 mg-15 mg/5 mL 5 ml PO Q6H PRN Cough #240 mL 12/17/22 oral syrup Allergies Allergy/AdvReac Type Severity Reaction Status Date / Time ibuprofen [IBUPROFEN] Allergy Mild Unknown Verified 12/18/22 16:40 allergy reaction amoxicillin [From Augmentin] Allergy Verified 12/18/22 16:40 cephalexin Allergy Verified 12/18/22 16:40 clavulanic acid Allergy Verified 12/18/22 16:40 [From Augmentin] Worker's Comp Is this a Worker's Comp case?: No [facility] Disclaimer: The information contained in this section may have been updated after the patient was seen, as this information can be updated by other users. Medical Hist
[2022-12-18 17:17] VITALS: BP 120/87; PULSE 113; RESP 18; TEMP 36.7; O2SAT 99
[2022-12-18 19:50] LABS: Rhinovirus/Enterovirus Detected (NotDetected)
== END 2022-12-18 17:17 | disposition home or self-care (01) ==
PROVIDERS: Emergency Provider Nurse Practitioner Family; PCP Nurse Practitioner Family
DX: J06.9 Acute upper respiratory infection, unspecified (principal); B34.1 Enterovirus infection, unspecified; F17.210 Nicotine dependence, cigarettes, uncomplicated; J45.909 Unspecified asthma, uncomplicated; E78.5 Hyperlipidemia, unspecified; I10 Essential (primary) hypertension; F41.9 Anxiety disorder, unspecified; F33.9 Major depressive disorder, recurrent, unspecified; Z20.822 Contact with and (suspected) exposure to COVID-19
CPT/HCPCS: 87632; 87635; 99212; 99213; G0463

== ENCOUNTER 2022-12-21 17:19 | Emergency (ER) | payer OTHER, SELFPAY ==
[2022-12-21 17:50] VITALS: BP 121/86; PULSE 89; RESP 19; TEMP 36.8; O2SAT 98; BMI 46.5
--- NOTE | 2022-12-21 18:21 | EXP.UTC ---
Discharge Plan Disposition Patient Disposition: Home, Self-Care Condition: Good Prescriptions Prescriptions: New albuterol sulfate [Proventil HFA] 90 mcg/actuation HFA aerosol inhaler 1 - 2 inh inhalation Q6H PRN (Reason: shortness of breath or wheezing) Qty: 8.5 0RF guaifenesin [Mucinex] 600 mg tablet extended release 12hr 1,200 mg PO BID PRN (Reason: cough) Qty: 20 0RF doxycycline hyclate 100 mg capsule 100 mg PO BID Qty: 20 0RF No Action bupropion HCl [Wellbutrin XL] 150 mg tablet extended release 24 hr 150 mg PO DAILY Qty: 90 0RF Vraylar 4.5 mg capsule 4.5 mg PO DAILY Qty: 30 1RF Nexplanon 68 mg implant 1 implant subdermal DAILY Qelbree 200 mg capsule,extended release 24hr 200 mg PO BID Patient Comments: TAKE 1 CAPSULE BY MOUTH ONCE DAILY FOR 1 WEEK THEN INCREASE TO 2 CAPSULE ONCE DAILY bisoprolol fumarate 5 MG tablet 5 mg PO DAILY azithromycin [Zithromax] 250 mg tablet 250 mg PO UD DOSE PK Qty: 6 0RF Rx Instructions: Take two (2) tablets today, then one (1) tablet days #2 thru #5 benzonatate [benzonatate] 100 mg capsule 100 mg PO TIDP PRN (Reason: Cough) Qty: 30 0RF promethazine-DM 6.25-15 mg/5 mL Syrup 5 ml PO Q6H PRN (Reason: Cough) Qty: 240 0RF methylprednisolone 4 mg Tablets,Dose Pack 4 mg PO DIRECTED Qty: 21 0RF Referrals Follow up/Referrals: Jeffrey Payan APRN [Primary Care Provider] - See instructions Activity Restrictions/Add. Instructions Additional Instructions/Restrictions: Take Guaifensin as prescribed Make sure to drink plenty of water with it Use Proventil inhaler as prescribed Finish your zpack and steriods as prescribed Rhino virus is a virus and may take time to feel better Straight to ER if any life threatening symptoms Clinical Impressions Clinical Impression: Cough Qualifiers: Cough type: unspecified Qualified Code(s): R05.9 - Cough, unspecified Instructions Patient Instructions: Cough Discharge ED Provider: Pamela Corral [facility] [place] General Stated complaint: cough, charity, SOA Mode of Arrival: Ambulatory Source of Information: Patient Limitations: No Limitations Time Seen by Provider: 12/21/22 18:21 Description of Symptoms (Recalled from Triage Doc. by RN): PATIENT C/O CHEST CONGESTION AND NON-PRODUCTIVE COUGH THAT STARTED LAST TUESDAY HEENT Symptoms (Recalled from RN notes): No Resp Symptoms (Recalled from RN notes): Yes Skin Symptoms (Recalled from RN notes): No MS Symptoms (Recalled from RN notes): No Functional Status (Recalled from RN notes): WNL History of Present Illness Provider Complaint: Patient states that she has been having a non-productive cough since Tuesday States that she has been on azithromycin and cough medication but it hasnt helped her cough that much States that she was afraid if she didnt get something else where she has asthma it would settle into her lungs States that she is currently on zpack and steriods States that she is feeling better just wanting something else to help with the cough Related Data Home Medications Medication Instructions Recorded Confirmed bisoprolol fumarate 5 mg tablet 5 mg PO DAILY FAST HEART RATE 06/26/21 12/18/22 etonogestrel 68 mg subdermal 1 implant subdermal DAILY . 05/11/22 12/18/22 implant (Nexplanon) viloxazine 200 mg capsule,extended 200 mg PO BID 12/09/22 12/18/22 release 24 hr (Qelbree) Previous Rx's Medication Instructions Recorded bupropion HCl 150 mg 24 hr tablet, 150 mg PO DAILY MOOD #90 tabs 11/22/22 extended release (Wellbutrin XL) cariprazine 4.5 mg capsule 4.5 mg PO DAILY #30 caps 11/22/22 (Vraylar) azithromycin 250 mg tablet 250 mg PO UD DOSE PK #6 tabs 12/17/22 (Zithromax) benzonatate 100 mg capsule 100 mg PO TIDP PRN Cough #30 caps 12/17/22 methylprednisolone 4 mg tablets in 4 mg PO DIRECTED #21 tabs 12/17/22 a dose pack promethazine-DM 6.25 mg-15 mg/5 mL 5 ml PO Q6H PRN Cough #240 mL 12/17/22 oral s
[2022-12-21 18:36] VITALS: BP 121/86; PULSE 89; RESP 19; TEMP 36.8; O2SAT 98
== END 2022-12-21 18:47 | disposition home or self-care (01) ==
PROVIDERS: Emergency Provider Nurse Practitioner; PCP Nurse Practitioner Family
DX: R05.9 Cough, unspecified (principal); F17.210 Nicotine dependence, cigarettes, uncomplicated; I10 Essential (primary) hypertension; E78.5 Hyperlipidemia, unspecified; F33.9 Major depressive disorder, recurrent, unspecified; F41.9 Anxiety disorder, unspecified; F43.10 Post-traumatic stress disorder, unspecified
CPT/HCPCS: 99212; 99214; G0463

== ENCOUNTER 2023-02-04 16:42 | Emergency (ER) | payer OTHER, SELFPAY ==
[2023-02-04 18:17] VITALS: BP 0/0; PULSE 0; RESP 0; TEMP -17.7; TEMP 0
== END 2023-02-04 18:18 | disposition left against medical advice (07) ==
LOC: UTC 16:43
PROVIDERS: Emergency Provider Nurse Practitioner; PCP Nurse Practitioner Family
DX: Z53.21 Procedure and treatment not carried out due to patient leaving prior to being seen by health care provider (principal)

== ENCOUNTER 2023-02-08 08:05 | Emergency (ER) | payer OTHER, SELFPAY ==
[2023-02-08 08:10] VITALS: BP 116/68; PULSE 92; RESP 18; TEMP 36.8; O2SAT 95; BMI 47.5
--- NOTE | 2023-02-08 08:38 | EXP.UTC ---
Discharge Plan Disposition Patient Disposition: Home, Self-Care Condition: Good Prescriptions Prescriptions: New cyclobenzaprine 10 mg Tablet 10 mg PO BID PRN (Reason: Muscle Spasm) Qty: 20 0RF methylprednisolone 4 mg Tablets,Dose Pack 4 mg PO DIRECTED Qty: 21 0RF No Action bupropion HCl [Wellbutrin XL] 150 mg tablet extended release 24 hr 150 mg PO DAILY Qty: 90 0RF Vraylar 4.5 mg capsule 4.5 mg PO DAILY Qty: 30 1RF Nexplanon 68 mg implant 1 implant subdermal DAILY Qelbree 200 mg capsule,extended release 24hr 200 mg PO BID Patient Comments: TAKE 1 CAPSULE BY MOUTH ONCE DAILY FOR 1 WEEK THEN INCREASE TO 2 CAPSULE ONCE DAILY bisoprolol fumarate 5 MG tablet 5 mg PO DAILY albuterol sulfate [Proventil HFA] 90 mcg/actuation HFA aerosol inhaler 1 - 2 inh inhalation Q6H PRN (Reason: shortness of breath or wheezing) Qty: 8.5 0RF doxycycline hyclate 100 mg capsule 100 mg PO BID Qty: 20 0RF Referrals Follow up/Referrals: Jeffrey Payan APRN [Primary Care Provider] - See instructions Activity Restrictions/Add. Instructions Additional Instructions/Restrictions: Go home and rest. It would be best if you rested tomorrow too. No heavy lifting. No twisting. Take the oral medications as directed. The muscle relaxer (cyclobenzaprine--Flexeril) will make you drowsy, so don't drive or operate heavy machinery after taking it. Don't start the oral steroids (medrol dose pack) until tomorrow, since you had the shots in here today. Follow up with your regular doctor. GO TO THE ER FOR ANY WORSENING SYMPTOMS OR CONCERN, ESPECIALLY BOWEL OR BLADDER ISSUES, SADDLE AREA NUMBNESS, FEVER, ETC Clinical Impressions Clinical Impression: Thoracic back pain Stand Alone Forms Stand Alone Forms: Work/School Release Instructions Patient Instructions: Methylprednisolone Injection, Ketorolac Injection, Thoracic Back Pain Discharge ED Provider: James Lechuga [facility] General Stated complaint: back pain, no accident Time Seen by Provider: 02/08/23 08:38 History of Present Illness Provider Complaint: She states that for the past 2 days she has had right sided low back pain. She believes that she pulled a muscle because she was moving something heavy before her symptoms started. She denies any urinary symptoms. Related Data Home Medications Medication Instructions Recorded Confirmed bisoprolol fumarate 5 mg tablet 5 mg PO DAILY FAST HEART RATE 06/26/21 12/18/22 etonogestrel 68 mg subdermal 1 implant subdermal DAILY . 05/11/22 12/18/22 implant (Nexplanon) viloxazine 200 mg capsule,extended 200 mg PO BID 12/09/22 12/18/22 release 24 hr (Qelbree) Previous Rx's Medication Instructions Recorded bupropion HCl 150 mg 24 hr tablet, 150 mg PO DAILY MOOD #90 tabs 11/22/22 extended release (Wellbutrin XL) cariprazine 4.5 mg capsule 4.5 mg PO DAILY #30 caps 11/22/22 (Vraylar) albuterol sulfate 90 mcg/actuation 1 - 2 inh inhalation Q6H PRN 12/21/22 aerosol inhaler (Proventil HFA) shortness of breath or wheezing #8.5 grams doxycycline hyclate 100 mg capsule 100 mg PO BID #20 caps 12/21/22 cyclobenzaprine 10 mg tablet 10 mg PO BID PRN Muscle Spasm #20 02/08/23 tabs methylprednisolone 4 mg tablets in 4 mg PO DIRECTED #21 tabs 02/08/23 a dose pack Allergies Allergy/AdvReac Type Severity Reaction Status Date / Time ibuprofen [IBUPROFEN] Allergy Mild Unknown Verified 02/08/23 08:42 allergy reaction amoxicillin [From Augmentin] Allergy Verified 02/08/23 08:42 cephalexin Allergy Verified 02/08/23 08:42 clavulanic acid Allergy Verified 02/08/23 08:42 [From Augmentin] [facility] Disclaimer: The information contained in this section may have been updated after the patient was seen, as this information can be updated by other users. Medical History Allergic reactio
[2023-02-08 08:46] LABS: Apearance,Urine Clear (Clear); Blood, Urine Negative (Negative); Color,Urine Yellow (Yellow); Glucose,Urine (UA) Negative (Negative); Ketones,Urine Negative (Negative); Protein,Urine Negative (Negative); Specific Gravity, Urine 1.025 (1.005-1.030)
[2023-02-08 08:47] LABS: Bilirubin,Urine Negative (Negative); UTC Leukocyte Esterase,Urine Negative (Negative); UTC Nitrate,Urine Negative (Negative); UTC Pregnancy Test, Urine Negative (Negative); Urobilinogen,Urine 0.2 EU/dl (0.2)
[2023-02-08 09:22] VITALS: BP 116/68; PULSE 92; RESP 18; TEMP 36.8; O2SAT 95
== END 2023-02-08 09:22 | disposition home or self-care (01) ==
PROVIDERS: Emergency Provider Nurse Practitioner Family; PCP Nurse Practitioner Family
DX: M54.6 Pain in thoracic spine (principal); F17.210 Nicotine dependence, cigarettes, uncomplicated; J45.909 Unspecified asthma, uncomplicated; I10 Essential (primary) hypertension; E78.5 Hyperlipidemia, unspecified
CPT/HCPCS: 81003; 81025; 96372; 99212; 99214; G0463

== ENCOUNTER 2023-04-06 17:05 | Emergency (ER) | payer OTHER, SELFPAY ==
[2023-04-06 17:30] VITALS: BP 104/82; PULSE 99; RESP 16; TEMP 36.7; O2SAT 99; BMI 49.4
--- NOTE | 2023-04-06 17:36 | ED_ITS ---
Discharge Plan Disposition Patient Disposition: Home, Self-Care Condition: Good Prescriptions Prescriptions: New methylprednisolone [Medrol (Yaya)] 4 mg tablets,dose pack See Rx Instructions .Route .COMPLEX 6 Days Qty: 21 0RF Rx Instructions: taper pack; triamcinolone acetonide 0.025 % ointment 1 applic topical BID PRN (Reason: rash) Qty: 15 0RF Rx Instructions: apply to rash on wrist as directed as needed No Action Nexplanon 68 mg implant 1 implant subdermal DAILY Vraylar 1.5 mg capsule 1.5 mg PO DAILY Qty: 30 1RF Qelbree 200 mg capsule,extended release 24hr 200 mg PO DAILY Qty: 30 2RF acyclovir 200 mg capsule 200 mg PO 5XD Qty: 50 1RF Rx Instructions: while awake; give 5 doses in 24 hours bisoprolol fumarate 5 MG tablet 5 mg PO DAILY albuterol sulfate [Proventil HFA] 90 mcg/actuation HFA aerosol inhaler 1 - 2 inh inhalation Q6H PRN (Reason: shortness of breath or wheezing) Qty: 8.5 0RF doxycycline hyclate 100 mg capsule 100 mg PO BID Qty: 20 0RF cyclobenzaprine 10 mg Tablet 10 mg PO BID PRN (Reason: Muscle Spasm) Qty: 20 0RF methylprednisolone 4 mg Tablets,Dose Pack 4 mg PO DIRECTED Qty: 21 0RF Referrals Follow up/Referrals: Provider,Referral, MD [Primary Care Provider] - See instructions Activity Restrictions/Add. Instructions Additional Instructions/Restrictions: Start oral steriods tomorrow Follow up with your Family Doctor as recommended Return if needed Straight to ER if any worsening of symptoms, loss of control of bowel or bladder Clinical Impressions Clinical Impression: Low Back Pain Qualifiers: Chronicity: chronic Back pain laterality: unspecified Sciatica presence: with sciatica Sciatica laterality: sciatica laterality unspecified Qualified Code(s): M54.40 - Lumbago with sciatica, unspecified side Instructions Patient Instructions: DI for Low Back Pain, Methylprednisolone Discharge ED Provider: Pamela Corral [facility] General Stated complaint: Back pain Source of Information: Patient Limitations: No Limitations Time Seen by Provider: 04/06/23 17:36 Description of Symptoms (Recalled from Triage Doc. by RN): Patient report recurrent back pain. States she was going to pain management but didn't like them so she quit going. Also reports a new rash on bilateral wrists that started a couple of days ago. HEENT Symptoms (Recalled from RN notes): No Resp Symptoms (Recalled from RN notes): No Skin Symptoms (Recalled from RN notes): Yes MS Symptoms (Recalled from RN notes): Yes Functional Status (Recalled from RN notes): wnl History of Present Illness Provider Complaint: Patient states that she has chronic low back pain with sciatica States that she was going to pain management but it wasnt helping much States that she has been taking Tylenol but when it get too bad for the Tylenol she comes in and gets a steriod shot and Toradol shot to help States that she al so has rash on bilateral wrists thinks it is from the soap at work but was wanting to get something to put on it to help with the itching Related Data Home Medications Medication Instructions Recorded Confirmed bisoprolol fumarate 5 mg tablet 5 mg PO DAILY FAST HEART RATE 06/26/21 03/22/23 etonogestrel 68 mg subdermal 1 implant subdermal DAILY . 05/11/22 03/22/23 implant (Nexplanon) Previous Rx's Medication Instructions Recorded albuterol sulfate 90 mcg/actuation 1 - 2 inh inhalation Q6H PRN 12/21/22 aerosol inhaler (Proventil HFA) shortness of breath or wheezing #8.5 grams doxycycline hyclate 100 mg capsule 100 mg PO BID #20 caps 12/21/22 cyclobenzaprine 10 mg tablet 10 mg PO BID PRN Muscle Spasm #20 02/08/23 tabs methylprednisolone 4 mg tablets in 4 mg PO DIRECTED #21 tabs 02/08/23 a dose pack cariprazine 1.5 mg capsule 1.5 mg PO DAILY #30 caps 03/22/23 (Vraylar) viloxazine 200 mg capsule,extended 200 mg PO DAILY #30 caps 03/22/23 release 24 hr (Qelbree) acyclovir 200 mg capsule 200 mg PO 5XD #50 caps 03/23/23 methylprednisolone 4 mg tablets in See Rx Instructions .Route 04/06/23 a dose pack (Medrol (Yaya)) .COMPLEX 6 days #21 tabs triamcinolone acetonide 0.025 % 1 applic topical BID PRN rash #15 04/06/23 topical ointment grams Allergies Allergy/AdvReac Type Severity Reaction Status Date / Time ibuprofen [IBUPROFEN] Allergy Mild Unknown Verified 02/08/23 08:42 allergy reaction amoxicillin [From Augmentin] Allergy Verified 02/08/23 08:42 cephalexin Allergy Verified 02/08/23 08:42 clavulanic acid Allergy Verified 02/08/23 08:42 [From Augmentin] Worker's Comp Is this a Worker's Comp case?: No [facility] Disclaimer: The information contained in this section may have been updated after the patient was seen, as this information can be updated by other users. Medical History Allergic reaction Anxiety Asthma Back pain, thoracic Bronchitis Chest pain Chronic lower back pain Dyspnea Gastroenteritis Headache Heavy menstrual bleeding Hematuria History of gastroesophageal reflux (GERD) History of scarlet fever HLD (hyperlipidemia) HTN (hypertension) Left ankle sprain Left otitis media Major depressive disorder Posttraumatic stress disorder Radiculopathy Right flank pain Right forearm pain Right hand pain Right wrist pain Sprain of left foot Strep throat Surgical History History of cholecystectomy History of tubal ligation S/P pericardial window creation Family History Other No significant family history Social History Smoking Status: Current every day smoker tobacco type: cigarettes packs per day: 1 second hand exposure: Yes alcohol intake: never substance use type: former substance user, marijuana and opiates current occupational status: employed Travel in the last 8 weeks: None household members: family housing: house number of children: 3 current occupational exposures/hazards: No caffeine: Yes ROS Obtained: Yes All systems reviewed & no additional complaints except as documented and Yes Systems reviewed as appropriate & no additional complaints except as documented Constitutional Constitutional: Reports system reviewed and no additional complaints, except as documented, Reports as per HPI, Denies body ache and Denies chills ENT Ears, Nose, Mouth, and Throat: Reports system reviewed and no additional complaints, except as documented and Reports as per HPI Cardiovascular Cardiovascular: Reports system reviewed and no additional complaints, except as documented Respiratory Respiratory: Reports system reviewed and no additional complaints, except as documented and Reports as per HPI Gastrointestinal Gastrointestingal: Reports system reviewed and no additional complaints, except as documented and as per HPI Musculoskeletal Musculoskeletal: Reports system reviewed and no additional complaints, except as documented, Reports as per HPI and Reports back pain (chronic low back pain with sciatica) Physical Exam General General appearance: alert and in no apparent distress ENT ENT exam: Present mucous membranes moist Respiratory Respiratory exam: Present normal lung sounds bilaterally; Absent respiratory distress or wheezes Cardiovascular Cardiovascular exam: Present regular rate, normal rhythm and normal heart sounds Abdominal Exam Abdominal exam: Present soft and normal bowel sounds; Absent distention or tenderness Back Exam Back exam: Present tenderness and sciatic notch tenderness (R); Absent CVA tenderness (R) or CVA tenderness (L) Back 1 view image: 1. reports achy like pain in lower back that is going into her buttock area that is worse on the right like she has with sciatica Denies loss of control of bowel or bladder Neurological Exam Neurological exam: Present alert, oriented X3 and normal gait Skin Skin exam: Present rash (bilateral wrist area appears like contact dermatitis ) Medical Decision Making Iglesia Inquiry Pt receiving controlled substance: No Iglesia was queried for this patient: No Vital Signs: 04/06/23 17:30 Temperature 98.0 F Temperature Source Oral Pulse Rate [Radial] 99 H Respiratory Rate 16 Blood Pressure [Right Arm] 104/82 L Blood Pressure Mean [Right Arm] 89 Blood Pressure Source [Right Arm] Automatic Cuff Blood Pressure Position [Right Arm] Sitting 02 Sat by Pulse Oximetry 99 Oxygen Delivery Method Room Air Medical Decision Narrative: Patient states that she is allergic to Ibuprofen but has taken Toradol multiple times in the past without complications or reactions
[2023-04-06] MEDS: METHYLPREDNISOLONE SOD SUCC 125MG VIAL 125 MG IM (17:52)
[2023-04-06] MEDS: KETOROLAC 60MG/2ML VIAL 60 MG IM (17:52)
[2023-04-06 18:24] VITALS: BP 104/82; PULSE 99; RESP 16; TEMP 36.7; O2SAT 99
== END 2023-04-06 18:25 | disposition home or self-care (01) ==
PROVIDERS: Emergency Provider Nurse Practitioner
DX: M54.40 Lumbago with sciatica, unspecified side (principal); L30.9 Dermatitis, unspecified; F17.210 Nicotine dependence, cigarettes, uncomplicated; I10 Essential (primary) hypertension; E78.5 Hyperlipidemia, unspecified
CPT/HCPCS: 96372; 99212; 99214; G0463

== ENCOUNTER 2023-06-23 10:39 | Emergency (ER) | payer OTHER, SELFPAY ==
[2023-06-23 11:00] VITALS: BP 120/71; PULSE 74; RESP 18; TEMP 36.6; O2SAT 98; BMI 47.5
--- NOTE | 2023-06-23 11:01 | ED_ITS ---
Discharge Plan Disposition Patient Disposition: Home, Self-Care Condition: Good Prescriptions Prescriptions: New cyclobenzaprine 10 mg Tablet 10 mg PO BID PRN (Reason: Muscle Spasm) Qty: 20 0RF methylprednisolone 4 mg Tablets,Dose Pack 4 mg PO DIRECTED 6 Days Qty: 21 0RF Rx Instructions: Take 1 pack as directed for 6 days No Action Nexplanon 68 mg implant 1 implant subdermal DAILY Vraylar 3 mg capsule 3 mg PO DAILY Qty: 30 1RF Qelbree 200 mg capsule,extended release 24hr 200 mg PO DAILY Qty: 30 2RF triamcinolone acetonide 0.025 % ointment 1 applic topical BID PRN (Reason: rash) Qty: 15 0RF Rx Instructions: apply to rash on wrist as directed as needed bisoprolol fumarate 5 MG tablet 5 mg PO DAILY albuterol sulfate [Proventil HFA] 90 mcg/actuation HFA aerosol inhaler 1 - 2 inh inhalation Q6H PRN (Reason: shortness of breath or wheezing) Qty: 8.5 0RF cyclobenzaprine 10 mg Tablet 10 mg PO BID PRN (Reason: Muscle Spasm) Qty: 20 0RF Referrals Follow up/Referrals: Jeffrey Payan APRN [Primary Care Provider] - See instructions Activity Restrictions/Add. Instructions Additional Instructions/Restrictions: Go home and rest. It would be best if you rested tomorrow too. No heavy lifting. No twisting. Take the oral medications as directed. The muscle relaxer (cyclobenzaprine--Flexeril) will make you drowsy, so don't drive or operate heavy machinery after taking it. Don't start the oral steroids (medrol dose pack) until tomorrow, since you had the shots in here today. Follow up with your regular doctor. GO TO THE ER FOR ANY WORSENING SYMPTOMS OR CONCERN, ESPECIALLY BOWEL OR BLADDER ISSUES, SADDLE AREA NUMBNESS, FEVER, ETC Clinical Impressions Clinical Impression: Low back pain Instructions Patient Instructions: DI for Low Back Pain, Dexamethasone Injection, Ketorolac Injection, Methylprednisolone, Cyclobenzaprine Discharge ED Provider: James Lechuga [facility] General Stated complaint: lower back pain Time Seen by Provider: 06/23/23 11:01 History of Present Illness Provider Complaint: She reports that she has had worsening low back pain that radiates down her left leg for the past 1 week. She denies any injury or trauma. She denies any urinary complaints. She denies fever/chills/malaise. Related Data Home Medications Medication Instructions Recorded Confirmed bisoprolol fumarate 5 mg tablet 5 mg PO DAILY FAST HEART RATE 06/26/21 05/24/23 etonogestrel 68 mg subdermal 1 implant subdermal DAILY . 05/11/22 05/24/23 implant (Nexplanon) Previous Rx's Medication Instructions Recorded albuterol sulfate 90 mcg/actuation 1 - 2 inh inhalation Q6H PRN 12/21/22 aerosol inhaler (Proventil HFA) shortness of breath or wheezing #8.5 grams cyclobenzaprine 10 mg tablet 10 mg PO BID PRN Muscle Spasm #20 02/08/23 tabs triamcinolone acetonide 0.025 % 1 applic topical BID PRN rash #15 04/06/23 topical ointment grams cariprazine 3 mg capsule (Vraylar) 3 mg PO DAILY #30 caps 05/06/23 viloxazine 200 mg capsule,extended 200 mg PO DAILY #30 caps 05/06/23 release 24 hr (Qelbree) cyclobenzaprine 10 mg tablet 10 mg PO BID PRN Muscle Spasm #20 06/23/23 tabs methylprednisolone 4 mg tablets in 4 mg PO DIRECTED 6 days #21 tabs 06/23/23 a dose pack Allergies Allergy/AdvReac Type Severity Reaction Status Date / Time ibuprofen [IBUPROFEN] Allergy Mild Unknown Verified 06/23/23 11:49 allergy reaction amoxicillin [From Augmentin] Allergy Verified 06/23/23 11:49 cephalexin Allergy Verified 06/23/23 11:49 clavulanic acid Allergy Verified 06/23/23 11:49 [From Augmentin] [facility] Disclaimer: The information contained in this section may have been updated after the patient was seen, as this information can be updated by other users. Medical History Allergic reaction Anxiety Asthma Back pain, thoracic Bronchitis Chest pain Chronic lower back pain Dyspnea Gastroenteritis Headache Heavy menstrual bleeding Hematuria History of gastroesophageal reflux (GERD) History of scarlet fever HLD (hyperlipidemia) HTN (hypertension) Left ankle sprain Left otitis media Major depressive disorder Posttraumatic stress disorder Radiculopathy Right flank pain Right forearm pain Right hand pain Right wrist pain Sprain of left foot Strep throat Surgical History History of cholecystectomy History of tubal ligation S/P pericardial window creation Family History Other No significant family history Social History Smoking Status: Current every day smoker tobacco type: cigarettes packs per day: 1 second hand exposure: Yes alcohol intake: never substance use type: former substance user, marijuana and opiates current occupational status: employed Travel in the last 8 weeks: None household members: family housing: house number of children: 3 current occupational exposures/hazards: No caffeine: Yes ROS Obtained: Yes All systems reviewed & no additional complaints except as documented Constitutional Constitutional: Denies chills, Denies fever(s) and Denies headache(s) Eyes Eyes: Denies eye discharge ENT Ears, Nose, Mouth, and Throat: Denies dizziness, Denies otalgia, Denies headache(s), Denies neck pain and Denies sore throat Cardiovascular Cardiovascular: Denies chest pain Respiratory Respiratory: Denies shortness of breath, Denies chest congestion, Denies cough, Denies stridor and Denies wheezing Gastrointestinal Gastrointestingal: Denies nausea or vomiting Musculoskeletal Musculoskeletal: Reports as per HPI, Reports back pain and Denies neck pain Integumentary/Breasts Skin/Breast: Denies redness, Denies rash and Denies wounds Neurologic Neurologic: Reports as per HPI, Denies dizziness, Denies headache(s), Denies paresthesias and Reports radicular pain Allergic/Immunologic Allergic/Immunologic: Denies wheezing Physical Exam General General appearance: alert and in no apparent distress Head Head exam: atraumatic, normocephalic and normal inspection Eye Eye exam: Present normal appearance, PERRL and EOMI ENT ENT exam: Present normal exam, normal oropharynx, mucous membranes moist, TM's normal bilaterally and normal external ear exam Neck Neck exam: Present normal inspection, full ROM and trachea midline; Absent meningismus or lymphadenopathy Chest Chest inspection: Present normal inspection and symmetric chest wall rise; Absent tenderness Respiratory Respiratory exam: Present normal lung sounds bilaterally; Absent respiratory distress Cardiovascular Cardiovascular exam: Present regular rate and normal rhythm; Absent JVD Abdominal Exam Abdominal exam: Present soft and normal bowel sounds; Absent distention, tenderness or guarding Extremities Exam Extremities exam: Present normal inspection, full ROM and normal capillary refill; Absent calf tenderness Back Exam Back exam: Present normal inspection; Absent tenderness Neurological Exam Neurological exam: Present alert, oriented X3, CN II-XII intact, normal gait and reflexes normal; Absent motor sensory deficit Expanded Neurological Exam Speech: Present fluid speech Cranial nerves: Normal: EOM function (II, III, IV, ), facial sensation (V), facial palsy (VII), gag reflex (IX), spinal accessory function (XI) and tongue deviation (XII) Cerebellar function: normal gait Motor strength - LUE: 5/5 Motor strength - RUE: 5/5 Motor strength - LLE: 5/5 Motor strength - RLE: 5/5 Sensory exam upper extremity: Normal: light touch and 2 point discrimination Sensory exam lower extremity: Normal: light touch and 2 point discrimination DTR: 2+: biceps (L), biceps (R), patellar (L), patellar (R), Achilles tendon (L) and Achilles tendon (R) Spinal cord function: Absent saddle anesthesia Psychiatric Psychiatric exam: Present normal affect and normal mood Skin Skin exam: Present warm, dry, intact and normal color Lymphatic Lymphatic Findings: no adenopathy Medical Decision Making Medical Records Medical records reviewed: No I reviewed the patient's medical records. Iglesia Inquiry Pt receiving controlled substance: No
[2023-06-23] MEDS: DEXAMETHASONE 4MG/ML 1ML VIAL 8 MG IM (11:59)
[2023-06-23] MEDS: KETOROLAC 60MG/2ML VIAL 60 MG IM (11:59)
[2023-06-23 12:10] VITALS: BP 120/71; PULSE 74; RESP 18; TEMP 36.6; O2SAT 98
== END 2023-06-23 12:10 | disposition home or self-care (01) ==
PROVIDERS: Emergency Provider Nurse Practitioner Family; PCP Nurse Practitioner Family
DX: M54.50 Low back pain, unspecified (principal)
CPT/HCPCS: 96372; 99212; 99214; G0463

== ENCOUNTER 2023-06-29 09:46 | Outpatient (CLI) | payer OTHER, SELFPAY ==
[2023-06-29 10:11] LABS: Basophils # 0.1 K/mm3 (0-0.2); Basophils % 0.6 % (0.1-2.0); Eosinophils # 0.6 K/mm3 (0.0-0.4); Eosinophils % 4.7 % (0.1-12.0); Hematocrit 45.1 % (37.0-47.0); Hemoglobin 14.8 g/dL (12.2-16.2); Lymphocytes # 2.7 K/mm3 (0.7-4.5); Lymphocytes % 21.5 % (10-50); Mean Corpuscular HGB Conc 32.7 g/dL (31.8-35.4); Mean Corpuscular Hemoglobin 28.5 pg (27.0-31.2); Mean Corpuscular Volume 87.1 fl (81-99); Mean Platelet Volume 7.5 fl (7.4-10.4); Monocytes # 0.5 K/mm3 (0.1-1.0); Monocytes % 4.2 % (1.7-9.3); Neutrophils # 8.8 K/mm3 (1.8-7.8); Neutrophils % 69.1 % (37.0-80.0); Platelet Count 335 K/mm3 (142-424); Red Blood Count 5.18 M/mm3 (4.20-5.40); White Blood Count 12.7 K/mm3 (4.8-10.8)
[2023-06-29 10:47] LABS: Alanine Aminotransferase 25 U/L (12-78); Alkaline Phosphatase 105 U/L (38-126); Anion Gap 10.4 mEq/L (5-15); Aspartate Amino Transferase 27 U/L (14-36); Bilirubin,Direct 0.2 mg/dl (0.0-0.4); Bilirubin,Indirect 0.6 mg/dL (0.0-0.9); Bilirubin,Total 0.8 mg/dl (0.2-1.3); Bilirubin,Unconjugated 0.6 mg/dL (0.0-1.1); Blood Urea Nitrogen 11 mg/dl (7-17); Calcium 9.5 mg/dl (8.4-10.2); Carbon Dioxide 25 mmol/L (22.0-30.0); Chloride 106 mmol/L (98-107); Chol/HDL Ratio 3.9 (1-3.5); Cholesterol 241 mg/dl (140-200); Estimated Glomerular Filt Rate 98 ml/min (>60); GFR (African American) 118 ML/MIN (>60); Glucose 102 mg/dl (74-100); HDL Cholesterol 62 mg/dl (40-60); Potassium 4.4 mmoL/L (3.5-5.1); Sodium 137 mmol/L (136-145); Total Protein,Serum 7.2 g/dl (6.3-8.2); Triglycerides 160 mg/dl (30-150); VLDL Cholesterol 32 mg/dL (0-40)
[2023-06-29 10:58] LABS: Direct LDL Cholesterol 144.46 mg/dL (100-129)
[2023-06-29 11:01] LABS: Free T4 (Free Thyroxine) 1.08 ng/dl (0.78-2.19)
[2023-06-29 11:16] LABS: Thyroid Stimulating Hormone 1.28 uIU/mL (0.465-4.68)
== END 2023-06-29 23:59 | disposition home or self-care (01) ==
LOC: LAB 09:47
PROVIDERS: PCP Nurse Practitioner Family; Visit Provider Physician Assistant
DX: R07.89 Other chest pain (principal); I10 Essential (primary) hypertension; E78.2 Mixed hyperlipidemia; Z86.79 Personal history of other diseases of the circulatory system
CPT/HCPCS: 36415; 80048; 80061; 80076; 83735; 84439; 84443; 85025

== ENCOUNTER 2023-07-25 13:42 | Emergency (ER) | payer OTHER, SELFPAY ==
[2023-07-25 15:12] VITALS: BP 0/0; PULSE 0; RESP 0; TEMP -17.7; TEMP 0
== END 2023-07-25 15:14 | disposition left against medical advice (07) ==
PROVIDERS: Emergency Provider Nurse Practitioner; PCP Nurse Practitioner Family
DX: Z53.21 Procedure and treatment not carried out due to patient leaving prior to being seen by health care provider (principal)

== ENCOUNTER 2023-07-27 16:54 | Emergency (ER) | payer OTHER, SELFPAY ==
[2023-07-27 17:50] VITALS: BP 132/84; PULSE 80; RESP 20; TEMP 36.6; O2SAT 100; BMI 47.5
--- NOTE | 2023-07-27 18:20 | ED_ITS ---
Discharge Plan Disposition Patient Disposition: Home, Self-Care Condition: Good Prescriptions Prescriptions: New methylprednisolone [Medrol (Yaya)] 4 mg tablets,dose pack See Rx Instructions .Route .COMPLEX 6 Days Qty: 21 0RF Rx Instructions: taper pack; No Action propranolol 40 mg tablet 40 mg PO BID Qty: 180 3RF varenicline 0.5 mg (11)- 1 mg (42) tablets,dose pack See Rx Instructions .ROUTE .COMPLEX Patient Comments: TAKE DIRECTED ON PACKAGE Rx Instructions: . Vraylar 3 mg capsule 3 mg PO DAILY Patient Comments: TAKE 1 CAPSULE BY MOUTH ONCE DAILY Referrals Follow up/Referrals: Jeffrey Payan APRN [Primary Care Provider] - See instructions Activity Restrictions/Add. Instructions Additional Instructions/Restrictions: Follow up with your Family Doctor if no improvement or any worsening of symptoms Take medication as prescribed Start oral steriods tomorrow Return if needed Oral BEnadryl may help with itching and rash Clinical Impressions Clinical Impression: Low back pain Instructions Patient Instructions: DI for Low Back Pain, DI for Rash Discharge ED Provider: Pamela Corral [facility] General Stated complaint: back is hurting , rash all over Mode of Arrival: Ambulatory Source of Information: Patient Limitations: No Limitations Time Seen by Provider: 07/27/23 18:20 Description of Symptoms (Recalled from Triage Doc. by RN): PATIENT C/O LOWER BACK PAIN AND RASH ALL OVER BODY X 1 WEEK HEENT Symptoms (Recalled from RN notes): No Resp Symptoms (Recalled from RN notes): No Skin Symptoms (Recalled from RN notes): Yes MS Symptoms (Recalled from RN notes): Yes Functional Status (Recalled from RN notes): WNL History of Present Illness Provider Complaint: Patient states that she has a bad back states for the last week she has been having lower back pain/ache and also she noticed she is broken out with something thinks she may be having a reaction to something so she came in to get checked Related Data Home Medications Medication Instructions Recorded Confirmed cariprazine 3 mg capsule (Vraylar) 3 mg PO DAILY 07/27/23 07/27/23 varenicline 0.5 mg (11)-1 mg (42) See Rx Instructions .Route .COMPLEX 07/27/23 07/27/23 tablets in a dose pack Previous Rx's Medication Instructions Recorded propranolol 40 mg tablet 40 mg PO BID #180 tabs 06/29/23 methylprednisolone 4 mg tablets in See Rx Instructions .Route 07/27/23 a dose pack (Medrol (Yaya)) .COMPLEX 6 days #21 tabs Allergies Allergy/AdvReac Type Severity Reaction Status Date / Time ibuprofen [IBUPROFEN] Allergy Mild Unknown Verified 06/29/23 09:07 allergy reaction amoxicillin [From Augmentin] Allergy Verified 06/29/23 09:07 cephalexin Allergy Verified 06/29/23 09:07 clavulanic acid Allergy Verified 06/29/23 09:07 [From Augmentin] Worker's Comp Is this a Worker's Comp case?: No [facility] Disclaimer: The information contained in this section may have been updated after the patient was seen, as this information can be updated by other users. Medical History Allergic reaction Anxiety Asthma Back pain, thoracic Bronchitis Chest pain Chronic lower back pain Dyspnea Gastroenteritis Headache Heavy menstrual bleeding Hematuria History of gastroesophageal reflux (GERD) History of scarlet fever HLD (hyperlipidemia) HTN (hypertension) Left ankle sprain Left otitis media Major depressive disorder Posttraumatic stress disorder Radiculopathy Right flank pain Right forearm pain Right hand pain Right wrist pain Sprain of left foot Strep throat Surgical History History of cholecystectomy History of tubal ligation S/P pericardial window creation Family History Other No significant family history Social History Smoking Status: Current every day smoker tobacco type: cigarettes packs per day: 1 second hand exposure: Yes alcohol intake: never substance use type: former substance user, marijuana and opiates current occupational status: employed Travel in the last 8 weeks: None household members: family housing: house number of children: 3 current occupational exposures/hazards: No caffeine: Yes ROS Obtained: Yes All systems reviewed & no additional complaints except as documented and Yes Systems reviewed as appropriate & no additional complaints except as documented Constitutional Constitutional: Reports system reviewed and no additional complaints, except as documented and Reports as per HPI Cardiovascular Cardiovascular: Reports system reviewed and no additional complaints, except as documented and Reports as per HPI Respiratory Respiratory: Reports system reviewed and no additional complaints, except as documented and Reports as per HPI Gastrointestinal Gastrointestingal: Reports system reviewed and no additional complaints, except as documented and as per HPI Musculoskeletal Musculoskeletal: Reports system reviewed and no additional complaints, except as documented, Reports as per HPI and Reports back pain Physical Exam General General appearance: alert and in no apparent distress ENT ENT exam: Present mucous membranes moist Respiratory Respiratory exam: Present normal lung sounds bilaterally; Absent respiratory distress or wheezes Cardiovascular Cardiovascular exam: Present regular rate, normal rhythm and normal heart sounds Back Exam Back exam: Present tenderness Back 1 view image: 2 1. reports hx of lower back pain, Denies new injury, denies radiation of pain or loss of control of bowel or bladder Neurological Exam Neurological exam: Present alert, oriented X3 and normal gait Skin Skin exam: Present rash (red urticaria like rash noted on neck, face, chest and upper arms ) Medical Decision Making Iglesia Inquiry Pt receiving controlled substance: No Iglesia was queried for this patient: No Vital Signs: 07/27/23 17:50 Temperature 97.9 F Temperature Source Oral Pulse Rate [Left Brachial] 80 Respiratory Rate 20 Blood Pressure [Left Arm] 132/84 Blood Pressure Mean [Left Arm] 100 Blood Pressure Source [Left Arm] Automatic Cuff Blood Pressure Position [Left Arm] Sitting 02 Sat by Pulse Oximetry 100 Oxygen Delivery Method Room Air Medical Decision Narrative: Patient states that she has Ibuprofen on her allergy list because it upsets her stomach but she had taken Toradol in the past without complication or reactions
[2023-07-27 18:43] VITALS: BP 132/84; PULSE 80; RESP 20; TEMP 36.6; O2SAT 100
[2023-07-27] MEDS: KETOROLAC 60MG/2ML VIAL 60 MG IM (18:43)
[2023-07-27] MEDS: METHYLPREDNISOLONE SOD SUCC 125MG VIAL 125 MG IM (18:43)
== END 2023-07-27 18:52 | disposition home or self-care (01) ==
PROVIDERS: Emergency Provider Nurse Practitioner; PCP Nurse Practitioner Family
DX: M54.50 Low back pain, unspecified (principal); L50.9 Urticaria, unspecified
CPT/HCPCS: 96372; 99212; 99214; G0463

== ENCOUNTER 2023-08-19 18:53 | Emergency (ER) | payer OTHER, SELFPAY ==
--- NOTE | 2023-08-19 19:15 | EXP.UTC ---
Discharge Plan Disposition Patient Disposition: Home, Self-Care Condition: Good Prescriptions Prescriptions: New cyclobenzaprine 10 mg tablet 10 mg PO Q8H PRN (Reason: muscle spasm) Qty: 30 0RF No Action propranolol 40 mg tablet 40 mg PO BID PRN varenicline 0.5 mg (11)- 1 mg (42) tablets,dose pack See Rx Instructions .ROUTE .COMPLEX Patient Comments: TAKE DIRECTED ON PACKAGE Rx Instructions: . Vraylar 3 mg capsule 3 mg PO DAILY Patient Comments: TAKE 1 CAPSULE BY MOUTH ONCE DAILY methylprednisolone [Medrol (Yaya)] 4 mg tablets,dose pack See Rx Instructions .Route .COMPLEX 6 Days Qty: 21 0RF Rx Instructions: taper pack; Referrals Follow up/Referrals: Jeffrey Payan APRN [Primary Care Provider] - See instructions Clinical Impressions Clinical Impression: Strain of right trapezius muscle Instructions Patient Instructions: DI for Muscle Strain Discharge ED Provider: Miley Aguilar [facility] [place] General Stated complaint: Back pain,SOA Time Seen by Provider: 08/19/23 19:20 History of Present Illness Provider Complaint: Pain in right shoulder blade X 2 days. Not sure what she did but thinks she pulled a muscle. Hurts to take a deep breath or move suddenly. Onset (ago): day(s) (2) Location: chest Relieving factors: none Exacerbating factors: none Associated symptoms: denies other symptoms Treatments prior to arrival: none Related Data Home Medications Medication Instructions Recorded Confirmed cariprazine 3 mg capsule (Vraylar) 3 mg PO DAILY 07/27/23 08/01/23 varenicline 0.5 mg (11)-1 mg (42) See Rx Instructions .Route .COMPLEX 07/27/23 08/01/23 tablets in a dose pack propranolol 40 mg tablet 40 mg PO BID PRN 08/01/23 Previous Rx's Medication Instructions Recorded methylprednisolone 4 mg tablets in See Rx Instructions .Route 07/27/23 a dose pack (Medrol (Yaya)) .COMPLEX 6 days #21 tabs cyclobenzaprine 10 mg tablet 10 mg PO Q8H PRN muscle spasm #30 08/19/23 tabs Allergies Allergy/AdvReac Type Severity Reaction Status Date / Time ibuprofen [IBUPROFEN] Allergy Mild Unknown Verified 08/01/23 09:07 allergy reaction amoxicillin [From Augmentin] Allergy Verified 08/01/23 09:07 cephalexin Allergy Verified 08/01/23 09:07 clavulanic acid Allergy Verified 08/01/23 09:07 [From Augmentin] [facility] Disclaimer: The information contained in this section may have been updated after the patient was seen, as this information can be updated by other users. Medical History Allergic reaction Back pain, thoracic Bronchitis Chronic lower back pain Anxiety History of gastroesophageal reflux (GERD) Asthma Posttraumatic stress disorder Major depressive disorder Headache Dyspnea Chest pain Radiculopathy Sprain of left foot Left ankle sprain Gastroenteritis Strep throat Right wrist pain Right hand pain Heavy menstrual bleeding Left otitis media Hematuria Right flank pain Right forearm pain History of scarlet fever HTN (hypertension) HLD (hyperlipidemia) Surgical History S/P pericardial window creation History of tubal ligation History of cholecystectomy Family History Other No significant family history Social History Smoking Status: Current every day smoker tobacco type: cigarettes packs per day: 1 second hand exposure: Yes alcohol intake: never substance use type: former substance user, marijuana and opiates current occupational status: employed Travel in the last 8 weeks: None household members: family housing: house number of children: 3 current occupational exposures/hazards: No caffeine: Yes ROS Obtained: Yes All systems reviewed & no additional complaints except as documented Musculoskeletal Musculoskeletal: Reports as per HPI, Reports back pain and Reports muscle cramps Physical Exam General General appearance: alert and in no apparent distress ENT ENT exam: Present mucous membranes moist Respiratory Respiratory exam: Present normal lung sounds bilaterally; Absent respiratory distress or wheezes Cardiovascular Cardiovascular exam: Present regular rate, normal rhythm and normal heart sounds Back Exam Back exam: Present tenderness and muscle spasm Neurological Exam Neurological exam: Present alert, oriented X3 and normal gait Medical Decision Making [place] Inquiry Pt receiving controlled substance: No
[2023-08-19 19:16] VITALS: BP 134/78; PULSE 105; RESP 20; TEMP 37; O2SAT 97; BMI 49.0
[2023-08-19] MEDS: ORPHENADRINE CITRATE 60MG/2ML VIAL 60 MG IM (19:25)
[2023-08-19] MEDS: KETOROLAC 60MG/2ML VIAL 60 MG IM (19:26)
[2023-08-19 19:42] VITALS: BP 0/0; PULSE 0; RESP 0; TEMP -17.7; TEMP 0
== END 2023-08-19 19:44 | disposition home or self-care (01) ==
PROVIDERS: Emergency Provider Physician Assistant; PCP Nurse Practitioner Family
DX: S46.811A Strain of other muscles, fascia and tendons at shoulder and upper arm level, right arm, initial encounter (principal); R07.1 Chest pain on breathing; X50.0XXA Overexertion from strenuous movement or load, initial encounter
CPT/HCPCS: 96372; 99212; 99214; G0463; J1885; J2360

== ENCOUNTER 2024-08-19 14:14 | Emergency (ER) | payer OTHER, SELFPAY ==
--- OUTSIDE RECORDS SUMMARY | 2024-06-28 23:00 | XMS_ITS | Continuity of Care Document ---
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 Role Phone Elvi DAVISON Primary Care LEONOR PAK Primary Attending LEONOR PAK Unavailable LEONOR PAK Admitting ALLERGIES AND ADVERSE REACTIONS ALLERGIES AND ADVERSE REACTIONS Code System Allergy Substance Adverse Reaction Date Reaction (Severity) Comment Status Reported By Updated By [id number] RXNorm IBUPROFEN Adverse reaction to substance u active [id number] on June 09, 2024 1:40:15 AM [facility] FAMILY HISTORY RELATION: Father Status: LIVING SNOMED-CT Diagnosis Age At Onset [id number] Hypertensive disorder RELATION: Mother Status: LIVING SNOMED-CT Diagnosis Age At Onset [id number] Seizure MEDICATIONS HOME MEDICATIONS Status RXNORM NDC Medication Dose Route Frequency Dates Comments Reported By Updated By Drug Treatment Unknown DISCHARGE MEDICATIONS Status RXNORM NDC Medication Dose Route Frequency Dates Comments Physician Updated By No Discharge Medication Info rmation Available INPATIENT MEDICATIONS Status RXNORM NDC Medication Dose Route Frequency Rat e Quantity Dates Comments Physician Updated By Re[facility] [id number] [phone] METHYLPREDN ISOLONE SODIUM SUCC 125 MG SOLR 125.0 MG INTRAV ENOUS ONE TIME ONLY Start: June 27, 2024 7:21:0 0 PM [place] End: June 27, 2024 7:21:0 0 PM [facility] MELLISA Ashley MD INTERFAC ED on June 27, 2024 7:20:00 PM [facility] SOCIAL HISTORY SOCIAL HISTORY SNOMED-CT Social History Element Description Effective Dates Offered Cessation Comment UpdatedBy [id number] Historical Tobacco smoking status Light Tobacco Smoker [id number] on June 09, 2024 1:40:35 AM [facility] [id number] Historical Tobacco smoking status Current Every Day Smoker Yes [id number] on August 22, 2015 4:12:41 PM [facility] SOCIAL HISTORY - Gender Sex: Female SOCIAL HISTORY - Status : status i nformation is not available Intention in Next Year: intention information is not available SOCIAL HISTORY - Sexual Behavior Sexual Orientation Gender Identity SNOMED-CT Description SNO MED -CT Description Activity Level No of Partners Partner Type UpdatedBy Information is not available HEALTH CONCERNS Problems Concern Status Health Concern problem infor mation not available. Smoking Status Status Years Used Consumed packs p er day Health Concern smoking histo ry information not available. Family History Concern Status Health Concern family histor y information not available. ENCOUNTERS ENCOUNTER INFORMATION Reason for Visit RASH Admission June 27, 2024 6:54:00 PM [facility] [address] [facility] [place] [id number] Discharge June 27, 2024 7:54:00 PM [facility] DI SCHARGED TO HOME OR SELF CARE ENCOUNTER DIAGNOSES Notes information is not ashley ilable. Code System Diagnosis Onset Date Diagnosis information is not available. ABSTRACT DIAGNOSES Code System Diagnosis Updated By R21 ICD10 RASH AND OTHER N ONSPECIFIC SKIN ERUPTION [id number] on June 29, 2024 3:00:20 AM [facility] L29.9 ICD10 PRURITUS, UNSPECIFIED [id number] on June 29, 2024 3:00:20 AM [facility] L55.9 ICD10 SUNBURN, UNSPECIFIED [id number] on June 29, 2024 3:00:20 AM [facility] L55.0 ICD10 SUNBURN OF FIRST DEGREE [id number] on June 29, 2024 3:00:20 AM [facility] E66.9 ICD10 OBESITY, UNSPECIFIED [id number] on June 29, 2024 3:00:20 AM [facility] Z68.43 ICD10 BODY MASS INDEX [BMI] 50.0-5 9.9, ADULT [id number] on June 29, 2024 3:00:20 AM [facility] F17.210 ICD10 NICOTINE DEPENDE NCE, CIGARETTES, UNCOMPLICATED [id number] on June 29, 2024 3:00:20 AM [facility] Z88.0 ICD10 ALLERGY STATUS TO PENICILLIN [id number] on June 29, 2024 3:00:20 AM [facility] Z88.6 ICD10 ALLERGY STATUS TO ANALGESIC AGENT [id number] on June 29, 2024 3:00:20 AM [facility] CARE TEAM Care Heavy Duty [employer] Role Elvi DAVISON Primary Care LEONOR PAK Primary Attending LEONOR PAK Referring LEONOR PAK Admitting CARE TEAM CARE pcas Role on Team Status Start Date End Date Update d By SAMAN ATWODO PCP normal June 27 7:25:49 PM UTC June 27, 2024 7:54:00 PM UTC [id number] on June 27, 2024 7:25:49 PM UTC MELLISA Ashley MD Referring normal June 27, 2024 7:25:49 PM UTC June 27, 2024 7:54:00 PM UTC [id number] on June 27, 2024 7:25:49 PM UTC MELLISA Ashley MD Attending normal June 27, 2024 7:25:49 PM UTC June 27, 2024 7:54:00 PM UTC [id number] on June 27, 2024 7:25:49 PM UTC MELLISA Ashley MD Admitting normal June 27, 2024 7:25:49 PM UTC June 27, 2024 7:54:00 PM UTC [id number] on June 27, 2024 7:25:49 PM UTC JORY PEPPER APRN PCP normal June 27, 2024 6:55:18 PM UTC June 27, 2024 7:25:49 PM UTC [id number] on June 27, 2024 7:25:49 PM UTC
--- OUTSIDE RECORDS SUMMARY | 2024-07-23 03:32 | XMS_ITS | Continuity of Care Document ---
Author Organization [facility] Phone Care Team Providers Care Machine I Coremaker Name Role Phone Evli DAVISON Primary Care VEENA SALINAS Admitting VEENA SALINAS Unavailable VEENA SALINAS Primary Attending ALLERGIES AND ADVERSE REACTIONS ALLERGIES AND ADVERSE REACTIONS Code System Allergy Substance Adverse Reaction Date Reaction (Severity) Comment Status Reported By Updated By 9253 RXNorm IBUPROFEN Adverse reaction to substance u active [id number] on July 21, 2024 10:07:01 PM UT 723 RXNorm Amoxicillin Adverse reaction to substance Not Specified active [id number] on July 21, 2024 10:07:01 PM UT FAMILY HISTORY RELATION: Father Status: LIVING SNOMED-CT Diagnosis Age At Onset [id number] Hypertensive disorder RELATION: Mother Status: LIVING SNOMED-CT Diagnosis Age At Onset [id number] Seizure RESULTS Patient: STAS TOMLIN Date of : 1990 LABORATORY RESULTS ORDER 100: UA AND MICRO/CULT IF INDICATED (LOINC: 87148-6) ORDER DATE: July 21, 2024 9:59:00 PM UTC Specimen Source: URINE Specimen Type: Urine specime n PERFORMING LAB: [address] [id number] Result Comment: Final Result Date: July 21, 2024 10:13:00 PM UTC (TECH: SLB) LOINC TEST FLAG RESULT REFERENCE RANGE UPDA BLANK BY 5778-6 Color of Urine N yellow YELLOW June 292024 10:13:00 PM UTC (TECH: SLB) 5767-9 Appearance of Urine N clear CLEAR July 21, 2024 10:13:00 PM UTC (TECH: SLB) 5792-7 Glucose [Mass/volume] in Urine by Test strip N NORM NORMAL July 21, 2024 10:13:00 PM UTC (TECH: SLB) 06480-5 Bilirubin.total [Mass/volume] in Urine by Automated test strip N 1 NEGATIVE July 21, 2024 10:13:00 PM UTC (TECH: SLB) 5797-6 Ketones [Mass/volume] in Urine by Test strip N 5 (TRACE) mg/dL NEGATIVE July 21, 2024 10:13:00 PM UTC (TECH: SLB) 2965-2 Specific gravity of Urine N 1.030 1.005 - 1.035 July 21, 2024 10:13:00 PM UTC (TECH: SLB) 17191-9 Erythrocytes [#/volume] in Urine by Automated test strip N NEGATIVE NEGATIVE July 21, 2024 10:13:00 PM UTC (TECH: SLB) 96571-1 pH of Urine by Automated test strip N 5.00 5.0 - 7.5 July 21, 2024 10:13:00 PM UTC (TECH: SLB) 12399-1 Protein [Presence] in Urine by Test strip N 30 (1+) mg/dL NEGATIVE July 21, 2024 10:13:00 PM UTC (TECH: SLB) 36691-1 Urobilinogen [Mass/volume] in Urine by Automated test strip N 1 mg/dL NORMAL July 21, 2024 10:13:00 PM UTC (TECH: SLB) 43761-7 Nitrate [Presence] in Urine N NEGATIVE NEGATIVE July 21, 2024 10:13:00 PM UTC (TECH: SLB) 76203-5 Leukocytes [#/volume] in Urine by Test strip N TRACE (25) /mcL NEGATIVE July 21, 2024 10:13:00 PM UTC (TECH: SLB) 86714-3 Other elements in Urine sediment N NOT REQUIRED July 21, 2024 10:13:00 PM UTC (TECH: SLB) 60771-9 Microscopic observation [Identifier] in Urine sediment by Light microscopy N YES July 21, 2024 10:13:00 PM UTC (TECH: SLB) 83803-6 Erythrocytes [#/area] in Urine sediment by Microscopy high power field N 1-5 0-3 July 21, 2024 10:13:00 PM UTC (TECH: SLB) 5821-4 Leukocytes [#/area] in Urine sediment by Microscopy high power field N 0-3 NONE SEEN July 21, 2024 10:13:00 PM UTC (TECH: SLB) 38076-4 Epithelial cells.squamous [#/area] in Urine sediment by Microscopy high power field N 0-3 NONE SEEN July 21, 2024 10:13:00 PM UTC (TECH: SLB) 5769-5 Bacteria [#/area] in Urine sediment by Microscopy high power field N TRACE NONE SEEN July 21, 2024 10:13:00 PM UTC (TECH: SLB) 78448-8 Mucus [#/area] in Urine sediment by Microscopy low power field N 1+ NONE SEEN July 21, 2024 10:13:00 PM UTC (TECH: SLB) ORDER 200: URINE T EST (LOINC: 2107-1) ORDER DATE: July 21, 2024 9:59:00 PM UTC Specimen Source: URINE Specimen Type: Urine specime n PERFORMING LAB: [address] [id number] Result Comment: Final Result Date: July 21, 2024 10:10:00 PM UTC (TECH: SLB) LOINC TEST FLAG RESULT REFERENCE RANGE UPDA BLANK BY 2107-1 Choriogonadotropin [Moles/volume] in Urine N NEGATIVE NEGATIVE July 21, 2024 10:10:00 PM UTC (TECH: SLB) 66782-1 Internal control result N PASS PASS July 21, 2024 10:10:00 PM UTC (TECH: SLB) ORDER 300: URINE DRUG SCREEN - EXL MAX (LOINC: 33413-8) ORDER DATE: July 21, 2024 9:59:00 PM UTC Specimen Source: URINE Specimen Type: Urine specime n PERFORMING LAB: [address] [id number] Result Comment: Final Result Date: July 21, 2024 10:18:00 PM UTC (TECH: SLB) LOINC TEST FLAG [place] [address]-2 Amphetamine+Methamph eta mine [Presence] in Urine N NEGATIVE NEGATIVE July 21, 2024 10:18:00 PM UTC (TECH: SLB) 3377-9 Barbiturates [Presen ce] in Urine N NEGATIVE NEGATIVE July 21, 2024 10:18:00 PM UTC (TECH: SLB) 26520-1 Benzodiazepine metabolites [Presence] in Urine by Screen method N NEGATIVE NEGATIVE July 21, 2024 10:18:00 PM UTC (TECH: SLB) 3414-0 Buprenorphine [Presence] in Urine N NEGATIVE NEGATIVE July 21, 2024 10:18:00 PM UTC (TECH: SLB) 3397-7 Cocaine [Presence] i n Urine N NEGATIVE NEGATIVE July 21, 2024 10:18:00 PM UTC (TECH: SLB) 99622-3 Methadone [Presence] in Specimen N NEGATIVE NEGATIVE July 21, 2024 10:18:00 PM UTC (TECH: SLB) 21046-2 Opiates [Mass/volume ] in Specimen N NEGATIVE NEGATIVE July 21, 2024 10:18:00 PM UTC (TECH: SLB) 76808-5 oxyCODONE [Presence] in Specimen N NEGATIVE NEGATIVE July 21, 2024 10:18:00 PM UTC (TECH: SLB) 3427-2 Cannabinoids [Presen ce] in Urine POSITIVE NEGATIVE July 21, 2024 10:18:00 PM UTC (TECH: SLB) 09686-0 Phencyclidine [Presence] in Specimen N NEGATIVE NEGATIVE July 21, 2 025 10:18:00 PM UTC (TECH: SLB) 98693-7 Fentanyl [Presence] in Urine N NEGATIVE NEGATIVE July 21, 2024 10:18:00 PM UTC (TECH: SLB) 89583-0 Tricyclic antidepressants [Presence] in Specimen N NEGATIVE NEGATIVE July 21, 2 025 10:18:00 PM UTC (TECH: SLB) 17204-6 Internal control result N PASS PASS July 21, 2024 10:18:00 PM UTC (TECH: SLB) ORDER 400: CBC AUTO W DIFF ( LOINC: 56619-7) ORDER DATE: July 21, 2024 10:09:00 PM UTC Specimen Source: Whole Blood Specimen Type: Whole blood s ample PERFORMING LAB: [address] [id number] Result Comment: Final Result Date: July 21, 2024 10:42:00 PM UTC (TECH: SLB) LOINC TEST FLAG RESULT REFERENCE RANGE UPDA BLANK BY 6690-2 Leukocytes [#/volume] in Blood by Automated count H 14.5 10^3/uL 4.5 10^3/uL - 11.5 10^3/uL July 21, 2024 10:42:00 PM UTC (TECH: SLB) 789-8 Erythrocytes [#/volume] in Blood by Automated count N 5.04 10^6/uL 4.25 10^6/uL - 5.57 10^6/uL July 21, 2024 10:42:00 PM UTC (TECH: SLB) 718-7 Hemoglobin [Mass/volume] in Blood N 14.4 g/dL 12.0 g/dL - 15.7 g/dL July 21, 2024 10:42:00 PM UTC (TECH: SLB) 46886-5 Hematocrit [Volume Fraction] of Blood N 44.0 % 36.0 % - 47.0 % July 21, 2024 10:42:00 PM UTC (TECH: SLB) 787-2 Erythrocyte mean corpuscular volume [Entitic volume] by Automated count N 87.3 fl 80 fl - 95 fl July 21, 2024 10:42:00 PM UTC (TECH: SLB) 97683-6 Erythrocyte mean corpuscular hemoglobin [Entitic mass] in Blood from Fetus by Automated count N 28.6 pg 27.0 pg - 34.0 pg July 21, 2024 10:42:00 PM UTC (TECH: SLB) 85882-5 Erythrocyte mean corpuscular hemoglobin concentration [Mass/volume] in Blood from Fetus by Automated count N 32.7 g/dL 32.0 g/dL - 36.0 g/dL July 21, 2024 10:42:00 PM UTC (TECH: SLB) 44229-6 Platelets [#/volume] in Blood N 350 10^3/uL 150 10^3/uL - 450 10^3/uL July 21, 2024 10:42:00 PM UTC (TECH: SLB) 51462-9 Erythrocyte distribution width [Ratio] N 14.1 % 12.3 % - 15.1 % July 21, 2024 10:42:00 PM UTC (TECH: SLB) 12955-6 Platelet mean volume [Entitic volume] in Blood by Automated count N 9.3 fl 7.4 fl - 10.4 fl July 21, 2024 10:42:00 PM UTC (TECH: SLB) 35304-0 Granulocytes/100 leukocytes in Blood by Automated count N 66.0 % 40 % - 75 % July 21, 2024 10:42:00 PM UTC (TECH: SLB) 736-9 Lymphocytes/100 leukocytes in Blood by Automated count N 23.7 % 15 % - 57 % July 21, 2024 10:42:00 PM UTC (TECH: SLB) 5905-5 Monocytes/100 leukocytes in Blood by Automated count N 4.9 % 4.0 % - 12.0 % July 21, 2024 10:42:00 PM UTC (TECH: SLB) 713-8 Eosinophils/100 leukocytes in Blood by Automated count N 3.9 % 0.0 % - 4.0 % July 21, 2024 10:42:00 PM UTC (TECH: SLB) 706-2 Basophils/100 leukocytes in Blood by Automated count N 0.3 % 0.0 % - 1.0 % July 21, 2024 10:42:00 PM UTC (TECH: SLB) 24832-5 Immature granulocytes [#/volume] in Blood H 1.2 % 0.0 % - 0.8 % July 21, 2024 10:42:00 PM UTC (TECH: SLB) 50933-8 Granulocytes [#/volume] in Blood by Automated count N 9.59 10^3/uL July 21, 2024 10:42:00 PM UTC (TECH: SLB) 731-0 Lymphocytes [#/volume] in Blood by Automated count N 3.44 10^3/uL July 21, 2024 10:42:00 PM UTC (TECH: SLB) 742-7 Monocytes [#/volume] in Blood by Automated count N 0.71 10^3/uL July 21, 2024 10:42:00 PM UTC (TECH: SLB) 711-2 Eosinophils [#/volume] in Blood by Automated count N 0.56 10^3/uL July 21, 2024 10:42:00 PM UTC (TECH: SLB) 704-7 Basophils [#/volume] in Blood by Automated count N 0.04 10^3/uL July 21, 2024 10:42:00 PM UTC (TECH: SLB) 48402-6 Immature granulocytes [#/volume] in Blood N 0.17 10^3/uL July 21, 2024 10:42:00 PM [place] (TECH: SLB) 57959-2 Manual differential performed [Presence] in Blood N NO July 21, 2024 10:42:00 PM UT (TECH: SLB) ORDER 500: COMP METABOLIC PA VERONICA (LOINC: 56498-4) ORDER DATE: July 21, 2024 10:09:00 PM UT Specimen Source: Serum/Plasm a Specimen Type: Acellular blo od (serum or plasma) specimen PERFORMING LAB: [address] [id number] Result Comment: Final Result Date: July 21, 2024 10:42:00 PM UT (TECH: SLB) LOINC TEST FLAG RESULT REFERENCE RANGE UPDA BLANK BY 2951-2 Sodium [Moles/volume ] in Serum or Plasma N 136 mmol/L 136 mmol/L - 145 mmol/L July 21, 2024 10:42:00 PM UT (TECH: SLB) 2823-3 Potassium [Moles/volume] in Serum or Plasma N 3.7 mmol/L 3.5 mmol/L - 5.1 mmol/L July 21, 2024 10:42:00 PM UT (TECH: SLB) 2075-0 Chloride [Moles/volu me] in Serum or Plasma N 102 mmol/L 98 mmol/L - 107 mmol/L July 21, 2024 10:42:00 PM UT (TECH: SLB) 8-9 Carbon dioxide, tota l [Moles/volume] in Serum or Plasma N 25 mmol/L 21 mmol/L - 32 mmol/L July 21, 2024 10:42:00 PM [place] (TECH: SLB) 51062-0 Anion gap 3 in Serum or Plasma N 9.0 July 21, 2024 10:42:00 PM UTC (TECH: SLB) 2345-7 Glucose [Mass/volume ] in Serum or Plasma H 164 mg/dL 70 mg/dL - 110 mg/dL July 21, 2024 10:42:00 PM UTC (TECH: SLB) 3094-0 Urea nitrogen [Mass/volume] in Serum or Plasma N 12 mg/dL 7 mg/dL - 18 mg/dL July 21, 2024 10:42:00 PM [facility] (TECH: PixelPlayB) 2160-0 Creatinine [Mass/volume] in Serum or Plasma N 1.0 mg/dL 0.6 mg/dL - 1.0 mg/dL July 21, 2024 10:42:00 PM [facility] (TECH: SLB) 3097-3 Urea nitrogen/Creatinine [Mass Ratio] in Serum or Plasma N 12.0 9 - July 21, 2024 10:42:00 PM [facility] (TECH: SLB) 70805-7 Glomerular filtratio n rate/1.73 sq M.predicted by Creatinine-based formula (MDRD) N 76 mL/min >60 July 21, 2024 10:42:00 PM [facility] (TECH: SLB) 43608-9 Osmolality of Serum or Plasma by calculated by sum of electrolytes N 287 mosm/kg 275 mosm/kg - 301 mosm/kg July 21, 2024 10:42:00 PM [facility] (TECH: SLB) 2885-2 Protein [Mass/volume ] in Serum or Plasma N 7.8 g/dL 6.4 g/dL - 8.2 g/dL July 21, 2024 10:42:00 PM [facility] (TECH: SLB) 1751-7 Albumin [Mass/volume ] in Serum or Plasma N 3.5 g/dL 3.4 g/dL - 5.0 g/dL July 21, 2024 10:42:00 PM [facility] (TECH: SLB) 24487-2 Calcium [Mass/volume ] in Serum or Plasma N 9.4 mg/dL 8.5 mg/dL - 10.1 mg/dL July 21, 2024 10:42:00 PM [facility] (TECH: SLB) 09946-5 Calcium [Mass/volume ] corrected for total protein in Serum or Plasma N 9.8 mg/dL 8.5 mg/dL - 10.1 mg/dL July 21, 2024 10:42:00 PM [facility] (TECH: SLB) 1975-2 Bilirubin.total [Mass/volume] in Serum or Plasma L 0.3 mg/dL 0.4 mg/dL - 1.5 mg/dL July 21, 2024 10:42:00 PM [facility] (TECH: SLB) 1920-8 Aspartate aminotransferase [Enzymatic activity/volume] in Serum or Plasma N 33 U/L 15 U/L - 37 U/L July 21, 2024 10:42:00 PM [place] (TECH: SLB) 1742-6 Alanine aminotransferase [Enzymatic activity/volume] in Serum or Plasma N 40 U/L 12 U/L - 78 U/L July 21, 2024 10:42:00 PM [place] (TECH: SLB) 6768-6 Alkaline phosphatase [Enzymatic activity/volume] in Serum or Plasma N 106 U/L 50 U/L - 120 U/L July 21, 2024 10:42:00 PM [facility] (TECH: SLB) ORDER 600: LIPASE (LOINC: 30 40-3) ORDER DATE: July 21, 2024 10:09:00 PM [facility] Specimen Source: Serum/Plasm a Specimen Type: Acellular blo od (serum or plasma) specimen PERFORMING LAB: [address] [id number] Result Comment: Final Result Date: July 21, 2024 10:42:00 PM [facility] (TECH: SLB) LOINC TEST FLAG RESULT REFERENCE RANGE UPDA BLANK BY 3040-3 Lipase [Enzymatic activity/volume] in Serum or Plasma N 20 U/L 16 U/L - 77 U/L July 21, 2024 10: 42:00 PM [facility] (TECH: SLB) LABORATORY NARRATIVE RESULTS Information is not available RADIOLOGY RESULTS Information is not available PATHOLOGY NARRATIVE RESULTS Information is not available MICROBIOLOGY RESULTS No Micro Labs/Results Exist for Patient BLOOD ADMIN RESULTS Information is not available MEDICATIONS HOME MEDICATIONS Status [facility] Medication Dose Route Frequency Dates Comments Reported By Updated By Active [id number] 38752 bisoprolol fumarate 5 mg tablet 1.0 TAB ORAL DAILY Last Dose: [id number] on July 21, 2024 10:07:03 PM [facility] Active 975875 169948 82966 Wellbutrin SR 100 mg tablet, sustained-r elease 12 hr 1.0 TAB ORAL DAILY Last Dose: [id number] on July 21, 2024 10:07:03 PM [facility] Active 5161439 280611 62145 Vraylar 1.5 mg capsule 1.0 CAP ORAL DAILY Last Dose: [id number] on July 21, 2024 10:07:04 PM [facility] DISCHARGE MEDICATIONS Status [facility] Medication Dose Route Frequency Dates Comments Physician Updated By No Discharge Medication Info rmation Available INPATIENT MEDICATIONS Status [facility] Medication Dose Route Frequency Rat e Quantity Dates Comments Physician Updated By [facility] [id number] ondansetron (ZOFRAN) 4 MG/2ML SOLN 4.0 MG INTRAV ENOUS ONE TIME ONLY Start: July 21, 2024 10:23: 00 PM [place] End: July 21, 2024 10:23: 00 PM UT RITA Sidhu MD INTERF ED on July 21, 2024 10:22:00 PM UT SOCIAL HISTORY SOCIAL HISTORY SNOMED-CT Social History Element Description Effective Dates Offered Cessation Comment UpdatedBy [id number] Current Tobacco smoking status Current Every Day Smoker [id number] on July 21, 2024 10:07:49 PM [place] [id number] Historical Tobacco smoking status Light Tobacco Smoker [id number] on June 09, 2024 1:40:35 AM UT SOCIAL HISTORY - Gender Sex: Female SOCIAL HISTORY - Status : status i nformation is not available Intention in Next Year: intention information is not available SOCIAL HISTORY - Sexual Behavior Sexual Orientation Gender Identity SNOMED-CT Description SNO MED -CT Description Activity Level No of Partners Partner Type UpdatedBy Information is not available VITAL SIGNS PATIENT VITAL SIGNS This section displays the mo st recent value for each vital sign as of July 23, 2024 7:32:22 AM [facility] Loinc Code Vital Sign Activity Date Result Updated By 8310-5 Body temperature July 21, 2024 10:00:31 PM [place] 97.6 [degF] [id number] on July 22, 2024 11:59:18 PM [facility] 31632-6 Body weight Measured July 21 10:02:58 PM UT 122.0 kg (269.0 lb) [id number] on July 21, 2024 10:02:58 PM [facility] 8462-4 Diastolic blood pressure July 21, 2024 11:57:28 PM UT 80.0 mm[Hg] [id number] on July 22, 2024 11:59:19 PM [facility] 8867-4 Heart rate July 21, 2024 11:57:28 PM [facility] 88 /min [id number] on July 22, 2024 11:59:19 PM [facility] 62889-4 Oxygen saturation in Arterial blood by Pulse oximetry July 21, 2024 11:57:28 PM [facility] 96.0 % [id number] on July 22, 2024 11:59:19 PM [facility] 9279-1 Respiratory rate July 21, 2024 11:57:28 PM UT 19 /min [id number] on July 22, 2024 11:59:19 PM [facility] 8480-6 Systolic blood pressure July 21, 2024 11:57:28 PM UT 144.0 mm[Hg] [id number] on July 22, 2024 11:59:19 PM [facility] PEDIATRIC GROWTH CHART - VITAL SIGNS This section displays Head C ircumference Percentile, Weight for Length Percentile and BMI Percentile Loinc Code Pediatric Measure Age (Months) Result Updat ed By No Pediatric Growth Chart Pe rcentile Information Available. HEALTH CONCERNS Problems Concern Status Health Concern problem infor mation not available. Smoking Status Status Years Used Consumed packs p er day Health Concern smoking histo ry information not available. Family History Concern Status Health Concern family histor y information not available. ENCOUNTERS ENCOUNTER INFORMATION Reason for Visit N/V Admission July 21, 2024 9:47:[address] [id number] Discharge July 21, 2024 11:59:00 PM [facility] DIS CHARGED TO HOME OR SELF CARE ENCOUNTER DIAGNOSES Notes information is not ashley ilable. Code System Diagnosis Onset Date Diagnosis information is not available. ABSTRACT DIAGNOSES Code System Diagnosis Updated By R11.2 ICD10 NAUSEA WITH VOMITING, UNSPEC IFIED [id number] on July 23, 2024 7:31:48 AM [facility] R11.2 ICD10 NAUSEA WITH VOMITING, UNSPEC IFIED [id number] on July 23, 2024 7:31:48 AM [facility] F41.9 ICD10 ANXIETY DISORDER, UNSPECIFIE D [id number] on July 23, 2024 7:31:48 AM [facility] Z88.0 ICD10 ALLERGY STATUS TO PENICILLIN [id number] on July 23, 2024 7:31:48 AM [facility] Z88.6 ICD10 ALLERGY STATUS TO ANALGESIC AGENT [id number] on July 23, 2024 7:31:48 AM [facility] Z72.0 ICD10 TOBACCO USE [id number] on July 23, 2024 7:31:48 AM [facility] Z79.899 ICD10 OTHER [facility] (CURRENT) DRUG THERAPY [id number] on July 23, 2024 7:31:48 AM UTC CARE TEAM Care Machine I Coremaker Role D SAMAN Primary Care VEENA SALINAS Admitting VEENA SALINAS Referring VEENA SALINAS Primary Attending CARE TEAM CARE interactive art director Role on Team Status Start Date End Date Update d By RITA Sidhu MD Referring normal July 21 10:20:41 PM UTC July 21, 2024 11:59:00 PM UTC [id number] on July 21, 2024 10:20:41 PM UTC RITA Sidhu MD Attending normal July 21 10:20:41 PM UTC July 21, 2024 11:59:00 PM UTC [id number] on July 21, 2024 10:20:41 PM UTC RITA Sidhu MD Admitting normal July 21 10:20:41 PM UTC July 21, 2024 11:59:00 PM UTC [id number] on July 21, 2024 10:20:41 PM UTC [facility] Elvi ATWOOD PCP normal July 21 9:47:41 PM UTC July 21, 2024 11:59:00 PM UTC [id number] on July 21, 2024 10:20:41 PM UTC
--- OUTSIDE RECORDS SUMMARY | 2024-08-14 07:13 | XMS_ITS | Continuity of Care Document ---
Author Organization [facility] Phone Care Team Providers Care Manager Inspection Name Role Phone MINI MORELNAD Unavailable Unavailable MINI MORELAND Primary Attending Unavailable MINI MORELAND Admitting Unavailable Elvi DAVISON Primary Care ALLERGIES AND ADVERSE REACTIONS ALLERGIES AND ADVERSE REACTIONS Code System Allergy Substance Adverse Reaction Date Reaction (Severity) Comment Status Reported By Updated By 5640 RXNorm IBUPROFEN Adverse reaction to substance u active [id number] on August 11, 2024 2:55:20 PM UTC 723 RXNorm Amoxicillin Adverse reaction to substance Not Specified active [id number] on August 11, 2024 2:55:19 PM UTC FAMILY HISTORY RELATION: Father Status: LIVING SNOMED-CT Diagnosis Age At Onset [id number] Hypertensive disorder RELATION: Mother Status: LIVING SNOMED-CT Diagnosis Age At Onset [id number] Seizure RESULTS Patient: STAS TOMLIN Date of : 1990 LABORATORY RESULTS ORDER 100: UA AND MICRO/CULT IF INDICATED (LOINC: 73702-2) ORDER DATE: August 11, 2024 3:05:00 PM UTC Specimen Source: URINE Specimen Type: Urine specime n PERFORMING LAB: [address] [id number] Result Comment: Final Result Date: August 11, 2024 3:11:00 PM UTC (TECH: LT) LOINC TEST FLAG RESULT REFERENCE RANGE UPDA BLANK BY 5778-6 Color of Urine N yellow YELLOW August 11, 2024 3:11:00 PM UTC (TECH: LT) 5767-9 Appearance of Urine N SL.HAZY CLEAR August 11, 2024 3:11:00 PM UTC (TECH: LT) 5792-7 Glucose [Mass/volume] in Urine by Test strip N NORM NORMAL August 11 3:11:00 PM UTC (TECH: LT) 20505-5 Bilirubin.total [Mass/volume] in Urine by Automated test strip N NEGATIVE NEGATIVE August 11, 2024 3:11:00 PM UTC (TECH: LT) 5797-6 Ketones [Mass/volume] in Urine by Test strip N NEGATIVE NEGATIVE August 11 3:11:00 PM UTC (TECH: LT) 2965-2 Specific gravity of Urine N 1.025 1.005 - 1.035 August 11, 2024 3:11:00 PM UTC (TECH: LT) 89070-0 Erythrocytes [#/volume] in Urine by Automated test strip N 10 (TRACE) /mcL NEGATIVE August 11, 2024 3:11:00 PM UTC (TECH: LT) 24268-7 pH of Urine by Automated test strip N 5.00 5.0 - 7.5 August 11, 2024 3:11:00 PM UTC (TECH: LT) 95317-7 Protein [Presence] in Urine by Test strip N 30 (1+) mg/dL NEGATIVE August 11, 2024 3:11:00 PM UTC (TECH: LT) 39537-6 Urobilinogen [Mass/volume] in Urine by Automated test strip N NORM NORMAL August 11, 2024 3:11:00 PM UTC (TECH: LT) 40393-7 Nitrate [Presence] in Urine N NEGATIVE NEGATIVE August 11, 2024 3:11:00 PM UTC (TECH: LT) 06483-9 Leukocytes [#/volume] in Urine by Test strip N TRACE (25) /mcL NEGATIVE August 11, 2024 3:11:00 PM UTC (TECH: LT) 31804-0 Other elements in Urine sediment CONTAMINATED August 11, 2024 3:11:00 PM UTC (TECH: LT) 79019-5 Microscopic observation [Identifier] in Urine sediment by Light microscopy N YES August 11, 2024 3:11:00 PM UTC (TECH: LT) 01847-9 Erythrocytes [#/area] in Urine sediment by Microscopy high power field N 0-3 0-3 August 11, 2024 3:11:00 PM UTC (TECH: LT) 5821-4 Leukocytes [#/area] in Urine sediment by Microscopy high power field N 0-3 NONE SEEN August 11, 2024 3:11:00 PM UTC (TECH: LT) 04286-0 Epithelial cells.squamous [#/area] in Urine sediment by Microscopy high power field TNTC NONE SEEN August 11, 2024 3:11:00 PM UTC (TECH: LT) 5769-5 Bacteria [#/area] in Urine sediment by Microscopy high power field N 1+ NONE SEEN August 11, 2024 3:11:00 PM UTC (TECH: LT) ORDER 200: URINE T EST (LOINC: 2106-02) ORDER DATE: August 11, 2024 3:05:00 PM UTC Specimen Source: URINE Specimen Type: Urine specime n PERFORMING LAB: [address] [id number] Result Comment: Final Result Date: August 11, 2024 3:11:00 PM UTC (TECH: LT) LOINC TEST FLAG RESULT REFERENCE RANGE UPDA BLANK BY 2106-02 Choriogonadotropin [Moles/volume] in Urine N NEGATIVE NEGATIVE August 11, 2024 3:11:00 PM UTC (TECH: LT) 15547-2 Internal control result N PASS PASS August 11, 2024 3:11:00 PM UTC (TECH: LT) LABORATORY NARRATIVE RESULTS Information is not available RADIOLOGY RESULTS Information is not available PATHOLOGY NARRATIVE RESULTS Information is not available MICROBIOLOGY RESULTS No Micro Labs/Results Exist for Patient BLOOD ADMIN RESULTS Information is not available MEDICATIONS HOME MEDICATIONS Status RXNORM NDC Medication Dose Route Frequency Dates Comments Reported By Updated By Active [id number] 499353 75761 bisoprolol fumarate 5 mg tablet 1.0 TAB ORAL DAILY Last Dose: [id number] on August 11, 2024 2:55:20 PM UT Active 7623398 556816 71493 Vraylar 1.5 mg capsule 1.0 CAP ORAL DAILY Last Dose: [id number] on August 11, 2024 2:55:21 PM UT Active 869798 383532 24133 Wellbutrin SR 100 mg tablet, sustained-r elease 12 hr 1.0 TAB ORAL DAILY Last Dose: [id number] on August 11, 2024 2:55:21 PM UT DISCHARGE MEDICATIONS Status RXNORM NDC Medication Dose Route Frequency Dates Comments Physician Updated By No Discharge Medication Info rmation Available INPATIENT MEDICATIONS Status RXNORM NDC Medication Dose Route Frequency Rat e Quantity Dates Comments Physician Updated By Reji inued [id number] 6171 6024 064 ondansetron (ZOFRAN) 4 MG TBDP 4.0 MG ORAL ONE TIME ONLY Start: August 11, 2024 3:53:0 0 PM UTC End: August 11, 2024 3:53:0 0 PM UT ANICETO Webb MD INTERF ED on August 11, 2024 3:51:00 PM UTC SOCIAL HISTORY SOCIAL HISTORY SNOMED-CT Social History Element Description Effective Dates Offered Cessation Comment UpdatedBy [id number] Current Tobacco smoking status Light Tobacco Smoker [id number] on August 11, 2024 2:55:57 PM UT [id number] Historical Tobacco smoking status Current Every Day Smoker [id number] on July 21, 2024 10:07:49 PM UT SOCIAL HISTORY - Gender Sex: Female [...] value for each vital sign as of August 14, 2024 11:13:52 AM UT Loinc Code Vital Sign Activity Date Result Updated By 8310-5 Body temperature August 11, 2024 3:55:17 PM UT 98.1 [degF] [id number] on August 12, 2024 3:56:[place] [address]-5 Body weight Measured August 11 2:53:07 PM UTC 121.8 kg (269.0 lb) [id number] on August 11, 2024 2:53:07 PM UT 8462-4 Diastolic blood pressure August 11, 2024 3:55:17 PM UTC 73.0 mm[Hg] [id number] on August 12, 2024 3:56:29 PM UT 8867-4 Heart rate August 11, 2024 3:55:17 PM UT 80 /min [id number] on August 12, 2024 3:56:[place] [address]-6 Oxygen saturation in Arterial blood by Pulse oximetry August 11, 2024 3:55:17 PM UT 98.0 % [id number] on August 12, 2024 3:56:29 PM UT 9279-1 Respiratory rate August 11, 2024 3:55:17 PM UT 17 /min [id number] on August 12, 2024 3:56:29 PM UT 8480-6 Systolic blood pressure August 11, 2024 3:55:17 PM UTC 133.0 mm[Hg] [id number] on August 12, 2024 3:56:29 PM UT PEDIATRIC GROWTH CHART - VITAL SIGNS This [...] available. ENCOUNTERS ENCOUNTER INFORMATION Reason for Visit NAUSEA Admission August 11, 2024 2:35:[address] [address] Discharge August 11, 2024 3:56:00 PM [facility] DIS CHARGED TO HOME OR SELF CARE ENCOUNTER DIAGNOSES Notes information is not ashley ilable. Code System Diagnosis Onset Date Diagnosis information is not available. 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) DR PANTOJA THERAPY [id number] on August 14, 2024 11:13:35 AM RUST Z88.0 ICD10 ALLERGY STATUS TO PENICILLIN [id number] on August 14, 2024 11:13:35 AM RUST Z88.6 ICD10 ALLERGY STATUS TO ANALGESIC AGENT [id number] on August 14, 2024 11:13:35 AM [facility] CARE TEAM Care Manager Inspection Role MINI MORELAND Referring MINI MORELAND Primary Attending MINI MORELAND Admitting D STONE Primary Care CARE TEAM CARE tree killer Role on Team Status Start Date End Date Update d By ANICETO YAO Referring normal August 11, 2024 3:50:29 PM UTC August 11, 2024 3:50:29 PM UTC [id number] on August 11, 2024 3:50:29 PM UTC ANICETO Webb MD Referring normal August 11, 2024 3:50:29 PM UTC August 11, 2024 3:56:00 PM UTC [id number] on August 11, 2024 3:50:29 PM UTC ANICETO YAO Attending normal August 11, 2024 3:50:29 PM UTC August 11, 2024 3:50:29 PM UTC [id number] on August 11, 2024 3:50:29 PM UTC ANICETO Webb MD Attending normal August 11, 2024 3:50:29 PM UTC August 11, 2024 3:56:00 PM UTC [id number] on August 11, 2024 3:50:29 PM UTC ANICETO Webb MD, PHY Admitting normal August 11, 2024 3:50:29 PM UTC August 11, 2024 3:50:29 PM UTC [id number] on August 11, 2024 3:50:29 PM UTC ANICETO Webb MD Admitting normal August 11, 2024 3:50:29 PM UTC August 11, 2024 3:56:00 PM UTC [id number] on August 11, 2024 3:50:29 PM UTC SAMAN ATWOOD PCP normal August 11 2:36:21 PM UTC August 11, 2024 3:56:00 PM UTC [id number] on August 11, 2024 3:50:29 PM UTC
[2024-08-19] VITALS (8 sets, daily range): BP systolic 98–133; BP diastolic 54–86; PULSE 82–110; RESP 17–19; TEMP 37; O2SAT 96–99; BMI 49.0
--- OUTSIDE RECORDS SUMMARY | 2024-08-19 14:38 | XMS_ITS | Data Portability ---
Author Organization [facility] Address [address] [place] [id number] Assessment Encounter Date Assessment Date Assessment LastModified by Organization Details LastModified Time 02/15/2022 02/15/2022 Patient is a 31 year old female referred by [facility] for chronic pain management. The patient has been following with Dr. Nicholson, whom has performed numerous injections of the lumbar spine, SI joint, and hips. 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 The patient uses marijuana nightly. The patient participated in PT once per week for a few months without benefit or tolerability. The patient hasn't been to a chiropractor, but her PCP used to realign the spine. The patient presents to the clinic today upon referral for chronic pain management. The patient primarily complains of low back pain, which worsens with prolonged standing or walking. Based on the history and physical exam it appears that the pain is associated with spinal enthesopathy, although lumbar spondylosis is involved to a lesser extent. I think much of the pain is myofascial in nature. I personally reviewed the lumbar MRI, which was unremarkable. I had a detailed discussion with the patient regarding treatment modalities and the respective risks/benefits. I informed the patient that the goal of [facility] will be to incorporate a multi-modal approach to pain management, which may consist of conservative, pharmacologic, and interventional approaches, ultimately decreasing pain and increasing function with focus on both safety and efficacy. I informed the patient that our services are similar to her current interventional pain management provider (Dr. Nicholson), whom has performed numerous interventional procedures without benefit. The patient is apprehensive regarding further injections. I advised that I don't think pain medication is the most appropriate treatment option for generalized myalgia. The patient will follow up prn if she decides to pursue interventional treatment. Not available 02/17/2022 07:36:14 Plan of Treatment Reminders Order Date Submit Date Provider Last Modified By Organization Details Last Modified Time Details Appointments None record ed. Lab None record ed. Referral None record ed. Procedures None record ed. Surgeries None record ed. Imaging None record ed. Medication Orders None record ed. Patient TargetsNo targets recorded. Patient InstructionsNo instructions recorded. Reason for Referral None Reported. Medical Equipment None Reported. Medications Name Sig Start Date Stop Date Status Note LastModified by Organization Details LastModified Time amantadine HCl 100 mg tablet active Not Available Not Available Not Available cyclobenzap rine 10 mg tablet TAKE 1 TABLET BY MOUTH TWICE DAILY NEEDED FOR MUSCLE SPASM active Not Available Not Available No t Available amoxicillin 500 mg capsule TAKE 1 CAPSULE BY MOUTH THREE TIMES DAILY active Not Available Not Available No t Available atorvastati n 40 mg tablet TAKE 1 TABLET BY MOUTH ONCE DAILY active Not Available Not Available No t Available promethazin e-DM 6.25 mg-15 mg/5 mL oral syrup TAKE 5 ML BY MOUTH EVERY 6 HOURS NEEDED FOR COUGH active Not Available Not Available No t Available azithromyci n 250 mg tablet TAKE 2 TABLETS BY MOUTH ON DAY 1, AND THEN TAKE 1 TABLET BY MOUTH ONCE A DAY ON DAY 2 THROUGH DAY 5 active Not Available Not Available No t Available ofloxacin 0.3 % eye drops INSTILL 1-2 DROPS INTO AFFECTED EYE(S) EVERY 2-4 HOURS FOR 2 DAYS, THEN 1-2 DROPS 4 TIMES A DAY ON DAYS 3-7 active Not Available Not Available No t Available prazosin 1 mg capsule TAKE 1 CAPSULE BY MOUTH AT BEDTIME NIGHTLY FOR PTSD active Not Available Not Available No t Available minocycline 100 mg capsule TAKE 1 CAPSULE BY MOUTH TWICE DAILY FOR 10 DAYS active Not Available Not Available No t Available prednisone 20 mg tablet TAKE 1 TABLET BY MOUTH TWICE DAILY FOR 4 DAYS active Not Available Not Available No t Available acetaminoph en 300 mg-codeine 30 mg tablet TAKE 1 TABLET BY MOUTH THREE TIMES DAILY NEEDED FOR PAIN FOR 3 DAYS 02/15 completed Not Available Not Available Not Available amlodipine 5 mg tablet TAKE 1 TABLET BY MOUTH ONCE DAILY active Not Available Not Available No t Available valacyclovi r 500 mg tablet TAKE 1 TABLET BY MOUTH TWICE DAILY FOR 5 DAYS active Not Available Not Available No t Available doxycycline monohydrate 100 mg tablet TAKE 1 TABLET BY MOUTH TWICE DAILY FOR 10 DAYS active Not Available Not Available No t Available tramadol 50 mg tablet TAKE 1 TABLET BY MOUTH THREE TIMES DAILY NEEDED FOR PAIN active Not Available Not Available No t Available bisoprolol fumarate 5 mg tablet TAKE 1 TABLET BY MOUTH ONCE DAILY active Not Available Not Available No t Available amoxicillin 875 mg tablet TAKE 1 TABLET BY MOUTH EVERY 12 HOURS active Not Available Not Available No t Available benzonatate 100 mg capsule TAKE 1 CAPSULE BY MOUTH THREE TIMES DAILY NEEDED FOR COUGH active Not Available Not Available No t Available hydrocortis one 1 % topical cream APPLY CREAM EXTERNALL Y TO AFFECTED AREA (RASH) TWICE DAILY active Not Available Not Available No t Available pantoprazol e 40 mg tablet,reuben yed release TAKE 1 TABLET BY MOUTH ONCE DAILY active Not Available Not Available No t Available hydroxyzine HCl 25 mg tablet TAKE 1 TABLET BY MOUTH AT BEDTIME FOR ANXIETY active Not Available Not Available No t Available methylpredn isolone 4 mg tablets in a dose pack TAKE BY MOUTH DIRECTED ON INSIDE OF PACKAGE active Not Available Not Available No t Available bromphenira mine-pseudo ephedrine-D M 2 mg-30 mg-10 mg/5 mL oral syrup TAKE 5 ML BY MOUTH EVERY 6 HOURS NEEDED FOR COUGH active Not Available Not Available No t Available ondansetron 4 mg disintegrat ing tablet DISSOLVE 1 TABLET IN MOUTH THREE TIMES DAILY NEEDED FOR NAUSEA FOR 3 DAYS active Not Available Not Available No t Available Ventolin HFA 90 mcg/actuati on aerosol inhaler INHALE 2 PUFFS BY MOUTH EVERY 6 HOURS NEEDED FOR SHORTNESS OF BREATH OR WHEEZING active Not Available Not Available No t Available cyclobenzap rine 5 mg tablet TAKE 1 TABLET BY MOUTH THREE TIMES DAILY NEEDED FOR MUSCLE SPASM active Not Available Not Available No t Available bupropion HCl XL 150 mg 24 hr tablet, extended release TAKE 1 TABLET BY MOUTH ONCE DAILY FOR MOOD active Not Available Not Available No t Available Vraylar 1.5 mg capsule TAKE 1 CAPSULE BY MOUTH ONCE DAILY active Not Available Not Available No t Available Vraylar 3 mg capsule TAKE 1 CAPSULE BY MOUTH ONCE DAILY FOR ANXIETY active Not Available Not Available No t Available Vitals Date Recorded Body weight Body mass index (BMI) Body height Body temperature Oxygen saturation Oxygen saturation in Arterial blood by Pulse oximetry Heart rate Systolic blood pressure Diastolic blood pressure Provider Name and Address Organization Details Last Updated DateTime 2 935312. 83 g 42.9 kg/m2 165.1 cm 97.7 [degF] 97 % 97 % 92 /min 126 mm[Hg] 88 mm[Hg] Radha LORA [facility] [place] 14:10:14 Social History Question Answer Notes LastModified by Organizat ion Details LastModified Time Tobacco Smoking Status Current Every Day Smoker Radha Gracia null, [facility] [place] 02/15/2022 15:38:37 How Much Tobacco Do You Smoke? 0.5 PPD [email or web address] Information not available 02/15/2022 Sex: Unknown Functional Status None recorded. Mental Status None recorded. Family History Relationship Description Onset Age of this Age Resolved Age Notes LastModified by Organization Details LastModified Time Father No current problems or disability [email or web address] Not available 02/15 15:37:56 Mother No current problems or disability [email or web address] Not available 02/15 15:37:56 Medical History Condition Response Depression Y Anxiety Disorder Y Acid Reflux (GERD) Y Hypertension Y Gynecological HistoryNo gynecological history recorded. Obstetrics History GPAL:G 0 P 0 0 0 0 Past Encounters Encounter ID Performer Location Encounter Start Date Encounter Closed Date Diagnosis/Indication Diagnosis SNOMED-CT Code Diagnosis ICD10 Code Diagnosis Note [id number] Nir Peoples MD [facility] is [address] [place] [address] [place] [phone] 02/15/2022 12:42:09 02/15/2022 14:14:16 Myofascial pain 757662043 M79.10 Spinal enthesopathy 1031 7009 M46.00 Lumbar spondylosis 16469 0009 M47.816 Marijuana user 028380553 F12.90 Health Concerns Section Related Observation LastModified by Organization Detai ls LastModified Time None Recorded Concern Status LastModified by Organization Details LastModified Time None Recorded Advance Directives Directive None Recorded Payers Insurance Date Sequence Insurance Name Policy Number Policy Springer Covered Member ID Springer Member ID Guarantor Name 07/29/2024 1 [employer] [facility] (MEDICAID HMO) Kya Merrill [id number] Kya Merrill Notes Date Note Type Note Provider Name and Address Organization Details Recorded Time 02/16/20 22 text/htm l Patient is a 31 year old female referred by [facility] for chronic pain management. The patient has been following with Dr. Nicholson, whom has performed numerous injections of the lumbar spine, SI joint, and hips. 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 The patient uses marijuana nightly. The patient participated in PT once per week for a few months without benefit or tolerability. The patient hasn't been to a chiropractor, but her PCP used to realign the spine. The patient presents to the clinic today upon referral for chronic pain management. The patient primarily complains of low back pain, which worsens with prolonged standing or walking. The patient states that the pain impedes ROM, thereby decreasing function. The patient states that her goal is to manage the pain. Today the pain level is a 5/10. Onset: 10+ years agoContext: WorseningCharacter: Sharp/acheLocation: Low back and BLEDuration: Constant with fluctuationsIntensity: 5/10Worse: ActivityBetter: Rest Associated symptoms: Denies saddle anaesthesia, denies acute bowel/bladder changes, denies acute power loss. ADLs: The patient's pain interferes with daily chores, exercise, sleep, relationships, and walking. Current Pain Medications: NonePrior Pain Medications: TramadolNSAIDS/OTC: Ineffective or intolerableNon-interventiona l Tx: PTPhysical Therapy: Completed previouslyInterventional Tx: Lumbar spine, SI joint, and hips.Surgery: NoneImaging/Studies: Lumbar MRI Nir Peoples MD [address] [facility], [place], [address], [facility] [place] [facility] [place] 02/17/2022 14:56:49 OBGyn Episode No OBEpisode recorded.
--- OUTSIDE RECORDS SUMMARY | 2024-08-19 14:38 | XMS_ITS | Continuity of Care Document ---
Author Organization [employer] [facility] Address [address] [place] [address] Assessment No assessment recorded. Plan of Treatment Reminders Order Date Submit Date Provider Last Modified By Organization Details Last Modified Time Details Appointments FOLLOW UP 2024 03:00P M Miley Aguilar PA-C Not available Not available Not available Lab None recorded . Referral None recorded . Procedures None recorded . Surgeries None recorded . Imaging None recorded . Medication Orders None recorded . Patient TargetsNo targets recorded. Patient Instructions Encounter Date Encounter Id Patient Instructions Last Modified By Organization Details Last Modified Time 08/03/2024 [id number] depression after childbirth: care instructions [email or web address] Not available 08/03/2024 15:53:35 depression treatment: care instructions [email or web address] Not available 08/03/2024 15:53:35 learning about depression during Not available 08/03/2024 15:53:35 When You Want to Lose Weight: Care Instructions [email or web address] Not available 08/03/2024 15:53:35 Reason for Referral None Reported. Problems Name Problem SNOMED Code Status Onset Date Resolution Date Notes Provider Name and Address Organization Details Recorded Time Gastroes ophageal reflux disease without esophagi tis 924411271 Active 2024 ANGELIC Valdes [address] [place] [address], [phone] , [employer] 15:53:14 Moderate major depressi on, single episode 89311536 Active 2024 ANGELIC Valdes [address] [place] [address], [phone] , [employer] 5 15:53:18 [facility] hyperten divya 08598099 Active 2024 ANGELIC Valdes [address] [place] [address], [phone] , [employer] 5 15:53:11 Herpes simplex 84849582 Active 2024 ANGELIC Valdes [address] [place] [address], [address] , [employer] 5 15:53:16 Morbid obesity 404584935 Active 2024 ANGELIC Valdes [address] [place] [address], [address] , [employer] 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 354027916 Active 2015 Not Available [facility] 2 21:32:14 Contrace ptive sheath status 766198727 Completed 201510/12/2015 Problem Code: Z30.431; Problem Code Type: ICD-10; Not Available [facility] 2 21:32:14 Surveill ance of subcutan eous contrace ptive implant Active 2018 Not Available [facility] 2 21:32:14 Postnata l care provider [id number] Completed 201403/03/2015 Not Available [facility] 2 21:32:15 Cervical intraepi thelial neoplasi a grade 1 778237766 Completed 201505/23/2015 Problem Code: 622.11; Problem Code Type: ICD-9; Not Available [facility] 2 21:32:15 Routine antenata l care Active 2014 Problem Code: V22.1; Problem Code Type: ICD-9; Not Available [facility] 2 21:32:15 Postpart um care Completed 201403/03/2015 Problem Code: V24.2; Problem Code Type: ICD-9; Not Available [facility] 2 21:32:15 Sampling of vagina for Papanico laou smear Active 2018 Problem Code: Z01.419; Problem Code Type: ICD-10; Not Available [facility] 21:32:16 Uses IUD (intraut erine device) contrace ption 604732037 Completed 201510/12/2015 Problem Code: V25.42; Problem Code Type: ICD-9; Not Available [facility] 2 21:32:16 Problem Notes None recorded. Procedures Surgical History Date Name Laterality Status Provider Name and Address Organization Details Recorded Time 07/07/19 Date of Last Pap Smear completed [email or web address] 08/03/2024 13:10:43 12/07/19 19 cholecystectomy completed Not Available [facility] 11/03/2021 22:56:12 Tubal Ligation completed [employer] 07/16/2024 14:20:04 Cardiac Surgery completed [email or web address] 07/16/2024 14:20:04 Gallbladder Surgery completed [email or web address] 07/16/2024 14:20:04 Imaging Results None recorded. Procedure Notes None recorded. Medical Equipment None Reported. Allergies Allergen ID Allergen Name Allergen Category Reaction Reaction Severity Criticality Documentation Date Start Date Code Code System Note Provider Name and Address Organization Details Recorded Time 48924 ibuprofen medicatio n nausea Not available Not available 11/03/2021 5640 RxNorm Not Available [facility] 2 22:57:11 79239 Product containin g penicilli n (product) medicatio n itching nausea rash Not available Not available Not available Not available 07/16/2024 28807 8001 SNOMED [employer] 14:20:03 26923 amoxicill in medicatio n Not available Not available Not available 07/16/2024 723 RxNorm [employer] 14:23:14 Medications Name Sig Start Date Stop Date Status Note LastModified by Organization Details LastModified Time Mirena 21 mcg/24 hr (up to 8 years) 52 mg intrauterin e device 12/06 completed Not Available Not Available Not Available Prozac 40 mg capsule take 1 capsule (40 mg) by oral route 2 times per day in the morning and at noon 07/16 completed Not Available Not Available Not Available valacyclovi r 1 gram tablet TAKE 1 TABLET BY MOUTH EVERY 12 HOURS FOR 10 DAYS active Not Available Not Available No t Available ondansetron HCl 4 mg tablet TAKE 1 TABLET BY MOUTH EVERY 6 HOURS NEEDED FOR NAUSEA AND VOMITING active Not Available Not Available No t Available prednisone 20 mg tablet TAKE 1 TABLET BY MOUTH TWICE DAILY ADMINISTE R WITH FOOD OR MILK 07/16 completed Not Available Not Available Not Available lidocaine HCl 2 % mucosal jelly Take 1 applicati on 3 times a day by mucous route as needed for 10 days, for pain. 08/03 completed Not Available Not Available Not Available bisoprolol fumarate 5 mg tablet TAKE 1 TABLET BY MOUTH ONCE DAILY active Not Available Not Available No t Available bupropion HCl 100 mg tablet TAKE 1 TABLET BY MOUTH ONCE DAILY FOR 90 DAYS active Not Available Not Available No t Available famotidine 20 mg tablet TAKE 1 TABLET BY MOUTH EVERY 12 HOURS FOR 5 DAYS 07/16 completed Not Available Not Available Not Available Zoloft 50 mg tablet Take 1 tablet(s) by mouth daily 12/06 completed Not Available Not Available Not Available promethazin e 25 mg tablet TAKE 1 TABLET BY MOUTH EVERY 4 HOURS NEEDED active Not Available Not Available No t Available omeprazole 20 mg capsule,del ayed release TAKE 1 CAPSULE BY MOUTH ONCE DAILY FOR 90 DAYS active Not Available Not Available No t Available hydroxyzine HCl 25 mg tablet TAKE 1 TABLET BY MOUTH EVERY 6 HOURS NEEDED 07/16 completed Not Available Not Available Not Available methylpredn isolone 4 mg tablets in a dose pack TAKE TABLETS BY MOUTH DAILY DIRECTED ON PACKAGE FOR 6 DAYS 07/16 completed Not Available Not Available Not Available Percocet 5 mg-325 mg tablet One tablet twice a day as needed for severe pain. 12/06 completed Not Available Not Available Not Available Rx 60 mg iron-1 mg tablet Take 1 tablet(s) by mouth daily 05/14 completed Not Available Not Available Not Available amoxicillin 02/17 completed Not Available Not Available Not Available [place] 250 mg/mL intramuscul ar oil Inject 1 ml intramusc ularly q week slowly in the gluteus jen as directed. 02/17 completed Not Available Not Available Not Available Vraylar 1.5 mg capsule TAKE 1 CAPSULE BY MOUTH ONCE DAILY active Not Available Not Available No t Available Vraylar 4.5 mg capsule Take 1 capsule every day by oral route. 08/03 completed Not Available Not Available Not Available Vitals Date Recorded Body height Body mass index (BMI) Body weight Oxygen saturation Oxygen saturation in Arterial blood by Pulse oximetry Heart rate Body temperature Systolic blood pressure Diastolic blood pressure Provider Name and Address Organization Details Last Updated DateTime 5 158.75 cm 49 kg/m2 212160. 12 g 96 % 96 % 98 /min 98.4 [degF] 108 mm[Hg] 74 mm[Hg] [facility] [employer] [facility]. 5 13:14:30 Social History Question Answer Notes LastModified by Organization Details LastModified Time Tobacco Smoking Status Current Every Day Smoker SocialHisto ryQuestion: 'Tobacco/Al cohol/Suppl ements'; SocialHisto ryResponse: 'Current Everyday Smoker'; Not Available [facility] 11/03/2021 22:58:36 Do You Have An Advance Directive? No Information not available 07/16/2024 Is Your Home Air Conditioned? Yes Information not available 07/16/2024 If You Are , What Was Your Level Of Alcohol Consumption Prior To ? None Information not available 07/16/2024 Do You Wear A Helmet When Biking? No Information not available 07/16/2024 Are You Blind Or Do You Have Difficulty Seeing? Yes Information not available 07/16/2024 What Is Your Level Of Caffeine Consumption? Heavy Information not available 07/16/2024 What Type Of Golf Club Repairer Do You Use? Relative Information not available 07/16/2024 Have You Been To An Area Known To Be High Risk For COVID-19? No Information not available 07/16/2024 Are You Deaf Or Do You Have Serious Difficulty Hearing? No Information not available 07/16/2024 What Type Of Diet Are You Following? REGULAR Information not available 07/16/2024 Which Illicit Or Recreational Drugs Have You Used? Marijuana Information not available 07/16/2024 What Is The Highest Grade Or Level Of School You Have Completed Or The Highest Degree You Have Received? [id number] Information not available 07/16/2024 Who Is Your Employer? [employer] Information not available 07/16/2024 How Many Days Of Moderate To Strenuous Exercise, Like A Brisk Walk, Did You Do In The Last 7 Days? 2 Information not available 07/16/2024 Have There Been Any Changes To Your Family Or Social Situation? No Information not available 07/16/2024 Are There Any Guns Present In Your Home? No Information not available 07/16/2024 Which Of Your Hands Is Dominant? Right Information not available 07/16/2024 What Is Your Home Situation? Other Information not available 07/16/2024 How Many Years Have You Used Illicit Or Recreational Drugs? 16 Information not available 07/16/2024 Do You Have A Medical Power Of Compensation And Benefits Analyst? No Information not available 07/16/2024 What Was The Date Of Your Most Recent Tobacco Screening? 08/03/2024 Information not available 08/03/2024 Are There Any Occupational Health Risks Where You Work? Na Information not available 07/16/2024 Do You Have Any Pets? No Information not available 07/16/2024 Do You Use Protection During Sex? No Information not available 07/16/2024 What Is Your Relationship Status? Information not available 07/16/2024 Have You Repeated Any Grades? No Information not available 07/16/2024 Do You Use Your Seat Belt Or Car Seat Routinely? No Information not available 07/16/2024 Are You Sexually Active? Yes Information not available 07/16/2024 Do You Have Any Siblings? 5 Information not available 07/16/2024 Do You Have Smoke And Carbon Monoxide Detectors In Your Home? Yes Information not available 07/16/2024 At What Age Did You Start Smoking Tobacco? 15 Information not available 07/16/2024 Are You Passively Exposed To Smoke? Yes Information not available 07/16/2024 Are There Any Smokers In Your House? Yes Information not available 07/16/2024 How Much Tobacco Do You Smoke? 0.5 PPD Information not available 07/16/2024 Do You Participate In Social Media? Yes Information not available 07/16/2024 What Types Of Sporting Activities Do You Participate In? Na Information not available 07/16/2024 Do You Use Sunscreen Routinely? No Information not available 07/16/2024 Has Tobacco Cessation Counseling Been Provided? Yes Information not available 07/16/2024 On What Date Was Tobacco Cessation Counseling Provided? 08/03/2024 Information not available 08/03/2024 How Many Years Have You Smoked Tobacco? 16 Information not available 07/16/2024 Have You Recently Traveled Abroad? No Information not available 07/16/2024 Do You Have Difficulty Walking Or Climbing Stairs? No Information not available 07/16/2024 Are You Currently In School? No Information not available 07/16/2024 What Contraceptive Method Was Reported At Start Of This Visit? Female Sterilization Information not available 07/16/2024 Do You Have Any Dietary Restrictions? No Information not available 07/16/2024 Sex: Unknown Functional Status Question Answer Note LastModified by Organizat ion Details LastModified Time Do you use any illicit or recreational drugs? Yes Information not available 07/16/2024 Do you or have you ever used any other forms of tobacco or nicotine? No Information not available 07/16/2024 What is your level of alcohol consumption? None Information not available 07/16/2024 Are you currently employed? Yes Information not available 07/16/2024 Do you have transportation difficulties? No Information not available 07/16/2024 Are you able to walk? [employer] Information not available 07/16/2024 Do you have difficulty doing errands alone? No Information not available 07/16/2024 Are you able to care for yourself? Yes Information n ot available 07/16/2024 Do you have difficulty dressing or bathing? No Information not available 07/16/2024 What is your exercise level? Occasional Information not available 07/16/2024 Mental Status Question Answer Note LastModified by Organizat ion Details LastModified Time Do you feel stressed (tense, restless, nervous, or anxious, or unable to sleep at night)? [id number] Information not available 07/16/2024 Do you have difficulty concentrating, remembering or making decisions? Yes Information no t available 07/16/2024 Are you or have you been involved with bullying? No Information not available 07/16/2024 Family History Relationship Description Onset Age of this Age Resolved Age Notes LastModified by Organization Details LastModified Time Unspecified Relation Family history of Respiratory disease Relati ve: ''; [email or web address] Not available 11/03/2021 23:02:23 Unspecified Relation Family history of Hypertension Relati ve: ''; [email or web address] Not available 11/03/2021 23:02:24 Unspecified Relation Family history of malignant neoplasm Relati ve: ''; [email or web address] Not available 11/03/2021 23:02:24 Unspecified Relation Family history of diabetes mellitus type 2 Relati ve: ''; [email or web address] Not available 11/03/2021 23:02:24 Notes:*Procedure Description : Documented family medical history in father*Relative: Father *Procedure Description: Documented family medical history in sister*Relative: Sister Medical History Condition Response Anxiety Disorder Y Allergies (Food, seasonal, environmental ) Y Obesity Y Vision or Eye Problems Y Arthritis Y Acid Reflux (GERD) Y Asthma Y Depression Y ADD/ADHD Y High Cholesterol Y Hypertension Y Gynecological History Statement/Question Response Abnormal Pap Y Flow Heavy Date of LMP 07/09/2024 HPV Vaccine Y Duration of Flow (days) 5 To 8 Most Recent Mammogram Current Control Method Tubal Ligat ion Age at Menarche 14 Age at First Child 19 Sexually Active? Y Menses Monthly Y Date of Last Pap Smear 07/06/2022 LMP Approximate Desired Control Method Other Obstetrics History GPAL:G 5 P 2 2 3 4 Type Value Multiple Births 0 Full Term 2 Induced 0 Spontaneous 3 Premature 2 Living 4 Ectopics 0 Total 5 Immunizations Vaccine Type Date Status Note Provider Nam e and Address Organization Details Recorded Time DTP 6 completed Not Available [facility] 08/03/2024 13:02:27 MMR 6 completed Not Available [facility] 08/03/2024 13:02:27 OPV 6 completed Not Available [facility] 08/03/2024 13:02:27 Td (adult), 2 Lf tetanus toxoid, preservative free, adsorbed 3 completed Not Available [facility] 08/03/2024 13:02:27 Hep B, adolescent or pediatric 3 completed Not Available [facility] 08/03/2024 13:02:27 Hep B, adolescent or pediatric 3 completed Not Available [facility] 08/03/2024 13:02:27 Hep B, adolescent or pediatric 3 completed Not Available [facility] 08/03/2024 13:02:27 HPV, quadrivalent 7 completed Not Available [facility] 08/03/2024 13:02:27 HPV, quadrivalent 7 completed Not Available [facility] 08/03/2024 13:02:27 HPV, quadrivalent 7 completed Not Available [facility] 08/03/2024 13:02:27 Influenza, split virus, quadrivalent, PF 8 completed Not Available [facility] 08/03/2024 13:02:27 Hep A, adult 9 completed Not Available [facility] 08/03/2024 13:02:27 COVID-19, mRNA, LNP-S, PF, 100 mcg/0.5mL dose or 50 mcg/0.25mL dose 1 completed Not Available [facility] 08/03/2024 13:02:27 COVID-19, mRNA, LNP-S, PF, 100 mcg/0.5mL dose or 50 mcg/0.25mL dose 1 completed Not Available [facility] 08/03/2024 13:02:27 Influenza, split virus, quadrivalent, PF 1 completed Not Available [facility] 08/03/2024 13:02:27 Past Encounters Encounter ID Performer Location Encounter Start Date Encounter Closed Date Diagnosis/Indication Diagnosis SNOMED-CT Code Diagnosis ICD10 Code Diagnosis Note [id number] ANGELIC Valdes [facility] [address] [place] [phone] 07/16/2024 13:51:14 07/16/2024 14:40:10 Gastroesophageal reflux disease without esophagitis 456175786 K21.9 Moderate m ajor depression, single episode 41468684 F32.1 Essential hypertension 98118328 I10 Body mass index 40+ - severely obese 534925290 Z68.42 [id number] ANGELIC Valdes [facility] [address] [place] [address] 08/03/2024 13:01:45 08/03/2024 13:27:28 Morbid obesity 540660768 E66.01 log calories X 1 month Moderate m ajor depression, single episode 91987426 F32.1 Health Concerns Section Related Observation LastModified by Organization Detai ls LastModified Time None Recorded Concern Status LastModified by Organization Details LastModified Time None Recorded Payers Encounter Date Sequence Insurance Name Policy Number Policy Springer Covered Member ID Springer Member ID Guarantor Name 08/03/2024 1 [facility] (MEDICAID HMO) Kya Merrill [id number] Kya Merrill Notes Date Note Type Note Provider Name and Address Organization Details Recorded Time 08/03/2024 text/html Patient presents for followup. She recently restarted Vraylar and Wellbutrin. States they are working fine when she remembers to take them.She would like to discuss options for weight loss. ANGELIC Valdes [address] [place] [address], [phone], [facility] [employer] 08/03/2024 15:56:20 OBGyn Episode No OBEpisode recorded.
[2024-08-19 14:39] LABS: Microscopic, Urine URINE MICROSCOPIC (MICROSCOPIC)
--- OUTSIDE RECORDS SUMMARY | 2024-08-19 14:40 | XMS_ITS | Data Portability ---
Author Organization [employer], [facility] Address [address] [place] [address] Assessment No assessment recorded. Plan of Treatment Reminders Order Date Submit Date Provider Last Modified By Organization Details Last Modified Time Details Appointments FOLLOW UP 2024 03:00P M Miley Aguilar PA-C Not available Not available Not available Lab None recorded. Referral None recorded. Procedures None recorded. Surgeries None recorded. Imaging None recorded. Medication Orders bupropion HCl 100 mg tablet 2024 025 [facility], [address] [place] [address], [address], 07/16/2024 14:41:22 Vraylar 1.5 mg capsule 2024 025 [facility], [address] [place], [address], 07/16/2024 14:41:22 omeprazol e 20 mg capsule,d elayed release 2024 025 [facility], [address] [place], [address], 07/16/2024 14:41:24 bisoprolo l fumarate 5 mg tablet 2024 025 [facility], [address] [place], [address], 07/16/2024 14:41:20 Patient TargetsNo targets recorded. Patient Instructions Encounter Date Encounter Id Patient Instructions Last Modified By Organization Details Last Modified Time 07/16/2024 [id number] body mass index: care instructions [email or web address] Not available 07/16/2024 16:21:41 learning about healthy weight [email or web address] Not available 07/16/2024 16:21:41 high blood pressure: care instructions [email or web address] Not available 07/16/2024 14:41:15 learning about high blood pressure [email or web address] Not available 07/16/2024 14:41:15 08/03/2024 [id number] depression after childbirth: care instructions [email or web address] Not available 08/03/2024 15:53:35 depression treatment: care instructions Not available 08/03/2024 15:53:35 learning about depression during Not available 08/03/2024 15:53:35 When You Want to Lose Weight: Care Instructions [email or web address] Not available 08/03/2024 15:53:35 Reason for Referral None Reported. Problems Name Problem SNOMED Code Status Onset Date Resolution Date Notes Provider Name and Address Organization Details Recorded Time Gastroes ophageal reflux disease without esophagi tis 921323301 Active 2024 ANGELIC Valdes [address] [place] [address], [address] , [employer] 15:53:14 Moderate major depressi on, single episode 10446479 Active 2024 ANGELIC Valdes [address] [place] [address], [address] , [employer] 15:53:18 Essentia l hyperten divya 41521731 Active 2024 ANGELIC Valdes [address] [place] [address], [address] , [employer] 15:53:11 Herpes simplex 23273410 Active 2024 ANGELIC Valdes [address] [place] [address], [address] , [employer] 15:53:16 Morbid obesity 331176074 Active 2024 ANGELIC Valdes [address] [place] [address], [address] , [place] [employer]. 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 900797909 Active 2015 Not Available [facility] 2 21:32:14 Contrace ptive sheath status 630550835 Completed 201510/12/2015 Problem Code: Z30.431; Problem Code Type: ICD-10; Not Available [facility] 2 21:32:14 Surveill ance of subcutan eous contrace ptive implant Active 2018 Not Available [facility] 2 21:32:14 Postnata l care provider [id number] Completed 201403/03/2015 Not Available [facility] 2 21:32:15 Cervical intraepi thelial neoplasi a grade 1 591722067 Completed 201505/23/2015 Problem Code: 622.11; Problem Code Type: ICD-9; Not Available [facility] 2 21:32:15 Routine antenata l care Active 2014 Problem Code: V22.1; Problem Code Type: ICD-9; Not Available [facility] 2 21:32:15 Postpart um care Completed 201403/03/2015 Problem Code: V24.2; Problem Code Type: ICD-9; Not Available [facility] 2 21:32:15 Sampling of vagina for Papanico laou smear Active 2018 Problem Code: Z01.419; Problem Code Type: ICD-10; Not Available [facility] 21:32:16 Uses IUD (intraut erine device) contrace ption 785022582 Completed 201510/12/2015 Problem Code: V25.42; Problem Code Type: ICD-9; Not Available [facility] 21:32:16 Problem Notes None recorded. Procedures Surgical History Date Name Laterality Status Provider Name and Address Organization Details Recorded Time 07/07/19 Date of Last Pap Smear completed Nicky [facility] [employer]. 08/03/2024 13:10:43 10/09/20 19 cholecystectomy completed Not Available [facility] 11/03/2021 22:56:12 Tubal Ligation completed [employer] 07/16/2024 14:20:04 Cardiac Surgery completed [employer] 07/16/2024 14:20:04 Gallbladder Surgery completed [employer] 07/16/2024 14:20:04 Imaging Results None recorded. Procedure Notes None recorded. Medical Equipment None Reported. Allergies Allergen ID Allergen Name Allergen Category Reaction Reaction Severity Criticality Documentation Date Start Date Code Code System Note Provider Name and Address Organization Details Recorded Time 83986 ibuprofen medicatio n nausea Not available Not available 11/03/2021 5640 RxNorm Not Available [facility] 22:57:11 55075 Product containin g penicilli n (product) medicatio n itching nausea rash Not available Not available Not available Not available 07/16/2024 91952 8001 SNOMED [email or web address], [employer] 14:20:03 78476 amoxicill in medicatio n Not available Not available Not available 07/16/2024 723 RxNorm [email or web address] 14:23:14 Medications Name Sig Start Date Stop [...] completed Not Available Not Available Not Available Ferrelview 250 mg/mL intramuscul ar oil Inject 1 [...] Available Not Available Vitals Date Recorded Body weight Body mass index (BMI) Body height Oxygen saturation Oxygen saturation in Arterial blood by Pulse oximetry Heart rate Body temperature Systolic blood pressure Diastolic blood pressure Provider Name and Address Organization Details Last Updated DateTime 5 525223. 53 g 48.8 kg/m2 158.75 cm 97 % 97 % 96 /min 98.1 [degF] 110 mm[Hg] 78 mm[Hg] [employer] 14:22:41 Date Recorded Body height Body mass index (BMI) Body weight Oxygen saturation Oxygen saturation in Arterial blood by Pulse oximetry Heart rate Body temperature Systolic blood pressure Diastolic blood pressure Provider Name and Address Organization Details Last Updated DateTime 5 158.75 cm 49 kg/m2 534193. 12 g 96 % 96 % 98 /min 98.4 [degF] 108 mm[Hg] 74 mm[Hg] [employer] 13:14:30 Social History Question Answer Notes LastModified by Organization Details LastModified Time Tobacco Smoking Status Current Every Day Smoker SocialHisto ryQuestion: 'Tobacco/Al cohol/Suppl ements'; SocialHisto ryResponse: 'Current Everyday Smoker'; Not Available [facility] 11/03/2021 22:58:36 Do You Have An [...] Information not available 07/16/2024 What Type Of Endless Bed Drum Sander Do You Use? Relative Information not available [...] Or The Highest Degree You Have Received? [id number] Information not available 07/16/2024 Who Is Your [...] Do You Have A Medical Power Of Marine Pipe Welder? No Information not available 07/16/2024 What Was [...] anxious, or unable to sleep at night)? [id number] Information not available 07/16/2024 Do you have [...] in sister*Relative: Sister Medical History Condition Response ADD/ADHD Y Anxiety Disorder Y Allergies (Food, seasonal, environmental ) Y Obesity Y Vision or Eye Problems Y Arthritis Y High Cholesterol Y Acid Reflux (GERD) Y Hypertension Y Asthma Y Depression Y Gynecological History Statement/Question Response Abnormal Pap [...] Recorded Time DTP 6 completed Not Available [facility] 08/03/2024 13:02:27 MMR 6 completed Not Available [facility] 08/03/2024 13:02:27 OPV 6 completed Not Available [facility] 08/03/2024 13:02:27 Td (adult), 2 Lf tetanus toxoid, preservative free, adsorbed 3 completed Not Available [facility] 08/03/2024 13:02:27 Hep B, adolescent or pediatric 3 completed Not Available [facility] 08/03/2024 13:02:27 Hep B, adolescent or pediatric 3 completed Not Available [facility] 08/03/2024 13:02:27 Hep B, adolescent or pediatric 3 completed Not Available [facility] 08/03/2024 13:02:27 HPV, quadrivalent 7 completed Not Available [facility] 08/03/2024 13:02:27 HPV, quadrivalent 7 completed Not Available [facility] 08/03/2024 13:02:27 HPV, quadrivalent 7 completed Not Available [facility] 08/03/2024 13:02:27 Influenza, split virus, quadrivalent, PF 8 completed Not Available [facility] 08/03/2024 13:02:27 Hep A, adult 9 completed Not Available [facility] 08/03/2024 13:02:27 COVID-19, mRNA, LNP-S, PF, 100 mcg/0.5mL dose or 50 mcg/0.25mL dose 1 completed Not Available [facility] 08/03/2024 13:02:27 COVID-19, mRNA, LNP-S, PF, 100 mcg/0.5mL dose or 50 mcg/0.25mL dose 1 completed Not Available [facility] 08/03/2024 13:02:27 Influenza, split virus, quadrivalent, PF 1 completed Not Available [facility] 08/03/2024 13:02:27 Past Encounters Encounter ID Performer Location Encounter Start Date Encounter Closed Date Diagnosis/Indication Diagnosis SNOMED-CT Code Diagnosis ICD10 Code Diagnosis Note [id number] ANGELIC Valdes [facility] [address] [facility] [place] [address] 07/16/2024 13:51:14 07/16/2024 14:40:10 Gastroesophageal reflux disease without esophagitis 794520441 K21.9 Moderate m ajor depression, single episode 05489158 F32.1 Essential hypertension 39971996 I10 Body mass index 40+ - severely obese 169579289 Z68.42 [id number] ANGELIC Valdes [facility] [address] [facility] [place] [address] 08/03/2024 13:01:45 08/03/2024 13:27:28 Morbid obesity 927696773 E66.01 log calories X 1 month Moderate m ajor depression, single episode 21432022 F32.1 Health Concerns Section Related Observation LastModified by Organization Detai ls LastModified Time None Recorded Concern Status LastModified by Organization Details LastModified Time None Recorded Advance Directives Directive N: Payers Insurance Date Sequence Insurance Name Policy Number Policy Springer Covered Member ID Springer Member ID Guarantor Name 08/06/[address] [facility] (MEDICAID HMO) Kya Merrill [id number] Kya Merrill Notes Date Note Type Note Provider Name and Address Organization Details Recorded Time 07/16/2024 text/html Patient presents to establish care at [facility].History HTN, depression, GERD. Needs to restart meds. ANGELIC Valdes [address] [place], [address], [employer] 07/16/2024 16:28:11 08/03/2024 text/html Patient presents for followup. She recently restarted Vraylar and Wellbutrin. States they are working fine when she remembers to take them.She would like to discuss options for weight loss. ANGELIC Valdes [address] [place], [address], [employer] 08/03/2024 15:56:20 OBGyn Episode No OBEpisode recorded.
--- OUTSIDE RECORDS SUMMARY | 2024-08-19 14:40 | XMS_ITS | Clinical Summary ---
Author Organization Healthcare Address [address] [place] [address] Care Team Providers Care Talent Sourcer Name Role Phone Epi Ugo Myla DO Primary Care Provider [phone] Allergies Active Allergy Reactions Criticality Noted Date Comments Ibuprofen Hives,Unknown - Orquidea ent states they do not know rxn details Medium 05/14/2009 Medications * This document contains information received from the source organization and may not represent a complete record from that organization. omeprazole (PriLOSEC) [address] capsule 03/06/2020 Active valACYclovir (Valtrex) 1 g tablet Take 1,000 mg by mouth 2 (two) times a day. 06/26/2020 Active emtricitabine-ten ofovir disoproxil fumarate (Truvada) 200-300 MG tabletIndications :High risk heterosexual behavior Take 1 tablet by mouth 1 (one) time each day. 30 tablet 2 12/12/2020 Active Immunizations Immunization Administration Dates Next Due Hep A, Unspecified 02/16/2019 Hep B, adult 10/12/2002,05/11/2002,04/09/2002 Influenza, Unspecified 03/06/2020 Influenza, injectable, quadr ivalent, preservative free 12/04/2020 Influenza, seasonal, injectable 11/24/2014 MMR 10/21/1995 Tdap 03/06/2020 Family History Medical History Relation Name Comments Hyperlipidemia Father Hypertension Father Hypertension Mother Relation Name Status Comments Father Mother Social History Tobacco Use Types Packs/Day Years Used Date Smoking Tobacco: Every Day Smokeless Tobacco: Never Alcohol Use Standard Drinks/Week Comments No 0 (1 standard drink = 0.6 oz pur e alcohol) Comments Unknown Sex and Gender Information Value Date Recorded Sex Assigned at Not on file Legal Sex Female 8:16 PM EDT Gender Identity Not on file Sexual Orientation Not on file Last Filed Vital Signs Vital Sign Reading Time Taken Comments Blood Pressure 117/83 12/04/2020 1:02 PM EDT Pulse 97 12/04/2020 1:02 PM EDT Temperature 36.6 C (97.8 F) 12/04/2020 1:02 PM EDT Respiratory Rate - - Oxygen Saturation 97% 12/04/2020 1:02 PM EDT Inhaled Oxygen Concentration - - Weight 117 kg (257 lb 4.8 oz) 12/04/2020 1:02 PM EDT Height 157.5 cm (5' 2 ) 09/17/2013 2:18 PM EDT Body Mass Index 47.06 09/17/2013 2:18 PM EDT Plan of Treatment Health Maintenance Due Date Last Done Comments [facility]-Depression Screening 1991 [facility]-/Child/Adol SDOH Screenings 1991 [facility]-Varicella Vaccines (1 of 2 - 13+ 2-dose series) 07/19/2004 [facility]- SDOH Screenings 07/19/2009 [facility]-Adult SDOH Screenings 07/19/2009 [facility]-Pap Smear 07/19/2012 [facility]-Cervical Cancer Screening 07/19/2021 [facility]-HPV/Cotest 07/19/2021 JAP-DDLED-23 Vaccine (3 - 2023- season) 2023 10/23/2020, 03/21/2020 [facility]-Influenza Vaccine (Season Ended) 2024 12/04/2020, 03/06/2020, 12/13/2017, Additional history exists [facility]-DTaP,Tdap,and Td Vaccines (3 - Td or Tdap) 03/06/2030 03/06/2020, 04/09/2002 [facility]-Zoster Vaccines (1 of 2) 07/19/2041 [facility]-Hepatitis B Vaccines Completed 003, 05/11/2002, 04/09/2002 HPV Vaccines Completed 01/10/2007, 08/28, 07/08/2006 [facility]-Hepatitis A Vaccines Aged Out 02/16/2019 No longer eligible based on patient's age to complete this topic [facility]-HIB Vaccines Aged Out No longer e ligible based on patient's age to complete this topic [facility]-IPV Vaccines Aged Out No longer e ligible based on patient's age to complete this topic [facility]-Pneumococcal Vaccine: Pediatrics (0 to 5 Years) and At-Risk Patients (6 to 49 Years) Aged Out No longer eligible based on patient's age to complete this topic [facility]-Rotavirus Vaccines Aged Out No lo nger eligible based on patient's age to complete this topic Insurance [employer]ICA[employer] Care Teams Talent Sourcer Relationship Specialty Start Date End Date Ugo Chowdary DO [address] [place] [id number] PCP - General 07/11/20
--- OUTSIDE RECORDS SUMMARY | 2024-08-19 14:40 | XMS_ITS | Continuity of Care Document ---
Author Organization [place], [facility] Address [address] [place] [address] Assessment No assessment recorded. Plan of Treatment Reminders Order Date Submit Date Provider Last Modified By Organization Details Last Modified Time Details Appointments FOLLOW UP 2024 03:00P Myla Aguilar PA-C Not available Not available Not available Lab None recorded. Referral None recorded. Procedures None recorded. Surgeries None recorded. Imaging None recorded. Medication Orders bupropion HCl 100 mg tablet 2024 025 [facility] [address], [address] [place] [address], [address], 07/16/2024 14:41:22 Vraylar 1.5 mg capsule 2024 025 [facility] [address], [address] [place], [address], 07/16/2024 14:41:22 omeprazol e 20 mg capsule,d elayed release 2024 025 [facility] [address], [address] [place], [address], 07/16/2024 14:41:24 bisoprolo l fumarate 5 mg tablet 2024 025 [facility] [address] [place], [address], 07/16/2024 14:41:20 Patient TargetsNo targets recorded. Patient Instructions Encounter Date Encounter Id Patient Instructions Last Modified By Organization Details Last Modified Time 07/16/2024 [id number] body mass index: care instructions [email or web address] Not available 07/16/2024 16:21:41 learning about healthy weight [email or web address] Not available 07/16/2024 16:21:41 high blood pressure: care instructions [email or web address] Not available 07/16/2024 14:41:15 learning about high blood pressure [email or web address] Not available 07/16/2024 14:41:15 Reason for Referral None Reported. Problems Name Problem SNOMED Code Status Onset Date Resolution Date Notes Provider Name and Address Organization Details Recorded Time Gastroes ophageal reflux disease without esophagi tis 137344712 Active 2024 ANGELIC Valdes [address] [place] [address], [address] [place] [address] , [employer] 15:53:14 Moderate major depressi on, single episode 48192908 Active 2024 ANGELIC Valdes [address] [place] [address], [address] [place] [address] , [employer] 15:53:18 [facility] hyperten divya 68874776 Active 2024 ANGELIC Valdes [address] [place] [address], [address] [place] [address] , [employer] 15:53:11 Herpes simplex 87118547 Active 2024 ANGELIC Valdes [address] [place] [address], [address] [place] [address] , [employer] 15:53:16 Morbid obesity 373694169 Active 2024 ANGELIC Valdes [address] [place] [address], [address] [place] [address] , [employer] 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 192073755 Active 2015 Not Available [employer] 2 21:32:14 Contrace ptive sheath status 663717337 Completed 201510/12/2015 Problem Code: Z30.431; Problem Code Type: ICD-10; Not Available [facility] 2 21:32:14 Surveill ance of subcutan eous contrace ptive implant Active 2018 Not Available [facility] 21:32:14 Postnata l care provider [id number] Completed 201403/03/2015 Not Available [facility] 21:32:15 Cervical intraepi thelial neoplasi a grade 1 043866149 Completed 201505/23/2015 Problem Code: 622.11; Problem Code Type: ICD-9; Not Available [facility] 21:32:15 Routine antenata l care Active 2014 Problem Code: V22.1; Problem Code Type: ICD-9; Not Available [facility] 21:32:15 Postpart um care Completed 201403/03/2015 Problem Code: V24.2; Problem Code Type: ICD-9; Not Available [facility] 21:32:15 Sampling of vagina for Papanico laou smear Active 2018 Problem Code: Z01.419; Problem Code Type: ICD-10; Not Available [facility] 21:32:16 Uses IUD (intraut erine device) contrace ption 645869386 Completed 201510/12/2015 Problem Code: V25.42; Problem Code Type: ICD-9; Not Available [facility] 21:32:16 Problem Notes None recorded. Procedures Surgical History Date Name Laterality Status Provider Name and Address Organization Details Recorded Time 07/07/19 23 Date of Last Pap Smear completed [employer]. 08/03/2024 13:10:43 12/07/19 19 cholecystectomy completed Not Available [facility] 11/03/2021 22:56:12 Tubal Ligation completed [employer] 07/16/2024 14:20:04 Cardiac Surgery completed [employer]. 07/16/2024 14:20:04 Gallbladder Surgery completed [employer]. 07/16/2024 14:20:04 Imaging Results None recorded. Procedure Notes None recorded. Medical Equipment None Reported. Allergies Allergen ID Allergen Name Allergen Category Reaction Reaction Severity Criticality Documentation Date Start Date Code Code System Note Provider Name and Address Organization Details Recorded Time 75202 ibuprofen medicatio n nausea Not available Not available 11/03/2021 5640 RxNorm Not Available [facility] 2 22:57:11 23179 Product containin g penicilli n (product) medicatio n itching nausea rash Not available Not available Not available Not available 07/16/2024 06439 8001 SNOMED Nicky Vice null, [employer]. 5 14:20:03 07589 amoxicill in medicatio n Not available Not available Not available 07/16/2024 723 RxNorm Nicky Vice null, [employer] 5 14:23:14 Medications Name Sig Start Date Stop [...] completed Not Available Not Available Not Available Anastasia 250 mg/mL intramuscul ar oil Inject 1 [...] Address Organization Details Last Updated DateTime 5 884311. 53 g 48.8 kg/m2 158.75 cm 97 % 97 % 96 /min 98.1 [degF] 110 mm[Hg] 78 mm[Hg] [facility], [facility]. 5 14:22:41 Social History Question Answer Notes LastModified by Organization Details LastModified Time Tobacco Smoking Status Current Every Day Smoker SocialHisto ryQuestion: 'Tobacco/Al cohol/Suppl ements'; SocialHisto ryResponse: 'Current Everyday Smoker'; Not Available [facility] 11/03/2021 22:58:36 Do You Have [...] Information not available 07/16/2024 What Type Of Hotel Security Officer Do You Use? Relative Information not available [...] Or The Highest Degree You Have Received? [id number] Information not available 07/16/2024 Who Is Your [...] Do You Have A Medical Power Of Practice Architect? No Information not available 07/16/2024 What Was [...] anxious, or unable to sleep at night)? [id number] Information not available 07/16/2024 Do you have [...] Y Arthritis Y Acid Reflux (GERD) Y Depression Y Asthma Y ADD/ADHD Y High Cholesterol Y Hypertension [...] Recorded Time DTP 6 completed Not Available [facility] 08/03/2024 13:02:27 MMR 6 completed Not Available [facility] 08/03/2024 13:02:27 OPV 6 completed Not Available [facility] 08/03/2024 13:02:27 Td (adult), 2 Lf tetanus toxoid, preservative free, adsorbed 3 completed Not Available [facility] 08/03/2024 13:02:27 Hep B, adolescent or pediatric 3 completed Not Available [facility] 08/03/2024 13:02:27 Hep B, adolescent or pediatric 3 completed Not Available [facility] 08/03/2024 13:02:27 Hep B, adolescent or pediatric 3 completed Not Available [facility] 08/03/2024 13:02:27 HPV, quadrivalent 7 completed Not Available [facility] 08/03/2024 13:02:27 HPV, quadrivalent 7 completed Not Available [facility] 08/03/2024 13:02:27 HPV, quadrivalent 7 completed Not Available [facility] 08/03/2024 13:02:27 Influenza, split virus, quadrivalent, PF 8 completed Not Available [facility] 08/03/2024 13:02:27 Hep A, adult 9 completed Not Available [facility] 08/03/2024 13:02:27 COVID-19, mRNA, LNP-S, PF, 100 mcg/0.5mL dose or 50 mcg/0.25mL dose 1 completed Not Available [facility] 08/03/2024 13:02:27 COVID-19, mRNA, LNP-S, PF, 100 mcg/0.5mL dose or 50 mcg/0.25mL dose 1 completed Not Available [facility] 08/03/2024 13:02:27 Influenza, split virus, quadrivalent, PF 1 completed Not Available [facility] 08/03/2024 13:02:27 Past Encounters Encounter ID Performer Location Encounter Start Date Encounter Closed Date Diagnosis/Indication Diagnosis SNOMED-CT Code Diagnosis ICD10 Code Diagnosis Note [id number] ANGELIC Valdes [address] [address] 07/16/2024 13:51:14 07/16/2024 14:40:10 Gastroesophageal reflux disease without esophagitis 480371818 K21.9 Moderate m ajor depression, single episode 80944441 F32.1 Essential hypertension 22954196 I10 Body mass index 40+ - severely obese 383547821 Z68.42 Health Concerns Section Related Observation LastModified by Organization Detai ls LastModified Time None Recorded Concern Status LastModified by Organization Details LastModified Time None Recorded Payers Encounter Date Sequence Insurance Name Policy Number Policy Springer Covered Member ID Springer Member ID Guarantor Name 07/16/[address] [facility] [facility] (MEDICAID HMO) Kya Merrill [id number] Kya Merrill Notes Date Note Type Note Provider Name and Address Organization Details Recorded Time 07/16/2024 text/html Patient presents to establish care at [facility].History HTN, depression, GERD. Needs to restart meds. ANGELIC Valdes [address] [place] [address], [id number], [facility] [employer] 07/16/2024 16:28:11 OBGyn Episode No OBEpisode recorded.
[2024-08-19 14:42] LABS: Appearance,Urine CLEAR (Clear); Blood, Urine Negative (Negative); Color,Urine YELLOW (Yellow); Glucose,Urine (UA) Negative (Negative); Ketones,Urine Negative (Negative); Leukocyte Esterase,Urine Negative (Negative); Nitrate,Urine Negative (Negative); PH,Urine 5.5 (5.0-8.5); Protein,Urine Negative (Negative); Specific Gravity, Urine >= 1.030 (1.005-1.030); Urobilinogen,Urine 0.2 EU/dl (0.2)
[2024-08-19 14:44] LABS: Bilirubin,Urine 1+ (Negative)
[2024-08-19 14:56] LABS: Bacteria,Urine 3+ /lpf; Mucus,Urine 4+ /lpf; WBC,Urine Occasional #/hpf (0-3)
[2024-08-19 15:23] LABS: Basophils % 0.2 % (0.1-2.0); Eosinophils # 0.6 Kmm3 (0.0-0.4); Eosinophils % 3.4 % (0.1-12.0); Hematocrit 41.7 % (37.0-47.0); Hemoglobin 13.7 g/dL (12.2-16.2); Immature Granulocytes # 0.06 10^3uL; Immature Granulocytes % 0.4 %; Lymphocytes # 3.2 K/mm3 (0.7-4.5); Lymphocytes % 19.2 % (10-50); Mean Corpuscular HGB Conc 32.9 g/dL (31.8-35.4); Mean Corpuscular Hemoglobin 28.6 pg (27.0-31.2); Mean Corpuscular Volume 87.1 fl (81-99); Mean Platelet Volume 9.7 fl (7.4-10.4); Monocytes # 0.8 K/mm3 (0.1-1.0); Monocytes % 4.9 % (1.7-9.3); Neutrophils # 11.9 K/mm3 (1.8-7.8); Neutrophils % 71.9 % (37.0-80.0); Nucleated Red Blood Cells # 0 10^3/uL; Nucleated Red Blood Cells % 0 %; Platelet Count 367 K/mm3 (142-424); Red Blood Count 4.79 M/mm3 (4.20-5.40); Red Cell Distribution Width 14.4 % (11.5-17.5); Red Cell Distribution Width-SD 46.1 fL; White Blood Count 16.6 K/mm3 (4.8-10.8)
[2024-08-19 15:26] LABS: Alanine Aminotransferase 27 U/L (12-78); Albumin Level 3.9 g/dl (3.5-5.0); Albumin/Globulin Ratio 1.2 (1.1-1.8); Alkaline Phosphatase 79 U/L (38-126); Anion Gap 7.5 mEq/L (5-15); Aspartate Amino Transferase 28 U/L (14-36); Bilirubin,Total 0.5 mg/dl (0.2-1.3); Blood Urea Nitrogen 11 mg/dl (7-17); Calcium 9.3 mg/dl (8.4-10.2); Carbon Dioxide 25 mmol/L (22.0-30.0); Chloride 106 mmol/L (98-107); Creatinine Clearance Estimated 90 mL/min (50-200); Estimated Glomerular Filt Rate 96 ml/min (>60); GFR (African American) 117 ML/MIN (>60); Globulin 3.3 g/dL (1.3-3.2); Glucose 131 mg/dl (74-100); Potassium 3.5 mmoL/L (3.5-5.1); Sodium 135 mmol/L (136-145); Total Protein,Serum 7.2 g/dl (6.3-8.2)
--- NOTE | 2024-08-19 15:43 | HMH.EDGENADL ---
Discharge Plan Disposition Patient Disposition: Home, Self-Care Condition: Good Prescriptions Prescriptions: New ketorolac 10 mg tablet 10 mg PO Q8H PRN (Reason: pain) 3 Days Qty: 12 0RF No Action prednisone 20 mg tablet 20 mg PO BID Qty: 10 0RF Rx Instructions: administer with food or milk Vraylar 3 mg capsule 3 mg PO DAILY Patient Comments: TAKE 1 CAPSULE BY MOUTH ONCE DAILY Referrals Follow up/Referrals: Isa Stein DO [Staff Physician, [facility] [facility]] - See instructions Miley Aguilar PA [Primary Care Provider, Medical] - See instructions Mae Orr DO [Staff Physician, [employer]] - See instructions Activity Restrictions/Add. Instructions Additional Instructions/Restrictions: You were evaluated in the emergency department today. At this time, CT scan and ultrasound are reassuring. You do have some small lung nodules, for which I recommend outpatient follow-up with your primary care provider for reassessment. Please follow-up closely with gynecology this week. I recommend calling them right away to schedule an appointment. supervisor drilling and shooting your prescription and take as needed for pain. Return to the emergency department for new or worsening symptoms. Clinical Impressions Clinical Impression: Pelvic pain, Leukocytosis, Lung nodule Stand Alone Forms Stand Alone Forms: Work/School Release Instructions Patient Instructions: DI for Acute Abdominal Pain, DI for Pelvic Pain Print Language Print Language: Urdu Discharge ED Provider: Katelyn Reyes General Adult HPI General Chief complaint: Abdominal Pain Stated complaint: 5 positive preg. test, 1 neg. Has been cramping Time Seen by Provider: 08/19/24 15:02 Mode of Arrival: Ambulatory Source of Information: Patient Description of Symptoms (Recalled from ER Triage Doc. by RN): pt presents to ED with c/o abdominal cramping, 06/07, pt describes pain similar to contractions. pt reports intermittent cramping for the past 5 days. pt reports that 2 weeks ago she had a period that was 3 days long and was spotting, pt reports that it is not her normal. pt reports to 5 positive tests at home approx 5 days ago and one test being negative. again last test was approx 5 days ago. 4 pregnancies and 4 living children. pt reports similar episode of this but with no findings. History of Present Illness HPI narrative: This patient is a 34-year-old female with history of 4 prior pregnancies resulting in successful childbirth and prior tubal ligation 3 years ago presenting to the emergency department for evaluation with concern for positive test and abdominal cramping. Patient reports that in February, despite having a tubal ligation, she had a positive test. She noted that she then started having some cramping and bleeding, and afterwards she had negative test. She states that she had had periods since then with last 1 being at the beginning of June, and then 2 weeks ago she had a very light period that was not like her usual periods. She states that she only had 2 days of very light spotting, which has resolved. Given this, she took a test, which she noted was positive. She stated that she took 5 test that were all positive. she notes that last night, she started having severe pelvic cramping and pain without any bleeding or abnormal discharge. She took a test subsequently which was negative. She also denies any fevers, vomiting, changes in bowel movements, dysuria, urinary frequency. She does note nausea. She denies concern for STI Related Data Home Medications ?Medication ?Instructions ?Recorded ?Confirmed cariprazine 3 mg capsule (Vraylar) 3 mg PO DAILY 07/27/23 08/01/23 Previous Rx's ?Medication ?Instructions ?Recorded prednisone 20 mg tablet 20 mg PO BID #10 tabs 04/11/24 ketorolac 10 mg tablet 10 mg PO Q8H PRN pain 3 days #12 08/19/24 tabs Allergies Allergy/AdvReac Type Severity Reaction Status Date / Time ibuprofen (IBUPROFEN) Allergy Mild Unknown Verified 04/11/24 12:44 allergy reaction amoxicillin (From Augmentin) Allergy Verified 04/11/24 12:44 cephalexin Allergy Verified 04/11/24 12:44 clavulanic acid (From Allergy Verified 04/11/24 12:44 Augmentin) [facility] Disclaimer: The information contained in this section may have been updated after the patient was seen, as this information can be updated by other users. Medical History Allergic reaction Back pain, thoracic Bronchitis Chronic lower back pain Anxiety History of gastroesophageal reflux (GERD) Asthma Posttraumatic stress disorder Major depressive disorder Headache Dyspnea Chest pain Radiculopathy Sprain of left foot Left ankle sprain Gastroenteritis Strep throat Right wrist pain Right hand pain Heavy menstrual bleeding Left otitis media Hematuria Right flank pain Right forearm pain History of scarlet fever HTN (hypertension) HLD (hyperlipidemia) Surgical History S/P pericardial window creation History of tubal ligation History of cholecystectomy Family History Other No significant family history Social History Smoking Status: Current every day smoker tobacco type: cigarettes packs per day: 1 second hand exposure: Yes alcohol intake: never substance use type: former substance user, marijuana and opiates current occupational status: employed Travel in the last 8 weeks?: None household members: family housing: house number of children: 3 current occupational exposures/hazards: No caffeine: Yes Have you lived/traveled outside [place] in past 30 days?: No Contact w/someone who lives/traveled outside US past 30 days?: No Exposure to someone with infectious disease in past 14 days?: No Do you have a fever (greater than 100.4 F or 38 C)?: No Have you tested positive for COVID-19?: No Exposed to someone with COVID-19 in past 14 days?: No Do you have a sore throat?: No Do you have a cough?: No Do you have any weakness?: No Do you have any diarrhea?: No Are you experiencing any unusual bleeding?: No Do you have any muscle aches/pain?: No Do you have any abdominal pain?: Yes Are you experiencing loss of taste or smell?: No Other Medical History Have you received the Flu Vaccine for this season: No Have you received the Pneumonia Vaccine: No ROS Obtained: Yes All systems reviewed & no additional complaints except as documented Physical Exam General General appearance: alert, in no apparent distress and obese Head Head exam: atraumatic and normocephalic Eye Eye exam: Present normal appearance, PERRL and EOMI ENT ENT exam: Present normal exam, normal oropharynx, mucous membranes moist and normal external ear exam Neck Neck exam: Present normal inspection, full ROM and trachea midline; Absent tenderness Chest Chest inspection: Present normal inspection and symmetric chest wall rise; Absent tenderness Respiratory Respiratory exam: Present normal lung sounds bilaterally; Absent respiratory distress, wheezes, stridor or accessory muscle use Cardiovascular Cardiovascular exam: Present regular rate and normal rhythm Abdominal Exam Abdominal exam: Present soft and tenderness (Suprapubic/pelvic); Absent distention, guarding, rebound or rigidity Extremities Exam Extremities exam: Present normal inspection, full ROM and normal capillary refill; Absent tenderness or edema Back Exam Back exam: Present normal inspection and full ROM; Absent tenderness Neurological Exam Neurological exam: Present alert, oriented X3, CN II-XII intact and normal gait; Absent motor sensory deficit Psychiatric Psychiatric exam: Present normal affect and normal mood Skin Skin exam: Present warm and dry Medical Decision Making Medical Records Medical records reviewed: Yes I reviewed the patient's medical records. Screening: Per USPSTF and CDC recommendations, given the prevalence of disease in our region, it is our hospital?s policy to screen for HIV and viral Hepatitis for all patients aged 18 and over and those with ongoing risk factors. [place] Inquiry Pt receiving controlled substance: No Vital Signs: 08/19/24 14:34 08/19/24 14:37 08/19/24 14:45 Temperature 98.6 F Temperature Source Oral Pulse Rate 110 H 102 H Pulse Rate [Left Radial] 108 H Respiratory Rate 19 Blood Pressure 131/86 Blood Pressure [Right Arm] 131/86 Blood Pressure Mean [Right Arm] 101 Blood Pressure Source Blood Pressure Position 02 Sat by Pulse Oximetry 98 99 98 Oxygen Delivery Method Room Air 08/19/24 15:00 08/19/24 15:30 08/19/24 16:00 Temperature Temperature Source Pulse Rate 99 H 91 H 101 H Pulse Rate [Left Radial] Respiratory Rate Blood Pressure 130/61 129/80 133/78 Blood Pressure [Right Arm] Blood Pressure Mean [Right Arm] Blood Pressure Source Blood Pressure Position 02 Sat by Pulse Oximetry 98 97 97 Oxygen Delivery Method 08/19/24 16:30 08/19/24 18:01 Temperature 98.6 F Temperature Source Oral Pulse Rate 90 82 Pulse Rate [Left Radial] Respiratory Rate 17 Blood Pressure 117/72 98/54 L Blood Pressure [Right Arm] Blood Pressure Mean [Right Arm] Blood Pressure Source Automatic Cuff Blood Pressure Position Supine 02 Sat by Pulse Oximetry 96 Oxygen Delivery Method Room Air Lab Data Lab results reviewed: Yes I reviewed the patient's lab results. Lab Results 08/19/24 14:32: Urine Color Yellow, Urine Appearance Clear, Urine pH 5.5, Ur Specific Marmora >= 1.030, Urine Protein Negative, Urine Glucose (UA) Negative, Urine Ketones Negative, Urine Blood Negative, Urine Nitrate Negative, Urine Bilirubin 1+ A, Urine Urobilinogen 0.2, Ur Leukocyte Esterase Negative, Urine RBC 3-5, Urine WBC Occasional, Ur Squamous Epith Cells 5-10, Urine Bacteria 3+, Urine Mucus 4+ 08/19/24 14:38: WBC 16.6 H, RBC 4.79, Hgb 13.7, Hct 41.7, MCV 87.1, MCH 28.6, MCHC 32.9, RDW 14.4, Plt Count 367, MPV 9.7, Neut % (Auto) 71.9, Lymph % (Auto) 19.2, Emmet % (Auto) 4.9, Eos % (Auto) 3.4, Baso % (Auto) 0.2, Neut # (Auto) 11.9 H, Lymph # (Auto) 3.2, Emmet # (Auto) 0.8, Eos # (Auto) 0.6 H, Baso # (Auto) 0.0, Sodium 135 L, Potassium 3.5, Chloride 106, Carbon Dioxide 25, Anion Gap 7.5, BUN 11, Creatinine 0.70, Estimated Creat Clear 90, Estimated GFR 96, Est GFR ( Amer) 117, Glucose 131 H, Calcium 9.3, Total Bilirubin 0.5, AST 28, ALT 27, Alkaline Phosphatase 79, Total Protein 7.2, Albumin 3.9, Globulin 3.3 H, Albumin/Globulin Ratio 1.2, HCG, Quant < 2, HCV Ab FERNANDO w/Rflx PCR Qn Negative, HIV Ag/Ab Combo Qual Negative 08/19/24 14:38 08/19/24 14:38 Orders (Tests/Meds): ED MEDICATIONS Discontinued Medications Generic Name Dose Route Start Last Admin Trade Name Freq PRN Reason Stop Dose Admin Acetaminophen 1,000 mg 08/19/24 15:55 08/19/24 16:08 Acetaminophen 1,000mg/100ml Vial IV 08/19/24 15:56 1,000 mg ONCE ONE Administration Lactated Ringer's 1,000 mls @ 999 mls/hr 08/19/24 15:55 08/19/24 16:07 Lactated Ringer's 1000 Ml Bag IV 08/19/24 16:55 999 mls/hr .Q1H1M ONE Administration Iopamidol 75 ml 08/19/24 16:05 08/19/24 16:05 Iopamidol-370 (76%);100ml Bottle IV 08/19/24 16:06 75 ml ONCE ONE Administration Ketorolac Tromethamine 15 mg 08/19/24 15:55 08/19/24 16:07 Ketorolac 30mg/Ml Vial IV 08/19/24 15:56 15 mg ONCE ONE Administration Ondansetron HCl 4 mg 08/19/24 15:55 08/19/24 16:08 Ondansetron 4mg/2ml Vial IV 08/19/24 15:56 4 mg ONCE ONE Administration Sodium Chloride 10 ml 08/19/24 16:05 08/19/24 16:05 Sodium Chloride 0.9% 10ml Syr (Rad Only) IV 08/19/24 16:06 10 ml ONCE ONE Administration ORDERS Category Date Time Status CT abdomen pelvis w con Stat Cat Scan 08/19/24 15:55 Completed US transvaginal Stat Exams 08/19/24 16:13 Completed Complete Blood Count Auto Diff Stat Lab 08/19/24 14:38 Completed Comprehensive Metabolic Panel Stat Lab 08/19/24 14:38 Completed HCG,Quantitative Stat Lab 08/19/24 14:38 Completed HIV Combo Stat Lab 08/19/24 14:38 Completed Hepatitis C Ab Qual. W/ RFX Stat Lab 08/19/24 14:38 Completed UA [Urinalysis and Microscopic] Stat Lab 08/19/24 14:32 Completed Urine Chlam/Gono/Trich, TERRY Stat Lab 08/19/24 14:32 Received Urine Culture Stat Micro 08/19/24 14:32 Received Medical Decision Narrative: In summary, this patient is a 34-year-old female presenting to the Emergency Department for evaluation of very pelvic pain/cramping in the setting of recent positive test. She is status post prior tubal ligation. Differential diagnoses considered include but are not limited to , ectopic , ovarian cyst, ovarian mass, cystitis, pyelonephritis. Ruling out the most morbid conditions drove assessment. It should be noted patient's history includes obesity which is not at goal therapy. This complicates all aspects of care by increasing patient's risk for morbidity. I reviewed prior records and noted the patient's blood type is O+, no indication for RhoGAM even if she were . On exam, the patient is lying in bed in no acute distress. She has lower abdominal tenderness with no rebound, guarding, or rigidity. She is afebrile and nontoxic-appearing, and vitals are reassuring on cardiac telemetry. Workup included CBC, CMP, quantitative hCG, urinalysis, urine gonorrhea/chlamydia panel. I independently interpreted CT scan prior to the radiologist read and noted no obvious acute infectious process that would explain her pain. Given this, I elected to order a transvaginal ultrasound. I independently interpreted ultrasound prior to radiology read and noted no ovarian torsion. Please see their read for final interpretation. Labs were obtained that demonstrated leukocytosis at 16. Unclear the etiology of this at this time, I do not find an obvious source of infection on her current workup. Urinalysis is contaminated with squamous cells and does have some bacteria, but it is negative for leukocyte Estrace and nitrates and she is not having specific urinary symptoms. Culture was sent, but I am deferring treatment at this time.. test here is negative. Patient does have some lung nodules noted on CT scan, which I recommended outpatient follow-up for. On reassessment, patient had good improvement after administration of Tylenol, Toradol, Zofran, and fluids. Again, it is unclear exactly what is causing the patient's pelvic pain, but I do feel that she is appropriate for discharge home with close follow-up with gynecology and prescription for Toradol for pain. I feel we have excluded acute life-threatening pathology that would require admission to the hospital or surgical evaluation at this time. Strict return precautions were given Critical Care Critical Care Time Critical Care Time: No
[2024-08-19 15:53] LABS: HCG,Quantitative < 2 mIU/ml (0-5.42)
[2024-08-19 15:54] LABS: HIV Combo NEGATIVE (Negative)
--- NOTE | 2024-08-19 15:55 | CT_ITS ---
PROCEDURE INFORMATION: Exam: CT Abdomen And Pelvis With Contrast Exam date and time: 08/19/2024 4:05 PM Age: 34 years old Clinical indication: Other: Severe pelvic pain TECHNIQUE: Imaging protocol: Computed tomography of the abdomen and pelvis with contrast. Radiation optimization: All CT scans at this facility use at least one of these dose optimization techniques: automated exposure control; mA and/or kV adjustment per patient size (includes targeted exams where dose is matched to clinical indication); or iterative reconstruction. Contrast material: ISOVUE; Contrast volume: 75 ml; Contrast route: IV; COMPARISON: US TRANSVAGINAL 06/15/2022 3:05 PM FINDINGS: Lungs: 6 mm subpleural nodules noted in the posterolateral left lower lobe on image 6 and lateral left lower lobe on image 12 and lateral right lower lobe on image 10. Liver: Fatty liver changes with associated hepatomegaly measuring 22 cm. Liver otherwise unremarkable. Gallbladder and biliary ducts: Status post cholecystectomy. No evident bile duct dilatation allowing for prior cholecystectomy. Pancreas: Normal. No ductal dilation. Spleen: Normal. No splenomegaly. Adrenal glands: Normal. No mass. Kidneys and ureters: Normal. No hydronephrosis. Stomach and bowel: Unremarkable. No obstruction. No mucosal thickening. Appendix: Appendix is normal. No evidence of appendicitis. Intraperitoneal space: Unremarkable. No free air. No significant fluid collection. Vasculature: Unremarkable. No abdominal aortic aneurysm. Lymph nodes: Unremarkable. No enlarged lymph nodes. Urinary bladder: Unremarkable as visualized. Reproductive: Unremarkable as visualized. Bones/joints: Unremarkable. No acute fracture. Soft tissues: Unremarkable. IMPRESSION: 1. No acute abnormalities of the abdomen and pelvis. Nonemergent findings as above. 2. Bibasilar lung nodules measuring up to 6 mm. For patients at low risk (minimal or absent history of smoking and of other known risk factors), recommend CT Chest at 3-6 months, then consider CT Chest at 18-24 months. For patients at high risk (history of smoking or of other known risk factors), recommend CT Chest at 3-6 months, then CT Chest at 18-24 months. (Reference: Laila) REFERENCES: Laila Ashley et al. Guidelines for Management of Incidental Pulmonary Nodules Detected on CT Images: From the Fleischner Society 2017. Radiology. 2017;284(1):228-243.
[2024-08-19 16:02] LABS: Hepatitis C Ab Qual. W/ RFX NEGATIVE (Negative)
[2024-08-19] MEDS: SODIUM CHLORIDE 0.9% 10ML SYR (RAD ONLY) 10 ML IV (16:05)
[2024-08-19] MEDS: IOPAMIDOL-370 (76%);100ML BOTTLE 75 ML IV (16:05)
[2024-08-19] MEDS: LACTATED RINGERS 1000ML 1,000 ML 999 ML IV (16:07)
[2024-08-19] MEDS: KETOROLAC 30MG/ML VIAL 15 MG IV (16:07)
[2024-08-19] MEDS: ONDANSETRON 4MG/2ML VIAL 4 MG IV (16:08)
[2024-08-19] MEDS: ACETAMINOPHEN 1,000MG/100ML VIAL 1000 MG IV (16:08)
--- NOTE | 2024-08-19 16:13 | US_ITS ---
PROCEDURE INFORMATION: Exam: US Pelvis, Transvaginal, Non-Obstetric Exam date and time: 08/19/2024 4:40 PM Age: 34 years old Clinical indication: Pelvic pain; Additional info: Pelvic pain, R/O torsion TECHNIQUE: Imaging protocol: Real-time transvaginal pelvic (non-obstetric) ultrasound with image documentation. Transvaginal imaging was used for better evaluation of the endometrium, adnexa, and/or cervix. COMPARISON: US TRANSVAGINAL 06/15/2022 3:05 PM FINDINGS: Uterus: Uterus is unremarkable measures 9.4 x 4.7 x 6.6 cm. Endometrial stripe is unremarkable measures 0.9 cm. Right ovary/adnexa: Measures 2.0 x 1.6 x 1.5 cm. No mass. Normal ovarian blood flow on color Doppler. Left ovary/adnexa: Measures 2.5 x 1.8 x 1.6 cm. No mass. Normal ovarian blood flow on color Doppler. Urinary bladder: Urinary bladder is limited. Intraperitoneal space: No free fluid. IMPRESSION: No sonographic evidence for ovarian torsion.
--- NOTE | 2024-08-19 16:14 | PC.NURSE ---
call made to rad to call in ultrasound for possible ovarian torsion
[2024-08-19 23:13] LABS: Chlamydia trachomatis Negative (Negative); Neisseria gonorrhoeae Negative (Negative); Trichomonas vaginalis Negative (Negative)
== END 2024-08-19 18:11 | disposition home or self-care (01) ==
PROVIDERS: Student in an Organized Health Care Education/Training Program; Emergency Provider Emergency Medicine; PCP Physician Assistant
DX: R10.2 Pelvic and perineal pain (principal); R11.0 Nausea; D72.829 Elevated white blood cell count, unspecified; R91.1 Solitary pulmonary nodule; F17.210 Nicotine dependence, cigarettes, uncomplicated
CPT/HCPCS: 74177; 76830; 80053; 81001; 84702; 85025; 86803; 87086; 87389; 87491; 87591; 87661; 96361; 96374; 96375; 99285; J0131; J1885; J2405; J7120; Q9967

== ENCOUNTER 2024-09-05 15:03 | Outpatient (CLI) | payer OTHER, SELFPAY ==
--- NOTE | 2024-09-05 15:07 | CT_ITS ---
FINAL REPORT TECHNIQUE: Axial images were obtained through the chest without contrast. Multiplanar reconstructions in the sagittal and coronal planes were performed. This study was performed with techniques to keep radiation doses as low as reasonably achievable (ALARA). Individualized dose reduction techniques using automated exposure control or adjustment of mA and/or kV according to the patient's size were employed. CLINICAL HISTORY: LUNG NODULES COMPARISON: CT of the abdomen and pelvis 08/19/2024 FINDINGS: CT CHEST WITHOUT CONTRAST: There is a 12 mm prevascular node, best seen on image #22 of series 2. There are calcified right paratracheal and subcarinal nodes. The heart size is normal. There is no pericardial or pleural effusion. Limited images of the upper abdomen are unremarkable. There are several nodules identified. In the left upper lobe there is a 4 mm nodule best seen on image #58 of series 3. There is a noncalcified pleural-based nodule in the right lung base seen on image #162 of series 3, 5 mm in diameter. There is a third nodule in the left lung base, 7 mm in size and also pleural-based, seen on image #163 of series 3. IMPRESSION: Several up to 7 mm in size nodules in the lower lung major bilaterally. These are noncalcified, and nonspecific. Would recommend according to Fleischner criteria a 6-month follow-up chest CT for further evaluation. Reviewed, Interpreted and Dictated by Sebastien Means MD Transcribed by Callie Rodriguez Authenticated and [facility]
--- OUTSIDE RECORDS SUMMARY | 2024-09-05 15:07 | XMS_ITS | Continuity of Care Document ---
Author Organization [facility] [employer] [facility] Address [address] [place] [address] Assessment No assessment recorded. Plan of Treatment Reminders Order Date Submit Date Provider Last Modified By Organization Details Last Modified Time Details Appointments FOLLOW UP 30 2024 03:00P Myla Aguilar PA-C Not available Not available Not available FOLLOW UP 15 2024 10:45A Myla Aguilar PA-C Not available Not available Not available Lab None recorded . Referral None recorded . Procedures None recorded . Surgeries None recorded . Imaging None recorded . Medication Orders None recorded . Patient TargetsNo targets recorded. Patient Instructions Encounter Date Encounter Id Patient Instructions Last Modified By Organization Details Last Modified Time 08/03/2024 [id number] depression after childbirth: care instructions [email or web address] Not available 08/03/2024 15:53:35 depression treatment: care instructions Not available 08/03/2024 15:53:35 learning about depression during [email or web address] Not available 08/03/2024 15:53:35 When You Want to Lose Weight: Care Instructions [email or web address] Not available 08/03/2024 15:53:35 Reason for Referral None Reported. Problems Name Problem SNOMED Code Status Onset Date Resolution Date Notes Provider Name and Address Organization Details Recorded Time Gastroes ophageal reflux disease without esophagi tis 947270759 Active 2024 ANGELIC Valdes [address] [place] [address], [id number] , [facility] 15:53:14 Moderate major depressi on, single episode 68631221 Active 2024 ANGELIC Valdes [address] [place] [address], [address] [place] [address] , [facility] 5 15:53:18 [facility] hyperten divya 90760424 Active 2024 Miley Aguilar [address], [address] [place] [address] , [facility] 5 15:53:11 Herpes simplex 97251318 Active 2024 Miley Aguilar [address], [address] [place] [address] , [facility] 5 15:53:16 Morbid obesity 878693484 Active 2024 ANGELIC Valdes [address] [place] [address], [address] [place] [address] , [facility] 5 15:53:22 Multiple nodules of lung 959391443 Active 2024 ANGELIC Valdes [address] [place] [address], [address] [place] [address] , [facility] 5 11:15:00 Tobacco dependen ce syndrome 05626198 Active 2024 Miley Aguilar [address], [address] [place] [address] , [facility] 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 305449232 Active 2015 Not Available [facility] 2 21:32:14 Contrace ptive sheath status 481846304 Completed 201510/12/2015 Problem Code: Z30.431; Problem Code Type: ICD-10; Not Available [facility] 2 21:32:14 Surveill ance of subcutan eous contrace ptive implant Active 2018 Not Available [facility] 2 21:32:14 Postnata l care provider 223295277 Completed 201403/03/2015 Not Available [facility] 2 21:32:15 Cervical intraepi thelial neoplasi a grade 1 488720424 Completed 201505/23/2015 Problem Code: 622.11; Problem Code Type: ICD-9; Not Available [facility] 21:32:15 Routine antenata l care Active 2014 Problem Code: V22.1; Problem Code Type: ICD-9; Not Available [facility] 21:32:15 Postpart um care Completed 201403/03/2015 Problem Code: V24.2; Problem Code Type: ICD-9; Not Available [facility] 21:32:15 Sampling of vagina for Papanico laou smear Active 2018 Problem Code: Z01.419; Problem Code Type: ICD-10; Not Available [facility] 21:32:16 Uses IUD (intraut erine device) contrace ption 652871043 Completed 201510/12/2015 Problem Code: V25.42; Problem Code Type: ICD-9; Not Available [facility] 21:32:16 Problem Notes None recorded. Procedures Surgical History Date Name Laterality Status Provider Name and Address Organization Details Recorded Time 07/07/19 23 Date of Last Pap Smear completed [employer] 08/03/2024 13:10:43 12/07/19 19 cholecystectomy completed Not Available [facility] 11/03/2021 22:56:12 Tubal Ligation completed [employer] 07/16/2024 14:20:04 Cardiac Surgery completed [employer]. 07/16/2024 14:20:04 Imaging Results None recorded. Procedure Notes None recorded. Medical Equipment None Reported. Allergies Allergen ID Allergen Name Allergen Category Reaction Reaction Severity Criticality Documentation Date Start Date Code Code System Note Provider Name and Address Organization Details Recorded Time 40611 ibuprofen medicatio n nausea Not available Not available 11/03/2021 5640 RxNorm Not Available [facility] 22:57:11 37207 Product containin g penicilli n (product) medicatio n itching nausea rash Not available Not available Not available Not available 07/16/2024 52858 8001 SNOMED Nicky Vice null, [facility] 5 14:20:03 16716 amoxicill in medicatio n Not available Not available Not available 07/16/2024 723 RxNorm Nicky Vice null, [facility] 5 14:23:14 Medications Name Sig Start [...] MOUTH EVERY 12 HOURS FOR 10 DAYS 09/04 completed Not Available Not Available Not Available ondansetron HCl 4 mg tablet TAKE 1 TABLET BY MOUTH EVERY 6 HOURS NEEDED FOR NAUSEA AND VOMITING 09/04 completed Not Available Not Available Not Available prednisone 20 mg tablet TAKE 1 TABLET BY MOUTH TWICE DAILY ADMINISTE R WITH FOOD OR MILK 07/16 completed Not Available Not Available Not Available lidocaine HCl 2 % mucosal jelly Take 1 applicati on 3 times a day by mucous route as needed for 10 days, for pain. 08/03 completed Not Available Not Available Not Available ketorolac 10 mg tablet TAKE 1 TABLET BY MOUTH EVERY 8 HOURS NEEDED FOR PAIN FOR 3 DAYS 09/04 completed Not Available Not Available Not Available bisoprolol fumarate 5 mg tablet TAKE 1 TABLET BY MOUTH ONCE DAILY 09/04 completed Not Available Not Available Not Available bupropion HCl 100 mg tablet TAKE [...] TABLET BY MOUTH EVERY 4 HOURS NEEDED 09/04 completed Not Available Not Available Not Available omeprazole 20 mg capsule,del ayed release TAKE 1 CAPSULE BY MOUTH ONCE DAILY FOR 90 DAYS 09/04 completed Not Available Not Available Not Available hydroxyzine HCl 25 mg tablet TAKE [...] completed Not Available Not Available Not Available varenicline tartrate 0.5 mg (11)-1 mg (42) tablets in a dose pack TAKE DIRECTED 09/04 completed Not Available Not Available Not Available [place] 250 mg/mL intramuscul ar oil Inject 1 [...] Pulse oximetry Heart rate Body temperature Systolic And Diastolic Provider Name and Address Organization Details Last Updated DateTime 5 158.75 cm 49 kg/m2 404814. 12 g 96 % 96 % 98 /min 98.4 [degF] 108/74 mm[Hg] Nicky Clements [facility]. 13:14:30 Social History Question Answer Notes LastModified by Organizat ion Details LastModified Time Tobacco Smoking Status Former Smoker [facility] m[facility]oy [facility]. 09/04/2024 10:29:07 Do You Have An Advance Directive? No [...] Information not available 07/16/2024 What Type Of Press Set Up Do You Use? Relative Information not available [...] Or The Highest Degree You Have Received? [id number] Information not available 07/16/2024 Who Is Your Employer? [employer] Information not available 07/16/2024 How Many Days Of Moderate To Strenuous Exercise, Like A Brisk Walk, Did You Do In The Last 7 Days? 2 Information not available 07/16/2024 Have There Been Any Changes To Your Family Or Social Situation? No Information no t available 07/16/2024 When Did You Quit Smoking? 1-5yearssincelast cigarette Information not available 09/04/2024 Are There Any Guns Present In Your Home? No Information not available 07/16/2024 Which Of Your Hands Is Dominant? Right Information not available 07/16/2024 What Is Your Home Situation? Other Information not available 07/16/2024 How Many Years Have You Used Illicit Or Recreational Drugs? 16 Information not available 07/16/2024 Do You Have A Medical Power Of Metal Model Builder? No Information not available 07/16/2024 What Was The Date Of Your Most Recent Tobacco Screening? 08/24/2024 Information not available 08/24/2024 Are There Any Occupational Health Risks Where You Work? Na Information not available 07/16/2024 Do You Have Any Pets? No Information not available 07/16/2024 Do You Use Protection During Sex? No Information not available 07/16/2024 What Is Your Relationship Status? [email or web address] Information not available 09/04/2024 Have You Repeated Any Grades? No Information [...] You Passively Exposed To Smoke? Yes Information no t available 07/16/2024 Are There Any Smokers In [...] What Date Was Tobacco Cessation Counseling Provided? 08/24/2024 Information not available 08/24/2024 How Many Years Have You Smoked Tobacco? [...] anxious, or unable to sleep at night)? [id number] Information not available 07/16/2024 Do you have difficulty concentrating, remembering or making decisions? Yes Information no t available 07/16/2024 Are you or have you been involved with bullying? No Information not available 07/16/2024 Family History Relationship Description Onset Age of this Age Resolved Age Notes LastModified by Organization Details LastModified Time Unspecified Relation Family history of Respiratory disease Relati ve: ''; [email or web address] Not available 09/04/2024 10:25:50 Unspecified Relation Family history of Hypertension Relati ve: ''; [email or web address] Not available 09/04/2024 10:25:50 Unspecified Relation Family history of malignant neoplasm Relati ve: ''; [email or web address] Not available 09/04/2024 10:25:50 Unspecified Relation Family history of diabetes mellitus type 2 Relati ve: ''; [email or web address] Not available 09/04/2024 10:25:50 Father Malignant neoplasm of lung Not available 2024 10:55:43 Notes:*Procedure Description : Documented family medical history in father*Relative: Father *Procedure Description: Documented family medical history in sister*Relative: Sister Medical History Condition Response Allergies (Food, seasonal, environmental ) Y Emergency room visit since last appointm ent. Y Depression Y Anxiety Disorder Y Obesity Y Vision or Eye Problems Y Arthritis Y Acid Reflux (GERD) Y High Cholesterol Y ADD/ADHD Y Asthma Y Hypertension Y Gynecological History Statement/Question Response [...] Recorded Time DTP 6 completed Not Available [facility] 09/04/2024 10:26:09 MMR 6 completed Not Available [facility] 09/04/2024 10:26:09 OPV 6 completed Not Available [facility] 09/04/2024 10:26:09 Td (adult), 2 Lf tetanus toxoid, preservative free, adsorbed 3 completed Not Available [facility] 09/04/2024 10:26:09 Hep B, adolescent or pediatric 3 completed Not Available [facility] 09/04/2024 10:26:09 Hep B, adolescent or pediatric 3 completed Not Available [facility] 09/04/2024 10:26:09 Hep B, adolescent or pediatric 3 completed Not Available [facility] 09/04/2024 10:26:09 HPV, quadrivalent 05/11/200 7 completed Not Available [facility] 09/04/2024 10:26:09 HPV, quadrivalent 7 completed Not Available [facility] 09/04/2024 10:26:09 HPV, quadrivalent 7 completed Not Available [facility] 09/04/2024 10:26:09 Influenza, split virus, quadrivalent, PF 8 completed Not Available [facility] 09/04/2024 10:26:09 Hep A, adult 9 completed Not Available [facility] 09/04/2024 10:26:09 COVID-19, mRNA, LNP-S, PF, 100 mcg/0.5mL dose or 50 mcg/0.25mL dose 1 completed Not Available [facility] 09/04/2024 10:26:09 COVID-19, mRNA, LNP-S, PF, 100 mcg/0.5mL dose or 50 mcg/0.25mL dose 1 completed Not Available [facility] 09/04/2024 10:26:09 Influenza, split virus, quadrivalent, PF 1 completed Not Available [facility] 09/04/2024 10:26:09 Past Encounters Encounter ID Performer Location Encounter Start Date Encounter Closed Date Diagnosis/Indication Diagnosis SNOMED-CT Code Diagnosis ICD10 Code Diagnosis Note [id number] ANGELIC Valdes [facility] [address] [place] [id number] 07/16/2024 13:51:14 07/16/2024 14:40:10 Gastroesophageal reflux disease without esophagitis 723573658 K21.9 Moderate m ajor depression, single episode 02215918 F32.1 Essential hypertension 27032262 I10 Body mass index 40+ - severely obese 623240088 Z68.42 [id number] ANGELIC Valdes [address] [address] 08/03/2024 13:01:45 08/03/2024 13:27:28 Morbid obesity 620532919 E66.01 log calories X 1 month Moderate m ajor depression, single episode 66768569 F32.1 Health Concerns Section Related Observation LastModified by Organization Detai ls LastModified Time None Recorded Concern Status LastModified by Organization Details LastModified Time None Recorded Payers Encounter Date Sequence Insurance Name Policy Number Policy Springer Covered Member ID Springer Member ID Guarantor Name 08/03/2024 1 [facility] ([facility]ICA[facility]) Kya Merrill [id number] Kya Darby Desirae Notes Date Note Type Note Provider Name and Address Organization Details Recorded Time 08/03/2024 text/html Patient presents for followup. She recently restarted Vraylar and Wellbutrin. States they are working fine when she remembers to take them.She would like to discuss options for weight loss. ANGELIC Valdes [address] [place] [address], [place], [address], [facility] [employer] 08/03/2024 15:56:20 OBGyn Episode No OBEpisode recorded.
--- OUTSIDE RECORDS SUMMARY | 2024-09-05 15:07 | XMS_ITS | Continuity of Care Document ---
Author Organization [facility] [employer] [facility] Address [address] [place] [address] [place] [address] Assessment No assessment recorded. Plan of Treatment Reminders Order Date Submit Date Provider Last Modified By Organization Details Last Modified Time Details Appointments FOLLOW UP 30 2024 03:00P Myla Aguilar PA-C Not available Not available Not available FOLLOW UP 15 2024 10:45A Myla Aguilar PA-C Not available Not available Not available Lab test, urine 2024 025 [email or web address] [facility], [address] [facility], [address], [place], [address], 09/04/2024 11:06:31 TSH + free T4, serum 2024 025 JUANA [facility] [place], [address], 09/05/2024 09:08:22 FSH (follicle -stimulat ing hormone), serum 2024 025 VOCA [facility] [address] [place] [address], [address], 09/05/2024 09:08:23 insulin, serum 2024 025 VOCA [facility] [address] [place], [address], 09/05/2024 09:08:24 HbA1c (hemoglob in A1c), blood 202408 025 V[facility]A [facility] ([facility], [address] [place] [address], [place], [address], 09/05/2024 09:08:22 Referral None recorded. Procedures None recorded. Surgeries None recorded. Imaging None recorded. Medication Orders None recorded. Patient TargetsNo targets recorded. Patient InstructionsNo instructions recorded. Reason for Referral None Reported. Results Created Date Observation Date Name Description Value Unit Range Abnormal Flag Note LastModifiedBy Organization Detail LastModifiedTime 09/05/19 25 09/04/2024 pregn isrrael test, urine HCG negati ve Not Available [address], [place], [address], 09/04/2024 10:50:03 Result Notes None recorded. Problems Name Problem SNOMED Code Status Onset Date Resolution Date Notes Provider Name and Address Organization Details Recorded Time Gastroes ophageal reflux disease without esophagi tis 267549350 Active 2024 ANGELIC Valdes [address] [place] [address], [address] , [employer] 15:53:14 Moderate major depressi on, single episode 42965836 Active 2024 ANGELIC Valdes [address] [place] [address], [address] , [employer] 15:53:18 Essentia l hyperten divya 41880469 Active 2024 ANGELIC Valdes [address] [place] [address], [address] , [employer] 15:53:11 Herpes simplex 10949542 Active 2024 ANGELIC Valdes [address] [place] [address], [address] , [employer] 15:53:16 Morbid obesity 910163421 Active 2024 ANGELIC Valdes [address] [place] [address], [address] , [employer] 5 15:53:22 Multiple nodules of lung 247043466 Active 2024 ANGELIC Valdes [address] [place] [address], [address] , [employer] 5 11:15:00 Tobacco dependen ce syndrome 46132298 Active 2024 ANGELIC Valdes [address] [place] [address], [address] , [employer] 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 293463114 Active 2015 Not Available [facility] 21:32:14 Contrace ptive sheath status 850027135 Completed 201510/12/2015 Problem Code: Z30.431; Problem Code Type: ICD-10; Not Available [facility] 2 21:32:14 Surveill ance of subcutan eous contrace ptive implant Active 2018 Not Available [facility] 2 21:32:14 Postnata l care provider 817764372 Completed 201403/03/2015 Not Available [facility] 2 21:32:15 Cervical intraepi thelial neoplasi a grade 1 819047003 Completed 201505/23/2015 Problem Code: 622.11; Problem Code Type: ICD-9; Not Available [facility] 2 21:32:15 Routine antenata l care Active 2014 Problem Code: V22.1; Problem Code Type: ICD-9; Not Available [facility] 2 21:32:15 Postpart um care Completed 201403/03/2015 Problem Code: V24.2; Problem Code Type: ICD-9; Not Available [facility] 2 21:32:15 Sampling of vagina for Papanico laou smear Active 2018 Problem Code: Z01.419; Problem Code Type: ICD-10; Not Available [facility] 21:32:16 Uses IUD (intraut erine device) contrace ption 070811010 Completed 201510/12/2015 Problem Code: V25.42; Problem Code Type: ICD-9; Not Available [facility] 21:32:16 Problem Notes None recorded. Procedures Surgical History Date Name Laterality Status Provider Name and Address Organization Details Recorded Time 07/07/19 Date of Last Pap Smear completed [employer] 08/03/2024 13:10:43 12/07/19 cholecystectomy completed Not Available [facility] 11/03/2021 22:56:12 Tubal Ligation completed [employer] 07/16/2024 14:20:04 Cardiac Surgery completed [employer] 07/16/2024 14:20:04 Imaging Results None recorded. Procedure Notes None recorded. Medical Equipment None Reported. Allergies Allergen ID Allergen Name Allergen Category Reaction Reaction Severity Criticality Documentation Date Start Date Code Code System Note Provider Name and Address Organization Details Recorded Time 31578 ibuprofen medicatio n nausea Not available Not available 11/03/2021 5640 RxNorm Not Available [facility] 22:57:11 87705 Product containin g penicilli n (product) medicatio n itching nausea rash Not available Not available Not available Not available 07/16/2024 80985 8001 SNOMED [employer] 14:20:03 84480 amoxicill in medicatio n Not available Not available Not available 07/16/2024 723 RxNorm Jike [employer]. 14:23:14 Medications Name Sig Start Date Stop [...] completed Not Available Not Available Not Available [place] 250 mg/mL intramuscul ar oil Inject 1 [...] height Body mass index (BMI) Body weight Heart rate Oxygen saturation Oxygen saturation in Arterial blood by Pulse oximetry Systolic And Diastolic Provider Name and Address Organization Details Last Updated DateTime 158.75 cm 49 kg/m2 159314. 84 g 66 /min 99 % 99 % 108/68 mm[Hg] LESA CROCKETT [employer] 10:37:19 Social History Question Answer Notes LastModified by Organizat ion Details LastModified Time Tobacco Smoking Status Former Smoker LESA CROCKETT ean [employer]. 09/04/2024 10:29:07 Do You Have An Advance [...] Information not available 07/16/2024 What Type Of Opto Mechanical Technician Do You Use? Relative Information not available [...] Or The Highest Degree You Have Received? [id number] Information not available 07/16/2024 Who Is Your [...] When Did You Quit Smoking? 1-5yearssincelast cigarette [email or web address] Information not available 09/04/2024 Are There Any Guns Present In Your Home? No Information not available 07/16/2024 Which Of Your Hands Is Dominant? Right Information not available 07/16/2024 What Is Your Home Situation? Other Information not available 07/16/2024 How Many Years Have You Used Illicit Or Recreational Drugs? 16 Information not available 07/16/2024 Do You Have A Medical Power Of Shoe Shanker? No Information not available 07/16/2024 What Was The Date Of Your Most Recent Tobacco Screening? 08/24/2024 Information not available 08/24/2024 Are There Any Occupational Health Risks Where You Work? Na Information not available 07/16/2024 Do You Have Any Pets? No Information not available 07/16/2024 Do You Use Protection During Sex? No Information not available 07/16/2024 What Is Your Relationship Status? [email or web address] Information not available 09/04/2024 Have You Repeated [...] anxious, or unable to sleep at night)? [id number] Information not available 07/16/2024 Do you have [...] Response Allergies (Food, seasonal, environmental ) Y Anxiety Disorder Y Obesity Y Vision or Eye Problems Y Arthritis Y Acid Reflux (GERD) Y Emergency room visit since last appointm ent. Y Asthma Y Depression Y ADD/ADHD Y [...] Recorded Time DTP 6 completed Not Available [facility] 09/04/2024 10:26:09 MMR 6 completed Not Available [facility] 09/04/2024 10:26:09 OPV 6 completed Not Available [facility] 09/04/2024 10:26:09 Td (adult), 2 Lf tetanus toxoid, preservative free, adsorbed 3 completed Not Available [facility] 09/04/2024 10:26:09 Hep B, adolescent or pediatric 3 completed Not Available [facility] 09/04/2024 10:26:09 Hep B, adolescent or pediatric 3 completed Not Available [facility] 09/04/2024 10:26:09 Hep B, adolescent or pediatric 3 completed Not Available [facility] 09/04/2024 10:26:09 HPV, quadrivalent 7 completed Not Available [facility] 09/04/2024 10:26:09 HPV, quadrivalent 7 completed Not Available [facility] 09/04/2024 10:26:09 HPV, quadrivalent 7 completed Not Available [facility] 09/04/2024 10:26:09 Influenza, split virus, quadrivalent, PF 8 completed Not Available [facility] 09/04/2024 10:26:09 Hep A, adult 9 completed Not Available [facility] 09/04/2024 10:26:09 COVID-19, mRNA, LNP-S, PF, 100 mcg/0.5mL dose or 50 mcg/0.25mL dose 1 completed Not Available [facility] 09/04/2024 10:26:09 COVID-19, mRNA, LNP-S, PF, 100 mcg/0.5mL dose or 50 mcg/0.25mL dose 1 completed Not Available [facility] 09/04/2024 10:26:09 Influenza, split virus, quadrivalent, PF 1 completed Not Available [facility] 09/04/2024 10:26:09 Past Encounters Encounter ID Performer Location Encounter Start Date Encounter Closed Date Diagnosis/Indication Diagnosis SNOMED-CT Code Diagnosis ICD10 Code Diagnosis Note [id number] ANGELIC Valdes [facility] [address] [place] [address] 08/24/2024 10:38:03 08/24/2024 11:16:15 Multiple nodules of lung 913783000 R91.8 Reviewed ER records from [facility] ER - nodules bilateral lung bases on CT abd/pelvis Patient is a smoker, with family history of lung cancerWill obtain dedicated CT chest Tobacco de pendence syndrome 52709973 F17.200 test positive 121221219 Z32.01 Several positive tests per patient report with history of tubal ligation - refer to [facility] SPECIAL[facility] to discuss possible causes for HCG [id number] Chon Olmstead CNM [facility]'s [address],[place] [address] 09/04/2024 10:21:36 09/04/2024 11:12:41 Irregular periods 62582251 N92.6 Will call pt with results Health Concerns Section Related Observation LastModified by Organization Detai ls LastModified Time None Recorded Concern Status LastModified by Organization Details LastModified Time None Recorded Payers Encounter Date Sequence Insurance Name Policy Number Policy Springer Covered Member ID Springer Member ID Guarantor Name 09/04/2024 1 [employer] [facility] (MEDICAID HMO) Kya Merrill [id number] Kya Merrill Notes Date Note Type Note Provider Name and Address Organization Details Recorded Time 09/04/2024 text/html pt here today wi th c/o irregular periods. Always had monthly periods before. Then in Feb missed period on day was supposed to start, then had some spotting. UPT at home was positive once then neg after that then had a late period. Normal periods March -June. Did same thing in July as she did in Feb. Had 5 positive home test, then a neg. Went to ER, TVUS Neg/normal and CT scan- WNL. (in chart). Had period started August 30. Pt had BTL in past, with clips. Pt reports some wgt loss of about 6lbs without trying then put it back on plus some. Her pcp told her may be having ectopic pregnancies or chemical pregnancies. Discussed at length and given neg HCG, informed this is not likely.Pt admits would like to be .UTD on pap Chon Olmstead, ADY [address] [facility], [place], [address], [facility] [employer] 09/04/2024 11:14:59 OBGyn Episode No OBEpisode recorded.
--- OUTSIDE RECORDS SUMMARY | 2024-09-05 15:07 | XMS_ITS | Continuity of Care Document ---
Author Organization [place] [facility] [employer] [facility] Address [address] [place] [address] Assessment No assessment recorded. Plan of Treatment Reminders Order Date Submit Date Provider Last Modified By Organization Details Last Modified Time Details Appointments FOLLOW UP 30 2024 03:00P Myla Aguilar PA-C Not available Not available Not available FOLLOW UP 2024 10:45A Myla Aguilar PA-C Not available Not available Not available Lab None recorded. Referral None recorded. Procedures None recorded. Surgeries None recorded. Imaging None recorded. Medication Orders bupropion HCl 100 mg tablet 2024 025 [facility], [address] [place] [address], [address], 07/16/2024 14:41:22 Vraylar 1.5 mg capsule 2024 025 [facility], [address] [place] [address], [address], 07/16/2024 14:41:22 omeprazol e 20 mg capsule,d elayed release 2024 025 [facility], [address] [place] [address], [id number], 09/04/2024 10:40:04 bisoprolo l fumarate 5 mg tablet 2024 025 [facility], [address] [place] [address], [address], 09/04/2024 10:39:59 Patient TargetsNo targets recorded. Patient Instructions Encounter Date Encounter Id Patient Instructions Last Modified By Organization Details Last Modified Time 07/16/2024 [id number] body mass index: care instructions [email or web address] Not available 07/16/2024 16:21:41 learning about healthy weight [email or web address] Not available 07/16/2024 16:21:41 high blood pressure: care instructions Not available 07/16/2024 14:41:15 learning about high blood pressure [email or web address] Not available 07/16/2024 14:41:15 Reason for Referral None Reported. Problems Name Problem SNOMED Code Status Onset Date Resolution Date Notes Provider Name and Address Organization Details Recorded Time Gastroes ophageal reflux disease without esophagi tis 220396331 Active 2024 ANGELIC Valdes [address] [place] [address], [address] , [employer] 15:53:14 Moderate major depressi on, single episode 32596726 Active 2024 ANGELIC Valdes [address] [place] [address], [address] [place] [address] , [employer] 15:53:18 [employer] divya 98281116 Active 2024 ANGELIC Valdes [address] [place] [address], [address] [place] [address] , [employer] 15:53:11 Herpes simplex 19625856 Active 2024 ANGELIC Valdes [address] [place] [address], [address] [place] [address] , [employer] 15:53:16 Morbid obesity 879995408 Active 2024 ANGELIC Valdes [address] [place] [address], [address] [place] [address] , [employer] 15:53:22 Multiple nodules of lung 716713744 Active 2024 ANGELIC Valdes [address] [place] [address], [address] [place] [address] , [employer] 5 11:15:00 Tobacco dependen ce syndrome 22389497 Active 2024 ANGELIC Valdes [address] [place] [address], [address] , [employer] 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 105643580 Active 2015 Not Available [facility] 2 21:32:14 Contrace ptive sheath status 377358968 Completed 201510/12/2015 Problem Code: Z30.431; Problem Code Type: ICD-10; Not Available [facility] 2 21:32:14 Surveill ance of subcutan eous contrace ptive implant Active 2018 Not Available [facility] 2 21:32:14 Postnata l care provider 988841703 Completed 201403/03/2015 Not Available [facility] 2 21:32:15 Cervical intraepi thelial neoplasi a grade 1 242034106 Completed 201505/23/2015 Problem Code: 622.11; Problem Code Type: ICD-9; Not Available [facility] 2 21:32:15 Routine antenata l care Active 2014 Problem Code: V22.1; Problem Code Type: ICD-9; Not Available [facility] 2 21:32:15 Postpart um care Completed 201403/03/2015 Problem Code: V24.2; Problem Code Type: ICD-9; Not Available [facility] 2 21:32:15 Sampling of vagina for Papanico laou smear Active 2018 Problem Code: Z01.419; Problem Code Type: ICD-10; Not Available [facility] 2 21:32:16 Uses IUD (intraut erine device) contrace ption 897316955 Completed 201510/12/2015 Problem Code: V25.42; Problem Code Type: ICD-9; Not Available [facility] 2 21:32:16 Problem Notes None recorded. Procedures Surgical History Date Name Laterality Status Provider Name and Address Organization Details Recorded Time 07/07/19 Date of Last Pap Smear completed [employer] 08/03/2024 13:10:43 12/07/19 19 cholecystectomy completed Not Available [facility] 11/03/2021 22:56:12 Tubal Ligation completed [employer] 07/16/2024 14:20:04 Cardiac Surgery completed [employer] 07/16/2024 14:20:04 Imaging Results None recorded. Procedure Notes None recorded. Medical Equipment None Reported. Allergies Allergen ID Allergen Name Allergen Category Reaction Reaction Severity Criticality Documentation Date Start Date Code Code System Note Provider Name and Address Organization Details Recorded Time 08232 ibuprofen medicatio n nausea Not available Not available 11/03/2021 5640 RxNorm Not Available [facility] 22:57:11 88623 Product containin g penicilli n (product) medicatio n itching nausea rash Not available Not available Not available Not available 07/16/2024 85096 8001 SNOMED [employer]. 14:20:03 20433 amoxicill in medicatio n Not available Not available Not available 07/16/2024 723 RxNorm [employer], [employer] 14:23:14 Medications Name Sig Start Date [...] completed Not Available Not Available Not Available [place] 250 mg/mL intramuscul ar oil Inject 1 [...] Address Organization Details Last Updated DateTime 5 222698. 53 g 48.8 kg/m2 158.75 cm 97 % 97 % 96 /min 98.1 [degF] 110/78 mm[Hg] Nicky Clements [employer] 14:22:41 Social History Question Answer Notes LastModified by Organizat ion Details LastModified Time Tobacco Smoking Status Former Smoker LESA KEIRA mckoy [employer] 09/04/2024 10:29:07 Do You Have An Advance [...] Information not available 07/16/2024 What Type Of Director Of Music Therapy Do You Use? Relative Information not available [...] Or The Highest Degree You Have Received? [id number] Information not available 07/16/2024 Who Is Your [...] Do You Have A Medical Power Of Embedded Case Manager? No Information not available 07/16/2024 What Was The Date Of Your Most Recent Tobacco Screening? 08/24/2024 Information not available 08/24/2024 Are There Any Occupational Health Risks Where You Work? Na Information not available 07/16/2024 Do You Have Any Pets? No Information not available 07/16/2024 Do You Use Protection During Sex? No Information not available 07/16/2024 What Is Your Relationship Status? [email or web address] Information not available 09/04/2024 Have You Repeated [...] anxious, or unable to sleep at night)? [id number] Information not available 07/16/2024 Do you have [...] Recorded Time DTP 6 completed Not Available [facility] 09/04/2024 10:26:09 MMR 6 completed Not Available [facility] 09/04/2024 10:26:09 OPV 6 completed Not Available [facility] 09/04/2024 10:26:09 Td (adult), 2 Lf tetanus toxoid, preservative free, adsorbed 3 completed Not Available [facility] 09/04/2024 10:26:09 Hep B, adolescent or pediatric 3 completed Not Available [facility] 09/04/2024 10:26:09 Hep B, adolescent or pediatric 3 completed Not Available [facility] 09/04/2024 10:26:09 Hep B, adolescent or pediatric 3 completed Not Available [facility] 09/04/2024 10:26:09 HPV, quadrivalent 7 completed Not Available [facility] 09/04/2024 10:26:09 HPV, quadrivalent 7 completed Not Available [facility] 09/04/2024 10:26:09 HPV, quadrivalent 7 completed Not Available [facility] 09/04/2024 10:26:09 Influenza, split virus, quadrivalent, PF 8 completed Not Available [facility] 09/04/2024 10:26:09 Hep A, adult 9 completed Not Available [facility] 09/04/2024 10:26:09 COVID-19, mRNA, LNP-S, PF, 100 mcg/0.5mL dose or 50 mcg/0.25mL dose 1 completed Not Available [facility] 09/04/2024 10:26:09 COVID-19, mRNA, LNP-S, PF, 100 mcg/0.5mL dose or 50 mcg/0.25mL dose 1 completed Not Available [facility] 09/04/2024 10:26:09 Influenza, split virus, quadrivalent, PF 1 completed Not Available [facility] 09/04/2024 10:26:09 Past Encounters Encounter ID Performer Location Encounter Start Date Encounter Closed Date Diagnosis/Indication Diagnosis SNOMED-CT Code Diagnosis ICD10 Code Diagnosis Note [id number] ANGELIC Valdes [facility] [address] [place] [address] 07/16/2024 13:51:14 07/16/2024 14:40:10 Gastroesophageal reflux disease without esophagitis 263009855 K21.9 Moderate m ajor depression, single episode 35030602 F32.1 Essential hypertension 18962014 I10 Body mass index 40+ - severely obese 431209268 Z68.42 Health Concerns Section Related Observation LastModified by Organization Detai ls LastModified Time None Recorded Concern Status LastModified by Organization Details LastModified Time None Recorded Payers Encounter Date Sequence Insurance Name Policy Number Policy Springer Covered Member ID Springer Member ID Guarantor Name 07/16/2024 1 [facility] (MEDICAID HMO) Kya Merrill [id number] Kya Merrill Notes Date Note Type Note Provider Name and Address Organization Details Recorded Time 07/16/2024 text/html Patient presents to establish care at [facility].History HTN, depression, GERD. Needs to restart meds. ANGELIC Valdes [address] [place] [address], [place], [address], [facility] [employer] 07/16/2024 16:28:11 OBGyn Episode No OBEpisode recorded.
--- OUTSIDE RECORDS SUMMARY | 2024-09-05 15:07 | XMS_ITS | Data Portability ---
Author Organization [facility] [employer] [facility] Address [address] [place] [address] Assessment No assessment recorded. Plan of Treatment Reminders Order Date Submit Date Provider Last Modified By Organization Details Last Modified Time Details Appointments FOLLOW UP 30 2024 03:00P Myla Aguilar PA-C Not available Not available Not available FOLLOW UP 15 2024 10:45A Myla Aguilar PA-C Not available Not available Not available Lab test, urine [address], [address] [place] [address], [address], [place], [address], 09/04/2024 11:06:31 TSH + free T4, serum 2024 025 [facility] [address] [place] [address], [address], 09/05/2024 09:08:22 FSH (follicle -stimulat ing hormone), serum 2024 025 [facility] [place]), [address] [place] [address], [address], 09/05/2024 09:08:23 insulin, serum 2024 025 [facility] [address] [place] [address], [address], 09/05/2024 09:08:24 HbA1c (hemoglob in A1c), blood 2024 025 [place]), [address] [facility], [place], [address], 09/05/2024 09:08:22 Referral gynecolog ist referral 2024 025 [email or web address] Nohelia Krishnamurthy III, MD, [address], [address], [place], [address], 08/29/2024 09:06:53 Procedures None recorded. Surgeries None recorded. Imaging CT, chest, w/o contrast [address] ([facility]), [address], [place], [address], 09/04/2024 10:50:35 Medication Orders Chantix Starting Month Box 0.5 mg (11)-1 mg (42) tablets in dose pack 2024 025 [email or web address] [facility], [address] [place] [address], [address], 09/04/2024 10:36:12 varenicli ne tartrate 0.5 mg (11)-1 mg (42) tablets in a dose pack 2024 025 [facility], [address] [place], [address], 09/04/2024 10:40:08 bupropion HCl 100 mg tablet 2024 025 [facility], [address] [place] [address], [address], 07/16/2024 14:41:22 Vraylar 1.5 mg capsule 2024 025 [facility], [address] [place], [address], 07/16/2024 14:41:22 omeprazol e 20 mg capsule,d elayed release 2024 025 [facility], [address] [place], [address], 09/04/2024 10:40:04 bisoprolo l fumarate 5 mg tablet 2024 025 [facility], [address] [place], [address], 09/04/2024 10:39:59 Patient TargetsNo targets recorded. Patient Instructions Encounter Date Encounter Id Patient Instructions Last Modified By Organization Details Last Modified Time 07/16/2024 [id number] body mass index: care instructions Not available 07/16/2024 16:21:41 learning about healthy weight [email or web address] Not available 07/16/2024 16:21:41 high blood pressure: care instructions [email or web address] Not available 07/16/2024 14:41:15 learning about high blood pressure [email or web address] Not available 07/16/2024 14:41:15 08/03/2024 [id number] depression after childbirth: care instructions [email or web address] Not available 08/03/2024 15:53:35 depression treatment: care instructions Not available 08/03/2024 15:53:35 learning about depression during [email or web address] Not available 08/03/2024 15:53:35 When You Want to Lose Weight: Care Instructions [email or web address] Not available 08/03/2024 15:53:35 08/24/2024 [id number] deciding about using medicines to quit smoking Not available 08/24/2024 11:18:06 Quitting Tobacco : Care Instructions [email or web address] Not available 08/24/2024 11:18:05 Reason for Referral Customer Success Director Referral for Pr egnancy test positive Referring Physician: Miley Aguilar, Family Medicine, Encounter Date: 08/24/2024 Results Created Date Observation Date Name Description Value Unit Range Abnormal Flag Note LastModifiedBy Organization Detail LastModifiedTime 09/05/1909/05/2024 TSH+F REE T4 TSH 1.600 uIU/m L 0.450- 4.500 normal Not Available [facility] ([facility]) [address] [place], [address], 09/05/2024 09:08:22 09/05/1909/05/2024 TSH+F REE T4 T4,free(dire ct) 1.00 NG/dL 0.82-1 .77 normal Not Available [facility] ([facility]) [address] [place], [address], 09/05/2024 09:08:22 09/05/1909/05/2024 HEMOG LOBIN A1C hemoglobin A1C 6.3 % 4.8-5. 6 above high normal Predi abete s: 5.7 - 6.4 Diabe manuel: >6.4 Glyce guillermo contr ol for adult s with diabe manuel: <7.0 Not Available [facility] ([facility]) [address] [place], [address], 09/05/2024 09:08:22 09/05/1909/05/2024 FSH FSH 6.2 mIU/m L Adult Femal e Range Folli cular phase 3.5 - 12.5 Ovula tion phase 4.7 - 21.5 Lutea l phase 1.7 - 7.7 Postm enopa usal 25.8 - 134.8 Not Available [facility] ([facility]) [address] [place], [address], 09/05/2024 09:08:23 09/05/1909/05/2024 INSUL IN insulin 141.0 uIU/m L 2.6-24 .9 above high normal Not Available [facility] ([facility]) [address] [place], [address], 09/05/2024 09:08:24 09/05/1909/04/2024 pregn isrrael test, urine HCG negati ve Not Available [address], [place], [address], 09/04/2024 10:50:03 Result Notes None recorded. Problems Name Problem SNOMED Code Status Onset Date Resolution Date Notes Provider Name and Address Organization Details Recorded Time Gastroes ophageal reflux disease without esophagi tis 530866690 Active 2024 ANGELIC Valdes [address] [place] [address], [address] [place] [address] , [employer] 15:53:14 Moderate major depressi on, single episode 52648869 Active 2024 ANGELIC Valdes [address] [place] [address], [address] [place] [address] , [employer] 15:53:18 Essentia l hyperten divya 16255011 Active 2024 ANGELIC Valdes [address] [place] [address], [address] [place] [address] , [employer] 15:53:11 Herpes simplex 44532882 Active 2024 ANGELIC Valdes [address] [place] [address], [address] [place] [address] , [employer] 15:53:16 Morbid obesity 841740155 Active 2024 ANGELIC Valdes [address] [place] [address], [address] [place] [address] , [employer] 15:53:22 Multiple nodules of lung 440293632 Active 2024 ANGELIC Valdes [address] [place] [address], [address] [place] [address] , [employer] 5 11:15:00 Tobacco dependen ce syndrome 69581286 Active 2024 ANGELIC Valdes [address] [place] [address], [address] [place] [address] , [employer] 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 028543777 Active 2015 [facility] Available [facility] 21:32:14 Contrace ptive sheath status 893933590 Completed 201510/12/2015 Problem Code: Z30.431; Problem Code Type: ICD-10; Not Available [facility] 21:32:14 Surveill ance of subcutan eous contrace ptive implant Active 2018 Not Available [facility] 21:32:14 Postnata l care provider 385250160 Completed 201403/03/2015 Not Available [facility] 21:32:15 Cervical intraepi thelial neoplasi a grade 1 857432791 Completed 201505/23/2015 Problem Code: 622.11; Problem Code Type: ICD-9; Not Available [facility] 21:32:15 Routine antenata l care Active 2014 Problem Code: V22.1; Problem Code Type: ICD-9; Not Available [facility] 21:32:15 Postpart um care Completed 201403/03/2015 Problem Code: V24.2; Problem Code Type: ICD-9; Not Available [facility] 21:32:15 Sampling of vagina for Papanico laou smear Active 2018 Problem Code: Z01.419; Problem Code Type: ICD-10; Not Available [facility] 21:32:16 Uses IUD (intraut erine device) contrace ption 870051193 Completed 201510/12/2015 Problem Code: V25.42; Problem Code Type: ICD-9; Not Available [facility] 21:32:16 Problem Notes None recorded. Procedures Surgical History Date Name Laterality Status Provider Name and Address Organization Details Recorded Time 07/07/19 23 Date of Last Pap Smear completed [facility] 08/03/2024 13:10:43 12/07/19 19 cholecystectomy completed Not Available [facility] 11/03/2021 22:56:12 Tubal Ligation completed [facility]. 07/16/2024 14:20:04 Cardiac Surgery completed [facility]. 07/16/2024 14:20:04 Imaging Results None recorded. Procedure Notes None recorded. Medical Equipment None Reported. Allergies Allergen ID Allergen Name Allergen Category Reaction Reaction Severity Criticality Documentation Date Start Date Code Code System Note Provider Name and Address Organization Details Recorded Time 32886 ibuprofen medicatio n nausea Not available Not available 11/03/2021 5640 RxNorm Not Available [facility] 2 22:57:11 22545 Product containin g penicilli n (product) medicatio n itching nausea rash Not available Not available Not available Not available 07/16/2024 06340 8001 SNOMED Nicky Vice null, [employer], [employer]. 5 14:20:03 49004 amoxicill in medicatio n Not available Not available Not available 07/16/2024 723 RxNorm Nicky Vice null, [employer] 5 14:23:14 Medications Name Sig Start [...] completed Not Available Not Available Not Available [facility] 250 mg/mL intramuscul ar oil Inject 1 [...] Address Organization Details Last Updated DateTime 5 132885. 53 g 48.8 kg/m2 158.75 cm 97 % 97 % 96 /min 98.1 [degF] 110/78 mm[Hg] [facility] 5 14:22:41 Date Recorded Body height Body mass index (BMI) Body weight Oxygen saturation Oxygen saturation in Arterial blood by Pulse oximetry Heart rate Body temperature Systolic And Diastolic Provider Name and Address Organization Details Last Updated DateTime 5 158.75 cm 49 kg/m2 350402. 12 g 96 % 96 % 98 /min 98.4 [degF] 108/74 mm[Hg] [facility] 5 13:14:30 Date Recorded Body height Body mass index (BMI) Body weight Oxygen saturation Oxygen saturation in Arterial blood by Pulse oximetry Heart rate Body temperature Systolic And Diastolic Provider Name and Address Organization Details Last Updated DateTime 5 158.75 cm 48.6 kg/m2 064868. 94 g 97 % 97 % 94 /min 98.3 [degF] 114/82 mm[Hg] [facility] 5 10:48:31 Date Recorded Body height Body mass index (BMI) Body weight Heart rate Oxygen saturation Oxygen saturation in Arterial blood by Pulse oximetry Systolic And Diastolic Provider Name and Address Organization Details Last Updated DateTime 5 158.75 cm 49 kg/m2 953314. 84 g 66 /min 99 % 99 % 108/68 mm[Hg] LESA CROCKETT [employer] 5 10:37:19 Social History Question Answer Notes LastModified by Organizat ion Details LastModified Time Tobacco Smoking Status Former Smoker LESA CROCKETT ean [employer]. 09/04/2024 10:29:07 Do You Have An Advance [...] Information not available 07/16/2024 What Type Of Photogrammetric Surveyor Do You Use? Relative Information not available [...] Or The Highest Degree You Have Received? DR74039-5 Information not available 07/16/2024 Who Is Your [...] When Did You Quit Smoking? 1-5yearssincelast cigarette [email or web address] Information not available 09/04/2024 Are There Any Guns Present In Your Home? No Information not available 07/16/2024 Which Of Your Hands Is Dominant? Right Information not available 07/16/2024 What Is Your Home Situation? Other Information not available 07/16/2024 How Many Years Have You Used Illicit Or Recreational Drugs? 16 Information not available 07/16/2024 Do You Have A Medical Power Of Continuity Reader? No Information not available 07/16/2024 What Was The Date Of Your Most Recent Tobacco Screening? 08/24/2024 Information not available 08/24/2024 Are There Any Occupational Health Risks Where You Work? Na Information not available 07/16/2024 Do You Have Any Pets? No Information not available 07/16/2024 Do You Use Protection During Sex? No Information not available 07/16/2024 What Is Your Relationship Status? [email or web address] Information not available 09/04/2024 Have You Repeated [...] Status Question Answer Note LastModified by Organizat [employer] Details LastModified Time Do you use any [...] Mental Status Question Answer Note LastModified by [employer] Details LastModified Time Do you feel stressed (tense, restless, nervous, or anxious, or unable to sleep at night)? [id number] Information not available 07/16/2024 Do you have [...] Recorded Time DTP 6 completed Not Available [facility] 09/04/2024 10:26:09 MMR 6 completed Not Available [facility] 09/04/2024 10:26:09 OPV 6 completed Not Available [facility] 09/04/2024 10:26:09 Td (adult), 2 Lf tetanus toxoid, preservative free, adsorbed 3 completed Not Available [facility] 09/04/2024 10:26:09 Hep B, adolescent or pediatric 3 completed Not Available [facility] 09/04/2024 10:26:09 Hep B, adolescent or pediatric 3 completed Not Available [facility] 09/04/2024 10:26:09 Hep B, adolescent or pediatric 3 completed Not Available [facility] 09/04/2024 10:26:09 HPV, quadrivalent 7 completed Not Available [facility] 09/04/2024 10:26:09 HPV, quadrivalent 7 completed Not Available [facility] 09/04/2024 10:26:09 HPV, quadrivalent 7 completed Not Available [facility] 09/04/2024 10:26:09 Influenza, split virus, quadrivalent, PF 8 completed Not Available [facility] 09/04/2024 10:26:09 Hep A, adult 9 completed Not Available [facility] 09/04/2024 10:26:09 COVID-19, mRNA, LNP-S, PF, 100 mcg/0.5mL dose or 50 mcg/0.25mL dose 1 completed Not Available [facility] 09/04/2024 10:26:09 COVID-19, mRNA, LNP-S, PF, 100 mcg/0.5mL dose or 50 mcg/0.25mL dose 1 completed Not Available [facility] 09/04/2024 10:26:09 Influenza, split virus, quadrivalent, PF 1 completed Not Available [facility] 09/04/2024 10:26:09 Past Encounters Encounter ID Performer Location Encounter Start Date Encounter Closed Date Diagnosis/Indication Diagnosis SNOMED-CT Code Diagnosis ICD10 Code Diagnosis Note [id number] ANGELIC Valdes [address] [address] 07/16/2024 13:51:14 07/16/2024 14:40:10 Gastroesophageal reflux disease without esophagitis 913954648 K21.9 Moderate m ajor depression, single episode 72486383 F32.1 Essential hypertension 78267629 I10 Body mass index 40+ - severely obese 507743466 Z68.42 [id number] ANGELIC Valdes [address] [address] 08/03/2024 13:01:45 08/03/2024 13:27:28 Morbid obesity 855643876 E66.01 log calories X 1 month Moderate m ajor depression, single episode 74204963 F32.1 [id number] ANGELIC Valdes [address] [address] 08/24/2024 10:38:03 08/24/2024 11:16:15 Multiple nodules of lung 049924091 R91.8 Reviewed ER records from [facility] ER - nodules bilateral lung bases on CT abd/pelvis Patient is a smoker, with family history of lung cancerWill obtain dedicated CT chest Tobacco de pendence syndrome 68921320 F17.200 test positive 738898290 Z32.01 Several positive tests per patient report with history of tubal ligation - refer to BUS INFO CONSULTANT to discuss possible causes for HCG [id number] Chon Olmstead CNM [facility] [address] [place] [address],[place] [address] 09/04/2024 10:21:36 09/04/2024 11:12:41 Irregular periods 88305952 N92.6 Will call pt with results Health Concerns Section Related Observation LastModified by Organization Detai ls LastModified Time None Recorded Concern Status LastModified by Organization Details LastModified Time None Recorded Advance Directives Directive N: Payers Insurance Date Sequence Insurance Name Policy Number Policy Springer Covered Member ID Springer Member ID Guarantor Name 09/01/2024 1 [facility] (MEDICAID HMO) Kya Merrill [id number] Kya Merrill Notes Date Note Type Note Provider Name and Address Organization Details Recorded Time 07/16/2024 text/html Patient presents to establish care at [facility].History HTN, depression, GERD. Needs to restart meds. ANGELIC Valdes [address] [place], [address], [employer] 07/16/2024 16:28:11 08/03/2024 text/html Patient presents for followup. She recently restarted Vraylar and Wellbutrin. States they are working fine when she remembers to take them.She would like to discuss options for weight loss. ANGELIC Valdes [address] [place], [address], [employer] 08/03/2024 15:56:20 08/24/2024 text/html Patient presents for ER followup.Was seen earlier in the week after having 5 home positive tests, then having pelvic pain. She had a tubal ligation 5 years ago. States that she had a positive home test in February as well, then had vaginal bleeding, and a negative. She had a transvaginal US and CT abd/pelvis in ER. Confirmed no but also not a clear cause for pelvic pain. Nodules were noted in lung bases on CT. This is concerning because father from lung cancer. Mother recently diagnosed with bladder cancer. She does smoke. ANGELIC Valdes [address] [place], [address], [employer] 08/24/2024 15:31:35 09/04/2024 text/html pt here today wi th [...] like to be .UTD on pap Chon Olmstead CNM [address] [place], [address], [employer] 09/04/2024 11:14:59 OBGyn Episode No OBEpisode recorded.
--- OUTSIDE RECORDS SUMMARY | 2024-09-05 15:07 | XMS_ITS | Clinical Summary ---
Author Organization Healthcare Address [address] [place] [address] Care Team Providers Care Pattern And Chain Maker Name Role Phone Epi Ugo Myla DO Primary Care Provider [phone] Allergies Active Allergy Reactions Criticality Noted Date [...] Date Last Done Comments [facility]-Depression Screening 1991 [facility]-Infant/Child/Adol SDOH Screenings 1991 [facility]-Varicella Vaccines (1 of 2 - 13+ 2-dose series) 07/19/2004 [facility]- SDOH Screenings 07/19/2009 [facility]-Adult SDOH Screenings 07/19/2009 [facility]-Pap Smear 07/19/2012 [facility]-Cervical Cancer Screening 07/19/2021 [facility]-HPV/Cotest 07/19/2021 [id number] Vaccine (3 - 2023- season) 2023 10/23/2020, 03/21/2020 [facility]-Influenza Vaccine (#1) 10/29/202412/04, 03/06/2020, 12/13/2017, Additional history exists [facility]-DTaP,Tdap,and Td [...] Insurance [employer] Care Teams Pattern And Chain Maker Relationship Specialty Start Date End Date Ugo Chowdary DO [address] [place] [id number] PCP - General 07/11/20
--- OUTSIDE RECORDS SUMMARY | 2024-09-05 15:07 | XMS_ITS | Data Portability ---
Author Organization [facility] Address [address] [place] [address] Assessment Encounter Date Assessment Date Assessment LastModified by Organization Details LastModified Time 02/15/2022 02/15/2022 Patient is a 31 year old female referred by [facility] for chronic pain management. The patient [...] informed the patient that the goal of [facility] will be to incorporate a multi-modal [...] if she decides to pursue interventional treatment. [email or web address] Not available 02/17/2022 07:36:14 Plan of Treatment [...] blood by Pulse oximetry Heart rate Systolic And Diastolic Provider Name and Address Organization Details Last Updated DateTime 2 680572. 83 g 42.9 kg/m2 165.1 cm 97.7 [degF] 97 % 97 % 92 /min 126/88 mm[Hg] Radha LORA [facility] [place] 14:10:14 Social History Question Answer Notes LastModified by Organizat ion Details LastModified Time Tobacco Smoking Status Current Every Day Smoker Radha Gracia null, [facility] [place] 02/15/2022 15:38:37 How Much Tobacco Do You Smoke? 0.5 PPD Information not available 02/15/2022 Sex: Unknown Functional Status None recorded. Mental Status None recorded. Family History Relationship Description Onset Age of this Age Resolved Age Notes LastModified by Organization Details LastModified Time Father No current problems or disability [email or web address] Not available 02/15 15:37:56 Mother No current problems or disability [email or web address] Not available 02/15 15:37:56 Medical History Condition Response Anxiety Disorder Y Acid Reflux (GERD) Y Depression Y Hypertension Y Gynecological HistoryNo gynecological history recorded. Obstetrics History GPAL:G 0 P 0 0 0 0 Past Encounters Encounter ID Performer Location Encounter Start Date Encounter Closed Date Diagnosis/Indication Diagnosis SNOMED-CT Code Diagnosis ICD10 Code Diagnosis Note [id number] Nir Peoples MD [facility] is [address] [place] [address] [place] [address] 02/15/2022 12:42:09 02/15/2022 14:14:16 Myofascial pain 862940511 M79.10 Spinal enthesopathy 1031 7009 M46.00 Lumbar spondylosis 10840 0009 M47.816 Marijuana user 636892291 F12.90 Health Concerns Section Related Observation LastModified by Organization Detai ls LastModified Time None Recorded Concern Status LastModified by Organization Details LastModified Time None Recorded Advance Directives Directive None Recorded Payers Insurance Date Sequence Insurance Name Policy Number Policy Springer Covered Member ID Springer Member ID Guarantor Name 07/29/2024 1 [facility] (MEDICAID HMO) Kya Merrill [id number] Kya Merrill Notes Date Note Type Note Provider Name and Address Organization Details Recorded Time 02/16/20 22 text/htm l Patient is a 31 year old female referred by [facility] for chronic pain management. The patient [...] hips.Surgery: NoneImaging/Studies: Lumbar MRI Nir Peoples MD [address] [facility], [place], [address], [facility] [place] [facility] [place] 02/17/2022 14:56:49 OBGyn Episode No OBEpisode recorded.
--- OUTSIDE RECORDS SUMMARY | 2024-09-05 15:07 | XMS_ITS | Continuity of Care Document ---
Author Organization [facility] [employer], [facility] Address [address] [place] [address] Assessment No assessment recorded. Plan of Treatment Reminders Order Date Submit Date Provider Last Modified By Organization Details Last Modified Time Details Appointments FOLLOW UP 30 2024 03:00P Myla Aguilar PA-C Not available Not available Not available FOLLOW UP 15 2024 10:45A Myla Aguilar PA-C Not available Not available Not available Lab None recorded. Referral gynecolog ist referral 2024 025 Nohelia Krishnamurthy III, MD, [address], Nacho Mendez, [place], [address], 08/29/2024 09:06:53 Procedures None recorded. Surgeries None recorded. Imaging CT, chest, w/o contrast [address] ([facility]), [address], [place], [address], 09/04/2024 10:50:35 Medication Orders Chantix Starting Month Box 0.5 mg (11)-1 mg (42) tablets in dose pack 2024 025 [facility], [address] [facility], [place], [address], 09/04/2024 10:36:12 varenicli ne tartrate 0.5 mg (11)-1 mg (42) tablets in a dose pack 2024 0708/2 025 [facility], [address] [facility], [place], [address], 09/04/2024 10:40:08 Patient TargetsNo targets recorded. Patient Instructions Encounter Date Encounter Id Patient Instructions Last Modified By Organization Details Last Modified Time 08/24/2024 [id number] deciding about using medicines to quit smoking Not available 08/24/2024 11:18:06 Quitting Tobacco : Care Instructions [email or web address] Not available 08/24/2024 11:18:05 Reason for Referral Atmospheric Technician Referral for Pr egnancy test positive Referring Physician: Miley Aguilar, Family Medicine, Encounter Date: 08/24/2024 Problems Name Problem SNOMED Code Status Onset Date Resolution Date Notes Provider Name and Address Organization Details Recorded Time Gastroes ophageal reflux disease without esophagi tis 579432703 Active 2024 ANGELIC Valdes [address] [place] [address], [address] , [employer] 15:53:14 Moderate major depressi on, single episode 17261598 Active 2024 ANGELIC Valdes [address] [place] [address], [address] , [employer] 15:53:18 [facility] l hyperten divya 50266229 Active 2024 ANGELIC Valdes [address] [place] [address], [address] , [employer] 15:53:11 Herpes simplex 89428524 Active 2024 ANGELIC Valdes [address] [place] [address], [address] , [employer] 15:53:16 Morbid obesity 311405275 Active 2024 ANGELIC Valdes [address] [place] [address], [address] , [employer] 5 15:53:22 Multiple nodules of lung 689445214 Active 2024 ANGELIC Valdes [address] [place], [address] , [employer] 5 11:15:00 Tobacco dependen ce syndrome 00523764 Active 2024 ANGELIC Valdes [address] [place], [address] , [employer] 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 614496672 Active 2015 Not Available [facility] 21:32:14 Contrace ptive sheath status 437201967 Completed 201510/12/2015 Problem Code: Z30.431; Problem Code Type: ICD-10; Not Available [facility] 21:32:14 Surveill ance of subcutan eous contrace ptive implant Active 2018 Not Available [facility] 21:32:14 Postnata l care provider [id number] Completed 201403/03/2015 Not Available [facility] 21:32:15 Cervical intraepi thelial neoplasi a grade 1 119155520 Completed 201505/23/2015 Problem Code: 622.11; Problem Code Type: ICD-9; Not Available [facility] 21:32:15 Routine antenata l care Active 2014 Problem Code: V22.1; Problem Code Type: ICD-9; Not Available [facility] 21:32:15 Postpart um care Completed 201403/03/2015 Problem Code: V24.2; Problem Code Type: ICD-9; Not Available [facility] 21:32:15 Sampling of vagina for Papanico laou smear Active 2018 Problem Code: Z01.419; Problem Code Type: ICD-10; Not Available [facility] 21:32:16 Uses IUD (intraut erine device) contrace ption 954082228 Completed 201510/12/2015 Problem Code: V25.42; Problem Code Type: ICD-9; Not Available [facility] 21:32:16 Problem Notes None recorded. Procedures Surgical History Date Name Laterality Status Provider Name and Address Organization Details Recorded Time 07/07/19 23 Date of Last Pap Smear completed [employer] 08/03/2024 13:10:43 12/07/19 cholecystectomy completed Not Available [facility] 11/03/2021 22:56:12 Tubal Ligation completed [employer] 07/16/2024 14:20:04 Cardiac Surgery completed [employer] 07/16/2024 14:20:04 Imaging Results None recorded. Procedure Notes None recorded. Medical Equipment None Reported. Allergies Allergen ID Allergen Name Allergen Category Reaction Reaction Severity Criticality Documentation Date Start Date Code Code System Note Provider Name and Address Organization Details Recorded Time 66634 ibuprofen medicatio n nausea Not available Not available 11/03/2021 5640 RxNorm Not Available [facility] 22:57:11 61186 Product containin g penicilli n (product) medicatio n itching nausea rash Not available Not available Not available Not available 07/16/2024 01783 8001 SNOMED [employer]. 14:20:03 34318 amoxicill in medicatio n Not available Not available Not available 07/16/2024 723 RxNorm [employer]. 14:23:14 Medications Name Sig Start Date Stop [...] Organization Details Last Updated DateTime 158.75 cm 48.6 kg/m2 986662. 94 g 97 % 97 % 94 /min 98.3 [degF] 114/82 mm[Hg] Nickykathie Clements [employer] 10:48:31 Social History Question Answer Notes LastModified by Organizat ion Details LastModified Time Tobacco Smoking Status Former Smoker [employer]ESA [employer]OCK[employer] 09/04/2024 10:29:07 Do You Have An Advance [...] Information not available 07/16/2024 What Type Of Candy Separator Enrobing Do You Use? Relative Information not available [...] Or The Highest Degree You Have Received? MI08531-1 Information not available 07/16/2024 Who Is Your [...] When Did You Quit Smoking? 1-5yearssincelast cigarette [email or web address] Information not available 09/04/2024 Are There Any Guns Present In Your Home? No Information not available 07/16/2024 Which Of Your Hands Is Dominant? Right Information not available 07/16/2024 What Is Your Home Situation? Other Information not available 07/16/2024 How Many Years Have You Used Illicit Or Recreational Drugs? 16 Information not available 07/16/2024 Do You Have A Medical Power Of Nurse Outreach Case Manager? No Information not available 07/16/2024 What Was The Date Of Your Most Recent Tobacco Screening? 08/24/2024 Information not available 08/24/2024 Are There Any Occupational Health Risks Where You Work? Na Information not available 07/16/2024 Do You Have Any Pets? No Information not available 07/16/2024 Do You Use Protection During Sex? No Information not available 07/16/2024 What Is Your Relationship Status? [email or web address] Information not available 09/04/2024 Have You Repeated [...] anxious, or unable to sleep at night)? [id number] Information not available 07/16/2024 Do you have [...] Recorded Time DTP 6 completed Not Available [facility] 09/04/2024 10:26:09 MMR 6 completed Not Available [facility] 09/04/2024 10:26:09 OPV 6 completed Not Available [facility] 09/04/2024 10:26:09 Td (adult), 2 Lf tetanus toxoid, preservative free, adsorbed 3 completed Not Available [facility] 09/04/2024 10:26:09 Hep B, adolescent or pediatric 3 completed Not Available [facility] 09/04/2024 10:26:09 Hep B, adolescent or pediatric 3 completed Not Available [facility] 09/04/2024 10:26:09 Hep B, adolescent or pediatric 3 completed Not Available [facility] 09/04/2024 10:26:09 HPV, quadrivalent 7 completed Not Available [facility] 09/04/2024 10:26:09 HPV, quadrivalent 7 completed Not Available [facility] 09/04/2024 10:26:09 HPV, quadrivalent 7 completed Not Available [facility] 09/04/2024 10:26:09 Influenza, split virus, quadrivalent, PF 8 completed Not Available [facility] 09/04/2024 10:26:09 Hep A, adult 9 completed Not Available [facility] 09/04/2024 10:26:09 COVID-19, mRNA, LNP-S, PF, 100 mcg/0.5mL dose or 50 mcg/0.25mL dose 1 completed Not Available [facility] 09/04/2024 10:26:09 COVID-19, mRNA, LNP-S, PF, 100 mcg/0.5mL dose or 50 mcg/0.25mL dose 1 completed Not Available [facility] 09/04/2024 10:26:09 Influenza, split virus, quadrivalent, PF 1 completed Not Available [facility] 09/04/2024 10:26:09 Past Encounters Encounter ID Performer Location Encounter Start Date Encounter Closed Date Diagnosis/Indication Diagnosis SNOMED-CT Code Diagnosis ICD10 Code Diagnosis Note [id number] ANGELIC Valdes [facility] [address] [place] [address] 08/03/2024 13:01:45 08/03/2024 13:27:28 Morbid obesity 703957290 E66.01 log calories X 1 month Moderate m ajor depression, single episode 69672886 F32.1 [id number] ANGELIC Valdes [facility] [address] [place] [address] 08/24/2024 10:38:03 08/24/2024 11:16:15 Multiple nodules of lung 127430430 R91.8 Reviewed ER records from [facility] ER - nodules bilateral lung bases on CT abd/pelvis Patient is a smoker, with family history of lung cancerWill obtain dedicated CT chest Tobacco de pendence syndrome 59961586 F17.200 test positive 257725008 Z32.01 Several positive tests per patient report with history of tubal ligation - refer to ADDING MACHINE MECHANIC to discuss possible causes for HCG Health Concerns Section Related Observation LastModified by Organization Detai ls LastModified Time None Recorded Concern Status LastModified by Organization Details LastModified Time None Recorded Payers Encounter Date Sequence Insurance Name Policy Number Policy Springer Covered Member ID Springer Member ID Guarantor Name 08/24/2024 1 AENA [facility] (MEDICAID HMO) Kya Merrill [id number] Kya Merrill Notes Date Note Type Note Provider Name and Address Organization Details Recorded Time 08/24/2024 text/html Patient presents for ER followup.Was [...] bladder cancer. She does smoke. ANGELIC Valdes [address] [place] [address], [phone], [facility] [employer] 08/24/2024 15:31:35 OBGyn Episode No OBEpisode recorded.
== END 2024-09-05 23:59 | disposition home or self-care (01) ==
LOC: RAD 15:04
PROVIDERS: PCP Physician Assistant; Visit Provider Physician Assistant
DX: R91.8 Other nonspecific abnormal finding of lung field (principal)
CPT/HCPCS: 71250

== ENCOUNTER 2025-02-10 09:50 | Outpatient (CLI) | payer OTHER, SELFPAY ==
--- OUTSIDE RECORDS SUMMARY | 2025-02-12 10:15 | XMS_ITS | Clinical Summary ---
Author Organization Healthcare Address [address] [place] [address] Care Team Providers Care Building Energy Consultant Name Role Phone Epi Ugo Myla DO Primary Care Provider [phone] Allergies Active Allergy Reactions Criticality Noted Date [...] 07/19/2012 [facility]-Cervical Cancer Screening 07/19/2021 [facility]-HPV/Cotest 07/19/2021 [id number] Vaccine (3 - 2024- season) 2024 10/23/2020, 03/21/2020 [facility]-Influenza Vaccine (#1) 10/29/202412/04, 03/06/2020, [...] Insurance [employer] Care Teams Building Energy Consultant Relationship Specialty Start Date End Date Ugo Chowdary DO [address] [place] [id number] PCP - General 07/11/20
== END 2025-02-10 23:59 | disposition home or self-care (01) ==
LOC: LAB.DROPOF 02-12 09:50
PROVIDERS: PCP Physician Assistant; Visit Provider Student in an Organized Health Care Education/Training Program
DX: M54.9 Dorsalgia, unspecified (principal)
CPT/HCPCS: 87086